=== PATIENT | female | born 1950 | race Caucasian/White ===

== ENCOUNTER 2020-09-03 09:54 | Outpatient (CLI) | payer MEDICARE, SELFPAY ==
--- NOTE | 2020-09-03 10:06 | CT_ITS ---
WS: [id number] LDCT LUNG CANCER SCREENING TECHNIQUE: Noncontrast CT of the chest with coronal and sagittal reformatted images. CLINICAL INFORMATION: NICOTINE DEPENDENCE, CIGARETTES COMPARISON: None. DLP: 56.56 mGy.cm DIvol: 1.[address] scans at [facility] use at least one of these dose optimization techniques: automat ed exposure control; mA and/or kV adjustment per patient size (includes targeted exams where dose is matched to clinical indication); or iterative reconstruction. FINDINGS: No suspicious pulmonary parenchymal normalities. Lungs are well aerated. Subsegmental atelectasis in the right middle lobe and both lower lobes. No me diastinal or hilar lymphadenopathy. Vascular calcification including coronary. Ectatic tortuous desce nding thoracic aorta measuring approximately 3.6 x 4.8 cm AP by transverse. THIS CAN BE FURTHER EVALU ATED WITH CTA. Prior vertebroplasty changes at L1. CT/CT lung screening [id number] IMPRESSION: LUNG-RADS: 2-Benign Appearance or Behavior FOLLOW UP: 12 Month: Continue annual screening with LDCT
== END 2020-09-03 09:55 | disposition home or self-care (01) ==
PROVIDERS: PCP Family Medicine; Visit Provider Family Medicine
DX: Z12.2 Encounter for screening for malignant neoplasm of respiratory organs (principal); F17.210 Nicotine dependence, cigarettes, uncomplicated; J98.11 Atelectasis
CPT/HCPCS: G0297

== ENCOUNTER 2020-10-04 13:39 | Outpatient (CLI) | payer MEDICARE, SELFPAY ==
--- NOTE | 2020-10-04 13:46 | MM_ITS ---
WS: [id number] Exam: [id number] Date/Time of Exam: 10/04/2020 1:51 PM Reason For Exam: SCREENING VIEWS: MLO and CC views both breasts. Comparison made with prior exam of 09/29/2016. Findings: There was no sign of mass, architectural distortion or suspicious calcification in either breast. Sc attered fibroglandular densities MM/[id number] Impression: BI-RADS: 2-Benign FOLLOW-UP: 1 Year Follow-up This mammogram was also analyzed by the Computer Aided Detection System R2 Imag e Mop Worker.
== END 2020-10-04 13:40 | disposition home or self-care (01) ==
LOC: RADSHAW 13:43
PROVIDERS: PCP Family Medicine; Visit Provider Family Medicine
DX: Z12.31 Encounter for screening mammogram for malignant neoplasm of breast (principal)
CPT/HCPCS: 77067

== ENCOUNTER 2021-01-03 10:32 | Inpatient (IN) | payer MEDICARE, SELFPAY ==
[2021-01-03] VITALS (11 sets, daily range): BP systolic 98–129; BP diastolic 63–86; PULSE 80–109; RESP 16–18; TEMP 36.6–36.7; O2SAT 93–100; BMI 25.1
--- NOTE | 2021-01-03 11:23 | XR_ITS ---
WS: [id number] Exam: XR chest 1V portable [id number] Date/Time of Exam: 01/03/2021 11:30 AM Reason For Exam: wheezing Comparison 09/04/2016. The lungs are hyperinflated and clear. Heart size is normal. The mediastinum and osseous thorax are i ntact. XR/XR chest 1V portable [id number] IMPRESSION: 1. No acute cardiopulmonary process noted.
--- NOTE | 2021-01-03 11:28 | ECG_ITS ---
[facility] Test Date: 2021-01-03 Pat Name: Eli Kimball Department: Room: Gender: Female Rn Observation: : 1950 Requested By: Ozzy Varela Order Number: [id number] Copeland MD: Theresa Dexter M.D. Measurements Intervals [place] Rate: 80 P: 74 MD: 176 QRS: 52 QRSD: 89 T: 69 QT: 362 QTc: 418 Interpretive Statements SINUS RHYTHM LOW QRS VOLTAGE IN EXTREMITY LEADS [QRS DEFLECTION < 0.5 mV IN LIMB LEADS] ST ELEVATION, CONSIDER INFERIOR INJURY Compared to ECG 04/01/2015 08:11:09 ST (T wave) deviation now present Myocardial infarct finding now present Sinus tachycardia no longer present Electronically Signed On 01-04-2021 7:21:46 CDT by Theresa Dexter M.D. [id number]
--- NOTE | 2021-01-03 11:33 | W.ED.GENADLT ---
HPI - General Adult General: Chief complaint: General Medical Stated complaint: DEHYDRATION Time Seen by Provider: 01/03/21 11:18 History of Present Illness: HPI narrative: The patient is a 70-year-old female who comes to the ER complaining of dehydration. She says she has been vomiting and having diarrhea for the past 4 days. She says it is liquidy. She says she went to her primary care doctor's office yesterday and had labs drawn which showed that she was dehydrated and they told her to come to the ER today. She is also requesting her urine be tested as her primary wanted it tested. She has chronic COPD and chronic kidney disease which she suffers from and says her shortness of breath is at her baseline normal. Onset (ago): day(s) (4) Associated symptoms: Reports nausea and vomiting; Deny chest pain, confusion, dyspnea, headache(s), rash or palpitations Review of Systems General: Reports: 10 or more systems reviewed and unremarkable except in HPI and below Const: Denies: fatigue Eyes: Denies: change in vision, blurry vision or eye redness ENMT: Denies: throat pain, swelling of lips/tongue, ear or mastoid pain or nasal congestion Card: Denies: chest pain, palpitations, irregular heart rhythm, edema, dyspnea on exertion or orthopnea Resp: Denies: dyspnea, productive cough or non-productive cough GI: Reports: nausea, vomiting and diarrhea; Denies: abdominal pain or GI cramping : Denies: flank pain, difficulty voiding, urinary frequency or urinary urgency Musc: Denies: neck pain, back pain, extremity pain, joint pain, joint redness, limited range of motion or muscle weakness Skin/Breast: Denies: rash, pruritus, erythema, skin pain or skin tenderness Neuro: Denies: headache(s), numbness in extremities, weakness in extremities, sensory changes, difficulty walking, dizziness, confusion or Slurred speech present Psych: Denies: anxiety or depression Endo: Denies: polyuria All/Imm: Denies: urticaria, throat swelling or tongue swelling Physical Exam Const: COMMON NORMALS: no acute distress, average body habitus, patient oriented x3, no limitations, healthy appearing, alert and well nourished GENERAL APPEARANCE: cooperative, comfortable, well kempt and well developed ORIENTATION/CONSCIOUSNESS: Yes awake, Yes oriented to person, Yes oriented to place and Yes oriented to time HENMT: COMMON NORMALS: normocephalic, external ears normal and Normal external nose present HEAD & SCALP: normal to inspection and normocephalic NOSE: Normal external nose present EXTERNAL EAR: Yes external ears normal MOUTH: Normal oral and palatal mucosa present THROAT: posterior oropharynx normal Eye: COMMON NORMALS: Equal, round and reactive pupils present and EOMs intact bilaterally GENERAL EYE: appearance normal, both eyes and all related structures PUPIL: Yes Equal, round and reactive pupils present Neck/C-Spine: COMMON NORMALS: full ROM, no lymphadenopathy, no meningeal signs and no JVD GENERAL: Yes normal visual inspection Lymph: LYMPHATIC: no lymphadenopathy noted Chest: COMMONS NORMALS: normal inspection of the chest and normal palpation of entire chest wall Resp: COMMON NORMALS: normal respiratory effort, No retractions, No use of accessory muscles, clear to auscultation bilaterally and percussion normal EFFORT & INSPECTION: Yes able to speak in complete sentences AUSCULTATION: clear to auscultation bilaterally PERCUSSION: percussion normal Cardio: COMMON NORMALS: no JVD, regular rhythm, S1 normal heart sound present, S2 normal heart sound present and Peripheral pulses 2+ throughout RATE: tachycardic RHYTHM: regular rhythm HEART SOUNDS: S1 normal heart sound present and S2 normal heart sound present PERIPHERAL PULSES: Peripheral pulses 2+ throughout GI: COMMON NORMALS: Normal to inspection, nondistended, normoactive bowel sounds present, Soft to palpation, non-tender and no masses INSPECTION: Yes normal to inspection PALPATION: Yes Soft to palpation : COMMON NORMALS: Yes no CVA tenderness BLADDER/KIDNEY EXAM: Yes no CVA tenderness Back/Pelvis: COMMON NORMALS: no CVA tenderness, thoracic and lumbar spine normal to inspection, no thoracic nor lumbar tenderness and thoraco-lumbar ROM normal Extremity: COMMON NORMALS: normal to inspection, full ROM, capillary refill normal, no joint enlargement and no pedal edema GENERAL: Yes normal exam except as noted Neuro: COMMON NORMALS: patient oriented x3, CN's II-XII intact bilaterally, moves all extremities, no focal motor deficits, no sensory deficits noted and gait normal SENSORIUM/ORIENTATION: Yes alert, Yes oriented to person, Yes oriented to place and Yes oriented to time MENINGEAL SIGNS: Yes no meningeal signs Psych: COMMON NORMALS: mental status grossly normal, Normal thought process present, cooperative, normal affect and speech normal APPEARANCE: Yes well kempt ATTITUDE: Yes calm SPEECH: Yes normal speech THOUGHT PROCESS: Normal thought process present Skin: COMMON NORMALS: no rashes or lesions noted GENERAL SKIN EXAM: no rashes or lesions noted Course Vital Signs: Vital signs: Vital Signs Temperature 98.0 F 01/03/21 20:00 Pulse Rate 94 01/03/21 20:00 Respiratory Rate 18 01/03/21 20:00 Blood Pressure 98/63 01/03/21 20:00 Pulse Oximetry 96 01/03/21 20:00 MDM - General Adult MDM Narrative: Medical decision making narrative: Patient came to the ER generally dehydrated from vomiting and diarrhea for 5 days. She was given IV fluids and noted to have hyperkalemia as well. She had some improvement but does have an acute kidney injury. Her most recent creatinine was over a year ago and was elevated but at a lower level. She likely has chronic kidney disease at baseline and has an acute kidney injury on top of it. She was given Kayexalate for her elevated potassium. Also noted to have a UTI and she was given ceftriaxone. Discussed with Dr. Zambrano who accepts for admission Lab Data: Labs: Lab Results 01/03/21 01/03/21 01/03/21 Range/Units 11:49 11:49 11:49 WBC 6.3 (4.0-10.0) 10^3/ uL RBC 3.56 L (4.1-5.3) 10^6/u L Hgb 8.3 L (11.5-15.3) g/dL Hct 28.4 L (37.0-47.0) % MCV 79.8 L (81-99) fL MCH 23.3 L (28.0-34.0) pg MCHC 29.2 L (30.0-36.0) g/dL RDW 21.0 H (12.1-15.1) % Plt Count 148 (130-400) 10^3/c mm MPV Not Reportable Neut % (Auto) 74.7 % Lymph % (Auto) 15.8 % [place] % (Auto) 5.3 % Eos % (Auto) 2.7 % Baso % (Auto) 1.3 % Neut # (Auto) 4.67 (1.8-7.7) 10^3/u L Lymph # (Auto) 1.0 (0.8-4.8) 10^3/u L [place] # (Auto) 0.3 (0.2-0.9) 10^3/u L Eos # (Auto) 0.2 (0.0-0.8) 10^3/u L Baso # (Auto) 0.1 (0.0-0.1) 10^3/u L Nucleated RBC % (a uto) 0 % Nucleated RBCs # 0.0 /100WBC Sodium 133 L (136-145) mmol/L Potassium 5.5 H (3.5-5.1) mmol/L Chloride 101 (98-107) mmol/L Carbon Dioxide 19 L (22-29) mmol/L Anion Gap 18.5 (5-19) BUN 74 H (8-23) mg/dL Creatinine 3.9 H (0.5-0.9) mg/dL GFR Calculation 11.4 L (90-130) mL/min Glucose 120 H (65-115) mg/dL Calculated Osmolal ity 299 H (285-295) mOsm/k g Lactate 1.3 (0.5-2.2) mmol/L Calcium 9.1 (8.5-10.5) mg/dL Total Bilirubin 0.2 (0.15-1.2) mg/dL AST 8 (0-32) U/L ALT < 5 (0-33) U/L Alkaline Phosphata se 104 (35-105) IU/L Troponin T Baselin e (0-10) ng/L Troponin T 120 Min [place] (0-10) ng/L Delta Troponin T (0-10) ABS# NT-Pro-B Natriuret Pep 241 H (0-125) pg/mL Total Protein 7.0 (6.6-8.7) g/dL Albumin 4.2 (3.5-5.2) g/dL Globulin 2.8 (1.3-4.6) g/dL Lipase 31 (13-60) U/L Urine Color (Yellow) Urine Appearance (CLEAR) Urine pH (5-7) Ur Specific Gravit y (1.005-1.030) Urine Protein (Negative) Urine Glucose (UA) (Normal) Urine Ketones (Negative) Urine Blood (Negative) Urine Nitrate (Negative) Urine Bilirubin (Negative) Urine Urobilinogen (Negative) mg/dL Ur Leukocyte Vania ase (Negative) Urine RBC (0-2) /hpf Urine WBC (0-5) /hpf Ur Squamous Epith Cells (0-5) /hpf Amorphous Sediment Urine Bacteria (NONE) /hpf 01/03/21 01/03/21 01/03/21 Range/Units 11:50 13:21 14:05 WBC (4.0-10.0) 10^3/ uL RBC (4.1-5.3) 10^6/u L Hgb (11.5-15.3) g/dL Hct (37.0-47.0) % MCV (81-99) fL MCH (28.0-34.0) pg MCHC (30.0-36.0) g/dL RDW (12.1-15.1) % Plt Count (130-400) 10^3/c mm MPV Neut % (Auto) % Lymph % (Auto) % [place] % (Auto) % Eos % (Auto) % Baso % (Auto) % Neut # (Auto) (1.8-7.7) 10^3/u L Lymph # (Auto) (0.8-4.8) 10^3/u L [place] # (Auto) (0.2-0.9) 10^3/u L Eos # (Auto) (0.0-0.8) 10^3/u L Baso # (Auto) (0.0-0.1) 10^3/u L Nucleated RBC % (a uto) % Nucleated RBCs # /100WBC Sodium (136-145) mmol/L Potassium (3.5-5.1) mmol/L Chloride (98-107) mmol/L Carbon Dioxide (22-29) mmol/L Anion Gap (5-19) BUN (8-23) mg/dL Creatinine (0.5-0.9) mg/dL GFR Calculation (90-130) mL/min Glucose (65-115) mg/dL Calculated Osmolal ity (285-295) mOsm/k g Lactate (0.5-2.2) mmol/L Calcium (8.5-10.5) mg/dL Total Bilirubin (0.15-1.2) mg/dL AST (0-32) U/L ALT (0-33) U/L Alkaline Phosphata se (35-105) IU/L Troponin T Baselin e 24 H (0-10) ng/L Troponin T 120 Min [place] 20.24 H (0-10) ng/L Delta Troponin T -3.76 L (0-10) ABS# NT-Pro-B Natriuret Pep (0-125) pg/mL Total Protein (6.6-8.7) g/dL Albumin (3.5-5.2) g/dL Globulin (1.3-4.6) g/dL Lipase (13-60) U/L Urine Color Yellow (Yellow) Urine Appearance Cloudy (CLEAR) Urine pH 5 (5-7) Ur Specific Gravit y 1.015 (1.005-1.030) Urine Protein Neg (Negative) Urine Glucose (UA) Norm (Normal) Urine Ketones Negative (Negative) Urine Blood 2+ H (Negative) Urine Nitrate Negative (Negative) Urine Bilirubin Neg (Negative) Urine Urobilinogen Norm (Negative) mg/dL Ur Leukocyte Vania ase Trace H (Negative) Urine RBC 5-10 H (0-2) /hpf Urine WBC 25-40 H (0-5) /hpf Ur Squamous Epith Cells 0-4 H (0-5) /hpf Amorphous Sediment Not Reportable Urine Bacteria 2+ H (NONE) /hpf Discharge Plan Discharge Patient Disposition: Admitted As Inpatient Admit Provider: Oscar Zambrano Clinical Impression: Acute gastroenteritis, Severe dehydration, Acute kidney injury superimposed on chronic kidney disease, Hyperkalemia, UTI (urinary tract infection) Condition: Stable Coding Level of Care Code 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
[2021-01-03 11:59] LABS: Basophils # 0.1 10^3/uL (0.0-0.1); Basophils % 1.3 %; Eosinophils # 0.2 10^3/uL (0.0-0.8); Eosinophils % 2.7 %; Hematocrit 28.4 % (37.0-47.0); Hemoglobin 8.3 g/dL (11.5-15.3); Lymphocytes % 15.8 %; Mean Corpuscular HGB Conc 29.2 g/dL (30.0-36.0); Mean Corpuscular Hemoglobin 23.3 pg (28.0-34.0); Mean Corpuscular Volume 79.8 fL (81-99); Monocytes # 0.3 10^3/uL (0.2-0.9); Monocytes % 5.3 %; Neutrophils # 4.67 10^3/uL (1.8-7.7); Neutrophils % 74.7 %; Nucleated Red Blood Cells % 0 %; Platelet Count 148 10^3/cmm (130-400); Red Blood Count 3.56 10^6/uL (4.1-5.3); White Blood Count 6.3 10^3/uL (4.0-10.0)
[2021-01-03] MEDS: sodium chloride 0.9% 1,000 ML 999 ML IV (12:10)
[2021-01-03] MEDS: ondansetron 2 mg/ML SDV 2 mL 4 MG IVP (12:11)
[2021-01-03 12:16] LABS: Lactate (Lactic Acid level) 1.3 mmol/L (0.5-2.2)
[2021-01-03 12:23] LABS: Alanine Aminotransferase < 5 U/L (0-33); Albumin Level 4.2 g/dL (3.5-5.2); Alkaline Phosphatase 104 IU/L (35-105); Anion Gap 18.5 (5-19); Aspartate Amino Transferase 8 U/L (0-32); Blood Urea Nitrogen 74 mg/dL (8-23); Calcium 9.1 mg/dL (8.5-10.5); Carbon Dioxide 19 mmol/L (22-29); Chloride 101 mmol/L (98-107); Globulin 2.8 g/dL (1.3-4.6); Glomerular Filtration Rate 11.4 mL/min (90-130); Glucose 120 mg/dL (65-115); Lipase 31 U/L (13-60); NT Pro B Type Natriuretic Pept 241 pg/mL (0-125); Osmolality Calculated 299 mOsm/kg (285-295); Potassium 5.5 mmol/L (3.5-5.1); Sodium 133 mmol/L (136-145); Total Bilirubin 0.2 mg/dL (0.15-1.2)
[2021-01-03 13:08] LABS: Slide Review Slide Review Perform
--- NOTE | 2021-01-03 13:35 | PC.NURSE ---
pt suffers from chronic back pain and did not request any interventions other than position changes to relieve pain
--- NOTE | 2021-01-03 13:36 | ECG_ITS ---
[facility] Test Date: 2021-01-03 Pat Name: Eli Kimball Department: Room: Gender: Female Communications Technologist: : 1950 Requested By: Ozzy Varela Order Number: [id number] Copeland MD: Theresa Dexter M.D. Measurements Intervals [place] Rate: 89 P: 64 CA: 196 QRS: 51 QRSD: 79 T: 66 QT: 340 QTc: 415 Interpretive Statements SINUS RHYTHM LOW QRS VOLTAGE [QRS DEFLECTION < 0.5/1.0 mV IN LIMB/CHEST LEADS] MARKED ST ELEVATION, CONSIDER INFERIOR INJURY Compared to ECG 01/03/2021 12:15:13 No significant changes Electronically Signed On 01-04-2021 7:19:03 CDT by Theresa Dexter M.D. [id number]
[2021-01-03 13:56] LABS: Troponin(5th) Baseline 24 ng/L (0-10)
[2021-01-03 13:57] LABS: Add Urine Microscopic? YES; Bilirubin Urine Neg (Negative); Blood Urine 2+ (Negative); Glucose Urine UA Norm (Normal); Ketones Urine Negative (Negative); Leukocyte Esterase Urine Trace (Negative); Nitrate Urine Negative (Negative); Protein Urine Neg (Negative); Specific Gravity, Urine 1.015 (1.005-1.030); Urine Appearance Cloudy (CLEAR); Urine Color Yellow (Yellow); Urobilinogen Urine Norm (Negative); pH Urine 5 (5-7)
[2021-01-03 14:10] LABS: Add Urine Culture? Yes; Bacteria Urine 2+ /hpf; Squamous Epithelial Cell Urine 0-4 /hpf (0-5); WBC Urine 25-40 /hpf (0-5)
[2021-01-03 14:28] LABS: Troponin 5 2HR 20.24 ng/L (0-10)
[2021-01-03 14:29] LABS: Troponin 5 2HR Delta -3.76 ABS# (0-10)
[2021-01-03] MEDS: cefTRIAXone 1,000 MG in sodium chloride 0.9% (plus) 50 ML 100 MG IV (14:59)
[2021-01-03] MEDS: sodium polystyrene sulfonate 15 gm/60 mL Btl PO (15:00)
--- NOTE | 2021-01-03 15:36 | ECG_ITS ---
[facility] ED Test Date: 2021-01-03 Pat Name: Eli Kimball Department: Room: 253 Gender: Female Chemical Supervisor: : 1950 Requested By: Ozzy Varela Order Number: [id number] Dinorah MD: Theresa Dexter M.D. Measurements Intervals [place] Rate: 84 P: 71 UT: 199 QRS: 53 QRSD: 78 T: 68 QT: 350 QTc: 414 Interpretive Statements SINUS RHYTHM LOW QRS VOLTAGE [QRS DEFLECTION < 0.5/1.0 mV IN LIMB/CHEST LEADS] MARKED ST ELEVATION, CONSIDER INFERIOR INJURY [MARKED ST ELEVATION W/O NORMALLY INFLECTED T WAVE IN II/aVF] Compared to ECG 01/03/2021 14:13:34 No significant changes Electronically Signed On 01-04-2021 7:41:36 CDT by Theresa Dexter M.D. [id number]
--- NOTE | 2021-01-03 16:19 | P.HP_ITS ---
Providers/Chief Complaint Admitting Physician: Oscar Zambrano MD Primary Care Provider: Bhupinder Logan MD Chief Complaint: DEHYDRATION History of Present Illness Eli Kimball is a 70 year old female with past medical history of hypertension, CKD, COPD, chronic smoker, not on home oxygen, GERD , came in with chief complaint of nausea vomiting and diarrhea started about 5 to 6 days back, she is complaining of watery stool, has not noticed any blood, denies any sick contact, recent antibiotic use, any abnormal food, deny fever, cough, chest pain shortness of breath, urinary complaint. Upon arrival in the ER she was worked up for above-mentioned, complaint. CBC : WBC : 3.3, h/h : 8.3, 28.4 , BMP: Serum sodium: 133, serum potassium: 5.5 , BUN : 74, SCR : 3.9 , troponin: Unremarkable, proBNP: 241, Urinalysis: Trace leukocyte Esterase, urine WBC: 25-40 , Imaging study: X-ray chest: No acute cardiopulmonary process noted. EKG: SINUS RHYTHM, LOW QRS VOLTAGE. ECA Medications : Ceftriaxone 1 g IV one-time dose, Kayexalate: 15 gm po once, she was started on IV hydration. Review of Systems Const: Denies: fever(s), chills, body aches or diaphoresis Card: Reports: swelling of feet/ankles and dyspnea on exertion; Denies: palpitations, edema, orthopnea or leg pain with exertion Resp: Denies: dyspnea, productive cough, wheezing or pain on inspiration Musc: Denies: back pain, extremity pain or extremity swelling Neuro: Denies: headache(s), difficulty walking or confusion Medications/Allergies Home Medications Medication Instructions Recorded Confirmed Last Taken Type albuterol sulfate [Ventolin HFA] 1 - 2 inh INHALATION Q4H PRN 01/03/21 01/03/21 Unknown History clopidogrel 75 mg PO DAILY@1800 01/03/21 01/03/21 01/02/21 History desvenlafaxine succinate 50 mg PO DAILY@1800 01/03/21 01/03/21 01/02/21 History gabapentin 600 mg PO TID 01/03/21 01/03/21 01/03/21 History hydrochlorothiazide 25 mg PO DAILY@1800 01/03/21 01/03/21 01/02/21 History irbesartan 300 mg PO DAILY@1800 01/03/21 01/03/21 01/02/21 History omeprazole 20 mg PO DAILY@1800 01/03/21 01/03/21 01/02/21 History ondansetron 4 mg PO TID PRN 01/03/21 01/03/21 Unknown History potassium chloride 20 meq PO DAILY@1800 01/03/21 01/03/21 01/02/21 History prazosin 1 mg PO BEDTIME@1800 01/03/21 01/03/21 01/02/21 History rosuvastatin 20 mg PO DAILY@1800 01/03/21 01/03/21 01/02/21 History suvorexant [Belsomra] 10 mg PO DAILY@1800 01/03/21 01/03/21 01/02/21 History Allergies Allergy/AdvReac Type Severity Reaction Status Date / Time No Known Allergies Allergy Verified 01/03/21 10:50 Vitals/I&O/Wt Last Vital Signs Temp 98.1 F 01/03/21 10:51 Pulse 93 01/03/21 15:44 Resp 18 01/03/21 15:44 BP 117/82 01/03/21 15:44 Pulse Ox 100 01/03/21 15:44 01/03/21 01/03/21 01/03/21 06:59 14:59 22:59 Intake Total 1050 / 1050 Balance 1050 / 1050 Weight last 48 hrs Weight 68.492 kg Physical Exam Const: COMMON NORMALS: patient oriented x3 HENMT: COMMON NORMALS: normocephalic and atraumatic HEAD & SCALP: normocephalic and atraumatic Chest: CHEST: Yes Symmetrical chest wall rise Resp: COMMON NORMALS: clear to auscultation bilaterally EFFORT & INSPECTION: Yes symmetric chest movement AUSCULTATION: clear to auscultation bilaterally Cardio: COMMON NORMALS: regular rate, regular rhythm, S1 normal heart sound present, S2 normal heart sound present, No gallops present (Cardio), No murmurs present (Cardio), No rub (Cardio) and Peripheral pulses 2+ throughout RATE: regular rate RHYTHM: regular rhythm HEART SOUNDS: S1 normal heart sound present and S2 normal heart sound present PERIPHERAL PULSES: Peripheral pulses 2+ throughout GI: COMMON NORMALS: Normal to inspection, nondistended, normoactive bowel sounds present RECTAL EXAM: deferred OTHER: Mild epigastric tenderness present, no guarding no rigidity no rebound tenderness Extremity: COMMON NORMALS: no clubbing, cyanosis or edema and no pedal edema Neuro: COMMON NORMALS: patient oriented x3 Data : 01/04/21 04:55 01/04/21 04:55 A&P Assessment and plan (1) Acute gastroenteritis: Continue IV hydration,Zofran, encourage p.o. intake. Status: Acute (2) Severe dehydration: Plan is 1 Status: Acute (3) Acute kidney injury superimposed on chronic kidney disease: ALIYAH on worsening CKD stage III likely prerenal secondary to severe dehydration Random urine sodium Random urine creatinine Random urine protein Renal ultrasound IV hydration with normal saline at 75 cc an hour. Monitor BMP Avoid nephrotoxic's Renal consult Status: Acute (4) Hyperkalemia: Admission serum potassium is 5.5. No marked EKG Changes Has received Kayexalate in the ER. Monitor BMP Status: Acute (5) Microcytic anemia: Anemia panel. Monitor CBC Status: Acute (6) UTI (urinary tract infection): Ceftriaxone 1 gm every 24 hours daily. Status: Acute Attestations Medical Necessity Statement*: Patient needs to be in hospital for management of acute gastroenteritis, UTI , severe dehydration. Anticipated length of stay greater than 2 midnights. Coding Level of Care Code Acute Director Of Student Services for [facility] Fwd Exam Detailed Diagnoses Acute gastroenteritis K52.9 Severe dehydration E86.0 Acute kidney injury superimposed on chronic kidney disease N17.9; N18.9 Hyperkalemia E87.5 Microcytic anemia D50.9 UTI (urinary tract infection) N39.0
[2021-01-03] MEDS: famotidine 20 mg/2 mL INJ IVP (17:52)
[2021-01-03] MEDS: clopidogrel 75 mg Tablet PO (17:52)
[2021-01-03] MEDS: sodium chloride 0.9% 1,000 ML 75 ML IV (17:52)
[2021-01-03] MEDS: atorvastatin 40 mg Tablet 80 MG PO (17:53)
[2021-01-03] MEDS: desvenlafaxine 50 mg Tablet PO (17:54)
[2021-01-03 18:47] LABS: Troponin 5 6HR 19.05 ng/L (0-10)
[2021-01-03 18:50] LABS: Troponin 5 6HR Delta -4.95 ng/L (0-12)
--- NOTE | 2021-01-03 19:36 | ECG_ITS ---
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 Measurements Intervals [place] Rate: 89 P: 69 ND: 184 QRS: 7 QRSD: 93 T: 54 QT: 363 QTc: 443 Interpretive Statements SINUS RHYTHM LOW QRS VOLTAGE IN EXTREMITY LEADS [QRS DEFLECTION < 0.5 mV IN LIMB LEADS] Compared to ECG 01/03/2021 16:04:36 ST (T wave) deviation no longer present Myocardial infarct finding no longer present Electronically Signed On 01-13-2021 12:30:10 CDT by Theresa Dexter M.D. [id number]
[2021-01-03] MEDS: acetaminophen 325 mg Tablet 650 MG PO (20:11)
[2021-01-03] MEDS: gabapentin 300 mg Capsule 600 MG PO (20:11)
[2021-01-03] MEDS: zolpidem 5 mg Tablet PO (21:12)
[2021-01-04] VITALS (19 sets, daily range): BP systolic 97–144; BP diastolic 62–85; PULSE 57–91; RESP 16–20; TEMP 36.3–37.1; O2SAT 92–97
[2021-01-04 00:03] LABS: Urine Creatinine 53 mg/dL (28-217); Urine Protein Random 21 mg/dL; Urine Random Sodium 90 mmol/L
[2021-01-04 05:18] LABS: Basophils # 0.1 10^3/uL (0.0-0.1); Eosinophils # 0.2 10^3/uL (0.0-0.8); Eosinophils % 4.5 %; Hematocrit 23.6 % (37.0-47.0); Lymphocytes # 1.5 10^3/uL (0.8-4.8); Lymphocytes % 28.7 %; Mean Corpuscular HGB Conc 29.7 g/dL (30.0-36.0); Mean Corpuscular Hemoglobin 23.4 pg (28.0-34.0); Mean Corpuscular Volume 78.9 fL (81-99); Mean Platelet Volume 12.3 fL (7.4-10.4); Monocytes # 0.4 10^3/uL (0.2-0.9); Monocytes % 7.2 %; Neutrophils # 3.01 10^3/uL (1.8-7.7); Neutrophils % 58.4 %; Nucleated Red Blood Cells % 0 %; Platelet Count 138 10^3/cmm (130-400); Red Blood Count 2.99 10^6/uL (4.1-5.3); Red Cell Distribution Width 20.9 % (12.1-15.1); White Blood Count 5.2 10^3/uL (4.0-10.0)
[2021-01-04] MEDS: heparin 5,000 unit/mL INJ 1 mL 5000 UNIT SUBCUT (05:37)
[2021-01-04 05:43] LABS: Ferritin 19 ng/mL (15-150); Iron 22 ug/dL (37-145); Percent Saturation 8.5 % (20-50); Total Iron Binding Capacity 258 mcg/dl; Transferrin 235 mg/dL (200-360); Unsaturated Iron Binding 236 ug/dL (112-347)
[2021-01-04 05:45] LABS: Anion Gap 15.4 (5-19); Blood Urea Nitrogen 65 mg/dL (8-23); Calcium 8.4 mg/dL (8.5-10.5); Carbon Dioxide 20 mmol/L (22-29); Chloride 106 mmol/L (98-107); Glucose 88 mg/dL (65-115); Osmolality Calculated 302 mOsm/kg (285-295); Potassium 4.4 mmol/L (3.5-5.1); Sodium 137 mmol/L (136-145)
[2021-01-04] MEDS: sodium chloride 0.9% 1,000 ML 75 ML IV (05:45)
[2021-01-04 05:55] LABS: Vitamin B12 661 pg/mL (232-1245)
[2021-01-04 05:58] LABS: Folate Level 6.1 ng/mL (4.8-37.3)
[2021-01-04] MEDS: pantoprazole DR 40 mg Tablet PO (08:56)
[2021-01-04] MEDS: gabapentin 300 mg Capsule 600 MG PO ×3 (08:56→20:48)
[2021-01-04] MEDS: oxyCODONE-APAP 5-325 mg Tablet PO ×2 (09:20→14:51)
[2021-01-04] MEDS: iron sucrose 200 MG in sodium chloride 0.9% (100 ml) 100 ML 220 MG IV (09:20)
[2021-01-04] MEDS: ondansetron 2 mg/ML SDV 2 mL 4 MG IVP (13:34)
[2021-01-04 14:20] LABS: Basophils % 0.8 %; Eosinophils # 0.2 10^3/uL (0.0-0.8); Eosinophils % 3.7 %; Hematocrit 22.8 % (37.0-47.0); Hemoglobin 6.8 g/dL (11.5-15.3); Lymphocytes % 19.5 %; Mean Corpuscular HGB Conc 29.8 g/dL (30.0-36.0); Mean Corpuscular Hemoglobin 23.7 pg (28.0-34.0); Mean Corpuscular Volume 79.4 fL (81-99); Mean Platelet Volume 11.5 fL (7.4-10.4); Monocytes # 0.3 10^3/uL (0.2-0.9); Monocytes % 5.5 %; Neutrophils # 3.61 10^3/uL (1.8-7.7); Neutrophils % 70.3 %; Nucleated Red Blood Cells % 0 %; Platelet Count 131 10^3/cmm (130-400); Red Blood Count 2.87 10^6/uL (4.1-5.3); Red Cell Distribution Width 20.8 % (12.1-15.1); White Blood Count 5.1 10^3/uL (4.0-10.0)
[2021-01-04 14:38] LABS: Anion Gap 13.5 (5-19); Blood Urea Nitrogen 52 mg/dL (8-23); Carbon Dioxide 20 mmol/L (22-29); Chloride 106 mmol/L (98-107); Glucose 113 mg/dL (65-115); Osmolality Calculated 295 mOsm/kg (285-295); Potassium 4.5 mmol/L (3.5-5.1); Sodium 135 mmol/L (136-145)
[2021-01-04 15:03] LABS: Slide Review Slide Review Perform
--- NOTE | 2021-01-04 15:14 | PM.PN ---
Subjective Subjective: Interval history: Patient had one episode of vomiting this morning.Serum creatinine and BUN is improving. Hemoglobin has dropped today, repeat CBC done in the afternoon, has shown hemoglobin of 6.8, patient currently denies any dark stool, bright red blood per rectum, current plan is to transfuse 1 unit. Vitals/I&O/Wt Last Vital Signs Temp 97.6 F 01/04/21 11:51 Pulse 57 L 01/04/21 11:51 Resp 16 01/04/21 14:51 BP 110/63 01/04/21 11:51 Pulse Ox 97 01/04/21 11:51 01/04/21 01/04/21 01/04/21 06:59 14:59 22:59 Intake Total 1240 / 2690 1070 / 1070 Output Total 400 / 400 300 / 300 Balance 840 / 2290 770 / 770 Weight last 48 hrs Weight 68.492 kg Physical Exam Const: COMMON NORMALS: patient oriented x3 HENMT: COMMON NORMALS: normocephalic and atraumatic HEAD & SCALP: normocephalic and atraumatic Chest: CHEST: Yes Symmetrical chest wall rise Resp: COMMON NORMALS: clear to auscultation bilaterally EFFORT & INSPECTION: Yes symmetric chest movement AUSCULTATION: clear to auscultation bilaterally Cardio: COMMON NORMALS: regular rate, regular rhythm, S1 normal heart sound present, S2 normal heart sound present, No gallops present (Cardio), No murmurs present (Cardio), No rub (Cardio) and Peripheral pulses 2+ throughout RATE: regular rate RHYTHM: regular rhythm HEART SOUNDS: S1 normal heart sound present and S2 normal heart sound present PERIPHERAL PULSES: Peripheral pulses 2+ throughout GI: COMMON NORMALS: Normal to inspection, nondistended, normoactive bowel sounds present and Soft to palpation PALPATION: Yes Soft to palpation RECTAL EXAM: deferred Extremity: COMMON NORMALS: no clubbing, cyanosis or edema and no pedal edema Neuro: COMMON NORMALS: patient oriented x3 Data : 01/04/21 14:10 01/04/21 14:10 Micro: Microbiology 01/03/21 13:21 Urine Culture - Preliminary Urine,Clean Catch Gram Negative Rods A&P Assessment and plan (1) Acute gastroenteritis: Continue IV hydration,Zofran, encourage p.o. intake. Status: Acute (2) Severe dehydration: Plan is 1 Status: Acute (3) Acute kidney injury superimposed on chronic kidney disease: ALIYAH on worsening CKD stage III likely prerenal secondary to severe dehydration Random urine sodium Random urine creatinine Random urine protein Renal ultrasound IV hydration with normal saline at 75 cc an hour. Monitor BMP Avoid nephrotoxic's Renal consult Status: Acute (4) Hyperkalemia: Admission serum potassium is 5.5. No marked EKG Changes Has received Kayexalate in the ER. Monitor BMP Status: Acute (5) Microcytic anemia: Anemia panel. Is consistent with iron deficiency anemia. Started on IV Venofer Hemoglobin has dropped today, repeat CBC done in the afternoon, has shown hemoglobin of 6.8, patient currently denies any dark stool, bright red blood per rectum, hematuria, current plan is to transfuse 1 unit. FOBT Possible EGD Monitor CBC Status: Acute (6) Anginal equivalent: Patient is complaining of chest tightness, as well as worsening shortness of breath with exertion, going on for some time. Troponin: On admission has been without any significant delta. EKG: Initial EKG on admission was suggestive ST (T wave) deviation. Most recent EKG has shown resolution of ST-T wave deviation. We will start patient on IMDUR 30 MG PO Daily 2 D echo: Possible stress test Status: Acute (7) UTI (urinary tract infection): Ceftriaxone 1 gm every 24 hours daily. Status: Acute Attestations Medical Necessity Statement*: Patient needs to be in hospital for management of above defined problemS Coding Level of Care Code Acute [place] [facility] for [facility] Fwd Diagnoses Acute gastroenteritis K52.9 Severe dehydration E86.0 Acute kidney injury superimposed on chronic kidney disease N17.9; N18.9 Hyperkalemia E87.5 Microcytic anemia D50.9 Anginal equivalent I20.8 UTI (urinary tract infection) N39.0
[2021-01-04] MEDS: cefTRIAXone 1,000 MG in sodium chloride 0.9% (plus) 50 ML 100 MG IV (15:16)
[2021-01-04] MEDS: acetylcysteine 200 mg/mL SDV 4 mL 100 MG INHALATION (15:40)
[2021-01-04] MEDS: ipratropium-albuterol 3 mL Neb INHALATION (15:40)
--- NOTE | 2021-01-04 16:18 | US_ITS ---
WS: [id number] RENAL ULTRASOUND HISTORY: ALIYAH ON CKD COMPARISON: None available. TECHNIQUE: 2-D and color Doppler imaging of the kidney submitted. Right kidney: 9.0 cm x 3.9 cm x 5.6 cm. Marked increased echogenicity and poor cortical medullary differentiation. There are small cortical c ysts scattered throughout the kidney. Largest cysts measure approximately 1.7 cm. No hydronephrosis o r solid mass. Left kidney: 9.9 cm x 4.0 cm x 4.0 cm. Mild atrophy with increased echogenicity. No significant cortical thinning. Acquired cortical cyst in the inferior pole measures 1.3 cm at its maximum. Aorta: Mild atherosclerosis. Urinary Bladder: Normal distention. US/US renal BI* [id number] IMPRESSION: 1. Bilateral renal atrophy with moderate to severe chronic medical renal disea se, greatest on the RIGHT. 2. Bilateral acquired small renal cyst.
--- NOTE | 2021-01-04 18:07 | USCV_ITS ---
Eli Kimball Age: 70 Gender: F : 1950 Exam Date: 01/04/2021 06:14 Ordering Phys: Oscar Zambrano MD Technologist: Prema Sanchez Exam Location: [facility] [place] [facility] [place] Indication: SOB, CP BP: 106 / 75 HR: 78 Rhythm: Sinus Technical Quality: Adequate MEASUREMENTS (Male / Female) Normal Values 2D ECHO LV Diastolic Diameter PLAX 3.6 cm 4.2 - 5.9 / 3.9 - 5.3 cm LV Systolic Diameter PLAX 2.7 cm IVS Diastolic Thickness 1.1 cm 0.6 - 1.0 / 0.6 - 0.9 cm IVS Systolic Thickness 1.8 cm LVPW Diastolic Thickness 1.3 cm 0.6 - 1.0 / 0.6 - 0.9 cm LVPW Systolic Thickness 1.4 cm LVOT Diameter 2.0 cm LV Ejection Fraction 2D Teich 49.5 % LV Ejection Fraction MOD 2C 65.2 % LV Ejection Fraction 2C AL 63.6 % LA Diameter 2.6 cm LA Width 3.4 cm LA Height 3.8 cm RA Width 3.0 cm RA Height 3.9 cm Aorta at Sinotubular Diameter 2.6 cm M-MODE LV Diastolic Diameter MM 4.6 cm 4.2 - 5.9 / 3.9 - 5.3 cm LV Systolic Diameter MM 3.2 cm LV Ejection Fraction MM Teich 59.0 % IVS Diastolic Thickness MM 1.4 cm 0.6 - 1.0 / 0.6 - 0.9 cm IVS Systolic Thickness MM 1.7 cm LVPW Diastolic Thickness MM 1.2 cm 0.6 - 1.0 / 0.6 - 0.9 cm LVPW Systolic Thickness MM 1.9 cm Aortic Annulus Diameter 2.8 cm LA Ao Ratio MM 0.8 MV E Point Septal Separation 0.5 cm DOPPLER AV Peak Velocity 142.0 cm/s LVOT Peak Velocity 117.0 cm/s AV Area Cont Eq vti 2.7 cm squared AV Area Cont Eq pk 2.7 cm squared MV Area PHT 3.7 cm squared Mitral E to A Ratio 0.8 MV E' Velocity 44.0 cm/s Mitral E to MV E' Ratio 6.3 Mitral E to LV E' Lateral Ratio 5.6 Mitral E to LV E' Septal Ratio 7.2 TR Peak Velocity 464.3 cm/s TR Peak Gradient 86.2 mmHg TV Peak E Velocity 63.0 cm/s Right Atrial Pressure 3.0 mmHg Pulmonary Artery Systolic Pressu 89.2 mmHg PV Peak Velocity 95.0 cm/s RV Acceleration Time 0.1 s RV Ejection Time 0.3 s RV AcT/ET 0.3 FINDINGS Left Ventricle Normal left ventricular cavity size. Normal left ventricular systolic function. Left ventricular ejection fraction is estimated at 60 %. Grade I/IV diastolic dysfunction (abnormal relaxation filling pattern), normal to mildly elevated filling pressures. Right Ventricle The right ventricle is normal in size and function. RVSP could not be calculated due to incomplete tricuspid regurgitation velocity profile. Right Atrium The right atrium is normal in size. Left Atrium The left atrium is normal in size. Mitral Valve Severely thickened mitral valve. Moderate mitral annular calcification. No mitral valve stenosis. No mitral valve regurgitation. Aortic Valve Moderate aortic valve calcification. No aortic valve stenosis. No aortic valve regurgitation. Tricuspid Valve Structurally normal tricuspid valve without significant stenosis or regurgitation. Pulmonary artery systolic pressure is normal. Pulmonic Valve Structurally normal pulmonic valve without significant stenosis. There is no pulmonic regurgitation. Pericardium Normal pericardium without effusion. Aorta Normal ascending aorta dimension. CONCLUSIONS 1-Normal left ventricular cavity size. Normal left ventricular systolic function. Left ventricular ejection fraction is estimated at 60 %. Grade I/IV diastolic dysfunction (abnormal relaxation filling pattern), normal to mildly elevated filling pressures. 2-Severely thickened mitral valve. Moderate mitral annular calcification. No mitral valve stenosis. No mitral valve regurgitation. 3-Moderate aortic valve calcification. No aortic valve stenosis. No aortic valve regurgitation. 4-There is no pericardial effusion. 5-The right ventricle is normal in size and function. RVSP could not be calculated due to incomplete tricuspid regurgitation velocity profile. 6-Right atrial pressure is around 5 mm of mercury. 7-No significant change since the prior echocardiogram study of 12/21/2014. Jaclyn Capellan MD (Electronically Signed) Final Date: 05 Jan 2021 23:06 S
[2021-01-04] MEDS: guaiFENesin 600 mg Tablet 1200 MG PO (18:15)
[2021-01-04] MEDS: atorvastatin 40 mg Tablet 80 MG PO (18:16)
[2021-01-04] MEDS: desvenlafaxine 50 mg Tablet PO (18:16)
[2021-01-04] MEDS: sodium chloride 0.9% 1,000 ML 50 ML IV (18:37)
[2021-01-04] MEDS: zolpidem 5 mg Tablet PO (20:53)
[2021-01-05] VITALS (17 sets, daily range): BP systolic 115–137; BP diastolic 70–90; PULSE 78–101; RESP 16–18; TEMP 36.4–37; O2SAT 92–95
[2021-01-05] MEDS: ondansetron 2 mg/ML SDV 2 mL 4 MG IVP ×2 (00:30→15:59)
[2021-01-05] MEDS: sodium chloride 0.9% (100 ml) 100 ML (01:24)
[2021-01-05] MEDS: oxyCODONE-APAP 5-325 mg Tablet PO ×2 (03:30→14:11)
[2021-01-05 06:24] LABS: Basophils # 0.1 10^3/uL (0.0-0.1); Basophils % 0.9 %; Eosinophils # 0.2 10^3/uL (0.0-0.8); Eosinophils % 3.6 %; Hemoglobin 8.3 g/dL (11.5-15.3); Lymphocytes # 1.2 10^3/uL (0.8-4.8); Lymphocytes % 21.5 %; Mean Corpuscular HGB Conc 29.6 g/dL (30.0-36.0); Mean Corpuscular Hemoglobin 24.4 pg (28.0-34.0); Mean Corpuscular Volume 82.4 fL (81-99); Mean Platelet Volume 12.5 fL (7.4-10.4); Monocytes # 0.4 10^3/uL (0.2-0.9); Monocytes % 6.4 %; Neutrophils # 3.79 10^3/uL (1.8-7.7); Neutrophils % 67.2 %; Nucleated Red Blood Cells % 0 %; Platelet Count 126 10^3/cmm (130-400); White Blood Count 5.6 10^3/uL (4.0-10.0)
[2021-01-05 07:12] LABS: Anion Gap 13.6 (5-19); Blood Urea Nitrogen 48 mg/dL (8-23); Calcium 8.2 mg/dL (8.5-10.5); Carbon Dioxide 23 mmol/L (22-29); Chloride 107 mmol/L (98-107); Glucose 102 mg/dL (65-115); Osmolality Calculated 301 mOsm/kg (285-295); Potassium 4.6 mmol/L (3.5-5.1); Sodium 139 mmol/L (136-145)
[2021-01-05] MEDS: gabapentin 300 mg Capsule 600 MG PO ×3 (08:34→20:02)
[2021-01-05] MEDS: guaiFENesin 600 mg Tablet 1200 MG PO ×2 (08:34→17:31)
[2021-01-05] MEDS: pantoprazole DR 40 mg Tablet PO (08:34)
[2021-01-05] MEDS: ipratropium-albuterol 3 mL Neb INHALATION ×3 (09:17→21:00)
[2021-01-05] MEDS: iron sucrose 200 MG in sodium chloride 0.9% (100 ml) 100 ML 220 MG IV (10:17)
--- NOTE | 2021-01-05 12:45 | PM.PN ---
Subjective Subjective: Interval history: Patient was seen and examined this morning, she was complaining of lower back pain. Her other vitals and labs have been reviewed. Vitals/I&O/Wt Last Vital Signs Temp 97.9 F 01/05/21 08:00 Pulse 82 01/05/21 09:23 Resp 18 01/05/21 09:15 BP 122/74 01/05/21 08:00 Pulse Ox 93 01/05/21 09:15 01/04/21 01/05/21 01/05/21 22:59 06:59 14:59 Intake Total 1405 / 2475 450 / 2925 230 / 230 Output Total 0 / 300 0 / 300 250 / 250 Balance 1405 / 2175 450 / 2625 -20 / -20 Physical Exam Const: COMMON NORMALS: patient oriented x3 HENMT: COMMON NORMALS: normocephalic and atraumatic HEAD & SCALP: normocephalic and atraumatic Chest: CHEST: Yes Symmetrical chest wall rise Resp: COMMON NORMALS: clear to auscultation bilaterally EFFORT & INSPECTION: Yes symmetric chest movement AUSCULTATION: clear to auscultation bilaterally Cardio: COMMON NORMALS: regular rate, regular rhythm, S1 normal heart sound present, S2 normal heart sound present, No gallops present (Cardio), No murmurs present (Cardio), No rub (Cardio) and Peripheral pulses 2+ throughout RATE: regular rate RHYTHM: regular rhythm HEART SOUNDS: S1 normal heart sound present and S2 normal heart sound present PERIPHERAL PULSES: Peripheral pulses 2+ throughout GI: COMMON NORMALS: Normal to inspection, nondistended, normoactive bowel sounds present and Soft to palpation PALPATION: Yes Soft to palpation RECTAL EXAM: deferred OTHER: Mild epigastric tenderness present, no guarding no rigidity no rebound tenderness Extremity: COMMON NORMALS: no clubbing, cyanosis or edema and no pedal edema Neuro: COMMON NORMALS: patient oriented x3 Data : 01/05/21 05:57 01/05/21 05:57 Micro: Microbiology 01/03/21 13:21 Urine Culture - Final Urine,Clean Catch Escherichia coli A&P Assessment and plan (1) Acute gastroenteritis: Continue IV hydration,Zofran, encourage p.o. intake. Status: Acute (2) Severe dehydration: Plan is 1 Status: Acute (3) Acute kidney injury superimposed on chronic kidney disease: ALIYAH on worsening CKD stage III likely prerenal secondary to severe dehydration Random urine sodium Random urine creatinine Random urine protein Renal ultrasound IV hydration with normal saline at 75 cc an hour. Monitor BMP Avoid nephrotoxic's Renal consult Status: Acute (4) Hyperkalemia: Admission serum potassium is 5.5. No marked EKG Changes Has received Kayexalate in the ER. Monitor BMP Status: Acute (5) Microcytic anemia: Anemia panel. Is consistent with iron deficiency anemia. Started on IV Venofer Hemoglobin has dropped today, repeat CBC done in the afternoon, has shown hemoglobin of 6.8, patient currently denies any dark stool, bright red blood per rectum, hematuria, current plan is to transfuse 1 unit. FOBT Possible EGD Monitor CBC Status: Acute (6) Anginal equivalent: Patient is complaining of chest tightness, as well as worsening shortness of breath with exertion, going on for some time. Troponin: On admission has been without any significant delta. EKG: Initial EKG on admission was suggestive ST (T wave) deviation. Most recent EKG has shown resolution of ST-T wave deviation. IMDUR 30 MG PO Daily 2 D echo: Possible stress test Status: Acute (7) UTI (urinary tract infection): Ceftriaxone 1 gm every 24 hours daily. Status: Acute (8) COPD exacerbation: Patient is complaining of wheezing and shortness of breath, along with worsening coughing. Duo nebs Azithromycin 500 IV daily We will avoid steroids for now, as the wheezing is minimal. Status: Acute Attestations Medical Necessity Statement*: Patient needs to be in hospital for management of above defined problems. 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
[2021-01-05] MEDS: azithromycin 500 MG in sodium chloride 0.9% 250 ML 250 MG IV (14:06)
[2021-01-05] MEDS: sodium chloride 0.9% 1,000 ML 75 ML IV (14:08)
--- NOTE | 2021-01-05 14:09 | XRR_ITS ---
PROCEDURE INFORMATION: Exam: XR Spine; Lumbar Exam date and time: 01/05/2021 2:11 PM Age: 70 years old Clinical indication: Pain; Patient status: Conscious; Pain: Constant; Prior surgery; Surgery date: 6+ months; Surgery type: Fusion, khyoplasty per PT last surgery in 2006; Additional info: Lower back pain TECHNIQUE: Imaging protocol: XR of the spine. Exam focused on the lumbar spine. Views: 1 view. 1 view. Total images: 1 COMPARISON: MRI Lumbar Spine w/o [id number] 10/29/2018 3:07 PM FINDINGS: Bones/joints: Previous kyphoplasty L1. Interpedicle screw and sidebar fixation L4 and L5. No radiographically visible acute osseous abnormality. Vasculature: Arteriosclerosis. Soft tissues: Unremarkable for age. XR/XR lumbar spine 1V port [id number] IMPRESSION: Nonacute.
[2021-01-05] MEDS: docusate sodium 100 mg Capsule PO ×2 (15:53→17:31)
[2021-01-05] MEDS: cefTRIAXone 1,000 MG in sodium chloride 0.9% (plus) 50 ML 100 MG IV (15:53)
[2021-01-05] MEDS: desvenlafaxine 50 mg Tablet PO (17:31)
[2021-01-05] MEDS: atorvastatin 40 mg Tablet 80 MG PO (17:31)
[2021-01-05] MEDS: LORazepam 2 mg/mL INJ 1 mL 0.5 MG IVP (19:52)
[2021-01-05] MEDS: polyethylene glycol 3350 Pkt 17 gm PO (19:54)
[2021-01-05] MEDS: zolpidem 5 mg Tablet PO (20:03)
[2021-01-05] MEDS: isosorbide mononitrate ER 30 mg Tablet PO (23:19)
[2021-01-06] VITALS (16 sets, daily range): BP systolic 95–119; BP diastolic 62–77; PULSE 75–88; RESP 16–18; TEMP 36.5–37.3; O2SAT 91–94
--- NOTE | 2021-01-06 02:53 | PC.NURSE ---
Patient is c/o pain that starts in her mid back and comes around to her diaphragm. She rated it a 10/10. She said it woke her out of her sleep. She said it doesn't feel like it's my heart. Vitals are stable. This nurse told Dr. Garcia and he ordered Dilaudid.
[2021-01-06] MEDS: HYDROmorphone 1 mg/mL INJ 1 mL 0.5 MG IVP (02:54)
[2021-01-06] MEDS: oxyCODONE-APAP 5-325 mg Tablet PO (05:56)
[2021-01-06 06:50] LABS: Basophils # 0.1 10^3/uL (0.0-0.1); Basophils % 0.6 %; Eosinophils # 0.2 10^3/uL (0.0-0.8); Eosinophils % 2.6 %; Hemoglobin 8.1 g/dL (11.5-15.3); Lymphocytes # 1.2 10^3/uL (0.8-4.8); Lymphocytes % 14.9 %; Mean Corpuscular HGB Conc 28.9 g/dL (30.0-36.0); Mean Corpuscular Hemoglobin 24.6 pg (28.0-34.0); Mean Corpuscular Volume 85.1 fL (81-99); Mean Platelet Volume 12.7 fL (7.4-10.4); Monocytes # 0.5 10^3/uL (0.2-0.9); Monocytes % 5.7 %; Neutrophils # 6.08 10^3/uL (1.8-7.7); Nucleated Red Blood Cells % 0 %; Platelet Count 137 10^3/cmm (130-400); Red Blood Count 3.29 10^6/uL (4.1-5.3); Red Cell Distribution Width 20.5 % (12.1-15.1)
[2021-01-06 07:20] LABS: Anion Gap 12.7 (5-19); Blood Urea Nitrogen 32 mg/dL (8-23); Calcium 8.3 mg/dL (8.5-10.5); Carbon Dioxide 24 mmol/L (22-29); Chloride 109 mmol/L (98-107); Glomerular Filtration Rate 27.8 mL/min (90-130); Glucose 88 mg/dL (65-115); Osmolality Calculated 298 mOsm/kg (285-295); Potassium 4.7 mmol/L (3.5-5.1); Sodium 141 mmol/L (136-145)
[2021-01-06] MEDS: pantoprazole DR 40 mg Tablet PO (08:38)
[2021-01-06] MEDS: sodium chloride 0.9% 1,000 ML 75 ML IV (08:38)
[2021-01-06] MEDS: isosorbide mononitrate ER 30 mg Tablet PO (08:38)
[2021-01-06] MEDS: docusate sodium 100 mg Capsule PO ×2 (08:38→18:07)
[2021-01-06] MEDS: guaiFENesin 600 mg Tablet 1200 MG PO ×2 (08:38→18:09)
[2021-01-06] MEDS: gabapentin 300 mg Capsule 600 MG PO ×3 (08:39→20:11)
[2021-01-06] MEDS: polyethylene glycol 3350 Pkt 17 gm PO (08:40)
[2021-01-06] MEDS: ipratropium-albuterol 3 mL Neb INHALATION ×3 (09:03→20:17)
[2021-01-06] MEDS: iron sucrose 200 MG in sodium chloride 0.9% (100 ml) 100 ML 220 MG IV (10:36)
--- NOTE | 2021-01-06 11:06 | PC.SOCIAL ---
*IMM UPDATE* Gave patient IMM update, provided copy of pg 2 of IMM. Verbalized understanding. 01/06/21 @ 0939 Initialed, dated, timed and placed in chart.
[2021-01-06] MEDS: azithromycin 500 MG in sodium chloride 0.9% 250 ML 250 MG IV (12:32)
--- NOTE | 2021-01-06 12:45 | P.PN_ITS ---
Subjective Subjective: Interval history: Patient was seen and examined this morning.She was complaining of chest discomfort last night, which awaken her from the sleep. Patient denies any nausea, vomiting, she is tolerating p.o. intake well. BUN/creatinine has continued to improve, hemoglobin has remained stable. Vitals/I&O/Wt Last Vital Signs Temp 98.4 F 01/06/21 11:37 Pulse 76 01/06/21 11:37 Resp 16 01/06/21 11:37 BP 95/65 01/06/21 11:37 Pulse Ox 92 01/06/21 11:37 01/05/21 01/06/21 01/06/21 22:59 06:59 14:59 Intake Total 540 / 1985 500 / 2485 902.5 / 902.5 Output Total 600 / 850 0 / 850 200 / 200 Balance -60 / 1135 500 / 1635 702.5 / 702.5 Physical Exam Const: COMMON NORMALS: patient oriented x3 HENMT: COMMON NORMALS: normocephalic and atraumatic HEAD & SCALP: normocephalic and atraumatic Chest: CHEST: Yes Symmetrical chest wall rise Resp: COMMON NORMALS: clear to auscultation bilaterally EFFORT & IN SPECTION: Yes symmetric chest movement AUSCULTATION: clear to auscultation bilaterally Cardio: COMMON NORMALS: regular rate, regular rhythm, S1 normal heart sound present, S2 normal heart sound present, No gallops present (Cardio), No murmurs present (Cardio), No rub (Cardio) and Peripheral pulses 2+ throughout RATE: regular rate RHYTHM: regular rhythm HEART SOUNDS: S1 normal heart sound present and S2 normal heart sound present PERIPHERAL PULSES: Peripheral pulses 2+ throughout GI: COMMON NORMALS: Normal to inspection, nondistended, normoactive bowel sounds present and Soft to palpation PALPATION: Yes Soft to palpation RECTAL EXAM: deferred Extremity: COMMON NORMALS: no clubbing, cyanosis or edema and no pedal edema Neuro: COMMON NORMALS: patient oriented x3 Data : 01/06/21 05:49 01/06/21 05:49 Micro: Microbiology 01/03/21 13:21 Urine Culture - Final Urine,Clean Catch Escherichia coli A&P Assessment and plan (1) Acute kidney injury superimposed on chronic kidney disease: ALIYAH on worsening CKD stage III likely prerenal secondary to severe dehydration. BUN and serum creatinine has continued to improve Random urine sodium: Random urine creatinine Random urine protein Renal ultrasound: Bilateral renal atrophy with moderate to severe chronic medical renal disease, greatest on the RIGHT. Initially on IV hydration with normal saline at 75 cc an hour. Has been discontinued. Patient is being encouraged to have good p.o. intake. Monitor BMP Avoid nephrotoxic's Status: Acute (2) Anginal equivalent: Patient is complaining of chest tightness, as well as worsening shortness of breath with exertion, going on for some time.She is also complaining of ongoing chest pain. Troponin: On admission has been without any significant delta. EKG: Initial EKG on admission was suggestive ST (T wave) deviation. Most recent EKG has shown resolution of ST-T wave deviation. IMDUR 30 MG PO Daily 2 D echo: Normal LV cavity size, LVEF 60%, grade 1/IV diastolic dysfunction. No gross valvular abnormality. Pulmonary artery systolic pressure is normal. NPO stress test in am Status: Acute (3) Microcytic anemia: Anemia panel. Is consistent with iron deficiency anemia.She received 3 doses of IV Venofer. We will switch her to oral ferrous sulfate 325 mg daily. Initially during the hospital stay hemoglobin has dropped to 6.8, patient has prior history of peptic ulcer disease, currently she has denied any black tarry stool,bright red blood per rectum, hematuria.Denies any NSAID use. S/p 1 unit PRBC.H&H has remained stable Protonix 40 mg p.o. daily. Continue to hold, Plavix, prophylactic heparin. FOBT pending Possible EGD/or continued monitoring as an outpatient. Continue to monitor CBC Status: Acute (4) UTI (urinary tract infection): Urine culture E. coli: sensitive to ceftriaxone. Ceftriaxone 1 gm every 24 hours daily. Status: Acute (5) COPD exacerbation: Patient is complaining of wheezing and shortness of breath, along with worsening coughing. Duo nebs Ceftriaxone 1 gm every 24 hours daily. Azithromycin 500 mg IV daily We will avoid steroids for now, as the wheezing is minimal. Status: Acute (6) Acute gastroenteritis: Continue IV hydration,Zofran, encourage p.o. intake. Status: Acute (7) Severe dehydration: Plan as above Status: Acute (8) Hyperkalemia: Admission serum potassium is 5.5. No marked EKG Changes Has received Kayexalate in the ER. Monitor BMP Status: Acute Attestations Medical Necessity Statement*: Patient needs to be in hospital for management of chest pain, ALIYAH. Coding Level of Care Code Acute Director Of Health Care Marketing for [facility] Fwd Diagnoses Acute kidney injury superimposed on chronic kidney disease N17.9; N18.9 Anginal equivalent I20.8 Microcytic anemia D50.9 UTI (urinary tract infection) N39.0 COPD exacerbation J44.1 Acute gastroenteritis K52.9 Severe dehydration E86.0 Hyperkalemia E87.5
--- NOTE | 2021-01-06 12:46 | ECG_ITS ---
[facility] Test Date: 2021-01-07 Pat Name: Eli Kimball Department: Room: 254 Gender: Female [place]: : 1950 Requested By: Oscar Zambrano Order Number: [id number] Dinorah MD: REGINALDO PAL Interpretive Statements NAME OF STUDY: LEXISCAN SESTAMIBI STRESS TEST NOTE: Please note that this is the electrocardiogram portion of the Lexiscan/Sestamibi stress test. The perfusion scan will be documented separately. DATA: Baseline heart rate was 80 beats per minute. Baseline blood pressure was 121/90 millimeters of mercury. Target heart rate was 150. Maximum heart rate achieved was 137. which was 91 % of the predicted target heart rate. Maximum blood pressure was 184/123 millimeters of mercury. The reason for ending the test was completion of the protocol. The patient did not experience any symptoms. ELECTROCARDIOGRAM: BASELINE: Sinus rhythm. Normal axis. Interventricular conduction delay, otherwise, no ST-T changes suggestive of ischemia noted. No arrhythmia noted. EXERCISE: After Lexiscan injection, no ST-T changes suggestive of ischemic noted. No arrhythmia noted. CONCLUSION: Please note due to baseline abnormality of the EKG specificity and sensitivity of the EKG portion of LexiScan MIBI stress test will be low 1. EKG not suggestive of ischemia 2. Lexiscan injection unremarkable. 3. Perfusion scan will be documented separately. Electronically Signed On 01-07-2021 15:09:15 CDT by REGINALDO PAL [email or web address]
--- NOTE | 2021-01-06 12:47 | PC.CHAP ---
Pastoral Care Encounter/Spiritual Assessment Type of Contact [] Declined publication manager visit [] Patient/Family/Request visit [] Outpatient visit [] Follow-up visit [] Physician referral [] Code/Alert [XX] Routine visit [] Staff referral [] Actively dying [] Patient sleeping [] Family support [] [] Out of room [] Palliative care [] [XX] Receiving care in room [] Pre-surgical visit [] Trauma [] Long length of stay [] ICU visit [] Other: Relational/Emotional Strength [] Patient feels connected with others/family/visitors/staff [] Distress [] Loneliness/isolation [] Abandonment Spirituality of Patient [] Person of Shandra [] Attends Sabianist of their Shandra [] Believes in Prayer [] Reads Bible or Rastafarian materials [] There are Spiritual issues to be addressed Recreational Specialist Interventions [] Prayer [] Active listening [] Non-anxious presence [] Spiritual/emotional support [] Crisis/trauma care [] Spiritual counseling [] Bereavement support [] Provided bereavement packet [] Provided Bible/devotional materials [] Provided toy/stuffed animal, coloring book to patient or family member [] Provided Communion [] Anointing/[place] [] Salvation [] Completed spiritual assessment [] Other: Impact on Illness or Injury [] Angry [] Fearful [] Anxious [] Often cries [] Exhaustion [] Unable to work [] Unable to attend nondenominational [] Unable to walk/stand [] Unable to read [] Unable to drive [] Unable to eat/drink [] Unable to sleep [] Unable to be with family [] Patient intubated [] Other: Summary Time spent with patient
[2021-01-06] MEDS: lactulose oral liq 20 gm/30 mL UDC 30 GM PO ×2 (14:18→20:12)
[2021-01-06] MEDS: cefTRIAXone 1,000 MG in sodium chloride 0.9% (plus) 50 ML 100 MG IV (14:19)
[2021-01-06] MEDS: desvenlafaxine 50 mg Tablet PO (18:09)
[2021-01-06] MEDS: atorvastatin 40 mg Tablet 80 MG PO (18:09)
[2021-01-06] MEDS: ondansetron 2 mg/ML SDV 2 mL 4 MG IVP (20:55)
[2021-01-07] VITALS (9 sets, daily range): BP systolic 124–154; BP diastolic 74–92; PULSE 81–110; RESP 16–20; TEMP 36.4–37.1; O2SAT 90–98
[2021-01-07 05:03] LABS: Basophils % 0.6 %; Eosinophils # 0.2 10^3/uL (0.0-0.8); Eosinophils % 3.1 %; Hematocrit 26.8 % (37.0-47.0); Hemoglobin 7.8 g/dL (11.5-15.3); Lymphocytes # 1.3 10^3/uL (0.8-4.8); Lymphocytes % 18.7 %; Mean Corpuscular HGB Conc 29.1 g/dL (30.0-36.0); Mean Corpuscular Hemoglobin 24.6 pg (28.0-34.0); Mean Corpuscular Volume 84.5 fL (81-99); Monocytes # 0.3 10^3/uL (0.2-0.9); Neutrophils # 4.89 10^3/uL (1.8-7.7); Neutrophils % 72.5 %; Nucleated Red Blood Cells % 0 %; Platelet Count 125 10^3/cmm (130-400); Red Blood Count 3.17 10^6/uL (4.1-5.3); Red Cell Distribution Width 20.6 % (12.1-15.1); White Blood Count 6.8 10^3/uL (4.0-10.0)
[2021-01-07 05:18] LABS: Anion Gap 13.3 (5-19); Blood Urea Nitrogen 28 mg/dL (8-23); Calcium 8.3 mg/dL (8.5-10.5); Carbon Dioxide 21 mmol/L (22-29); Chloride 109 mmol/L (98-107); Glomerular Filtration Rate 37.2 mL/min (90-130); Glucose 101 mg/dL (65-115); Osmolality Calculated 294 mOsm/kg (285-295); Potassium 4.3 mmol/L (3.5-5.1); Sodium 139 mmol/L (136-145)
[2021-01-07] MEDS: regadenoson 0.4 Mg/5 ml Syringe IVP (08:08)
[2021-01-07] MEDS: ondansetron 2 mg/ML SDV 2 mL 4 MG IVP (08:09)
--- NOTE | 2021-01-07 10:53 | PC.NURSE ---
Nursing shift assessment edited d/t documenting on wrong patient.
[2021-01-07] MEDS: guaiFENesin 600 mg Tablet 1200 MG PO (11:08)
[2021-01-07] MEDS: isosorbide mononitrate ER 30 mg Tablet PO (11:09)
[2021-01-07] MEDS: pantoprazole DR 40 mg Tablet PO (11:09)
[2021-01-07] MEDS: gabapentin 300 mg Capsule 600 MG PO ×2 (11:09→15:03)
[2021-01-07] MEDS: oxyCODONE-APAP 5-325 mg Tablet PO (11:10)
--- NOTE | 2021-01-07 12:46 | NMCV_ITS ---
NM dimple perf SPECT r/s* [id number] Eli Kimball Age: 70 Gender: F : 1950 Exam Date: 01/07/2021 07:03 Ordering Phys: Oscar Zambrano MD Technologist: JOSE LUIS Austin Exam Location: [facility] Indications: DEHYDRATION STRESS TEST Please [facility] for [facility] findings IMAGE PROTOCOL Rest/Stress 1 Lexiscan Day Radiopharmaceutical Dose (mCi) Administration Site Administered by Rest: Tc-99m 10.9 IV JOSE LUIS [place] Sestamibi Stress:Tc-99m 32.6 IV JOSE LUIS [place] Sestamibi Rest: 07-Jan-2021 60 Discovery 630 Stress: 07-Jan-2021 30 Discovery 630 0.4mg Lexiscan. Images obtained in supine and prone position. SPECT RESULTS Technical Quality: Excellent Raw Data Analysis: Normal Image Corrections: No attenuation or motion correction applied Summed Stress Score: 0 Summed Rest Score: 0 Summed Difference Score: 0 PERFUSION FINDINGS SPECT images demonstrate homogeneous tracer distribution throughout the myocardium. FUNCTIONAL RESULTS (calculated via Gated SPECT) Stress Image LV EF (%): 86 Stress EDV (mL):59 TID: 0.87 Stress ESV (mL):8 Rest Image LV EF (%): 86 FUNCTIONAL FINDINGS: There is normal left ventricular systolic function. IMPRESSIONS Myocardial perfusion imaging is normal and low probability for obstructive coronary artery disease. EKG segment will be documented separately Jaclyn Capellan MD (Electronically Signed) Final Date: 07 Jan 2021 14:44 S
[2021-01-07] MEDS: azithromycin 500 MG in sodium chloride 0.9% 250 ML 250 MG IV (15:02)
[2021-01-07] MEDS: cefTRIAXone 1,000 MG in sodium chloride 0.9% (plus) 50 ML 100 MG IV (15:09)
--- NOTE | 2021-01-07 15:35 | P.DS_ITS ---
Discharge Providers Date of Admission: 01/03/21 14:06 Date of Discharge: January 07, 2021 Attending Provider at Admission: Oscar Zambrano MD Attending Provider at Discharge: Amol Lynne MD Primary Care Provider: Bhupinder Logan MD Diagnoses at Discharge Discharge Diagnosis (1) Acute kidney injury superimposed on chronic kidney disease: Status: Acute (2) Anginal equivalent: Status: Acute (3) Microcytic anemia: Status: Acute (4) UTI (urinary tract infection): Status: Acute (5) COPD exacerbation: Status: Acute (6) Acute gastroenteritis: Status: Acute (7) Severe dehydration: Status: Acute (8) Hyperkalemia: Status: Acute Reason for Visit Reason for Visit: DEHYDRATION Hospital Course Hospital Course This is a 70-year-old female with a past medical history of hypertension, CKD, COPD, chronic smoker, GERD, who presented [facility] for nausea, vomiting, chest pain Patient was admitted to [facility] for nausea, vomiting secondary to acute gastroenteritis, received IV fluids, patient clinically improved, discharged home on instructions during plenty of electrolyte balance fluids Patient had ALIYAH on CKD on admission, secondary dehydration, received IV hydration therapy, creatinine on discharge was 1.4 Patient had UTI during hospitalization, finished her Rocephin course as inpatient Patient had anemia during her hospitalization, hemoglobin is low 6.8, status post 1 unit PRBC, with iron deficiency, received Venofer as inpatient. Hemoglobin discharge 7.8, no bloody or black stools, hemodynamically stable. On discharge Plavix has been held, patient tells me she takes it secondary to TIAs. She was discharged on Protonix 40 twice daily. Follow-up with primary care provider in a few days for recheck CBC. If she were to have bloody or black stools go to the emergency room. Follow-up with general surgery in 1 week for EGD and colonoscopy. Patient had chest pain during her hospitalization, EKG did show ST deviations, which resolved, echocardiogram showed an EF of 60%, grade 1 out of 4 diastolic dysfunction, stress test sh as patient could owed low probability CAD, patient will be discharged on aspirin, statin, nitro for chest pain, cardiology was consulted as patient did have atypical chest pain symptoms, cardiology recommended conservative management, with a follow-up with cardiology as outpatient. Certainly it is under consideration that patient's anterior chest discomfort is related to her anemia, possible peptic ulcer disease, again she will have above work-up hopefully soon. Physical Exam Const: COMMON NORMALS: no acute distress and patient oriented x3 HENMT: COMMON NORMALS: normocephalic HEAD & SCALP: normocephalic Neck/C-Spine: COMMON NORMALS: no JVD Resp: COMMON NORMALS: normal respiratory effort, No retractions, No use of accessory muscles and clear to auscultation bilaterally AUSCULTATION: clear to auscultation bilaterally Cardio: COMMON NORMALS: no JVD, regular rate, regular rhythm, S1 normal heart sound present and S2 normal heart sound present RATE: regular rate RHYTHM: regular rhythm HEART SOUNDS: S1 normal heart sound present and S2 normal heart sound present GI: COMMON NORMALS: Normal to inspection, nondistended, normoactive bowel sounds present, Soft to palpation, non-tender, No hepatosplenomegaly present, no masses and no bruits PALPATION: Yes Soft to palpation and Yes No hepatosplenomegaly present Extremity: COMMON NORMALS: capillary refill normal, no clubbing, cyanosis or edema, no calf tenderness and no pedal edema Neuro: COMMON NORMALS: patient oriented x3 Psych: COMMON NORMALS: mental status grossly normal Discharge Data Data Completed and Pending: Completed Studies During Hospitalization Category Date Time Status Sestamibi Stress Test Request Routi ne Exams 01/06/21 12:46 Completed XR chest 1V belkis ble [id number] Urgent Exams 01/03/21 11:23 Completed XR lumbar spine 1 V port [id number] Routi ne Exams 01/05/21 14:09 Completed NM dimple perf SPECT r/s* [id number] Routin e Nuc Med 01/07/21 12:46 Completed CV echo complete* [id number] Routine Ultrasound 01/04/21 18:07 Completed US renal BI* [id number] Routine Ultrasound 01/04/21 16:18 Completed Pending at discharge Category Date Time Status Basic Metabolic P rachael AM LABS Lab 01/08/21 04:00 Ordered Basic Metabolic P rachael AM LABS Lab 01/09/21 04:00 Ordered Miscellaneous Cheryl t Routine Lab 01/07/21 05:15 Received Labs from last 24 hours 01/07/21 01/07/21 01/07/21 05:15 04:19 04:19 WBC 6.8 RBC 3.17 L Hgb 7.8 L Hct 26.8 L MCV 84.5 MCH 24.6 L MCHC 29.1 L RDW 20.6 H Plt Count 125 L MPV 12.0 H Neut % (Auto) 72.5 Lymph % (Auto) 18.7 Ray % (Auto) 5.0 Eos % (Auto) 3.1 Baso % (Auto) 0.6 Neut # (Auto) 4.89 Lymph # (Auto) 1.3 Ray # (Auto) 0.3 Eos # (Auto) 0.2 Baso # (Auto) 0.0 Nucleated RBC % (a uto) 0 Nucleated RBCs # 0.0 Sodium 139 Potassium 4.3 Chloride 109 H Carbon Dioxide 21 L Anion Gap 13.3 BUN 28 H Creatinine 1.4 H GFR Calculation 37.2 L Glucose 101 Calculated Osmolal ity 294 Calcium 8.3 L Misc Test Referenc e Pending Vitals: Last Vital Signs Temp 97.5 F L 01/07/21 15:27 Pulse 81 01/07/21 15:27 Resp 16 01/07/21 15:27 BP 127/77 01/07/21 15:27 Pulse Ox 98 01/07/21 15:27 Discharge Plan Discharge Patient Disposition: Home Condition: Stable Prescriptions: New Protonix 40 mg tablet,delayed release (DR/EC) 40 mg PO Q12H 30 Days Qty: 60 RF: 0 ferrous sulfate 325 mg (65 mg iron) tablet 325 mg PO DAILY 30 Days Qty: 30 RF: 0 Continued gabapentin 600 mg tablet 600 mg PO TID RF: 0 prazosin 1 mg capsule 1 mg PO BEDTIME@1800 RF: 0 potassium chloride 20 mEq tablet,ER particles/crystals 20 meq PO DAILY@1800 RF: 0 hydrochlorothiazide 25 mg tablet 25 mg PO DAILY@1800 RF: 0 Ventolin HFA 90 mcg/actuation HFA aerosol inhaler 1 - 2 inh INHALATION Q4H PRN (Reason: Shortness Of Breath) RF: 0 ondansetron 4 mg tablet,disintegrating 4 mg PO TID PRN (Reason: Nausea) RF: 0 irbesartan 300 mg tablet 300 mg PO DAILY@1800 RF: 0 rosuvastatin 20 mg tablet 20 mg PO DAILY@1800 RF: 0 desvenlafaxine succinate 50 mg tablet extended release 24 hr 50 mg PO DAILY@1800 RF: 0 Belsomra 10 mg tablet 10 mg PO DAILY@1800 RF: 0 Discontinued clopidogrel 75 mg tablet 75 mg PO DAILY@1800 RF: 0 omeprazole 20 mg capsule,delayed release(DR/EC) 20 mg PO DAILY@1800 RF: 0 Discharge Orders: Discharge Order (Routine); Ordered 01/07/21 Ordered By: Amol Lynne Referrals: Thomas Duffy MD [Physician] - 01/18/21 9:00 am (egd for anemia) Discharge Diet: Cardiac Discharge Activity: Resume usual activity Patient Instructions: Iron Supplements (By mouth), Pantoprazole (By mouth), Dehydration (DC), Urinary Tract Infection in Women (DC), Chronic Obstructive Pulmonary Disease (DC), COPD Stoplight, Opioid Safety Activity Restrictions/Additional Instructions: -Please follow-up with your primary care provider in a few days to recheck CBC -Follow-up with general surgery in 1 week for consideration of EGD for anemia and microcytic anemia -Plavix has been stopped for now, discussed with primary care provider as outpatient when to resume based upon above work-up Discharge Attestations Time Spent in Discharge Care*: greater than 30 min Quality Metrics Clinical Quality Measures During this hospital stay, did patient experience: None Coding Level of Care Code Acute Chg FW DC note Exam Comprehensive Diagnoses Acute kidney injury superimposed on chronic kidney disease N17.9; N18.9 Anginal equivalent I20.8 Microcytic anemia D50.9 UTI (urinary tract infection) N39.0 COPD exacerbation J44.1 Acute gastroenteritis K52.9 Severe dehydration E86.0 Hyperkalemia E87.5
--- NOTE | 2021-01-07 17:05 | P.CONIM_ITS ---
Providers/Reason For Consult Consulting Physican/Specialty*: Jamshid Alfaro MD/ Cardiology Reason for Consult*: Chest pain Requesting Physcian: Dr Amol Lynne MD Attending Physician: Amol Lynne MD Primary Care Provider: Bhupinder Logan MD History of Present Illness History of Present Illness Eli Kimball is a 70 year old female with a past medical history of hypertension, CKD, COPD, chronic smoker, GERD, who presented to hospital with nausea, vomiting and atypical chest pain. Patient's nausea and vomiting was secondary to acute gastroenteritis for which he received IV fluids and improved clinically. She also had ALIYAH on CKD. She was treated for UTI with Rocephin. Patient had a significant anemia with hemoglobin of 6.8 and received blood transfusion. During hospitalization patient complained of chest pain. A ccording to patient pain is substernal with occasional radiation to the right arm. Each episode has lasted for 1 to 2 minutes. Has an exertional component to it. Her EKG showed nonspecific ST changes. Echocardiogram revealed an EF of 60%. Nuclear stress test was performed that did not show significant ischemia. Cardiology was consulted to assess her chest pain. Review of Systems Narrative: CONSTITUTIONAL: No fever chills weight loss or gain or night sweats. [] HEENT: Normocephalic, atraumatic.[] RESPIRATORY: No cough, sputum, hemoptysis or wheezing.[] CARDIOVASCULAR: No shortness of breath, chest pain, PND, orthopnea, lower extremity edema, presyncope or syncope. [] GI: no nausea vomiting diarrhea. [] EDUCATION MANAGER: No numbness, tingling, weakness or loss of function in any part of the body. [] MUSCULOSKELETAL: No knee or joint pain or rashes. [] Meds/Allergies Home Medications and Allergies Home Medications Medication Instructions Recorded Confirmed Last Taken Type Belsomra 10 mg PO DAILY@1800 01/03/21 01/03/21 01/02/21 History Ventolin HFA 1 - 2 inh INHALATION Q4H PRN 01/03/21 01/03/21 Unknown History desvenlafaxine succinate 50 mg PO DAILY@1800 01/03/21 01/03/21 01/02/21 History gabapentin 600 mg PO TID 01/03/21 01/03/21 01/03/21 History hydrochlorothiazide 25 mg PO DAILY@1800 01/03/21 01/03/21 01/02/21 History irbesartan 300 mg PO DAILY@1800 01/03/21 01/03/21 01/02/21 History ondansetron 4 mg PO TID PRN 01/03/21 01/03/21 Unknown History potassium chloride 20 meq PO DAILY@1800 01/03/21 01/03/21 01/02/21 History prazosin 1 mg PO BEDTIME@1800 01/03/21 01/03/21 01/02/21 History rosuvastatin 20 mg PO DAILY@1800 01/03/21 01/03/21 01/02/21 History aspirin 81 mg PO DAILY 30 Days #30 tab 01/07/21 Unknown Rx ferrous sulfate 325 mg PO DAILY 30 Days #30 tab 01/07/21 Unknown Rx pantoprazole [Protonix] 40 mg PO Q12H 30 Days #60 tab 01/07/21 Unknown Rx Allergies Allergy/AdvReac Type Severity Reaction Status Date / Time No Known Allergies Allergy Verified 01/03/21 10:50 Current Medications Current Medications Generic Name Dose Route Start Last Admin Trade Name Freq PRN Reason Stop Dose Admin Acetaminophen 650 mg 01/03/21 16:10 01/03/21 20:11 Acetaminophen 325 Mg Tablet PO 650 mg Q6H PRN Administration Mild/Mod Pain Or Temp >/= 101 Acetylcysteine 100 mg 01/04/21 16:00 01/07/21 14:11 Acetylcysteine 200 Mg/Ml Sdv 4 Ml INHALATION Not Given Q4H.RESPIRATORY ZULEMA Albuterol/Ipratropium 3 ml 01/04/21 15:00 01/07/21 14:49 Ipratropium-Albuterol 3 Ml Neb INHALATION Not Given Q6H.RESPIRATORY ZULEMA Atorvastatin Calcium 80 mg 01/03/21 18:00 01/06/21 18:09 Atorvastatin 40 Mg Tablet PO 80 mg DAILY@1800 ZULEMA Administration Clopidogrel Bisulfate 75 mg 01/03/21 18:00 01/03/21 17:52 Clopidogrel 75 Mg Tablet PO 75 mg DAILY@1800 ZULEMA Administration Desvenlafaxine 50 mg 01/03/21 18:00 01/06/21 18:09 Desvenlafaxine 50 Mg Tablet PO 50 mg DAILY@1800 ZULEMA Administration Docusate Sodium 100 mg 01/05/21 14:15 01/07/21 11:10 Docusate Sodium 100 Mg Capsule PO Not Given BID ZULEMA Gabapentin 600 mg 01/03/21 21:00 01/07/21 15:03 Gabapentin 300 Mg Capsule PO 600 mg TID ZULEMA Administration Guaifenesin 1,200 mg 01/04/21 18:00 01/07/21 11:08 Guaifenesin 600 Mg Tablet PO 1,200 mg BID ZULEMA Administration Heparin Sodium (Beef Lung) 5,000 unit 01/03/21 18:00 01/04/21 05:37 Heparin 5,000 Unit/Ml Inj 1 Ml SUBCUT 5,000 unit Q12H ZULEMA Administration Ceftriaxone Sodium 1,000 mg/ 50 mls @ 100 mls/hr 01/04/21 15:00 01/07/21 15:09 Sodium Chloride IV 100 mls/hr Q24H ZULEMA Administration Protocol Azithromycin 500 mg/ Sodium 250 mls @ 250 mls/hr 01/05/21 13:00 01/07/21 15:02 Chloride IV 250 mls/hr Q24H ZULEMA Administration Protocol Isosorbide Mononitrate 30 mg 01/05/21 21:10 01/07/21 11:09 Isosorbide Mononitrate Er 30 Mg Tablet PO 30 mg DAILY [facility] Administration Lactulose 30 gm 01/06/21 15:00 01/06/21 20:12 Lactulose Oral Liq 20 Gm/30 Ml Udc PO 30 gm TID [facility] Administration Non-Formulary Medication 10 mg 01/03/21 18:00 01/03/21 17:55 Suvorexant [Belsomra] PO Not Given DAILY@1800 [facility] Ondansetron HCl 4 mg 01/03/21 16:10 01/06/21 20:55 Ondansetron 2 Mg/Ml Sdv 2 Ml IVP 4 mg Q8H PRN Administration vomiting, or N/V if npo Ondansetron HCl 4 mg 01/07/21 07:37 01/07/21 08:09 Ondansetron 2 Mg/Ml Sdv 2 Ml IVP 4 mg Q2M PRN Administration NAUSEA Oxycodone/Acetaminophen 1 - 2 tab 01/04/21 09:03 01/07/21 11:10 Oxycodone-Apap 5-325 Mg Tablet PO 2 tab Q4H PRN Administration MODERATE TO SEVERE PAIN Pantoprazole Sodium 40 mg 01/04/21 09:00 01/07/21 11:[address] 40 Mg Tablet PO 40 mg DAILY ZULEMA Administration Polyethylene Glycol 17 gm 01/05/21 19:39 01/07/21 11:09 Polyethylene Glycol 3350 Pkt 17 Gm PO Not Given DAILY ZULEMA Zolpidem Tartrate 5 mg 01/04/21 09:05 01/05/21 20:03 Zolpidem 5 Mg Tablet PO 5 mg BEDTIME PRN Administration INSOMNIA PFSH Acute PFSH: Medical History Acute kidney injury superimposed on chronic kidney disease COPD (chronic obstructive pulmonary disease) Hypertension Microcytic anemia Family History Other Hypertension Vitals/I&O/Wt Last Vital Signs Temp 97.5 F L 01/07/21 15:27 Pulse 81 01/07/21 15:27 Resp 16 01/07/21 15:27 BP 127/77 01/07/21 15:27 Pulse Ox 98 01/07/21 15:27 01/07/21 01/07/21 01/07/21 06:59 14:59 22:59 Output Total 800 / 1200 Balance -800 / 242.5 Physical Exam Narrative: EXAM NARRATIVE: GENERAL: Patient is alert, awake and oriented x3. [] NECK: No jugular vein distension. [] HEENT: No cyanosis. No icterus. No pallor. [] HEART: Regular S1 and S2. No murmur, rub or gallop. [] LUNGS: Clear to auscultate bilaterally. [] ABDOMEN: Soft, nontender and nondistended. Positive bowel sounds. No guarding, rebound or tenderness. [] CENTRAL NERVOUS SYSTEM: Grossly nonfocal. [] EXTREMITIES: Lower extremities with no edema bilaterally. Pulses palpable in the lower extremities, both dorsalis pedis and posterior tibial. [] A&P Assessment and plan (1) Chest pain: Status: Acute (2) Hypertension: Status: Acute (3) Acute kidney injury superimposed on chronic kidney disease: Status: Acute (4) Microcytic anemia: Status: Acute Patient's chest pain has both typical and atypical features. Given her LV systolic function is normal, EKG does not have acute ischemic changes and stress test does not show significant area of ischemia, we will recommend medical management at this time. Patient also had significant anemia requiring blood transfusion. We can see patient in the office to follow-up on chest pain and risk factor modification. Thank you for involving us with care of this patient. Patient is okay to be discharged from cardiology standpoint. Please call with questions. Coding Level of Care Code Acute [employer] T[employer] for [employer]ian Castanedad Diagnoses Chest pain R07.9 Hypertension I10 Acute kidney injury superimposed on chronic kidney disease N17.9; N18.9 Microcytic anemia D50.9
--- NOTE | 2021-01-07 18:09 | PC.RESP ---
Pulmonary Rehab information to patient.
== END 2021-01-07 17:48 | disposition home or self-care (01) | DRG 392 ==
LOC: ER 11:18 → MEDSURG 15:02
PROVIDERS: Admitting Provider Internal Medicine; Emergency Provider Family Medicine; PCP Family Medicine; Visit Provider Family Medicine
DX: K52.9 Noninfective gastroenteritis and colitis, unspecified (principal); N17.9 Acute kidney failure, unspecified; J44.1 Chronic obstructive pulmonary disease with (acute) exacerbation; N39.0 Urinary tract infection, site not specified; B96.20 Unspecified Escherichia coli [E. coli] as the cause of diseases classified elsewhere; E86.0 Dehydration; E87.5 Hyperkalemia; I12.9 Hypertensive chronic kidney disease with stage 1 through stage 4 chronic kidney disease, or unspecified chronic kidney disease; N18.30 Chronic kidney disease, stage 3 unspecified; I20.8 Other forms of angina pectoris; D50.9 Iron deficiency anemia, unspecified; M54.5 Low back pain; F17.200 Nicotine dependence, unspecified, uncomplicated; K21.9 Gastro-esophageal reflux disease without esophagitis; Z87.11 Personal history of peptic ulcer disease; Z79.02 Long term (current) use of antithrombotics/antiplatelets
CPT/HCPCS: 36415; 36430; 71045; 72020; 76770; 78452; 80048; 80053; 81001; 82570; 82607; 82728; 82746; 83540; 83550; 83605; 83690; 83880; 84156; 84300; 84311; 84466; 84484; 85025; 86850; 86900; 86920; 87077; 87086; 87186; 93005; 93017; 93306; 94640; 96365; 96372; 96375; 99285; A9500; J0456; J0696; J1170; J1644; J1756; J2060; J2405; J2785; J3490; J7030; J7050; J7608; P9016

== ENCOUNTER → 2021-02-14 10:26 | Outpatient (BNVA) | payer MEDICARE, SELFPAY | PROVIDERS: PCP Family Medicine; Visit Provider Surgery | DX: D50.9 Iron deficiency anemia, unspecified (principal); Z20.822 Contact with and (suspected) exposure to COVID-19 | CPT/HCPCS: 87635 ==

== ENCOUNTER 2021-02-19 08:36 | Day surgery (SDC) | payer MEDICARE, SELFPAY ==
[2021-02-18 08:45] VITALS: BMI 28.3
--- NOTE | 2021-02-19 09:03 | ANES.PREANE2 ---
Pre-Anesthetic Assessment Pre-Anesthetic Assessment: Height/Weight: Height 1.65 m Weight 77.111 kg Preop Diagnosis: panendoscopy Proposed Procedure: Operation Date: 02/19/21 10:30 Proposed Procedures p EGD 58141 32326 D50.9(Not Applicable) - Thomas Duffy MD s Colonoscopy 95472 71894 D50.9(Not Applicable) - Thomas Duffy MD Was Beta Kristel taken within 24 hours: N/A Was Clonidine taken within 24 hours: N/A Social: Social History: Tobacco and No alcohol Exam: Pre-Anes Outpt Exam: alert, oriented x 3 and regular rate & rhythm Airway: Submandibular: WNL Cervical ROM: WNL MP: 2 Dentition: False CV/HEM: CV/HEM: Anemia and HTN : : Chronic renal Insufficiency Anesthetic Plan: ASA status: 3 Anesthesia: MAC Risk of > 500 ml blood loss (7ml/kg in children): No PFSH Anesthesia PFSH: Medical History Acute kidney injury superimposed on chronic kidney disease COPD (chronic obstructive pulmonary disease) Hypertension Microcytic anemia Surgical History History of back surgery x3 History of breast surgery inverted nipple (x3) History of dental surgery History of hysterectomy 1993 History of laparoscopic cholecystectomy 1993 Family History Other Hypertension Social History Smoking and tobacco status: current every day smoker cigarettes Alcohol intake: never Lives independently: Yes Data Anesthesia Cardiac Studies: No Data to Display
[2021-02-19 09:10] VITALS: BP 99/80; PULSE 96; RESP 18; TEMP 36.2; O2SAT 96
[2021-02-19] MEDS: sodium chloride 0.9% 1,000 ML 30 ML IV (09:37)
--- NOTE | 2021-02-19 10:04 | W.PM.OPSUD ---
Surgery/Procedure H&P Update DATE OF PROCEDURE: February 19, 2021 DATE H&P PERFORMED: 02/08/21 H&P UPDATE INFORMATION: I have reviewed H&P completed within last 30 days, I have examined patient prior to procedure and No changes to prior documentation PREOP DIAGNOSIS: panendoscopy PLANNED PROCEDURE: Operation Date: 02/19/21 10:30 Proposed Procedures p EGD 18157 30452 D50.9(Not Applicable) - Thomas Duffy MD s Colonoscopy 32028 16745 D50.9(Not Applicable) - Thomas Duffy MD
[2021-02-19 12:13] VITALS: BP 100/70; PULSE 88; RESP 18; TEMP 36.7; O2SAT 94
[2021-02-19 12:31] VITALS: BP 112/83; PULSE 86; RESP 18; TEMP 36.7; O2SAT 96
--- NOTE | 2021-02-19 12:49 | ANE.PACU2 ---
Documented by User: Armando Iverson Jr, CRNA 02/19/21 12:49 Inpatient post-anesthesia follow up: Airway intact: Yes Vital signs: Temperature 98.1 F Pulse Rate 86 Respiratory Rate 18 Blood Pressure 112/83 Pulse Oximetry 96 Oxygen Delivery Me thod Room Air Oxygen Flow Rate Fraction of Inspir ed Oxygen Hydration adequate: Yes Nausea and vomiting: No Pain level: 1 Mental status: Baseline
== END 2021-02-19 12:38 | disposition home or self-care (01) ==
PROVIDERS: PCP Family Medicine; Visit Provider Surgery
PROC: 0DJ08ZZ Inspection of Upper Intestinal Tract, Via Natural or Artificial Opening Endoscopic (ICD-10-PCS; CPT 43235; principal; 2021-02-19 10:30)
PROC: 0DJD8ZZ Inspection of Lower Intestinal Tract, Via Natural or Artificial Opening Endoscopic (ICD-10-PCS; CPT 45378; 2021-02-19 10:30)
DX: D50.9 Iron deficiency anemia, unspecified (principal); K57.30 Diverticulosis of large intestine without perforation or abscess without bleeding; K64.8 Other hemorrhoids; J44.9 Chronic obstructive pulmonary disease, unspecified; I10 Essential (primary) hypertension; F17.210 Nicotine dependence, cigarettes, uncomplicated; Q27.33 Arteriovenous malformation of digestive system vessel
CPT/HCPCS: 43250; 45378; 96360; 96361; J2704; J7030

== ENCOUNTER 2021-09-24 10:06 | Outpatient (CLI) | payer MEDICARE, SELFPAY ==
--- NOTE | 2021-09-24 10:11 | FL_ITS ---
WS: [id number] Exam: FL barium swallow modifd [id number] Date/Time of Exam: 09/24/2021 10:11 AM Reason For Exam: Other dysphagia Fluoroscopy time: 2.2 minutes Modified barium swallow was performed in conjunction with the speech therapy service. Swallowing function at the level of oropharynx was normal. The patient tolerated thin liquid, nectar consistency liquid, pudding consistency barium foodstuffs without aspiration or penetration. The william ent tolerated solid barium mixture foodstuffs and ingested a barium pill without complication. FL/FL barium swallow modifd [id number] IMPRESSION: 1. The patient tolerated all consistencies of barium mixture foodstuffs without aspiration or penetration. A separate report of recommendations and findings will follow from the speech t herapy service.
== END 2021-09-24 10:07 | disposition home or self-care (01) ==
LOC: RAD 10:08
PROVIDERS: PCP Family Medicine; Visit Provider Family Medicine
DX: T17.928A Food in respiratory tract, part unspecified causing other injury, initial encounter (principal); R13.10 Dysphagia, unspecified; X58.XXXA Exposure to other specified factors, initial encounter
CPT/HCPCS: 74230; 92611

== ENCOUNTER 2021-12-10 17:57 | Observation (INO) | payer MEDICARE, SELFPAY ==
[2021-12-10 18:07] VITALS: BP 143/89; PULSE 110; RESP 20; TEMP 36.3; O2SAT 95; BMI 23.8
[2021-12-10 18:20] VITALS: BP 117/65; PULSE 110; O2SAT 96
--- NOTE | 2021-12-10 18:30 | ECG_ITS ---
[facility] Test Date: 2021-12-10 Pat Name: Eli Kimball Department: Room: Gender: Female Pin Attacher: : 1950 Requested By: Randi Medley Order Number: [id number] Dinorah MD: Arianna Patterson M.D. Measurements Intervals [place] Rate: 101 P: 50 MA: 175 QRS: 3 QRSD: 70 T: 50 QT: 335 QTc: 436 Interpretive Statements SINUS TACHYCARDIA LOW QRS VOLTAGE IN EXTREMITY LEADS [QRS DEFLECTION < 0.5 mV IN LIMB LEADS] PATTERN CONSISTENT WITH PULMONARY DISEASE MINIMAL ST DEPRESSION [0.025+ mV ST DEPRESSION] Compared to ECG 01/03/2021 22:27:07 ST (T wave) deviation now present Sinus rhythm no longer present Electronically Signed On 12-10-2021 22:57:10 CDT by Arianna Patterson M.D. [id number]
--- NOTE | 2021-12-10 18:30 | CTR_ITS ---
PROCEDURE INFORMATION: Exam: CT Head Without Contrast Exam date and time: 12/10/2021 7:49 PM Age: 71 years old Clinical indication: Altered mental status/memory loss; Additional info: Weakness TECHNIQUE: Imaging protocol: Computed tomography of the head without contrast. Radiation optimization: All CT scans at this facility use at least one of these dose optimization techniques: automated exposure control; mA and/or kV adjustment per patient size (includes targeted exams where dose is matched to clinical indication); or iterative reconstruction. COMPARISON: CTA Head [id number] 02/19/2018 11:48 AM RADIATION DOSE METRICS: Total DLP (mGy-cm): 788.67 FINDINGS: Brain: There is diffuse cerebral atrophy and chronic microvascular white matter disease. There is no acute intracranial hemorrhage. Cerebral ventricles: There is mild ex vacuo dilation of the lateral ventricles. The basal cisterns are unremarkable. Paranasal sinuses: The paranasal sinuses are clear. Mastoid air cells: Trace bilateral mastoid effusion. Bones/joints: The calvarium is intact. Soft tissues: The visible extracranial soft tissues are unremarkable. CT/CT head wo con* [id number] IMPRESSION: No acute intracranial abnormality.
--- NOTE | 2021-12-10 18:30 | XRR_ITS ---
PROCEDURE INFORMATION: Exam: XR Chest Exam date and time: 12/10/2021 6:58 PM Age: 71 years old Clinical indication: Other: Weakness TECHNIQUE: Imaging protocol: XR of the chest. Views: 1 view. COMPARISON: CR XR chest 1V portable [id number] 01/03/2021 11:37 AM FINDINGS: Lungs: There is no consolidation. Pleural spaces: There is no pleural effusion or pneumothorax. Heart/Mediastinum: There is moderate enlargement of the cardiac silhouette. Vasculature: The thoracic aorta is tortuous and ectatic. Bones/joints: There is a healed fracture of the proximal right humerus. XR/XR chest 1V portable [id number] IMPRESSION: No acute findings.
--- NOTE | 2021-12-10 18:32 | ED_ITS ---
HPI - Overdose General: Chief Complaint: Overdose Stated Complaint: sent by doctor for possible overdose Time Seen by Provider: 12/10/21 18:08 Source: patient and family Mode of arrival: ambulatory Limitations: no limitations History of Present Illness: 71-year-old female who states that she had been of f her meds for quite some time due to insurance issues. States that she had restarted all of her meds yesterday and took them last night and then took a bath. She states that she had passed out in the bathtub and when she woke up she had some confusion. Daughter states that since then she has been confused some slight aphasia also having double vision since last night and very ataxic gait. Concerned of a possible overdose she does have no history of stroke no focal one-sided deficits but she does have blurry vision and is having a very difficult time walking. Daughter states she is also been a lot more confused than normal. Review of Systems Const: Denies: fever(s), chills, body aches or change in appetite Eyes: Denies: blurry vision or eye discomfort ENMT: Denies: throat pain or dental pain Card: Reports: syncope Resp: Denies: dyspnea GI: Denies: abdominal pain, nausea, vomiting or diarrhea : Denies: dysuria Musc: Denies: neck pain or back pain Skin/Breast: Denies: rash Neuro: Reports: weakness in extremities Psych: Denies: depression [place]/Lymph: Denies: easy bruising All/Imm: Denies: urticaria PFSH ED PFSH: Medical History Acute kidney injury superimposed on chronic kidney disease COPD (chronic obstructive pulmonary disease) Hypertension Microcytic anemia Surgical History H/O esophagogastroduodenoscopy AVM body of stomach History of back surgery x3 History of breast surgery inverted nipple (x3) History of dental surgery History of hysterectomy 1993 History of laparoscopic cholecystectomy 1993 Status post colonoscopy (02/19/21) Diverticulosis, internal hemorrhoids Family History Other Hypertension Social History Smoking and tobacco status: current every day smoker cigarettes Packs smoked per day: 0.75 Years cigarettes smoked: 52 Alcohol intake: never Lives independently: Yes Physical Exam Const: COMMON NORMALS: patient oriented x3 GENERAL APPEARANCE: frail appearing HENMT: COMMON NORMALS: normocephalic and atraumatic HEAD & SCALP: normocephalic and atraumatic Eye: COMMON NORMALS: Equal, round and reactive pupils present and EOMs intact bilaterally PUPIL: Yes Equal, round and reactive pupils present Neck/C-Spine: COMMON NORMALS: full ROM and supple Chest: COMMONS NORMALS: normal inspection of the chest and normal palpation of entire chest wall Resp: COMMON NORMALS: normal respiratory effort, No retractions, No use of accessory muscles and clear to auscultation bilaterally AUSCULTATION: clear to auscultation bilaterally Cardio: COMMON NORMALS: regular rate, regular rhythm and No murmurs present (Cardio) RATE: regular rate RHYTHM: regular rhythm GI: COMMON NORMALS: Normal to inspection, nondistended, normoactive bowel sounds present, Soft to palpation, non-tender and no masses PALPATION: Yes Soft to palpation Extremity: COMMON NORMALS: normal to inspection and full ROM Neuro: COMMON NORMALS: patient oriented x3 and moves all extremities GAIT: Yes Ataxic gait present Psych: COMMON NORMALS: mental status grossly normal, Normal thought process present and cooperative THOUGHT PROCESS: Normal thought process present Skin: COMMON NORMALS: no rashes or lesions noted and no wounds GENERAL SKIN EXAM: no rashes or lesions noted Course Vital Signs: Vital signs: Vital Signs Temperature 97.3 F L 12/10/21 18:07 Pulse Rate 90 12/10/21 20:13 Respiratory Rate 20 H 12/10/21 20:13 Blood Pressure 148/97 12/10/21 20:13 Pulse Oximetry 99 12/10/21 20:13 MDM - Overdose Medical Decision Making Patient presents here with some ataxia blurred vision since last night she had recently restarted her meds but she also has a acute cystitis could be causing the symptoms as well patient given IV antibiotics in the ER spoke to hospitalist and will admit for observation. Lab Data : 12/10/21 18:58 12/10/21 18:58 Radiology Impressions Chest X-Ray 12/10/21 18:30 IMPRESSION: No acute findings. Head CT 12/10/21 18:30 IMPRESSION: No acute intracranial abnormality. Laboratory Results WBC 6.7 10^3/uL (4.0-10.0) 12/10/21 18:58 RBC 3.95 10^6/uL (4.1-5.3) L 12/10/21 18:58 Hgb 10.4 g/dL (11.5-15.3) L 12/10/21 18:58 Hct 34.7 % (37.0-47.0) L 12/10/21 18:58 MCV 87.8 fl (81-99) 12/10/21 18:58 MCH 26.3 pg (28.0-34.0) L 12/10/21 18:58 MCHC 30.0 g/dL (30.0-36.0) 12/10/21 18:58 RDW 15.9 % (12.1-15.1) H 12/10/21 18:58 Plt Count 186 10^3/cmm (130-400) 12/10/21 18:58 MPV 12.3 fL (7.4-10.4) H 12/10/21 18:58 Neut % (Auto) 66.8 % 12/10/21 18:58 Lymph % (Auto) 24.6 % 12/10/21 18:58 [place] % (Auto) 4.9 % 12/10/21 18:58 Eos % (Auto) 2.2 % 12/10/21 18:58 Baso % (Auto) 1.2 % 12/10/21 18:58 Neut # (Auto) 4.49 10^3/uL (1.8-7.7) 12/10/21 18:58 Lymph # (Auto) 1.7 10^3/uL (0.8-4.8) 12/10/21 18:58 [place] # (Auto) 0.3 10^3/uL (0.2-0.9) 12/10/21 18:58 Eos # (Auto) 0.2 10^3/uL (0.0-0.8) 12/10/21 18:58 Baso # (Auto) 0.1 10^3/uL (0.0-0.1) 12/10/21 18:58 Nucleated RBC % (auto) 0 % 12/10/21 18:58 Nucleated RBCs # 0.0 /100WBC 12/10/21 18:58 Sodium 136 mmol/L (136-145) 12/10/21 18:58 Potassium 4.4 mmol/L (3.5-5.1) 12/10/21 18:58 Chloride 105 mmol/L (98-107) 12/10/21 18:58 Carbon Dioxide 20 mmol/L (22-29) L 12/10/21 18:58 Anion Gap 15.4 (5-19) 12/10/21 18:58 BUN 27 mg/dL (8-23) H 12/10/21 18:58 Creatinine 1.4 mg/dL (0.5-0.9) H 12/10/21 18:58 GFR Calculation Not Reportable 12/10/21 18:58 Glucose 119 mg/dL (65-115) H 12/10/21 18:58 Calculated Osmolality 288 mOsm/kg (285-295) 12/10/21 18:58 Calcium 9.7 mg/dL (8.5-10.5) 12/10/21 18:58 Total Bilirubin 0.2 mg/dL (0.15-1.2) 12/10/21 18:58 AST 17 U/L (0-32) 12/10/21 18:58 ALT 7 U/L (0-33) 12/10/21 18:58 Alkaline Phosphatase 77 IU/L (35-105) 12/10/21 18:58 Troponin T Baseline 11 ng/L (0-10) H 12/10/21 18:58 Total Protein 7.3 g/dL (6.6-8.7) 12/10/21 18:58 Albumin 4.1 g/dL (3.5-5.2) 12/10/21 18:58 Globulin 3.2 g/dL (1.3-4.6) 12/10/21 18:58 TSH 0.77 uIU/mL (0.27-4.20) 12/10/21 18:58 Urine Color Yellow (Yellow) 12/10/21 19:30 Urine Appearance Hazy (CLEAR) A 12/10/21 19:30 Urine pH 5 (5-7) 12/10/21 19:30 Ur Specific [place] 1.025 (1.005-1.030) 12/10/21 19:30 Urine Protein 1+ (Negative) H 12/10/21 19:30 Urine Glucose (UA) Norm (Normal) 12/10/21 19:30 Urine Ketones Negative (Negative) 12/10/21 19:30 Urine Blood 2+ (Negative) H 12/10/21 19:30 Urine Nitrate Positive (Negative) H 12/10/21 19:30 Urine Bilirubin Neg (Negative) 12/10/21 19:30 Urine Urobilinogen Neg mg/dL (Negative) 12/10/21 19:30 Ur Leukocyte Esterase 2+ (Negative) H 12/10/21 19:30 Urine RBC 5-10 /hpf (0-2) H 12/10/21 19:30 Urine WBC 25-40 /hpf (0-5) H 12/10/21 19:30 Ur Squamous Epith Cells 25-40 /hpf (0-5) H 12/10/21 19:30 Amorphous Sediment Not Reportable 12/10/21 19:30 Urine Bacteria 3+ /hpf (NONE) H 12/10/21 19:30 Urine Mucus 2+ /hpf 12/10/21 19:30 Salicylates < 0.3 mg/dL (3-10) L 12/10/21 18:58 Urine Opiates Screen Negative ng/mL (Negative) 12/10/21 19:30 Acetaminophen < 5.0 ug/mL (10-30) L 12/10/21 18:58 Ur Barbiturates Screen Negative ng/mL (Negative) 12/10/21 19:30 Ur Phencyclidine Scrn Negative ng/mL (Negative) 12/10/21 19:30 Ur Amphetamines Screen Negative ng/mL (Negative) 12/10/21 19:30 U Benzodiazepines Scrn Negative ng/mL (Negative) 12/10/21 19:30 Urine Cocaine Screen Negative ng/mL (Negative) 12/10/21 19:30 U Marijuana (THC) Screen Negative ng/mL (Negative) 12/10/21 19:30 Ethyl Alcohol < 10 mg/dL (0-10) 12/10/21 18:58 EKG Data EKG 1: I personally reviewed and interpreted this EKG as follows: EKG interpretation date: 12/10/21 EKG interpretation time: 18:42 Interpretation: sinus tach hr [address] or t wave abnormalities qrs 70 qtc 393 Discharge Plan Discharge Patient Disposition: Placed in Observation Clinical Impression: Acute cystitis, Weakness Condition: Stable Prescriptions: No Action gabapentin 600 mg tablet 600 mg PO TID 0RF potassium chloride 20 mEq tablet,ER particles/crystals 20 meq PO DAILY@1800 0RF albuterol sulfate [Ventolin HFA] 90 mcg/actuation HFA aerosol inhaler 1 - 2 inh INHALATION Q4H PRN (Reason: Shortness Of Breath) 0RF irbesartan 300 mg tablet 300 mg PO DAILY@1800 0RF rosuvastatin 20 mg tablet 20 mg PO DAILY@1800 0RF Belsomra 10 mg tablet 10 mg PO DAILY@1800 0RF prazosin 2 mg Capsule 2 mg PO QPM 0RF Stiolto Respimat 2.5-2.5 mcg/actuation Mist 2 puff INHALATION DAILY 0RF mirtazapine 15 mg tablet 15 mg PO BEDTIME 0RF Referrals: Bhupinder Logan MD [Primary Care Provider] - Coding Level of Care Code ED Child Psychologist for Chg Fwd Exam Comprehensive
[2021-12-10] MEDS: sodium chloride 0.9% 1,000 ML 999 ML IV (18:52)
[2021-12-10 19:10] LABS: Basophils # 0.1 10^3/uL (0.0-0.1); Basophils % 1.2 %; Eosinophils # 0.2 10^3/uL (0.0-0.8); Eosinophils % 2.2 %; Hematocrit 34.7 % (37.0-47.0); Hemoglobin 10.4 g/dL (11.5-15.3); Lymphocytes # 1.7 10^3/uL (0.8-4.8); Lymphocytes % 24.6 %; Mean Corpuscular Hemoglobin 26.3 pg (28.0-34.0); Mean Corpuscular Volume 87.8 fl (81-99); Mean Platelet Volume 12.3 fL (7.4-10.4); Monocytes # 0.3 10^3/uL (0.2-0.9); Monocytes % 4.9 %; Neutrophils # 4.49 10^3/uL (1.8-7.7); Neutrophils % 66.8 %; Nucleated Red Blood Cells % 0 %; Platelet Count 186 10^3/cmm (130-400); Red Blood Count 3.95 10^6/uL (4.1-5.3); Red Cell Distribution Width 15.9 % (12.1-15.1); White Blood Count 6.7 10^3/uL (4.0-10.0)
[2021-12-10 19:30] LABS: Troponin(5th) Baseline 11 ng/L (0-10)
[2021-12-10 19:37] LABS: Alanine Aminotransferase 7 U/L (0-33); Albumin Level 4.1 g/dL (3.5-5.2); Alkaline Phosphatase 77 IU/L (35-105); Anion Gap 15.4 (5-19); Aspartate Amino Transferase 17 U/L (0-32); Blood Urea Nitrogen 27 mg/dL (8-23); Calcium 9.7 mg/dL (8.5-10.5); Carbon Dioxide 20 mmol/L (22-29); Chloride 105 mmol/L (98-107); Globulin 3.2 g/dL (1.3-4.6); Glucose 119 mg/dL (65-115); Osmolality Calculated 288 mOsm/kg (285-295); Potassium 4.4 mmol/L (3.5-5.1); Sodium 136 mmol/L (136-145); Thyroid Stimulating Hormone 0.77 uIU/mL (0.27-4.20); Total Bilirubin 0.2 mg/dL (0.15-1.2); Total Protein 7.3 g/dL (6.6-8.7)
[2021-12-10 19:39] LABS: Acetaminophen < 5.0 ug/mL (10-30); Alcohol Level < 10 mg/dL (0-10); Salicylate < 0.3 mg/dL (3-10)
[2021-12-10 19:49] LABS: Add Urine Microscopic? YES; Bilirubin Urine Neg (Negative); Blood Urine 2+ (Negative); Glucose Urine UA Norm (Normal); Ketones Urine Negative (Negative); Leukocyte Esterase Urine 2+ (Negative); Nitrate Urine Positive (Negative); Protein Urine 1+ (Negative); Specific Gravity, Urine 1.025 (1.005-1.030); Urine Appearance Hazy (CLEAR); Urine Color Yellow (Yellow); Urobilinogen Urine Neg (Negative); pH Urine 5 (5-7)
[2021-12-10 19:50] LABS: Bacteria Urine 3+ /hpf; Mucus Urine 2+ /hpf; Squamous Epithelial Cell Urine 25-40 /hpf (0-5); WBC Urine 25-40 /hpf (0-5)
[2021-12-10 19:51] LABS: Add Urine Culture? No; Amphetamines Screen Urine Negative (Negative); Barbiturates Screen Urine Negative (Negative); Benzodiazepines Screen Urine Negative (Negative); Cocaine Screen Urine Negative (Negative); Opiate Screen Urine Negative (Negative); PCP Screen Urine Negative (Negative); THC Screen Urine Negative (Negative)
[2021-12-10 20:05] VITALS: PULSE 91; RESP 20; O2SAT 100
[2021-12-10] MEDS: ipratropium-albuterol 3 mL Neb INHALATION (20:05)
[2021-12-10] MEDS: cefTRIAXone 1,000 MG in sodium chloride 0.9% (plus) 50 ML 100 MG IV (20:08)
[2021-12-10 20:13] VITALS: BP 148/97; PULSE 90; RESP 20; O2SAT 99
--- NOTE | 2021-12-10 20:36 | ECG_ITS ---
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 Measurements Intervals [place] Rate: 99 P: 49 LA: 169 QRS: -19 QRSD: 80 T: 51 QT: 349 QTc: 449 Interpretive Statements SINUS RHYTHM LOW QRS VOLTAGE IN EXTREMITY LEADS [QRS DEFLECTION < 0.5 mV IN LIMB LEADS] PATTERN CONSISTENT WITH PULMONARY DISEASE INFERIOR MYOCARDIAL INFARCTION , OF INDETERMINATE AGE [40+ ms Q WAVE AND/OR ST/T ABNORMALITY IN II/aVF] Compared to ECG 12/10/2021 18:42:45 Myocardial infarct finding now present Sinus tachycardia no longer present ST (T wave) deviation no longer present Electronically Signed On 12-10-2021 23:31:54 CDT by Arianna Patterson M.D. [id number]
--- NOTE | 2021-12-10 20:50 | P.HP_ITS ---
Providers/Chief Complaint Primary Care Provider: Bhupinder Logan MD Chief Complaint: sent by doctor for possible overdose History of Present Illness Patient is a 71 year old female who presents with chief complaint of diplopia. Apparently the patient stopping all of her medications within the last month, I believe, due to financial issues and saw her primary care physician on December 09, 2021. Apparently she had all of her medications refilled and resumed all of them on that day. The patient took a bath last night and apparently passed out in the bathtub. She denies suicidal ideation or suicide attempt. Upon review of systems, the patient is to cough and wheeze which appear to be chronic given her history of COPD. She admits to diplopia. She denies fever, rigors, nausea, vomiting, abdominal pain, diarrhea, myalgia, chest pain, dyspnea, lightheaded, dizziness, diaphoresis, palpitations, sense of rapid heartbeat, sensation of irregular heartbeat, blurry vision, dysphasia, dysphagia, anesthesia/myasthenia of any part of her body. She has right lower serum paresthesia however upon further questioning she states this is chronic and she attributes it to sciatica. She presents for further evaluation Review of Systems General: Reports: 10 or more systems reviewed and unremarkable except in HPI and below Medications/Allergies Home Medications Medication Instructions Recorded Confirmed Last Taken Type albuterol sulfate 90 mcg/actuation 1 - 2 inh INHALATION Q4H PRN 01/03/21 12/10/21 12/09/21 History aerosol inhaler (Ventolin HFA) gabapentin 600 mg tablet 600 mg PO TID 01/03/21 12/10/21 12/09/21 History irbesartan 300 mg tablet 300 mg PO DAILY@179901/03/21 12/10/21 12/09/21 History potassium chloride 20 mEq 20 meq PO DAILY@179901/03/21 12/10/21 12/09/21 History tablet,extended release(part/cryst) rosuvastatin 20 mg tablet 20 mg PO DAILY@179901/03/21 12/10/21 12/09/21 History suvorexant 10 mg tablet (Belsomra) 10 mg PO DAILY@179901/03/21 12/10/21 02/18/21 History mirtazapine 15 mg tablet 15 mg PO BEDTIME 12/10/21 12/10/21 12/09/21 History prazosin 2 mg capsule 2 mg PO QPM 12/10/21 12/10/21 12/09/21 History tiotropium 2.5 mcg-olodaterol 2.5 2 puff INHALATION DAILY 12/10/21 12/10/21 12/09/21 History mcg/actuation mist for inhalation (Stiolto Respimat) Allergies Allergy/AdvReac Type Severity Reaction Status Date / Time No Known Allergies Allergy Verified 12/10/21 18:57 PFSH Acute PFSH: Medical History Acute kidney injury superimposed on chronic kidney disease COPD (chronic obstructive pulmonary disease) Hypertension Microcytic anemia Surgical History H/O esophagogastroduodenoscopy AVM body of stomach History of back surgery x3 History of breast surgery inverted nipple (x3) History of dental surgery History of hysterectomy 1993 History of laparoscopic cholecystectomy 1993 Status post colonoscopy (02/19/21) Diverticulosis, internal hemorrhoids Family History Other Hypertension Social History Smoking and tobacco status: current every day smoker cigarettes Packs smoked per day: 0.75 Years cigarettes smoked: 52 Alcohol intake: never Lives independently: Yes Vitals/I&O/Wt Last Vital Signs Temp 97.3 F L 12/10/21 18:07 Pulse 90 12/10/21 20:13 Resp 20 H 12/10/21 20:13 BP 148/97 12/10/21 20:13 Pulse Ox 99 12/10/21 20:13 Weight last 48 hrs Weight 64.864 kg Physical Exam Narrative: General: -Alert -No acute distress -No dyspnea -No tachypnea Head: -Atraumatic -Normocephalic Eyes: -Pupils equally round and reactive to light and accommodation -Extraocular muscles intact Neurological: -Cranial nerves II-XII intact Neck: -No jugular venous distention -No thyromegaly -No cervical lymphadenopathy Heart: -Regular rate -Regular rhythm -No murmurs -No gallops -No rubs Lungs: -No wheeze -No rhonchi -No rales ? Abdomen: -Normal bowel sounds in all four quadrants -No rebound -No guarding -No tenderness Extremities: -2/4 pulse in all four extremities -No clubbing -No cyanosis -No edema -No calf tenderness present bilaterally -Negative Romana?s sign bilaterally Musculoskeletal: -5/5 bilateral upper extremity strength -5/5 bilateral lower extremity strength -Sensorium of bilateral upper extremities are equal and intact -Sensorium of bilateral lower extremities are equal and intact ? Additional Details / Additional Findings / Exceptions / Miscellaneous: Data : 12/10/21 18:58 12/10/21 18:58 A&P Assessment and plan (1) Weakness: Status: Acute Plan Neurological deficit/diplopia. This may be secondary to TIA versus sudden written resumption of all of her home medications And/or urinary tract infection. As a precaution, will monitor patient on telemetry and checks her cardiac enzymes. Check TSH, free T4, B12, folate, magnesium level. In the morning we will recheck EKG and check fasting lipid panel. Neuro checks every 4 hours. Physical therapy consult pending. Urinalysis positive for which the patient will be start Rocephin 1 g IV daily. Bilateral carotid Doppler pending. Echocardiogram pending. MRI of the brain without contrast pending. Aspirin 81 Mill grams by mouth daily plus Lipitor 40 Mill grams by mouth daily at bedtime plus IV normal saline at 75 ML's per hour Diverticulosis Chronic kidney disease with highly variable creatinine. Patient appears to be at her baseline creatinine of approximately 1.5. Will monitor creatinine intermittently. IV normal saline at 75 ML's per hour Urinary tract infection. Urine culture pending. Rocephin 1 g IV daily Neuropathy Insomnia Anemia, chronic, history of iron deficiency. Will monitor her hemoglobin inter mittently. Check serum ferritin, iron panel, fecal occult blood COPD, O2 dependent Grade 1 diastolic dysfunction. Echocardiogram pending GERD Hyperlipidemia. Fasting lipid panel pending. Lipitor 40 Mill grams by mouth daily at bedtime Hypertension Smoker. The patient will need to be counseled regarding smoking cessation DVT Proflex is. Bilateral SCD Attestations Medical Necessity Statement*: The patient's hospitalization is medically necessary as witnessed by performance of this H&P Coding Level of Care Code Acute Senior Market Research Analyst for Chg Fwd Diagnoses Weakness R53.1
[2021-12-10 21:56] LABS: Troponin 5 2HR 11.22 ng/L (0-10); Troponin 5 2HR Delta 0.22 ABS# (0-10)
[2021-12-10 22:02] LABS: Calcium 9.1 mg/dL (8.5-10.5)
[2021-12-10 22:08] VITALS: BP 138/111; PULSE 98; RESP 16; O2SAT 96
[2021-12-10 22:09] LABS: Parathyroid Hormone 72.9 pg/mL (15-65)
[2021-12-10 22:14] LABS: Ferritin 18 ng/mL (15-150); Iron 31 ug/dL (37-145); Magnesium 1.8 mg/dL (1.7-2.3); Percent Saturation 11.7 % (20-50); Phosphorus 2.2 mg/dL (2.5-4.5); Thyroid Stimulating Hormone 0.81 uIU/mL (0.27-4.20); Total Iron Binding Capacity 263 mcg/dl; Unsaturated Iron Binding 232 ug/dL (112-347); Vitamin B12 326 pg/mL (232-1245)
[2021-12-10 22:18] LABS: Folate Level 5.6 ng/mL (4.8-37.3)
--- NOTE | 2021-12-10 22:40 | USR_ITS ---
PROCEDURE INFORMATION: Exam: US Duplex Bilateral Extracranial Arteries, Carotid Arteries Exam date and time: 12/10/2021 11:09 PM Age: 71 years old Clinical indication: Alteration of consciousness; Transient alteration of awareness; Additional info: TIA TECHNIQUE: Imaging protocol: Real-time Duplex ultrasound scan of the bilateral carotid and vertebral arteries combining ken scale, color Doppler and spectral waveform analysis. Bilateral exam. Exam focused on the carotid arteries. COMPARISON: CTA Head/Neck [id number] 01/12/2015 9:33 AM FINDINGS: Right common carotid artery: Peak velocity 64/18 cm/s. Normal waveform. Right internal carotid artery: Peak velocity 72/16 cm/s. Normal waveform. Right ICA/CCA ratio: 1.1 (normal) Right external carotid artery: No stenosis in the origin. Right vertebral artery: Unremarkable. Antegrade flow. Left common carotid artery: Peak velocity 75/27 cm/s. Normal waveform. Left internal carotid artery: Peak velocity 88/18 cm/s Left ICA/CCA ratio: 1.2 (normal) Left external carotid artery: No stenosis in the origin. Left vertebral artery: Unremarkable. Antegrade flow. US/CV carotid duplex BI* [id number] IMPRESSION: No hemodynamically significant carotid stenosis. REFERENCES: SRU CRITERIA. The degree of internal carotid artery stenosis is based on criteria defined by the Society of Radiologists in Ultrasound (SRU). Normal is no stenosis. Mild is less than 50% stenosis. Moderate is 50-69% stenosis. Severe is greater than 69% stenosis to near occlusion. Near occlusion is a markedly narrowed lumen. Total occlusion is no detectable patent lumen.
[2021-12-10 22:41] VITALS: BMI 25.6
[2021-12-10 22:55] LABS: Free T4 Free Thyroxine 1.04 ng/dL (0.82-1.77)
[2021-12-10] MEDS: atorvastatin 40 mg Tablet PO (23:54)
[2021-12-10] MEDS: sodium chloride 0.9% 1,000 ML 75 ML IV (23:54)
[2021-12-10 23:57] VITALS: BP 122/83; PULSE 100; RESP 20; TEMP 36.7; O2SAT 97
[2021-12-11] VITALS (9 sets, daily range): BP systolic 99–180; BP diastolic 63–120; PULSE 83–113; RESP 16–20; TEMP 36.6–36.8; O2SAT 92–96
--- NOTE | 2021-12-11 | MR_ITS ---
WS: [id number] MRI BRAIN WITHOUT CONTRAST HISTORY: tia COMPARISON: CT head 12/10/2021 TECHNIQUE: Diffusion imaging, multiplanar T1, T2 and FLAIR imaging obtained. No evidence for acute infarct or hemorrhage. Hyde-white matter differentiation is normal. Mild bilateral cerebral atrophy. There are numerous small T2 and FLAIR signal hyperintensities from c hronic white matter disease and vessel ischemic disease. No prior infarct. No hemorrhage. Ventricles and extra-axial spaces are normal. No inferior displacement of cerebellar tonsils. The sella turcica and pituitary gland are unremarkabl e. Dural venous sinuses and [place] of [place] demonstrate no abnormality on this unenhanced studies. Paranasal sinuses: Clear. Mastoid air cells: Fluid in the mastoid air cells bilaterally. Calvarium and scalp: Intact. MR/MR head wo con* [id number] IMPRESSION: 1. No acute infarct or hemorrhage. 2. Mild symmetric atrophy and chronic small vessel ischemic disease.
--- NOTE | 2021-12-11 00:05 | USCV_ITS ---
Jigar Eli Age: 71 Gender: F : 1950 Exam Date: 12/11/2021 00:10 Ordering Phys: Humera Hall DO Technologist: Amol Mock Exam Location: [facility] [place] Indication: TIA BP: / HR: 97 Rhythm: Sinus Technical Quality: Technically difficult study MEASUREMENTS (Male / Female) Normal Values 2D ECHO LV Diastolic Diameter PLAX 3.4 cm 4.2 - 5.9 / 3.9 - 5.3 cm LV Systolic Diameter PLAX 2.1 cm IVS Diastolic Thickness 1.3 cm 0.6 - 1.0 / 0.6 - 0.9 cm IVS Systolic Thickness 2.6 cm LVPW Diastolic Thickness 1.8 cm 0.6 - 1.0 / 0.6 - 0.9 cm LVPW Systolic Thickness 2.1 cm LVOT Diameter 2.6 cm LV Ejection Fraction 2D Teich 70.9 % LV Ejection Fraction MOD 2C 67.6 % LV Ejection Fraction 2C AL 67.4 % LA Diameter 3.0 cm LA Width 3.0 cm LA Height 4.6 cm RA Width 2.6 cm RA Height 4.9 cm Aorta at Sinotubular Diameter 2.5 cm M-MODE Aortic Annulus Diameter 3.1 cm LA Ao Ratio MM 1.1 MV E Point Septal Separation 1.7 cm DOPPLER AV Peak Velocity 174.5 cm/s LVOT Peak Velocity 165.0 cm/s AV Area Cont Eq vti 5.3 cm squared AV Area Cont Eq pk 5.0 cm squared MV Peak Velocity 131.0 cm/s MV Area PHT 5.0 cm squared Mitral E to A Ratio 0.5 MV E' Velocity 38.5 cm/s Mitral E to MV E' Ratio 8.7 Mitral E to LV E' Lateral Ratio 8.2 Mitral E to LV E' Septal Ratio 9.4 TR Peak Velocity 133.7 cm/s TR Peak Gradient 7.2 mmHg TR Mean Velocity 84.6 cm/s TR Mean Gradient 3.3 mmHg TR Velocity Time Integral 25.7 cm Right Atrial Pressure 15.0 mmHg Pulmonary Artery Systolic Pressu 22.2 mmHg PV Peak Velocity 71.0 cm/s RV Acceleration Time 0.1 s RV Ejection Time 0.3 s RV AcT/ET 0.4 FINDINGS Left Ventricle Normal left ventricular size, systolic function and mildly increased wall thickness, with no diagnostic regional wall motion abnormalities. Left ventricular ejection fraction is estimated at 65-70%. Grade I diastolic dysfunction (abnormal relaxation filling pattern), normal to mildly elevated filling pressures. Right Ventricle Normal right ventricular size and systolic function. Normal right ventricle systolic pressure. Right Atrium Right atrium not well visualized. Probably normal right atrial size. Left Atrium Normal left atrial size. Mitral Valve Mild mitral annular calcification. Structurally normal mitral valve. No mitral valve stenosis. No mitral valve regurgitation. Aortic Valve Aortic valve not well visualized. No aortic valve stenosis. No aortic valve regurgitation. Tricuspid Valve Tricuspid valve not well visualized. Pulmonic Valve Pulmonic valve not well visualized. Pericardium No pericardial effusion. Aorta Normal-sized aortic root. Normal-sized inferior vena cava with less than 50% respiratory variation. CONCLUSIONS 1. This is a technically difficult study. 2. Normal left ventricular size, systolic function and mildly increased wall thickness, with no diagnostic regional wall motion abnormalities. Left ventricular ejection fraction is estimated at 65-70%. Grade I diastolic dysfunction (abnormal relaxation filling pattern), normal to mildly elevated filling pressures. 3. No evidence of cardioembolic source of stroke based on the study. 4. MAGNO may be considered for complete assessment of left atrial/left atrial appendage, if clinically indicated. 5. When compared to previous echocardiogram dated 01/04/2021, there may not have been any significant change. Theresa Dexter MD (Electronically Signed) Final Date: 11 December 2021 14:15 S
--- NOTE | 2021-12-11 00:36 | ECG_ITS ---
[facility] Test Date: 2021-12-11 Pat Name: Eli Kimball Department: Room: 278 Gender: Female Urgent Care Technician: : 1950 Requested By: Randi Medley Order Number: [id number] Dinorah MD: Theresa Dexter M.D. Measurements Intervals [place] Rate: 100 P: 51 NM: 172 QRS: -59 QRSD: 88 T: 61 QT: 358 QTc: 462 Interpretive Statements SINUS TACHYCARDIA LOW QRS VOLTAGE IN EXTREMITY LEADS [QRS DEFLECTION < 0.5 mV IN LIMB LEADS] LEFT ANTERIOR FASCICULAR BLOCK [QRS AXIS <= -45, QR IN I, RS IN II] INFERIOR MYOCARDIAL INFARCTION , OF INDETERMINATE AGE Compared to ECG 12/10/2021 21:10:58 Left anterior fascicular block now present Sinus rhythm no longer present Myocardial infarct finding still present Electronically Signed On 12-11-2021 18:31:48 CDT by Theresa Dexter M.D. [id number]
[2021-12-11 01:27] LABS: Troponin 5 6HR 11.55 ng/L (0-10)
[2021-12-11 01:31] LABS: Troponin 5 6HR Delta 0.55 ng/L (0-12)
[2021-12-11 05:50] LABS: Basophils # 0.1 10^3/uL (0.0-0.1); Basophils % 1.1 %; Eosinophils # 0.1 10^3/uL (0.0-0.8); Eosinophils % 2.3 %; Hematocrit 30.5 % (37.0-47.0); Hemoglobin 9.2 g/dL (11.5-15.3); Lymphocytes # 1.5 10^3/uL (0.8-4.8); Lymphocytes % 29.3 %; Mean Corpuscular HGB Conc 30.2 g/dL (30.0-36.0); Mean Corpuscular Hemoglobin 26.5 pg (28.0-34.0); Mean Corpuscular Volume 87.9 fl (81-99); Mean Platelet Volume 11.2 fL (7.4-10.4); Monocytes # 0.3 10^3/uL (0.2-0.9); Monocytes % 5.2 %; Neutrophils # 3.24 10^3/uL (1.8-7.7); Neutrophils % 61.9 %; Nucleated Red Blood Cells % 0 %; Platelet Count 173 10^3/cmm (130-400); Red Blood Count 3.47 10^6/uL (4.1-5.3); Red Cell Distribution Width 16.1 % (12.1-15.1); White Blood Count 5.2 10^3/uL (4.0-10.0)
--- NOTE | 2021-12-11 06:00 | ECG_ITS ---
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 Measurements Intervals [place] Rate: 94 P: 59 DC: 168 QRS: -13 QRSD: 90 T: 60 QT: 357 QTc: 448 Interpretive Statements SINUS RHYTHM LOW QRS VOLTAGE IN EXTREMITY LEADS [QRS DEFLECTION < 0.5 mV IN LIMB LEADS] Compared to ECG 12/11/2021 01:40:51 Sinus tachycardia no longer present Left anterior fascicular block no longer present Myocardial infarct finding no longer present Electronically Signed On 12-11-2021 18:31:26 CDT by Theresa Dexter M.D. [id number]
[2021-12-11 06:13] LABS: Blood Urea Nitrogen 27 mg/dL (8-23); Calcium 9.3 mg/dL (8.5-10.5); Carbon Dioxide 23 mmol/L (22-29); Chol HDL Ratio 6.41 mg/dL (0.0-4.40); Cholesterol 186 mg/dL (0-200); Glucose 99 mg/dL (65-115); HDL Cholesterol 29 mg/dL (60-100); LDL Cholesterol Calculated 125 mg/dL (50-129); LDL HDL Ratio 4.31 RATIO (0.00-3.22); Triglycerides 162 mg/dL (0-150)
[2021-12-11 06:27] LABS: Chloride 112 mmol/L (98-107); Osmolality Calculated 299 mOsm/kg (285-295)
[2021-12-11 06:34] LABS: Anion Gap 11.6 (5-19); Potassium 4.6 mmol/L (3.5-5.1); Sodium 142 mmol/L (136-145)
[2021-12-11] MEDS: aspirin 81 mg EC Tablet PO (08:34)
--- NOTE | 2021-12-11 09:21 | PM.PN ---
Subjective Subjective: No acute ischemic changes on head MRI Creatinine at baseline Patient stating that she is back to her baseline Essential tremors, Very pleasant cooperative Complaining of headache Vitals/I&O/Wt Last Vital Signs Temp 97.8 F 12/11/21 04:00 Pulse 83 12/11/21 05:20 Resp 20 H 12/11/21 04:00 BP 99/63 12/11/21 04:00 Pulse Ox 92 12/11/21 04:00 12/10/21 12/11/21 12/11/21 22:59 06:59 14:59 Intake Total 1050 / 1050 Balance 1050 / 1050 Weight last 48 hrs Weight 67.755 kg Weight 64.864 kg Physical Exam Narrative: Patient was laying comfortably in her bed Family essential tremors No signs of stroke NIH 0 Pleasant cooperative Complaining of headache S1, S2 Saturating well on room air Abdomen soft No active focal deficits Pleasant and cooperative Data : 12/11/21 05:41 12/11/21 05:41 A&P Assessment and plan (1) Acute cystitis: Status: Acute (2) Weakness: Status: Acute (3) Acute kidney injury superimposed on chronic kidney disease: Status: Acute (4) Microcytic anemia: Status: Acute Plan I do believe her syncopal event is related to initiation of medications and taking hot bath right afterwards No signs of stroke Head MRI negative Hemoglobin 9.2 She is hemodynamic stable She has familial essential tremors Complaining of headache, migraine, will give her tramadol and sumatriptan Acute on chronic kidney disease creatinine slightly worsened from baseline, will continue IV fluids, plan to discharge her tomorrow High PTH however calcium is normal Will need PTH evaluation outpatient Dyslipidemia B12 is normal UTI: Continue ceftriaxone Plan to discharge her tomorrow PT evaluation and echo requested Attestations Medical Necessity Statement*: Discharge tomorrow Time Spent in Patient Care: 20mins Coding Level of Care Code Acute Production Staff Worker for Lian Fwloretta Diagnoses Acute cystitis N30.00 Weakness R53.1 Acute kidney injury superimposed on chronic kidney disease N17.9; N18.9 Microcytic anemia D50.9
--- NOTE | 2021-12-11 10:09 | PC.CHAP ---
Pastoral Care Encounter/Spiritual Assessment Type of Contact [] Declined office secretary visit [] Patient/Family/Request visit [] Outpatient visit [] Follow-up visit [] Physician referral [] Code/Alert [x] Routine visit [] Staff referral [] Actively dying [x] Patient sleeping [] Family support [] [] Out of room [] Palliative care [] [] Receiving care in room [] Pre-surgical visit [] Trauma [] Long length of stay [] ICU visit [] Other: Relational/Emotional Strength [] Patient feels connected with others/family/visitors/staff [] Distress [] Loneliness/isolation [] Abandonment Spirituality of Patient [] Person of Shandra [] Attends [facility] of their Shandra [] Believes in Prayer [] Reads Bible or Advent materials [] There are Spiritual issues to be addressed [employer] Interventions [] Prayer [] Active listening [] Non-anxious presence [] Spiritual/emotional support [] Crisis/trauma care [] Spiritual counseling [] Bereavement support [] Provided bereavement packet [] Provided Bible/devotional materials [] Provided toy/stuffed animal, coloring book to patient or family member [] Provided Communion [] Anointing/[place] [] Salvation [] Completed spiritual assessment [] Other: Impact on Illness or Injury [] Angry [] Fearful [] Anxious [] Often cries [] Exhaustion [] Unable to work [] Unable to attend baptist [] Unable to walk/stand [] Unable to read [] Unable to drive [] Unable to eat/drink [] Unable to sleep [] Unable to be with family [] Patient intubated [] Other: Summary Time spent with patient
[2021-12-11] MEDS: TRAMadol 50 mg Tablet PO (10:27)
[2021-12-11] MEDS: SUMAtriptan 25 mg Tablet 50 MG PO (10:27)
[2021-12-11] MEDS: acetaminophen 325 mg Tablet 650 MG PO (12:31)
[2021-12-11] MEDS: amlodipine 10 mg Tablet PO (12:32)
[2021-12-11] MEDS: labetalol 5 mg/mL SDV 20mL 10 MG IVP (14:50)
[2021-12-11] MEDS: nicotine 21 mg Patch 1 PATCH TRANSDERMA (15:09)
--- NOTE | 2021-12-11 18:12 | P.DS_ITS ---
Discharge Providers Date of Admission: 12/10/21 20:12 Date of Discharge: December 11, 2021 Attending Provider at Admission: Humera Hall DO Attending Provider at Discharge: Humera Hall DO Primary Care Provider: Bhupinder Logan MD Diagnoses at Discharge Discharge Diagnosis (1) Acute cystitis: Status: Acute (2) Weakness: Status: Acute (3) Acute kidney injury superimposed on chronic kidney disease: Status: Acute (4) Microcytic anemia: Status: Acute Reason for Visit Reason for Visit: sent by doctor for possible overdose Hospital Course Hospital Course 71-year-old female who was admitted for management and evaluation of syncopal event. MRI head negative for acute CVA. Patient remained hypertensive in the morning, I restarted her home medications and gave her 10 mg of IV labetalol IV push as well. That improved her blood pressure however patient was complaining of headache for which I gave her sumatriptan and added 21 mg nicotine patch. After nicotine patch her headache improved. Patient was very agitated, she wanted to go out and smoke, she kept saying that at any cost she is not staying tonight, she was evaluated multiple times on 12/11 in the presence of her nurse Anali. Patient was told about the risk of stroke related to hypertensive urgency, she is able to make decisions for herself, she made her mind to leave AGAINST MEDICAL ADVICE. For benefit of the patient I have prescribed her hydralazine 25 mg twice daily which she will take along her irbesartan and prazosin. Prazosin is not an ideal medication considering recent syncopal event. Patient has left before completing evaluation on 12/11. Physical Exam Narrative: Patient was laying comfortably in her bed Family essential tremors No signs of stroke NIH 0 Pleasant cooperative Complaining of headache S1, S2 Saturating well on room air Abdomen soft No active focal deficits Pleasant and cooperative Discharge Data Studies Completed and Pending Completed Studies During Hospitalization Category Date Time Status CT head wo con* [id number] Urgent Cat Scan 12/10/21 18:30 Completed XR chest 1V portable [id number] Urgent Exams 12/10/21 18:30 Completed MR head wo con* [id number] Urgent MRI 12/11/21 Completed CV. echo complete* [id number] Routine Ultrasound 12/11/21 00:05 Completed US carotid duplex bilateral [CV carotid duplex BI* Ultrasound 12/10/21 22:40 Completed [id number]] Urgent Pending at discharge Category Date Time Status Basic Metabolic Panel AM LABS Lab 12/12/21 04:00 Ordered Complete Blood Count w/Auto AM LABS Lab 12/12/21 04:00 Ordered Occult Blood Stool [Immunochemical Fecal OCB] Routine Lab 12/10/21 22:40 Uncollected Radiology Impressions Chest X-Ray 12/10/21 18:30 IMPRESSION: No acute findings. Head CT 12/10/21 18:30 IMPRESSION: No acute intracranial abnormality. Carotid Doppler Study 12/10/21 22:40 IMPRESSION: No hemodynamically significant carotid stenosis. REFERENCES: SRU CRITERIA. The degree of internal carotid artery stenosis is based on criteria defined by the Society of Radiologists in Ultrasound (SRU). Normal is no stenosis. Mild is less than 50% stenosis. Moderate is 50-69% stenosis. Severe is greater than 69% stenosis to near occlusion. Near occlusion is a markedly narrowed lumen. Total occlusion is no detectable patent lumen. Head MRI 12/11/21 00:00 IMPRESSION: 1. No acute infarct or hemorrhage. 2. Mild symmetric atrophy and chronic small vessel ischemic disease. Laboratory Results WBC 5.2 10^3/uL (4.0-10.0) 12/11/21 05:41 RBC 3.47 10^6/uL (4.1-5.3) L 12/11/21 05:41 Hgb 9.2 g/dL (11.5-15.3) L 12/11/21 05:41 Hct 30.5 % (37.0-47.0) L 12/11/21 05:41 MCV 87.9 fl (81-99) 12/11/21 05:41 MCH 26.5 pg (28.0-34.0) L 12/11/21 05:41 MCHC 30.2 g/dL (30.0-36.0) 12/11/21 05:41 RDW 16.1 % (12.1-15.1) H 12/11/21 05:41 Plt Count 173 10^3/cmm (130-400) 12/11/21 05:41 MPV 11.2 fL (7.4-10.4) H 12/11/21 05:41 Neut % (Auto) 61.9 % 12/11/21 05:41 Lymph % (Auto) 29.3 % 12/11/21 05:41 [place] % (Auto) 5.2 % 12/11/21 05:41 Eos % (Auto) 2.3 % 12/11/21 05:41 Baso % (Auto) 1.1 % 12/11/21 05:41 Neut # (Auto) 3.24 10^3/uL (1.8-7.7) 12/11/21 05:41 Lymph # (Auto) 1.5 10^3/uL (0.8-4.8) 12/11/21 05:41 [place] # (Auto) 0.3 10^3/uL (0.2-0.9) 12/11/21 05:41 Eos # (Auto) 0.1 10^3/uL (0.0-0.8) 12/11/21 05:41 Baso # (Auto) 0.1 10^3/uL (0.0-0.1) 12/11/21 05:41 Nucleated RBC % (auto) 0 % 12/11/21 05:41 Nucleated RBCs # 0.0 /100WBC 12/11/21 05:41 Sodium 142 mmol/L (136-145) 12/11/21 05:41 Potassium 4.6 mmol/L (3.5-5.1) 12/11/21 05:41 Chloride 112 mmol/L (98-107) H 12/11/21 05:41 Carbon Dioxide 23 mmol/L (22-29) 12/11/21 05:41 Anion Gap 11.6 (5-19) 12/11/21 05:41 BUN 27 mg/dL (8-23) H 12/11/21 05:41 Creatinine 1.6 mg/dL (0.5-0.9) H 12/11/21 05:41 GFR Calculation Not Reportable 12/11/21 05:41 Glucose 99 mg/dL (65-115) 12/11/21 05:41 Calculated Osmolality 299 mOsm/kg (285-295) H 12/11/21 05:41 Calcium 9.3 mg/dL (8.5-10.5) 12/11/21 05:41 Phosphorus 2.2 mg/dL (2.5-4.5) L 12/10/21 21:18 Magnesium 1.8 mg/dL (1.7-2.3) 12/10/21 21:18 Iron 31 ug/dL (37-145) L 12/10/21 21:18 TIBC 263 mcg/dl 12/10/21 21:18 % Saturation 11.7 % (20-50) L 12/10/21 21:18 Unsat Iron Binding 232 ug/dL (112-347) 12/10/21 21:18 Ferritin 18 ng/mL (15-150) 12/10/21 21:18 Total Bilirubin 0.2 mg/dL (0.15-1.2) 12/10/21 18:58 AST 17 U/L (0-32) 12/10/21 18:58 ALT 7 U/L (0-33) 12/10/21 18:58 Alkaline Phosphatase 77 IU/L (35-105) 12/10/21 18:58 Troponin T Baseline 11 ng/L (0-10) H 12/10/21 18:58 Troponin T 120 Minute 11.22 ng/L (0-10) H 12/10/21 21:18 Delta Troponin T 0.22 ABS# (0-10) 12/10/21 21:18 Troponin T Hi Sens 6Hr 11.55 ng/L (0-10) H 12/11/21 01:03 Troponin T Hi Sens 6Hr Delta 0.55 ng/L (0-12) 12/11/21 01:03 Total Protein 7.3 g/dL (6.6-8.7) 12/10/21 18:58 Albumin 4.1 g/dL (3.5-5.2) 12/10/21 18:58 Globulin 3.2 g/dL (1.3-4.6) 12/10/21 18:58 Triglycerides 162 mg/dL (0-150) H 12/11/21 05:41 Cholesterol 186 mg/dL (0-200) 12/11/21 05:41 LDL Cholesterol, Calc 125 mg/dL (50-129) 12/11/21 05:41 HDL Cholesterol 29 mg/dL (60-100) L 12/11/21 05:41 LDL/HDL Ratio 4.31 RATIO (0.00-3.22) H 12/11/21 05:41 Cholesterol/HDL Ratio 6.41 mg/dL (0.0-4.40) H 12/11/21 05:41 Vitamin B12 326 pg/mL (232-1245) 12/10/21 21:18 Folate 5.6 ng/mL (4.8-37.3) 12/10/21 21:18 TSH 0.81 uIU/mL (0.27-4.20) 12/10/21 21:18 Free T4 1.04 ng/dL (0.82-1.77) 12/10/21 21:18 PTH Intact 72.9 pg/mL (15-65) H 12/10/21 21:18 Calcium (PTH Intact) 9.1 mg/dL (8.5-10.5) 12/10/21 21:18 Urine Color Yellow (Yellow) 12/10/21 19:30 Urine Appearance Hazy (CLEAR) A 12/10/21 19:30 Urine pH 5 (5-7) 12/10/21 19:30 Ur Specific [place] 1.025 (1.005-1.030) 12/10/21 19:30 Urine Protein 1+ (Negative) H 12/10/21 19:30 Urine Glucose (UA) Norm (Normal) 12/10/21 19:30 Urine Ketones Negative (Negative) 12/10/21 19:30 Urine Blood 2+ (Negative) H 12/10/21 19:30 Urine Nitrate Positive (Negative) H 12/10/21 19: Urine Bilirubin Neg (Negative) 12/10/21 19:30 Urine Urobilinogen Neg mg/dL (Negative) 12/10/21 19:30 Ur Leukocyte Esterase 2+ (Negative) H 12/10/21 19:30 Urine RBC 5-10 /hpf (0-2) H 12/10/21 19:30 Urine WBC 25-40 /hpf (0-5) H 12/10/21 19:30 Ur Squamous Epith Cells 25-40 /hpf (0-5) H 12/10/21 19:30 Amorphous Sediment Not Reportable 12/10/21 19:30 Urine Bacteria 3+ /hpf (NONE) H 12/10/21 19:30 Urine Mucus 2+ /hpf 12/10/21 19:30 Salicylates < 0.3 mg/dL (3-10) L 12/10/21 18:58 Urine Opiates Screen Negative ng/mL (Negative) 12/10/21 19:30 Acetaminophen < 5.0 ug/mL (10-30) L 12/10/21 18:58 Ur Barbiturates Screen Negative ng/mL (Negative) 12/10/21 19:30 Ur Phencyclidine Scrn Negative ng/mL (Negative) 12/10/21 19:30 Ur Amphetamines Screen Negative ng/mL (Negative) 12/10/21 19:30 U Benzodiazepines Scrn Negative ng/mL (Negative) 12/10/21 19:30 Urine Cocaine Screen Negative ng/mL (Negative) 12/10/21 19:30 U Marijuana (THC) Screen Negative ng/mL (Negative) 12/10/21 19:30 Ethyl Alcohol < 10 mg/dL (0-10) 12/10/21 18:58 Vitals Last Vital Signs Temp 98.3 F 12/11/21 15:42 Pulse 87 12/11/21 15:42 Resp 17 12/11/21 15:42 BP 151/90 12/11/21 15:42 Pulse Ox 96 12/11/21 15:42 Discharge Plan Discharge Patient Disposition: Home Condition: Stable Prescriptions: New hydralazine 25 mg tablet 25 mg PO BID Qty: 60 1RF Continued gabapentin 600 mg tablet 600 mg PO TID 0RF potassium chloride 20 mEq tablet,ER particles/crystals 20 meq PO DAILY@1800 0RF albuterol sulfate [Ventolin HFA] 90 mcg/actuation HFA aerosol inhaler 1 - 2 inh INHALATION Q4H PRN (Reason: Shortness Of Breath) 0RF irbesartan 300 mg tablet 300 mg PO DAILY@1800 0RF rosuvastatin 20 mg tablet 20 mg PO DAILY@1800 0RF Belsomra 10 mg tablet 10 mg PO DAILY@1800 0RF prazosin 2 mg Capsule 2 mg PO QPM 0RF Stiolto Respimat 2.5-2.5 mcg/actuation Mist 2 puff INHALATION DAILY 0RF mirtazapine 15 mg tablet 15 mg PO BEDTIME 0RF Referrals: Bhupinder Logan MD [Primary Care Provider] - 12/18/21 9:00 am Patient Instructions: Opioid Safety Discharge Attestations Time Spent in Discharge Care*: less than 30 min Quality Metrics Clinical Quality Measures [ No reported AMI, CVA or VTE this stay] Coding Level of Care Code Acute Chg FW DC note Diagnoses Acute cystitis N30.00 Weakness R53.1 Acute kidney injury superimposed on chronic kidney disease N17.9; N18.9 Microcytic anemia D50.9
--- NOTE | 2021-12-11 18:49 | PC.NURSE ---
Addendum entered by Krupa Virk RN 12/11/21 19:02: patient returned her home medications Original Note: Notified Dr. Garcia that patient was wanting to leave. Dr. Garcia came and talked to patient at bedside, and explained why she needed to stay one more night. patient verbalized understanding, however eventually decided that she wanted to leave. I reiterated to the patient the need for staying, the risks for leaving against medical advice, and the importance of monitoring her blood pressure at home and smoking cessation tips. dr garcia notified that patient left.
== END 2021-12-11 17:30 | disposition left against medical advice (07) ==
LOC: ER 20:43 → MEDSURG 21:34
PROVIDERS: Admitting Provider Internal Medicine; Emergency Provider Emergency Medicine; PCP Family Medicine; Visit Provider Internal Medicine
DX: N30.00 Acute cystitis without hematuria (principal); R53.1 Weakness; N17.9 Acute kidney failure, unspecified; N18.9 Chronic kidney disease, unspecified; D50.9 Iron deficiency anemia, unspecified; Z53.29 Procedure and treatment not carried out because of patient's decision for other reasons; E78.5 Hyperlipidemia, unspecified; I65.23 Occlusion and stenosis of bilateral carotid arteries; J44.9 Chronic obstructive pulmonary disease, unspecified; I10 Essential (primary) hypertension; F17.210 Nicotine dependence, cigarettes, uncomplicated; K57.30 Diverticulosis of large intestine without perforation or abscess without bleeding; D64.9 Anemia, unspecified; Z99.81 Dependence on supplemental oxygen; Z91.19 Patient's noncompliance with other medical treatment and regimen; H53.2 Diplopia
CPT/HCPCS: 36415; 70450; 70551; 71045; 80048; 80053; 80061; 80306; 80307; 81001; 82310; 82607; 82728; 82746; 83540; 83550; 83735; 83970; 84100; 84439; 84443; 84484; 85025; 93005; 93306; 93880; 94640; 96365; 97161; 97530; 99285; G0378; J0696; J3490; J7030

== ENCOUNTER 2021-12-11 20:53 | Observation (INO) | payer MEDICARE, SELFPAY ==
[2021-12-11 21:26] VITALS: BP 82/56; PULSE 88; RESP 16; TEMP 36.6; O2SAT 94; BMI 24.2
[2021-12-11 23:38] VITALS: BP 118/71; PULSE 84; RESP 17; O2SAT 98
--- NOTE | 2021-12-11 23:39 | ECG_ITS ---
[facility] Test Date: 2021-12-11 Pat Name: Eli Kimball Department: Room: Gender: Female Director Of Speech Pathology: : 1950 Requested By: Randi Medley Order Number: [id number] Dinorah MD: Anthony Benton M.D. Measurements Intervals [place] Rate: 82 P: -5 RI: 179 QRS: 28 QRSD: 76 T: -3 QT: 383 QTc: 448 Interpretive Statements SINUS RHYTHM LOW QRS VOLTAGE IN EXTREMITY LEADS [QRS DEFLECTION < 0.5 mV IN LIMB LEADS] Compared to ECG 12/11/2021 05:20:32 No significant changes Electronically Signed On 12-12-2021 16:10:12 CDT by Anthony Benton M.D. [id number]
--- NOTE | 2021-12-11 23:41 | W.ED.GENADLT ---
HPI - General Adult General: Chief complaint: General Medical Stated complaint: HIGH BLOOD PRESSURE/HEADACHE Time Seen by Provider: 12/11/21 23:31 Source: patient and EMS Limitations: no limitations History of Present Illness: 71-year-old female who was seen and admitted last night for acute cystitis some confusion along with blurry vision and hypertension. She states that she is angry today and signed out from the hospital AGAINST MEDICAL ADVICE at noon. States being home her blood pressures have been fluctuating high and low states that she is felt weak and is still had severe blurry vision. States she became very anxious and nervous and called EMS and wants to be readmitted and changed her mind and admit she may mistake leaving. She denies any vomiting she does have some pain down her left arm. Associated symptoms: Deny chest pain, dyspnea, nausea, rash or vomiting Review of Systems Const: Denies: fever(s), chills, body aches or change in appetite Eyes: Reports: blurry vision ENMT: Denies: throat pain or dental pain Card: Denies: chest pain Resp: Denies: dyspnea GI: Denies: abdominal pain, nausea, vomiting or diarrhea : Denies: dysuria Musc: Denies: neck pain or back pain Skin/Breast: Denies: rash Neuro: Reports: weakness in extremities Psych: Denies: depression [place]/Lymph: Denies: easy bruising All/Imm: Denies: urticaria PFSH ED PFSH: Medical History Acute kidney injury superimposed on chronic kidney disease COPD (chronic obstructive pulmonary disease) Hypertension Microcytic anemia Surgical History H/O esophagogastroduodenoscopy AVM body of stomach History of back surgery x3 History of breast surgery inverted nipple (x3) History of dental surgery History of hysterectomy 1993 History of laparoscopic cholecystectomy 1993 Status post colonoscopy (02/19/21) Diverticulosis, internal hemorrhoids Family History Other Hypertension Social History Smoking and tobacco status: current every day smoker cigarettes Packs smoked per day: 0.75 Years cigarettes smoked: 52 Alcohol intake: never Lives independently: Yes Physical Exam Const: COMMON NORMALS: patient oriented x3 and healthy appearing GENERAL APPEARANCE: in distress and anxious HENMT: COMMON NORMALS: normocephalic and atraumatic HEAD & SCALP: normocephalic and atraumatic Eye: COMMON NORMALS: Equal, round and reactive pupils present and EOMs intact bilaterally PUPIL: Yes Equal, round and reactive pupils present Neck/C-Spine: COMMON NORMALS: full ROM and supple Chest: COMMONS NORMALS: normal inspection of the chest and normal palpation of entire chest wall Resp: COMMON NORMALS: normal respiratory effort, No retractions, No use of accessory muscles and clear to auscultation bilaterally AUSCULTATION: clear to auscultation bilaterally Cardio: COMMON NORMALS: regular rate, regular rhythm and No murmurs present (Cardio) RATE: regular rate RHYTHM: regular rhythm GI: COMMON NORMALS: Normal to inspection, nondistended, normoactive bowel sounds present, Soft to palpation, non-tender and no masses PALPATION: Yes Soft to palpation Extremity: COMMON NORMALS: normal to inspection and full ROM Neuro: COMMON NORMALS: patient oriented x3, moves all extremities and no focal motor deficits Psych: COMMON NORMALS: mental status grossly normal, Normal thought process present and cooperative THOUGHT PROCESS: Normal thought process present Skin: COMMON NORMALS: no rashes or lesions noted and no wounds GENERAL SKIN EXAM: no rashes or lesions noted Course Vital Signs: Vital signs: Vital Signs Temperature 97.8 F 12/11/21 21:26 Pulse Rate 84 12/11/21 23:38 Respiratory Rate 17 12/11/21 23:38 Blood Pressure 118/71 12/11/21 23:38 Pulse Oximetry 98 12/11/21 23:38 [facility] - General Adult Medical Decision Making Patient presents with continued blood pressure issues along with acute cystitis and continued blurred vision patient had signed out AGAINST MEDICAL ADVICE and now does want to be readmitted she is quite anxious I spoke to the hospitalist and will readmit at this time. Lab Data : 12/11/21 23:51 12/11/21 23:51 Laboratory Results WBC 7.5 10^3/uL (4.0-10.0) 12/11/21 23:51 RBC 3.30 10^6/uL (4.1-5.3) L 12/11/21 23:51 Hgb 9.0 g/dL (11.5-15.3) L 12/11/21 23:51 Hct 29.2 % (37.0-47.0) L 12/11/21 23:51 MCV 88.5 fl (81-99) 12/11/21 23:51 MCH 27.3 pg (28.0-34.0) L 12/11/21 23:51 MCHC 30.8 g/dL (30.0-36.0) 12/11/21 23:51 RDW 15.9 % (12.1-15.1) H 12/11/21 23:51 Plt Count 161 10^3/cmm (130-400) 12/11/21 23:51 MPV 12.1 fL (7.4-10.4) H 12/11/21 23:51 Neut % (Auto) 75.8 % 12/11/21 23:51 Lymph % (Auto) 15.7 % 12/11/21 23:51 [place] % (Auto) 5.5 % 12/11/21 23:51 Eos % (Auto) 1.6 % 12/11/21 23:51 Baso % (Auto) 0.9 % 12/11/21 23:51 Neut # (Auto) 5.68 10^3/uL (1.8-7.7) 12/11/21 23:51 Lymph # (Auto) 1.2 10^3/uL (0.8-4.8) 12/11/21 23:51 [place] # (Auto) 0.4 10^3/uL (0.2-0.9) 12/11/21 23:51 Eos # (Auto) 0.1 10^3/uL (0.0-0.8) 12/11/21 23:51 Baso # (Auto) 0.1 10^3/uL (0.0-0.1) 12/11/21 23:51 Nucleated RBC % (auto) 0 % 12/11/21 23:51 Nucleated RBCs # 0.0 /100WBC 12/11/21 23:51 Sodium 136 mmol/L (136-145) 12/11/21 23:51 Potassium 4.3 mmol/L (3.5-5.1) 12/11/21 23:51 Chloride 104 mmol/L (98-107) 12/11/21 23:51 Carbon Dioxide 21 mmol/L (22-29) L 12/11/21 23:51 Anion Gap 15.3 (5-19) 12/11/21 23:51 BUN 26 mg/dL (8-23) H 12/11/21 23:51 Creatinine 1.7 mg/dL (0.5-0.9) H 12/11/21 23:51 GFR Calculation Not Reportable 12/11/21 23:51 Glucose 114 mg/dL (65-115) 12/11/21 23:51 Calculated Osmolality 288 mOsm/kg (285-295) 12/11/21 23:51 Calcium 9.1 mg/dL (8.5-10.5) 12/11/21 23:51 Total Bilirubin 0.2 mg/dL (0.15-1.2) 12/11/21 23:51 AST 15 U/L (0-32) 12/11/21 23:51 ALT 7 U/L (0-33) 12/11/21 23:51 Alkaline Phosphatase 74 IU/L (35-105) 12/11/21 23:51 Troponin T Baseline 11 ng/L (0-10) H 12/11/21 23:51 Total Protein 6.1 g/dL (6.6-8.7) L 12/11/21 23:51 Albumin 3.9 g/dL (3.5-5.2) 12/11/21 23:51 Globulin 2.2 g/dL (1.3-4.6) 12/11/21 23:51 Discharge Plan Discharge Patient Disposition: Admitted As Inpatient Clinical Impression: Acute cystitis, Blurred vision Condition: Stable Coding Level of Care Code ED Addiction Medicine Physician for Chg Fwd Exam Comprehensive
[2021-12-12 00:14] LABS: Alanine Aminotransferase 7 U/L (0-33); Albumin Level 3.9 g/dL (3.5-5.2); Alkaline Phosphatase 74 IU/L (35-105); Anion Gap 15.3 (5-19); Aspartate Amino Transferase 15 U/L (0-32); Blood Urea Nitrogen 26 mg/dL (8-23); Calcium 9.1 mg/dL (8.5-10.5); Carbon Dioxide 21 mmol/L (22-29); Chloride 104 mmol/L (98-107); Globulin 2.2 g/dL (1.3-4.6); Glucose 114 mg/dL (65-115); Osmolality Calculated 288 mOsm/kg (285-295); Potassium 4.3 mmol/L (3.5-5.1); Sodium 136 mmol/L (136-145); Total Bilirubin 0.2 mg/dL (0.15-1.2); Total Protein 6.1 g/dL (6.6-8.7); Troponin(5th) Baseline 11 ng/L (0-10)
[2021-12-12] MEDS: sodium chloride 0.9% 500 ML 999 ML IV (00:15)
[2021-12-12] MEDS: cefTRIAXone 1,000 MG in sodium chloride 0.9% (plus) 50 ML 100 MG IV (00:15)
[2021-12-12 00:18] LABS: Basophils # 0.1 10^3/uL (0.0-0.1); Basophils % 0.9 %; Eosinophils # 0.1 10^3/uL (0.0-0.8); Eosinophils % 1.6 %; Hematocrit 29.2 % (37.0-47.0); Lymphocytes # 1.2 10^3/uL (0.8-4.8); Lymphocytes % 15.7 %; Mean Corpuscular HGB Conc 30.8 g/dL (30.0-36.0); Mean Corpuscular Hemoglobin 27.3 pg (28.0-34.0); Mean Corpuscular Volume 88.5 fl (81-99); Mean Platelet Volume 12.1 fL (7.4-10.4); Monocytes # 0.4 10^3/uL (0.2-0.9); Monocytes % 5.5 %; Neutrophils # 5.68 10^3/uL (1.8-7.7); Neutrophils % 75.8 %; Nucleated Red Blood Cells % 0 %; Platelet Count 161 10^3/cmm (130-400); Red Cell Distribution Width 15.9 % (12.1-15.1); White Blood Count 7.5 10^3/uL (4.0-10.0)
--- NOTE | 2021-12-12 00:51 | XRR_ITS ---
PROCEDURE INFORMATION: Exam: XR Chest Exam date and time: 12/12/2021 12:59 AM Age: 71 years old Clinical indication: Pain; Chest pressure; Patient HX: C/O chest discomfort with hypertension. ; Additional info: Cp TECHNIQUE: Imaging protocol: XR of the chest. Views: 1 view. COMPARISON: CR (CHEST, ) 12/10/2021 6:58 PM FINDINGS: Lungs: Unremarkable. No consolidation. Pleural spaces: Unremarkable. No pleural effusion. No pneumothorax. Heart/Mediastinum: Unremarkable. No cardiomegaly. Bones/joints: Unremarkable. XR/XR chest 1V portable [id number] IMPRESSION: No acute findings.
[2021-12-12] MEDS: acetaminophen 500 mg Tablet 1000 MG PO (00:53)
--- NOTE | 2021-12-12 01:27 | PM.HP ---
Providers/Chief Complaint Primary Care Provider: Bhupinder Logan MD Chief Complaint: HIGH BLOOD PRESSURE/HEADACHE History of Present Illness The patient is a 71-year-old noncompliant female who left AGAINST MEDICAL ADVICE on December 12, 2021 after being admitted for strokelike symptoms as well as hypertensive urgency/emergency. During my encounter with the patient she is quite argumentative regarding her smoking status. Evidence of the patient's medical noncompliance and argumentative nature can be found on the discharge summary that was recently documented. From what I was able to ascertain the patient had a fluctuating blood pressure at home and this made her become scared. She states that she has had diplopia however upon further questioning this appears to have been present for a few years and she states that it has been many years since she last saw an groundwater monitoring technician. She admits to onset of nausea, dizziness, palpitations, sense of rapid heartbeat. She denies fever, rigors, vomiting, cough, wheeze, abdominal pain, diarrhea, myalgia, dysuria, chest pain, dyspnea, lightheadedness, diaphoresis, sensation of irregular heartbeat. She denies paresthesia/anesthesia/myasthenia of any part part of her body. During patient's recent hospitalization for which he left AGAINST MEDICAL ADVICE she had an extensive workup for her strokelike symptoms in all studies were unremarkable. She presents for further evaluation Review of Systems General: Reports: 10 or more systems reviewed and unremarkable except in HPI and below Medications/Allergies Home Medications Medication Instructions Recorded Confirmed Last Taken Type albuterol sulfate 90 mcg/actuation 1 - 2 inh INHALATION Q4H PRN 01/03/21 12/10/21 12/09/21 History aerosol inhaler (Ventolin HFA) gabapentin 600 mg tablet 600 mg PO TID 01/03/21 12/10/21 12/09/21 History irbesartan 300 mg tablet 300 mg PO DAILY@179901/03/21 12/10/21 12/09/21 History potassium chloride 20 mEq 20 meq PO DAILY@179901/03/21 12/10/21 12/09/21 History tablet,extended release(part/cryst) rosuvastatin 20 mg tablet 20 mg PO DAILY@179901/03/21 12/10/21 12/09/21 History suvorexant 10 mg tablet (Belsomra) 10 mg PO DAILY@1800 01/03/21 12/10/21 02/18/21 History mirtazapine 15 mg tablet 15 mg PO BEDTIME 12/10/21 12/10/21 12/09/21 History prazosin 2 mg capsule 2 mg PO QPM 12/10/21 12/10/21 12/09/21 History tiotropium 2.5 mcg-olodaterol 2.5 2 puff INHALATION DAILY 12/10/21 12/10/21 12/09/21 History mcg/actuation mist for inhalation (Stiolto Respimat) Allergies Allergy/AdvReac Type Severity Reaction Status Date / Time No Known Allergies Allergy Verified 12/10/21 18:57 PFSH Acute PFSH: Medical History Acute cystitis Acute kidney injury superimposed on chronic kidney disease COPD (chronic obstructive pulmonary disease) Hypertension Microcytic anemia Weakness Surgical History H/O esophagogastroduodenoscopy AVM body of stomach History of back surgery x3 History of breast surgery inverted nipple (x3) History of dental surgery History of hysterectomy 1993 History of laparoscopic cholecystectomy 1993 Status post colonoscopy (02/19/21) Diverticulosis, internal hemorrhoids Family History Other Hypertension Social History Smoking and tobacco status: current every day smoker cigarettes Packs smoked per day: 0.75 Years cigarettes smoked: 52 Alcohol intake: never Lives independently: Yes Vitals/I&O/Wt Last Vital Signs Temp 97.8 F 12/11/21 21:26 Pulse 84 12/11/21 23:38 Resp 17 12/11/21 23:38 BP 118/71 12/11/21 23:38 Pulse Ox 98 12/11/21 23:38 12/11/21 12/11/21 12/12/21 14:59 22:59 06:59 Intake Total 550 / 550 Balance 550 / 550 Weight last 48 hrs Weight 63.957 kg Physical Exam Narrative: General: -Alert -No acute distress -No dyspnea -No tachypnea Head: -Atraumatic -Normocephalic Eyes: -Pupils equally round and reactive to light and accommodation -Extraocular muscles intact Neurological: -Cranial nerves II-XII intact Neck: -No jugular venous distention -No thyromegaly -No cervical lymphadenopathy Heart: -Regular rate -Regular rhythm -No murmurs -No gallops -No rubs Lungs: -No wheeze -No rhonchi -No rales ? Abdomen: -Normal bowel sounds in all four quadrants -No rebound -No guarding -No tenderness Extremities: -2/4 pulse in all four extremities -No clubbing -No cyanosis -No edema -No calf tenderness present bilaterally -Negative Romana?s sign bilaterally Musculoskeletal: -5/5 bilateral upper extremity strength -5/5 bilateral lower extremity strength -Sensorium of bilateral upper extremities are equal and intact -Sensorium of bilateral lower extremities are equal and intact ? Additional Details / Additional Findings / Exceptions / Miscellaneous: Data : 12/11/21 23:51 12/11/21 23:51 A&P Assessment and plan (1) Acute cystitis: Status: Acute Plan Hypertension. The patient's blood pressure varies seemingly according to her medical compliance. Will monitor her blood pressure closely and initiate agents accordingly Diplopia. Patient recently had extensive workup which was unremarkable. Neuro checks every 4 hours. Telemetry monitoring. Aspirin 81 Mill grams by mouth daily plus Lipitor 40 Mill grams by mouth daily at bedtime Hyperparathyroidism Diverticulosis Chronic kidney disease with variable baseline creatinine. Will monitor creatinine intermittently. IV normal saline at 75 ML's per hour Urinary tract infection. Culture positive for E. coli. Rocephin 1 g IV daily Neuropathy Insomnia Iron deficiency anemia, chronic. Will monitor hemoglobin level intermittently. Upon discharge, the patient should be start ferrous sulfate 325 Mill grams by mouth twice a day plus vitamin C 500 Mill grams by mouth daily COPD Grade 1 diastolic dysfunction GERD Hyperlipidemia Smoker. The patient becomes regarding smoking cessation however she is quite argumentative regarding her smoking status. In fact when I last admitted the patient, she indicated that she had no intention of smoking cessation despite being explained that smoking is 1 of the bleeding risk factors for CVA/TIA History of leaving AGAINST MEDICAL ADVICE Medical noncompliance as witnessed by patient leaving AGAINST MEDICAL ADVICE. I have attempted to securities counselor the patient regarding medical compliance however she is quite argumentative DVT Proflex is. Bilateral SCD Attestations Medical Necessity Statement*: Patient's hospitalization is anticipated to last less than 2 midnights for urinary tract infection Coding Level of Care Code Acute Hot Dog Vendor for Chg Fwd Diagnoses Acute cystitis N30.00
--- NOTE | 2021-12-12 01:39 | ECG_ITS ---
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 Measurements Intervals [place] Rate: 78 P: 58 [place]: 177 QRS: 4 QRSD: 85 T: 56 QT: 401 QTc: 458 Interpretive Statements SINUS RHYTHM LOW QRS VOLTAGE IN EXTREMITY LEADS [QRS DEFLECTION < 0.5 mV IN LIMB LEADS] Compared to ECG 12/11/2021 23:55:04 No significant changes Electronically Signed On 12-12-2021 16:15:05 CDT by Anthony Benton M.D. [id number]
[2021-12-12 02:38] VITALS: BP 120/82; PULSE 83; RESP 20; O2SAT 96
[2021-12-12 02:59] LABS: Troponin 5 2HR 9.97 ng/L (0-10)
[2021-12-12 03:07] LABS: Troponin 5 2HR Delta -1.03 ABS# (0-10)
[2021-12-12 03:46] VITALS: BMI 26.9
[2021-12-12 04:00] VITALS: BP 142/82; PULSE 98; RESP 20; TEMP 36.5; O2SAT 96
[2021-12-12] MEDS: sodium chloride 0.9% 1,000 ML 75 ML IV (04:16)
--- NOTE | 2021-12-12 05:39 | ECG_ITS ---
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 Measurements Intervals [place] Rate: 91 P: 60 W[place]: 173 QRS: -18 QRSD: 86 T: 57 QT: 375 QTc: 463 Interpretive Statements SINUS RHYTHM LOW QRS VOLTAGE IN EXTREMITY LEADS [QRS DEFLECTION < 0.5 mV IN LIMB LEADS] Possible SEPTAL MYOCARDIAL INFARCTION , OF INDETERMINATE AGE [35 ms Q WAVE IN V1/V2] Compared to ECG 12/12/2021 03:10:58 Myocardial infarct finding now present Electronically Signed On 12-12-2021 16:15:27 CDT by Anthony Benton M.D. [id number]
[2021-12-12 05:47] VITALS: PULSE 85
[2021-12-12 05:52] LABS: Hemoglobin 8.7 g/dL (11.5-15.3)
[2021-12-12 06:15] LABS: Troponin 5 6HR 9.57 ng/L (0-10)
[2021-12-12 06:18] LABS: Anion Gap 14.5 (5-19); Blood Urea Nitrogen 26 mg/dL (8-23); Carbon Dioxide 19 mmol/L (22-29); Chloride 107 mmol/L (98-107); Glucose 130 mg/dL (65-115); Osmolality Calculated 289 mOsm/kg (285-295); Potassium 4.5 mmol/L (3.5-5.1); Sodium 136 mmol/L (136-145)
[2021-12-12 06:23] LABS: Troponin 5 6HR Delta -1.43 ng/L (0-12)
--- NOTE | 2021-12-12 07:22 | PC.NURSE ---
Unable to get patient to the chair this am due to pain from pelvic fracture, PT has not seen her yet so will wait for PT to see her this AM.
[2021-12-12 08:00] VITALS: BP 147/101; PULSE 96; RESP 18; TEMP 36.6; O2SAT 97
[2021-12-12] MEDS: aspirin 81 mg EC Tablet PO (08:47)
--- NOTE | 2021-12-12 10:50 | PC.CHAP ---
Pastoral Care Encounter/Spiritual Assessment Type of Contact [] Declined accounts receivable representative visit [] Patient/Family/Request visit [] Outpatient visit [] Follow-up visit [] Physician referral [] Code/Alert [] Routine visit [] Staff referral [] Actively dying [] Patient sleeping [] Family support [] [] Out of room [] Palliative care [] [] Receiving care in room [] Pre-surgical visit [] Trauma [] Long length of stay [] ICU visit [x] Other: Isolation Relational/Emotional Strength [] Patient feels connected with others/family/visitors/staff [] Distress [] Loneliness/isolation [] Abandonment Spirituality of Patient [] Person of Shandra [] Attends Islam of their Shandra [] Believes in Prayer [] Reads Bible or Anabaptist materials [] There are Spiritual issues to be addressed Chief Pilot Interventions [] Prayer [] Active listening [] Non-anxious presence [] Spiritual/emotional support [] Crisis/trauma care [] Spiritual counseling [] Bereavement support [] Provided bereavement packet [] Provided Bible/devotional materials [] Provided toy/stuffed animal, coloring book to patient or family member [] Provided Communion [] Anointing/[place] [] Salvation [] Completed spiritual assessment [] Other: Impact on Illness or Injury [] Angry [] Fearful [] Anxious [] Often cries [] Exhaustion [] Unable to work [] Unable to attend yarsani [] Unable to walk/stand [] Unable to read [] Unable to drive [] Unable to eat/drink [] Unable to sleep [] Unable to be with family [] Patient intubated [] Other: Summary Isolation Time spent with patient 5 mins
--- NOTE | 2021-12-12 12:08 | P.DS_ITS ---
Discharge Providers Date of Admission: 12/12/21 01:24 Date of Discharge: December 12, 2021 Attending Provider at Admission: Humera Hall DO Attending Provider at Discharge: Oscar Zambrano MD Primary Care Provider: Bhupinder Logan MD Diagnoses at Discharge Discharge Diagnosis (1) Acute cystitis: Reason for Visit Reason for Visit: HIGH BLOOD PRESSURE/HEADACHE Hospital Course Hospital Course HPI: The patient is a 71-year-old noncompliant female who left AGAINST MEDICAL ADVICE on December 12, 2021 after being admitted for strokelike symptoms as well as hypertensive urgency/emergency.? During my encounter with the patient she is quite argumentative regarding her smoking status.? Evidence of the patient's medical noncompliance and argumentative nature can be found on the discharge summary that was recently documented.? From what I was able to ascertain the patient had a fluctuating blood pressure at home and this made her become scared.? She states that she has had diplopia however upon further questioning this appears to have been present for a few years and she states that it has been many years since she last saw an pattern and chain maker.? She admits to onset of nausea, dizziness, palpitations, sense of rapid heartbeat.? She denies fever, rigors, vomiting, cough, wheeze, abdominal pain, diarrhea, myalgia, dysuria, chest pain, dyspnea, lightheadedness, diaphoresis, sensation of irregular heartbeat.? She denies paresthesia/anesthesia/myasthenia of any part part of her body.? During patient's recent hospitalization for which he left AGAINST MEDICAL ADVICE she had an extensive workup for her strokelike symptoms in all studies were unremarkable.? She presents for further evaluation Hospital Course: She was admitted for the management of for monitoring of B/P, as she was scared yesterday at home due to elevated b/p.Her blood pressure was well controlled during hospital stay she was continued on her home medications.She was discharged in the morning to follow up with her PCP. Physical Exam Const: COMMON NORMALS: patient oriented x3 HENMT: COMMON NORMALS: normocephalic, atraumatic, hearing grossly normal bilaterally and external ears normal HEAD & SCALP: normocephalic and atraumatic EXTERNAL EAR: Yes external ears normal Eye: COMMON NORMALS: no scleral icterus GENERAL EYE: appearance normal, both eyes and all related structures Chest: COMMONS NORMALS: normal inspection of the chest and normal palpation of entire chest wall CHEST: Yes Symmetrical chest wall rise Resp: COMMON NORMALS: normal respiratory effort, No retractions, No use of accessory muscles and clear to auscultation bilaterally EFFORT & INSPECTION: Yes symmetric chest movement AUSCULTATION: clear to auscultation bilaterally Cardio: COMMON NORMALS: regular rate, regular rhythm, S1 normal heart sound present, S2 normal heart sound present, No gallops present (Cardio), No murmurs present (Cardio), No rub (Cardio) and Peripheral pulses 2+ throughout RATE: regular rate RHYTHM: regular rhythm HEART SOUNDS: S1 normal heart sound present and S2 normal heart sound present PERIPHERAL PULSES: Peripheral pulses 2+ throughout GI: COMMON NORMALS: Normal to inspection, nondistended, normoactive bowel sounds present, Soft to palpation, non-tender, No hepatosplenomegaly present and no masses AUSCULTATION: Yes normoactive bowel sounds PALPATION: Yes Soft to palpation and Yes No hepatosplenomegaly present RECTAL EXAM: deferred Extremity: COMMON NORMALS: no clubbing, cyanosis or edema and no pedal edema Neuro: COMMON NORMALS: patient oriented x3 Discharge Data Studies Completed and Pending Completed Studies During Hospitalization Category Date Time Status CXRP [XR chest 1V portable [id number]] Stat Exams 12/12/21 00:51 Completed Radiology Impressions Chest X-Ray 12/12/21 00:51 IMPRESSION: No acute findings. Laboratory Results WBC 7.5 10^3/uL (4.0-10.0) 12/11/21 23:51 RBC 3.30 10^6/uL (4.1-5.3) L 12/11/21 23:51 Hgb 8.7 g/dL (11.5-15.3) L 12/12/21 05:41 Hct 29.2 % (37.0-47.0) L 12/11/21 23:51 MCV 88.5 fl (81-99) 12/11/21 23:51 MCH 27.3 pg (28.0-34.0) L 12/11/21 23:51 MCHC 30.8 g/dL (30.0-36.0) 12/11/21 23:51 RDW 15.9 % (12.1-15.1) H 12/11/21 23:51 Plt Count 161 10^3/cmm (130-400) 12/11/21 23:51 MPV 12.1 fL (7.4-10.4) H 12/11/21 23:51 Neut % (Auto) 75.8 % 12/11/21 23:51 Lymph % (Auto) 15.7 % 12/11/21 23:51 [place] % (Auto) 5.5 % 12/11/21 23:51 Eos % (Auto) 1.6 % 12/11/21 23:51 Baso % (Auto) 0.9 % 12/11/21 23:51 Neut # (Auto) 5.68 10^3/uL (1.8-7.7) 12/11/21 23:51 Lymph # (Auto) 1.2 10^3/uL (0.8-4.8) 12/11/21 23:51 [place] # (Auto) 0.4 10^3/uL (0.2-0.9) 12/11/21 23:51 Eos # (Auto) 0.1 10^3/uL (0.0-0.8) 12/11/21 23:51 Baso # (Auto) 0.1 10^3/uL (0.0-0.1) 12/11/21 23:51 Nucleated RBC % (auto) 0 % 12/11/21 23:51 Nucleated RBCs # 0.0 /100WBC 12/11/21 23:51 Sodium 136 mmol/L (136-145) 12/12/21 05:41 Potassium 4.5 mmol/L (3.5-5.1) 12/12/21 05:41 Chloride 107 mmol/L (98-107) 12/12/21 05:41 Carbon Dioxide 19 mmol/L (22-29) L 12/12/21 05:41 Anion Gap 14.5 (5-19) 12/12/21 05:41 BUN 26 mg/dL (8-23) H 12/12/21 05:41 Creatinine 1.4 mg/dL (0.5-0.9) H 12/12/21 05:41 GFR Calculation Not Reportable 12/12/21 05:41 Glucose 130 mg/dL (65-115) H 12/12/21 05:41 Calculated Osmolality 289 mOsm/kg (285-295) 12/12/21 05:41 Calcium 9.0 mg/dL (8.5-10.5) 12/12/21 05:41 Total Bilirubin 0.2 mg/dL (0.15-1.2) 12/11/21 23:51 AST 15 U/L (0-32) 12/11/21 23:51 ALT 7 U/L (0-33) 12/11/21 23:51 Alkaline Phosphatase 74 IU/L (35-105) 12/11/21 23:51 Troponin T Baseline 11 ng/L (0-10) H 12/11/21 23:51 Troponin T 120 Minute 9.97 ng/L (0-10) 12/12/21 02:32 Delta Troponin T -1.03 ABS# (0-10) L 12/12/21 02:32 Troponin T Hi Sens 6Hr 9.57 ng/L (0-10) 12/12/21 05:41 Troponin T Hi Sens 6Hr Delta -1.43 ng/L (0-12) L 12/12/21 05:41 Total Protein 6.1 g/dL (6.6-8.7) L 12/11/21 23:51 Albumin 3.9 g/dL (3.5-5.2) 12/11/21 23:51 Globulin 2.2 g/dL (1.3-4.6) 12/11/21 23:51 Vitals Last Vital Signs Temp 97.9 F 12/12/21 08:00 Pulse 96 12/12/21 08:00 Resp 18 12/12/21 08:00 BP 147/101 12/12/21 08:00 Pulse Ox 97 12/12/21 08:00 Discharge Plan Discharge Patient Disposition: Home Condition: Stable Prescriptions: Continued gabapentin 600 mg tablet 600 mg PO TID 0RF potassium chloride 20 mEq tablet,ER particles/crystals 20 meq PO DAILY@1800 0RF albuterol sulfate [Ventolin HFA] 90 mcg/actuation HFA aerosol inhaler 1 - 2 inh INHALATION Q4H PRN (Reason: Shortness Of Breath) 0RF irbesartan 300 mg tablet 300 mg PO DAILY@1800 0RF rosuvastatin 20 mg tablet 20 mg PO DAILY@1800 0RF prazosin 2 mg Capsule 2 mg PO QPM 0RF Stiolto Respimat 2.5-2.5 mcg/actuation Mist 2 puff INHALATION DAILY 0RF mirtazapine 15 mg tablet 15 mg PO BEDTIME 0RF Discharge Orders: Discharge Order (Routine); Ordered 12/12/21 Ordered By: Oscar Zambrano Referrals: Bhupinder Logan MD [Primary Care Provider] - 01/10/22 8:15 am Discharge Diet: Low Salt Discharge Activity: Resume usual activity Patient Instructions: Hypertension, Urinary Tract Infection in Women (DC), Opioid Safety Discharge Attestations Time Spent in Discharge Care*: less than 30 min Quality Metrics Clinical Quality Measures [ No reported AMI, CVA or VTE this stay] Coding Level of Care Code Acute Chg FW DC note Exam Comprehensive Diagnoses Acute cystitis N30.00
--- NOTE | 2021-12-12 12:19 | PC.NURSE ---
Dr. Zambrano notified of blood pressure 147/101 with no home meds ordered. No additional orders received at this time.
== END 2021-12-12 13:00 | disposition home or self-care (01) ==
LOC: ER 12-12 01:02 → MEDSURG 12-12 02:07
PROVIDERS: Admitting Provider Internal Medicine; Emergency Provider Emergency Medicine; PCP Family Medicine; Visit Provider Internal Medicine
DX: N30.00 Acute cystitis without hematuria (principal); Z91.19 Patient's noncompliance with other medical treatment and regimen; J44.9 Chronic obstructive pulmonary disease, unspecified; I10 Essential (primary) hypertension; F17.210 Nicotine dependence, cigarettes, uncomplicated; H53.2 Diplopia; D50.9 Iron deficiency anemia, unspecified; E78.5 Hyperlipidemia, unspecified
CPT/HCPCS: 36415; 71045; 80048; 80053; 84484; 85018; 85025; 93005; 96365; 96367; 99285; G0378; J0696; J7030; J7040

== ENCOUNTER 2022-02-10 13:18 | Outpatient (CLI) | payer MEDICARE, SELFPAY ==
--- NOTE | 2022-02-10 13:32 | MR_ITS ---
WS: [id number] MRI LUMBAR SPINE NONCONTRAST HISTORY: DDD LUMBOSACRAL, chronic back pain. COMPARISON: 10/29/2018 TECHNIQUE: Sagittal and axial multisequence imaging is submitted. Prior vertebroplasty at L1. Posterior lumbar fusion at L4-5. Small Schmorl's nodes defects at T11 and T12 with mild anterior wedging of L1 which is stable and no progression. Very mild straightening of the normal lumbar lordosis. Moderate disc space narrowing at L4-5. Mild di sc desiccation throughout the lumbar spine. Conus terminates normally at L1. L1-L2: Mild ligamentum flavum hypertrophy. No stenosis. L2-L3: Very slight annular disc bulging is asymmetric to the RIGHT. Small RIGHT foraminal disc protru brock with annular fissure contacts the RIGHT L2 nerve root. Moderate facet joint arthritis on the RIG HT. There is very mild encroachment narrowing of the subarticular recess on the RIGHT. L3-L4: Mild annular disc bulging. Moderate bilateral facet joint arthritis and ligamentum flavum hype rtrophy. There is mild narrowing of the subarticular recesses. Focal LEFT subarticular disc protrusio n with fissure. Mild contact on the L3 nerve roots bilaterally with only mild foraminal stenosis. The re is mild central stenosis due to combination of ligamentum flavum disease, facet and disc disease. L4-L5: Diffuse osteophytic ridging. Patulous thecal sac due to a large posterior laminectomy defect. Mild clumping of the nerve roots in the central thecal sac. No stenosis is identified. L5-S1: Bilateral ligamentum flavum disease and facet arthritis. No stenosis. Bilateral renal cysts. Dilated aorta to 3.8 cm with atherosclerotic plaque. MR/MR lumbar spine wo con* [id number] IMPRESSION: 1. Status post posterior lumbar fusion at L4-5 with a large laminectomy defect . No residual stenosis. 2. Mild anterior compression with kyphoplasty at L1. 3. Small RIGHT foraminal disc protrusion with fissure contacting the RIGHT L2 nerve root at L2-3. There is also mild RIGHT subarticular recess stenosis. 4. Focal LEFT subarticular disc protrusion at L3-4. 5. Mild central and foraminal stenosis at L3-4 due to combination of disc and osteophyte and facet disease. 6. Mild abdominal aortic aneurysm 3.8 cm.
== END 2022-02-10 13:19 | disposition home or self-care (01) ==
LOC: RAD 13:22
PROVIDERS: PCP Family Medicine; Visit Provider Family Medicine
DX: M51.37 Other intervertebral disc degeneration, lumbosacral region (principal); Z98.890 Other specified postprocedural states; M51.26 Other intervertebral disc displacement, lumbar region
CPT/HCPCS: 72148

== ENCOUNTER 2022-04-10 17:19 | Emergency (ER) | payer MEDICARE, SELFPAY ==
[2022-04-10 17:52] VITALS: PULSE 125; RESP 16; TEMP 36.3; O2SAT 94
[2022-04-10 18:41] VITALS: BP 79/67; PULSE 106; O2SAT 95
[2022-04-10] MEDS: sodium chloride 0.9% 500 ML 999 ML IV (18:41)
[2022-04-10 18:42] LABS: Basophils % 0.2 %; Eosinophils # 0.1 10^3/uL (0.0-0.8); Eosinophils % 0.4 %; Hematocrit 35.3 % (37.0-47.0); Hemoglobin 10.7 g/dL (11.5-15.3); Lymphocytes # 1.7 10^3/uL (0.8-4.8); Mean Corpuscular HGB Conc 30.3 g/dL (30.0-36.0); Mean Corpuscular Hemoglobin 26.8 pg (28.0-34.0); Mean Corpuscular Volume 88.3 fl (81-99); Mean Platelet Volume 11.7 fL (7.4-10.4); Monocytes # 1.2 10^3/uL (0.2-0.9); Monocytes % 5.7 %; Neutrophils # 17.85 10^3/uL (1.8-7.7); Nucleated Red Blood Cells % 0 %; Platelet Count 198 10^3/cmm (130-400); Red Cell Distribution Width 18.9 % (12.1-15.1)
--- NOTE | 2022-04-10 18:46 | ED_ITS ---
HPI - Abdominal Pain General: Chief Complaint: Abdominal Pain Stated Complaint: Dr rider sent Possable blockage in liver? Time Seen by Provider: 04/10/22 18:02 History of Present Illness: 72-year-old female presenting today with transient right upper quadrant pain. Patient notes she is postoperative from a spinal revision. Yesterday was having nausea and vomiting. She notes the symptoms are now resolved. Yesterday she was having right upper quadrant pain. Notes the symptoms have resolved. She was a history of cholecystectomy. She had routine labs ran at her primary care doctor's today. Was noted to have an increased white blood cell count as well as an increased alk phos and was recommended to come to the ED. She notes that her symptoms are mostly resolved. And she feels fine today. She denies dysuria or polyuria. She denies continued abdominal pain. She notes that she has acute on chronic back pain. This has been present since a spinal fusion. She notes that this is her baseline. Does not appear to be worse than normal. She denies chest pain or shortness of breath. She denies fevers or chills. She denies any other questions complaints or concerns Review of Systems General: Reports: 10 or more systems reviewed and unremarkable except in HPI and below PFSH ED PFSH: Medical History Acute cystitis Acute kidney injury superimposed on chronic kidney disease COPD (chronic obstructive pulmonary disease) Hypertension Microcytic anemia Weakness Surgical History H/O esophagogastroduodenoscopy AVM body of stomach History of back surgery x3 History of breast surgery inverted nipple (x3) History of dental surgery History of hysterectomy 1993 History of laparoscopic cholecystectomy 1993 Status post colonoscopy (02/19/21) Diverticulosis, internal hemorrhoids Family History Other Hypertension Social History Smoking and tobacco status: current every day smoker cigarettes Packs smoked per day: 0.75 Years cigarettes smoked: 52 Alcohol intake: never Lives independently: Yes Physical Exam Const: COMMON NORMALS: no acute distress, average body habitus and patient oriented x3 HENMT: COMMON NORMALS: normocephalic and atraumatic HEAD & SCALP: normocephalic and atraumatic Eye: COMMON NORMALS: Equal, round and reactive pupils present, EOMs intact bilaterally and conjunctivae normal CONJUNCTIVA: Yes conjunctivae normal PUPIL: Yes Equal, round and reactive pupils present Neck/C-Spine: COMMON NORMALS: full ROM, no lymphadenopathy and no JVD Lymph: LYMPHATIC: no lymphadenopathy noted Chest: COMMONS NORMALS: normal inspection of the chest Resp: COMMON NORMALS: normal respiratory effort and No retractions Cardio: COMMON NORMALS: no JVD, regular rate and regular rhythm RATE: regular rate RHYTHM: regular rhythm GI: COMMON NORMALS: Normal to inspection, nondistended, normoactive bowel sounds present and Soft to palpation PALPATION: Yes Soft to palpation : COMMON NORMALS: Yes no CVA tenderness BLADDER/KIDNEY EXAM: Yes no CVA tenderness Back/Pelvis: COMMON NORMALS: no CVA tenderness Extremity: COMMON NORMALS: normal to inspection and full ROM Neuro: COMMON NORMALS: patient oriented x3, CN's II-XII intact bilaterally, moves all extremities and no focal motor deficits Psych: COMMON NORMALS: mental status grossly normal, Normal thought process present, cooperative and normal affect THOUGHT PROCESS: Normal thought process present Skin: COMMON NORMALS: no rashes or lesions noted and no wounds GENERAL SKIN EXAM: no rashes or lesions noted Course Vital Signs: Vital signs: Vital Signs Temperature 97.4 F L 04/10/22 17:52 Pulse Rate 84 04/11/22 00:08 Respiratory Rate 13 04/11/22 00:08 Blood Pressure 116/84 04/11/22 00:08 Pulse Oximetry 94 04/11/22 00:08 Oxygen Delivery Me thod 04/11/22 00:08 MDM - Abdominal Pain Medical Decision Making 72-year-old female presenting for lab abnormalities. Review of labs demonstrating a leukocytosis. This may be postoperative in the setting of no other focal symptoms or findings. Patient with alk phos elevation also consistent with postoperative bone manipulation. AST and ALT are only minorly elevated. Bilirubin is within normal range. Low suspicion for acute obstructive liver pathology. Patient with greater than 800 cc of urine in her bladder. Significant bump in creatinine likely secondary to obstructive uropathy. Urinary catheter was placed. CT abdomen pelvis ordered for other evaluation. CT demonstrating a possible aortic flap. Recommended CT chest abdomen pelvis with contrast. Despite patient's renal insufficiency this was an emergent CT. CT demonstrating a type B aortic dissection. With increasing size of the or aorta by 2 cm from last. Vascular surgery was consulted at [facility]. Dr Moran Vascular surgery noting that this may be acute or chronic. H owever due to renal insufficiency recommended admission to medicine as primary. He would not be taken to the operating room tonight. Spoke to hospitalist medicine at [facility] Dr. Chavarria who accepted admission. Lab Data : 04/10/22 18:31 04/10/22 18:31 Labs/Radiology: Radiology Impressions Abdomen/Pelvis CT 04/10/22 19:30 IMPRESSION: 1. Negative for acute inflammatory process in the abdomen pelvis. 2. Emphysematous changes. 3. Left lower lobe atelectasis. 4. Upper abdominal aorta 4.7 cm aneurysm without rupture. Possible dissection flap is seen in the uppermost portion of the abdominal aorta. A CT chest and abdomen with contrast could further evaluate this. 5. Cholecystectomy. 6. Constipation. 7. Lumbar spine surgical hardware and vertebroplasty changes. 8. Diverticulosis without diverticulitis. 9. Benign splenic cyst. ADDENDUM: 04/10/22 2236 Please ignore under findings where it states the vasculature is unremarkable and no abdominal aortic aneurysm is seen. Chest/Abdomen/Pelvis CTA 04/10/22 22:42 IMPRESSION: 1. Thoracic aortic dissection flap seen originating distal to left subclavian artery extending to the upper abdominal aorta with associated aneurysmal dilation of the thoracic aorta to 5.1 cm, negative findings of rupture, findings are consistent with a type B aortic dissection. Findings may potentially be chronic given some calcification seen of the dissection flap, please correlate with clinical history. 2. Coronary artery atherosclerotic calcifications. 3. Splenic cyst. 4. Diverticulosis without diverticulitis. 5. Cholecystectomy. 6. Lumbar spine surgical hardware. 7. Felix catheter in the urinary bladder with air presumed iatrogenic. 8. Emphysematous changes. 9. Left lower lobe atelectasis. Laboratory Results WBC 21.0 10^3/uL (4.0-10.0) H 04/10/22 18:31 RBC 4.00 10^6/uL (4.1-5.3) L 04/10/22 18:31 Hgb 10.7 g/dL (11.5-15.3) L 04/10/22 18:31 Hct 35.3 % (37.0-47.0) L 04/10/22 18: MCV 88.3 fl (81-99) 04/10/22 18: MCH 26.8 pg (28.0-34.0) L 04/10/22 18: MCHC 30.3 g/dL (30.0-36.0) 04/10/22 18: RDW 18.9 % (12.1-15.1) H 04/10/22 18: Plt Count 198 10^3/cmm (130-400) 04/10/22 18: MPV 11.7 fL (7.4-10.4) H 04/10/22 18: Neut % (Auto) 85.0 % 04/10/22 18: Lymph % (Auto) 8.0 % 04/10/22 18: [place] % (Auto) 5.7 % 04/10/22: Eos % (Auto) 0.4 % 04/10/22 18: Baso % (Auto) 0.2 % 04/10/22 18: Neut # (Auto) 17.85 10^3/uL (1.8-7.7) H 04/10/22 18: Lymph # (Auto) 1.7 10^3/uL (0.8-4.8) 04/10/22 18: [place] # (Auto) 1.2 10^3/uL (0.2-0.9) H 04/10/22 18: Eos # (Auto) 0.1 10^3/uL (0.0-0.8) 04/10/22 18: Baso # (Auto) 0.0 10^3/uL (0.0-0.1) 04/10/22 18: Nucleated RBC % (auto) 0 % 04/10/22: Nucleated RBCs # 0.0 /100WBC 04/10/22 18: Sodium 135 mmol/L (136-145) L 04/10/22 18: Potassium 5.0 mmol/L (3.5-5.1) 04/10/22 18: Chloride 97 mmol/L (98-107) L 04/10/22 18:31 Carbon Dioxide 23 mmol/L (22-29) 04/10/22 18:31 Anion Gap 20.0 (5-19) H 04/10/22 18:31 BUN 92 mg/dL (8-23) H* D 04/10/22 18:31 Creatinine 3.9 mg/dL (0.5-0.9) H 04/10/22 18:31 GFR Calculation Not Reportable 04/10/22 18:31 Glucose 109 mg/dL (65-115) 04/10/22 18:31 Calculated Osmolality 309 mOsm/kg (285-295) H 04/10/22 18:31 Lactic Acid 1.2 mmol/L (0.5-2.2) 04/10/22 18:31 Calcium 9.3 mg/dL (8.5-10.5) 04/10/22 18:31 Total Bilirubin 0.3 mg/dL (0.15-1.2) 04/10/22 18:31 AST 29 U/L (0-32) 04/10/22 18:31 ALT 43 U/L (0-33) H 04/10/22 18:31 Alkaline Phosphatase 319 IU/L (35-105) H 04/10/22 18:31 Total Protein 6.9 g/dL (6.6-8.7) 04/10/22 18:31 Albumin 3.7 g/dL (3.5-5.2) 04/10/22 18:31 Globulin 3.2 g/dL (1.3-4.6) 04/10/22 18:31 Lipase 21 U/L (13-60) 04/10/22 18:31 Urine Color Yellow (Yellow) 04/10/22 23:12 Urine Appearance Clear (CLEAR) 04/10/22 23:12 Urine pH 5 (5-7) 04/10/22 23:12 Ur Specific [place] 1.020 (1.005-1.030) 04/10/22 23:12 Urine Protein Neg (Negative) 04/10/22 23:12 Urine Glucose (UA) Norm (Normal) 04/10/22 23:12 Urine Ketones Negative (Negative) 04/10/22 23:12 Urine Blood Trace (Negative) H 04/10/22 23:12 Urine Nitrate Negative (Negative) 04/10/22 23:12 Urine Bilirubin Neg (Negative) 04/10/22 23:12 Urine Urobilinogen Norm mg/dL (Negative) 04/10/22 23:12 Ur Leukocyte Esterase Negative (Negative) 04/10/22 23:12 Urine RBC 0-4 /hpf (0-2) H 04/10/22 23:12 Urine WBC 0-4 /hpf (0-5) H 04/10/22 23:12 Ur Squamous Epith Cells 0-4 /hpf (0-5) H 04/10/22 23:12 Amorphous Sediment 1+ /hpf 04/10/22 23:12 Urine Bacteria Trace /hpf (NONE) 04/10/22 23:12 Hyaline Casts 0-4 /lpf H 04/10/22 23:12 Discharge Plan Discharge Patient Disposition: Xfer Short-Term Hosp Clinical Impression: Acute kidney failure, Aortic aneurysm and dissection Condition: Stable Referrals: Bhupinder Rider MD [Primary Care Provider] - Coding Level of Care Code ED Art Librarian for Chg Fwd Exam Comprehensive
[2022-04-10 18:56] VITALS: BP 129/67; PULSE 108
[2022-04-10 19:00] LABS: Lactic Sepsis W/Reflex 1.2 mmol/L (0.5-2.2)
[2022-04-10 19:07] LABS: Alanine Aminotransferase 43 U/L (0-33); Albumin Level 3.7 g/dL (3.5-5.2); Alkaline Phosphatase 319 IU/L (35-105); Aspartate Amino Transferase 29 U/L (0-32); Calcium 9.3 mg/dL (8.5-10.5); Carbon Dioxide 23 mmol/L (22-29); Chloride 97 mmol/L (98-107); Globulin 3.2 g/dL (1.3-4.6); Glucose 109 mg/dL (65-115); Lipase 21 U/L (13-60); Osmolality Calculated 309 mOsm/kg (285-295); Sodium 135 mmol/L (136-145); Total Bilirubin 0.3 mg/dL (0.15-1.2); Total Protein 6.9 g/dL (6.6-8.7)
[2022-04-10 19:21] LABS: Blood Urea Nitrogen 92 mg/dL (8-23)
--- NOTE | 2022-04-10 19:30 | CTR_ITS ---
PROCEDURE INFORMATION: Exam: CT Abdomen And Pelvis Without Contrast Exam date and time: 04/10/2022 9:37 PM Age: 72 years old Clinical indication: Abdominal pain; Other: Bilat flank pain; Prior surgery; Surgery type: Gb. Hysto. Lumbar fusion. Patient HX: C/O flank pain with bun of 92 and creat of 3.9. Wbc of 21k. ; Additional info: Abdominal/flank pain acute kidney injury TECHNIQUE: Imaging protocol: Computed tomography of the abdomen and pelvis without contrast. Radiation optimization: All CT scans at this facility use at least one of these dose optimization techniques: automated exposure control; mA and/or kV adjustment per patient size (includes targeted exams where dose is matched to clinical indication); or iterative reconstruction. COMPARISON: CR Abdomen Series Acute [id number] 08/03/2015 1:37 PM RADIATION DOSE METRICS: Total DLP (mGy-cm): 441.43 FINDINGS: Lungs: Emphysematous changes. Left lower lobe atelectasis. Liver: Normal. No mass. Gallbladder and bile ducts: Cholecystectomy. Pancreas: Normal. No ductal dilation. Spleen: Benign splenic cyst. Adrenal glands: Normal. No mass. Kidneys and ureters: Normal. No hydronephrosis. Stomach and bowel: Constipation. Diverticulosis without diverticulitis. Appendix: No evidence of appendicitis. Intraperitoneal space: Upper abdominal aorta 4.7 cm aneurysm without rupture. Possible dissection flap is seen in the uppermost portion of the abdominal aorta. A CT chest and abdomen with contrast could further evaluate this. Vasculature: Unremarkable. No abdominal aortic aneurysm. Lymph nodes: Unremarkable. No enlarged lymph nodes. Urinary bladder: Unremarkable as visualized. Reproductive: Unremarkable as visualized. Bones/joints: Lumbar spine surgical hardware and vertebroplasty changes. Soft tissues: Unremarkable. CT/CT abdomen pelvis wo con [id number] IMPRESSION: 1. Negative for acute inflammatory process in the abdomen pelvis. 2. Emphysematous changes. 3. Left lower lobe atelectasis. 4. Upper abdominal aorta 4.7 cm aneurysm without rupture. Possible dissection flap is seen in the uppermost portion of the abdominal aorta. A CT chest and abdomen with contrast could further evaluate this. 5. Cholecystectomy. 6. Constipation. 7. Lumbar spine surgical hardware and vertebroplasty changes. 8. Diverticulosis without diverticulitis. 9. Benign splenic cyst.
[2022-04-10] MEDS: sodium chloride 0.9% 1,000 ML 999 ML IV (20:09)
--- NOTE | 2022-04-10 20:10 | PC.NURSE ---
Pt. asked for water. I asked the physician and he said not at this time ,because he ordered a CT scan. I have informed the patient and family and they said that they were aware. I stated that the CT staff should be here soon to get her to take her to CT. She said they said that an hour ago!
[2022-04-10 22:41] VITALS: BP 148/98; PULSE 91; RESP 22; O2SAT 97
--- NOTE | 2022-04-10 22:42 | CTR_ITS ---
PROCEDURE INFORMATION: Exam: CTA Chest With Contrast CTA Abdomen and Pelvis With Contrast Exam date and time: 04/10/2022 11:35 PM Age: 72 years old Clinical indication: Prior surgery; Surgery type: Gb. Hysterectomy. Lumbar fusion. Patient HX: Possible dissection seen on non con CT. Patient states known history of aneurysm. ; Additional info: Possible dissection flap noted on CT non-con TECHNIQUE: Imaging protocol: Computed tomographic angiography of the chest with contrast. Computed tomographic angiography of the abdomen and pelvis with contrast. 3D rendering (Not supervised by radiologist): MIP and/or 3D reconstructed images were created by the technologist. Radiation optimization: All CT scans at this facility use at least one of these dose optimization techniques: automated exposure control; mA and/or kV adjustment per patient size (includes targeted exams where dose is matched to clinical indication); or iterative reconstruction. Contrast material: OMNI 350; Contrast volume: 95 ml; Contrast route: INTRAVENOUS (IV); COMPARISON: CT abdomen pelvis wo con [id number] 04/10/2022 9:37 PM RADIATION DOSE METRICS: Total DLP (mGy-cm): 1444.73 FINDINGS: VASCULATURE: Pulmonary arteries: Normal. No pulmonary emboli. Aorta: Thoracic aortic dissection flap seen originating distal to left subclavian artery extending to the upper abdominal aorta with associated aneurysmal dilation of the thoracic aorta to 5.1 cm, negative findings of rupture, findings are consistent with a type B aortic dissection. Celiac trunk and mesenteric arteries: No occlusion or significant stenosis. Renal arteries: No occlusion or significant stenosis. Right iliac arteries: No occlusion or significant stenosis. Left iliac arteries: No occlusion or significant stenosis. CHEST: Lungs: Emphysematous changes. Left lower lobe atelectasis. Pleural spaces: Unremarkable. No pneumothorax. No pleural effusion. Heart: Coronary artery atherosclerotic calcifications. ABDOMEN AND PELVIS: Liver: No mass. Gallbladder and bile ducts: Cholecystectomy. Pancreas: Unremarkable. No mass. No ductal dilation. Spleen: Splenic cyst. Adrenal glands: Unremarkable. No mass. Kidneys and ureters: Unremarkable. No solid mass. No hydronephrosis. Stomach and bowel: Diverticulosis without diverticulitis. Appendix: No evidence of appendicitis. Intraperitoneal space: Unremarkable. No free air. No significant fluid collection. Urinary bladder: Felix catheter in the urinary bladder with air presumed iatrogenic. Reproductive: Unremarkable as visualized. Lymph nodes: Unremarkable. No enlarged lymph nodes. Bones/joints: Lumbar spine surgical hardware. Soft tissues: Unremarkable. CT/CT angio chest abdomen pelvis IMPRESSION: 1. Thoracic aortic dissection flap seen originating distal to left subclavian artery extending to the upper abdominal aorta with associated aneurysmal dilation of the thoracic aorta to 5.1 cm, negative findings of rupture, findings are consistent with a type B aortic dissection. Findings may potentially be chronic given some calcification seen of the dissection flap, please correlate with clinical history. 2. Coronary artery atherosclerotic calcifications. 3. Splenic cyst. 4. Diverticulosis without diverticulitis. 5. Cholecystectomy. 6. Lumbar spine surgical hardware. 7. Felix catheter in the urinary bladder with air presumed iatrogenic. 8. Emphysematous changes. 9. Left lower lobe atelectasis.
[2022-04-10 23:14] VITALS: BP 139/92; PULSE 84; RESP 12; O2SAT 96
[2022-04-10 23:26] LABS: Add Urine Microscopic? YES; Bilirubin Urine Neg (Negative); Blood Urine Trace (Negative); Glucose Urine UA Norm (Normal); Ketones Urine Negative (Negative); Leukocyte Esterase Urine Negative (Negative); Nitrate Urine Negative (Negative); Protein Urine Neg (Negative); RBC Urine 0-4 /hpf (0-2); Urine Appearance Clear (CLEAR); Urine Color Yellow (Yellow); Urobilinogen Urine Norm (Negative); WBC Urine 0-4 /hpf (0-5); pH Urine 5 (5-7)
[2022-04-10 23:27] LABS: Add Urine Culture? No; Amorphous Sediment Urine 1+ /hpf; Bacteria Urine TRACE /hpf; Hyaline Casts Urine 0-4 /lpf; Squamous Epithelial Cell Urine 0-4 /hpf (0-5)
[2022-04-10] MEDS: iohexol 350 mg/mL 100 mL Btl IV (23:55)
[2022-04-11] VITALS (11 sets, daily range): BP systolic 97–154; BP diastolic 39–96; PULSE 84–105; RESP 12–24; O2SAT 93–97
[2022-04-11] MEDS: HYDROmorphone 1 mg/mL INJ 1 mL 0.5 MG IVP (01:48)
[2022-04-11] MEDS: HYDROmorphone 1 mg/mL INJ 1 mL IVP ×2 (03:10→05:14)
--- NOTE | 2022-04-11 05:04 | PC.NURSE ---
When [facility] called for transfer to [facility] , they said they could not transfer until after 0700. Spoke with [address] Alatorre and he is okay with transfer at this time because pt. does not meet life threat protocol.
--- NOTE | 2022-04-11 05:14 | PC.NURSE ---
Notified family that the patient would not be transferred until 0700 or after . The daughter of the patient is very upset and does not understand why they have to wait until seven to get her transferred. Family states that they should just take her themselves, I have stated to them that this would not be a safe transfer in the patients condition , nor would it be very comfortable for the patient
--- NOTE | 2022-04-11 06:21 | PC.NURSE ---
[facility] called and said they were going to send a unit to come pick pulling machine tender the patient. They said that they were sending the critical care crew to come and this would be more suitable if the patient had any complications.
--- NOTE | 2022-04-11 07:17 | PC.NURSE ---
accepted Report from LAURA Nicholson
[2022-04-11] MEDS: morphine 4 mg/mL SDV 1 mL 2 MG IVP (07:47)
== END 2022-04-11 09:35 | disposition short-term general hospital (02) ==
PROVIDERS: Emergency Medicine; Emergency Provider Family Medicine; PCP Family Medicine
DX: I71.00 Dissection of unspecified site of aorta (principal); N17.9 Acute kidney failure, unspecified; J44.9 Chronic obstructive pulmonary disease, unspecified; I10 Essential (primary) hypertension; F17.210 Nicotine dependence, cigarettes, uncomplicated
CPT/HCPCS: 71275; 74174; 74176; 80053; 81001; 83605; 83690; 85025; 87040; 96361; 96374; 96375; 96376; 99285; J1170; J2270; J7030; J7040; Q9967

== ENCOUNTER → 2022-06-06 11:35 | Outpatient (BNVA) | payer MEDICARE, SELFPAY | PROVIDERS: PCP Family Medicine; Visit Provider Nurse Practitioner Family | DX: J44.9 Chronic obstructive pulmonary disease, unspecified (principal); R04.0 Epistaxis; N17.9 Acute kidney failure, unspecified; N18.9 Chronic kidney disease, unspecified; D64.9 Anemia, unspecified | CPT/HCPCS: 80053; 82607; 82728; 82746; 83550 ==

== ENCOUNTER 2022-09-11 15:30 | Outpatient (CLI) | payer MEDICARE, SELFPAY ==
--- NOTE | 2022-09-11 | CT_ITS ---
WS: [id number] CTA CHEST ABDOMEN AND PELVIS TECHNIQUE: Noncontrast plus contrast enhanced CTA of the chest, abdomen, and pelvis with coronal and sagittal reformatted images and additional MIP Images. CLINICAL INFORMATION: CHRONIC THORACIC AORTIC DISSECTION COMPARISON: April 10, 2022 DLP: All CT scans at [facility] use at least one of these dose optimization techniques: automated e xposure control; mA and/or kV adjustment per patient size (includes targeted exams where dose is matc hed to clinical indication); or iterative reconstruction. FINDINGS: Again seen is the type B thoracic aortic dissection originating distal to the LEFT subclavian artery origin. This extends into the upper abdominal aorta. Associated aneurysmal dilatation of the thoracic aorta significantly progressed today measuring 7.7 x 9.7 cm AP by transverse. This extends over appr oximately 10.5 cm. Significant progression compared to the prior examination with significant enlarge ment of the opacified false lumen with marked increased surrounding hematoma. Increased attenuation i n the surrounding mural thrombus suspicious for intramural hematoma and impending rupture. There is marked mass effect on the heart with near complete effacement of the LEFT atrium. Splaying o f the proximal main pulmonary arteries. Volume loss RIGHT lower lobe with partial collapse the RIGHT lower lobe is new from previous due to obstruction of the RIGHT lower lobe bronchus. Contrast reflux into the hepatic veins suggestive of RIGHT heart dysfunction. Small pericardial effusion. Normal caliber ascending thoracic aorta. Aortic calcification. Moderate atheromatous disease. Tiny RI GHT pleural effusion. Common origin of the celiac and SMA are patent. Moderate stenosis of the renal artery ostia bilaterally. Moderate atheromatous disease infrarenal abdominal aorta. Abdominal aorta i s unchanged compared to previous with surrounding mural thrombus. Moderate emphysematous changes. Reflux into the hepatic veins. Adrenal glands are normal. Splenic cys t is unchanged. Fatty atrophy of the pancreas. No hydronephrosis in either kidney. Bilateral renal cy sts. Sigmoid diverticulosis. No free fluid in the pelvis. Prior postoperative changes lumbar spine with ve rtebroplasty changes. Chronic anterior wedging L1. CT[facility] [id number] IMPRESSION: 1. Marked progression of the type B aortic dissection with marked enlargement of the false lumen with surrounding thrombus suspicious for intramural hematoma and impending rupture. This measures 7.8 x 9.8 x 10.5 cm markedly progressed c ompared to previous where it measured approximately 5.0 x 5.2 CM. 2. Marked mass effect on the LEFT atrium with complete effacement. Splaying of the pulmonary arteries and shakira with mass effect on the main stem bronchi. T his results in collapse of the RIGHT lower lobe. Trace pleural fluid RIGHT lowe r lobe. 3. Small pericardial effusion 4. Ascending thoracic aorta is normal and unchanged. 5. Common origin of the celiac and SMA appear patent. 6. Renal arteries are patent with moderate ostial stenosis bilaterally. 7. Abdominal aorta is unchanged compared to previous. No significant infrarena l abdominal aortic aneurysm. Notified on-call physician Dr. Ponce GREEN at 09/11/2022 4:[address] Logan not c urrently available. Patient was transferred to the ER for further evaluation. Discussed with Dr. Peters in the ER 09/11/2022 4:51 PM
[2022-09-11] MEDS: iohexol 350 mg/mL 500 mL Btl (per mL) IV (15:52)
[2022-09-11 16:56] LABS: Blood Urea Nitrogen 41 mg/dL (8-23)
== END 2022-09-11 15:31 | disposition home or self-care (01) ==
PROVIDERS: PCP Family Medicine; Visit Provider Family Medicine
DX: I71.019 Dissection of thoracic aorta, unspecified (principal); I31.39 Other pericardial effusion (noninflammatory)
CPT/HCPCS: 71275; 74174; 82565; 84520; Q9967

== ENCOUNTER 2022-09-11 16:40 | Emergency (ER) | payer MEDICARE, SELFPAY ==
[2022-09-11] VITALS (17 sets, daily range): BP systolic 94–177; BP diastolic 73–127; PULSE 85–192; RESP 15–25; TEMP 36.6; O2SAT 83–97
--- NOTE | 2022-09-11 17:04 | ECG_ITS ---
[facility] Test Date: 2022-09-11 Pat Name: Eli Kimball Department: Room: Gender: Female Contemporary Or Modern Dancer: : 1950 Requested By: Bennett Pozo Order Number: [id number] Dinorah MD: Jamshid Alfaro M.D. Measurements Intervals [place] Rate: 92 P: 67 ID: [id number] QRS: 24 QRSD: 89 T: 55 QT: 365 QTc: 452 Interpretive Statements SINUS RHYTHM POSSIBLE LEFT ATRIAL ENLARGEMENT [-0.1mV P-WAVE IN V1/V2] LOW QRS VOLTAGE IN EXTREMITY LEADS [QRS DEFLECTION < 0.5 mV IN LIMB LEADS] PATTERN CONSISTENT WITH PULMONARY DISEASE Compared to ECG 12/12/2021 05:05:25 Myocardial infarct finding no longer present Electronically Signed On 09-11-2022 19:00:31 WORKFORCE MANAGEMENT ANALYST by Jamshid Alfaro M.D. [id number]
--- NOTE | 2022-09-11 17:06 | ED_ITS ---
HPI - Abdominal Pain General: Chief Complaint: Abdominal Pain Stated Complaint: Abnormal labs Time Seen by Provider: 09/11/22 17:00 Source: patient Mode of arrival: ambulatory History of Present Illness: 72-year-old female presents emergency room from the radiology department. She was having a CT scan to re-evaluate thoracic ane urysm. She had increasing chest and back discomfort as well as shortness of breath recently Dr. 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 She is having pain and is hypertensive on arrival here according to Dr. Carrillo I talked to before she arrived here the left atrium and the left lower mainstem bronchi are compromised by expansion of the aneurysm. MD elicited complaint: other (Chest and back pain) Pertinent past history: other (Thoracic aneurysm) Onset (ago): day(s) Pain Consistency: constant Location: Chest, Epigastric and Other (Back) Severity: severe Quality: sharp Radiation: back Migration to: epigastric Exacerbating factors: movement Relieving factors: medication and rest Associated Symptoms: Reports bloating, dyspepsia, nausea, poor appetite and syn cope; Denies anorexia, belching, change in bowel habits, change in stool character, chills, coffee ground emesis, constipation, GI cramping, diarrhea, dysuria, excessive flatus, fever(s), heartburn, hematochezia, hematuria, hematemesis, fecal incontinence, loose stools, melena and vomiting Review of Systems Const: Reports: fatigue; Denies: fever(s), chills or malaise ENMT: Denies: throat pain, ear or mastoid pain, nasal discharge or nasal congestion Card: Reports: chest pain and syncope; Denies: palpitations, irregular heart rhythm or edema Resp: Reports: dyspnea; Denies: productive cough or non-productive cough GI: Reports: abdominal pain, nausea and bloating; Denies: vomiting, hematemesis, coffee ground emesis, heartburn, diarrhea, constipation, GI cramping, belching, excessive flatus, fecal incontinence, change in bowel habits, change in stool character, hematochezia or melena : Denies: dysuria, urinary frequency, urinary urgency or hematuria Musc: Reports: back pain Skin/Breast: Denies: rash or pruritus PFS ED PFSH: Medical History Acute cystitis Acute cystitis Acute kidney injury superimposed on chronic kidney disease Blurred vision COPD (chronic obstructive pulmonary disease) Hypertension Microcytic anemia Weakness Surgical History H/O esophagogastroduodenoscopy AVM body of stomach History of back surgery x3 History of breast surgery inverted nipple (x3) History of dental surgery History of hysterectomy 1993 History of laparoscopic cholecystectomy 1993 Status post colonoscopy (02/19/21) Diverticulosis, internal hemorrhoids Family History Other Hypertension Social History Smoking and tobacco status: never smoked Alcohol intake: never Lives independently: Yes Physical Exam Const: COMMON NORMALS: no acute distress GENERAL APPEARANCE: cooperative and comfortable ORIENTATION/CONSCIOUSNESS: Yes awake, Yes oriented to person, Yes oriented to place and Yes oriented to time HENMT: COMMON NORMALS: normocephalic, atraumatic and hearing grossly normal bilaterally HEAD & SCALP: normocephalic and atraumatic Eye: COMMON NORMALS: Equal, round and reactive pupils present, EOMs intact bilaterally, conjunctivae normal and no scleral icterus CONJUNCTIVA: Yes conjunctivae normal PUPIL: Yes Equal, round and reactive pupils present Neck/C-Spine: COMMON NORMALS: full ROM, no lymphadenopathy and supple Resp: COMMON NORMALS: normal respiratory effort, No retractions and No use of accessory muscles AUSCULTATION: diminished lung sounds on the right in the lower lung pate Cardio: COMMON NORMALS: regular rate, regular rhythm and No murmurs present (Cardio) RATE: regular rate RHYTHM: regular rhythm GI: COMMON NORMALS: No hepatosplenomegaly present AUSCULTATION: Yes normoactive bowel sounds PALPATION: Yes Tenderness to palpation present (GI) (Epigastric periumbilical), No Guarding due to palpation present (GI) and Yes No hepatosplenomegaly present Extremity: COMMON NORMALS: normal to inspection, capillary refill normal, no clubbing, cyanosis or edema, no calf tenderness and no pedal edema Neuro: SENSORIUM/ORIENTATION: Yes oriented to person, Yes oriented to place and Yes oriented to time Skin: COMMON NORMALS: no rashes or lesions noted GENERAL SKIN EXAM: no rashes or lesions noted Course Vital Signs: Vital signs: Vital Signs Temperature 97.9 F 09/11/22 16:44 Pulse Rate 96 09/11/22 18:10 Respiratory Rate 16 09/11/22 18:32 Blood Pressure 131/86 09/11/22 18:15 Pulse Oximetry 93 09/11/22 18:32 Oxygen Delivery Me thod 09/11/22 16:44 MDM - Abdominal Pain Medical Decision Making Patient has impending rupture of a type B thoracic aneurysm. CT shows marked increase in size from April 10. Patient was given IV labetalol push started on nicardipine for blood pressure control. We will place a Felix. Give her morphine and antiemetics. Transfer her to [facility] are all full Medical Records I reviewed the patient's medical records. Lab Data I reviewed the patient's lab results. 09/11/22 17:10 09/11/22 17:10 Labs/Radiology: Laboratory Results WBC 8.4 10^3/uL (4.0-10.0) 09/11/22 17:10 RBC 3.87 10^6/uL (4.1-5.3) L 09/11/22 17:10 Hgb 7.9 g/dL (11.5-15.3) L 09/11/22 17:10 Hct 27.8 % (37.0-47.0) L 09/11/22 17:10 MCV 71.8 fl (81-99) L 09/11/22 17:10 MCH 20.4 pg (28.0-34.0) L 09/11/22 17:10 MCHC 28.4 g/dL (30.0-36.0) L 09/11/22 17:10 RDW 19.3 % (12.1-15.1) H 09/11/22 17:10 Plt Count 277 10^3/cmm (130-400) 09/11/22 17:10 MPV 10.5 fL (7.4-10.4) H 09/11/22 17:10 Neut % (Auto) 75.1 % 09/11/22 17:10 Lymph % (Auto) 17.2 % 09/11/22 17:10 [place] % (Auto) 4.8 % 09/11/22 17:10 Eos % (Auto) 1.9 % 09/11/22 17:10 Baso % (Auto) 0.8 % 09/11/22 17:10 Neut # (Auto) 6.32 10^3/uL (1.8-7.7) 09/11/22 17:10 Lymph # (Auto) 1.5 10^3/uL (0.8-4.8) 09/11/22 17:10 [place] # (Auto) 0.4 10^3/uL (0.2-0.9) 09/11/22 17:10 Eos # (Auto) 0.2 10^3/uL (0.0-0.8) 09/11/22 17:10 Baso # (Auto) 0.1 10^3/uL (0.0-0.1) 09/11/22 17:10 Nucleated RBC % (auto) 0 % 09/11/22 17:10 Nucleated RBCs # 0.0 /100WBC 09/11/22 17:10 Sodium 136 mmol/L (136-145) 09/11/22 17:10 Potassium 4.7 mmol/L (3.5-5.1) 09/11/22 17:10 Chloride 101 mmol/L (98-107) 09/11/22 17:10 Carbon Dioxide 24 mmol/L (22-29) 09/11/22 17:10 Anion Gap 15.7 (5-19) 09/11/22 17:10 BUN 23 mg/dL (8-23) 09/11/22 17:10 Creatinine 1.3 mg/dL (0.5-0.9) H 09/11/22 17:10 GFR Calculation Not Reportable 09/11/22 17:10 Glucose 81 mg/dL (65-115) 09/11/22 17:10 Calculated Osmolality 285 mOsm/kg (285-295) 09/11/22 17:10 Calcium 9.6 mg/dL (8.5-10.5) 09/11/22 17:10 Total Bilirubin 0.3 mg/dL (0.15-1.2) 09/11/22 17:10 AST 9 U/L (0-32) 09/11/22 17:10 ALT 6 U/L (0-33) 09/11/22 17:10 Alkaline Phosphatase 101 U/L (35-105) 09/11/22 17:10 Total Protein 8.0 g/dL (6.6-8.7) 09/11/22 17:10 Albumin 3.8 g/dL (3.5-5.2) 09/11/22 17:10 Globulin 4.2 g/dL (1.3-4.6) 09/11/22 17:10 Urine Color Yellow (Yellow) 09/11/22 17:43 Urine Appearance Clear (CLEAR) 09/11/22 17:43 Urine pH 6.5 (5-7) 09/11/22 17:43 Ur Specific [place] 1.010 (1.005-1.030) 09/11/22 17:43 Urine Protein Neg (Negative) 09/11/22 17:43 Urine Glucose (UA) Norm (Normal) 09/11/22 17:43 Urine Ketones Negative (Negative) 09/11/22 17:43 Urine Blood Neg (Negative) 09/11/22 17:43 Urine Nitrate Negative (Negative) 09/11/22 17:43 Urine Bilirubin Neg (Negative) 09/11/22 17:43 Urine Urobilinogen Norm mg/dL (Negative) 09/11/22 17:43 Ur Leukocyte Esterase Negative (Negative) 09/11/22 17:43 Blood Type A Positive 09/11/22 18:03 Rho(D) Type Positive 09/11/22 18:03 Antibody Screen Negative 09/11/22 18:03 Crossmatch See Detail 09/11/22 18:03 Discharge Plan Discharge Patient Disposition: Home Clinical Impression: Dissecting aneurysm of thoracic aorta Condition: Stable Prescriptions: No Action ipratropium-albuterol 0.5 mg-3 mg(2.5 mg base)/3 mL solution for nebulization 3 ml inhalation Q4H PRN (Reason: wheezing) Qty: 180 1RF (DME) nebulizers [facility] [place] See Rx Instructions .Route Qty: 1 0RF Rx Instructions: 1 nebulizer and all required supplies As directed Riya Fletcher 200-62.5-25 mcg blister with device 1 inh inhalation DAILY 30 Days Qty: 60 3RF azithromycin [Zithromax Z-Saulo] 250 mg tablet See Rx Instructions PO .COMPLEX Qty: 6 0RF Rx Instructions: For 250 mg dose pack: take 500 mg today (day 1), then 250 mg for 4 days (days 2-5) PO ferrous sulfate 324 mg (65 mg iron) tablet,delayed release (DR/EC) 324 mg PO DAILY Qty: 90 1RF gabapentin 600 mg tablet 1,800 mg PO BEDTIME potassium chloride 20 mEq tablet,ER particles/crystals 20 meq PO DAILY@1800 albuterol sulfate [Ventolin HFA] 90 mcg/actuation HFA aerosol inhaler 1 - 2 inh INHALATION Q4H PRN (Reason: Shortness Of Breath) irbesartan 300 mg tablet 300 mg PO DAILY@1800 rosuvastatin 20 mg tablet 20 mg PO DAILY@1800 Plavix 75 mg Tablet 75 mg PO DAILY hydrochlorothiazide 25 mg Tablet 25 mg PO DAILY desvenlafaxine succinate 50 mg Tablet Extended Release 24 Hr 50 mg PO BEDTIME Belsomra 20 mg Tablet 20 mg PO BEDTIME Discharge Orders: Discharge ED (Routine); Ordered 09/11/22 Ordered By: Bennett Peters Referrals: Bhupinder Logan MD [Primary Care Provider] - Coding Level of Care Code ED Contract Processor for Lian Nichols
[2022-09-11] MEDS: morphine 4 mg/mL SDV 1 mL IVP (17:13)
[2022-09-11] MEDS: ondansetron 2 mg/ML SDV 2 mL 4 MG IVP (17:14)
[2022-09-11] MEDS: labetalol 5 mg/mL SDV 20mL 10 MG IVP (17:14)
--- NOTE | 2022-09-11 17:26 | PC.NURSE ---
DR. NUNEZ GAVE VERBAL ORDER TO TITRATE NICARDIPINE DRIP FOR SYSTOLIC BLOOD PRESSURE LESS THAN OR EQUAL TO 120
[2022-09-11] MEDS: nicardipine 20 MG/200 ML PREMIX 50 MG IV (17:30)
[2022-09-11 17:35] LABS: Basophils # 0.1 10^3/uL (0.0-0.1); Basophils % 0.8 %; Eosinophils # 0.2 10^3/uL (0.0-0.8); Eosinophils % 1.9 %; Hematocrit 27.8 % (37.0-47.0); Hemoglobin 7.9 g/dL (11.5-15.3); Lymphocytes # 1.5 10^3/uL (0.8-4.8); Lymphocytes % 17.2 %; Mean Corpuscular HGB Conc 28.4 g/dL (30.0-36.0); Mean Corpuscular Hemoglobin 20.4 pg (28.0-34.0); Mean Corpuscular Volume 71.8 fl (81-99); Mean Platelet Volume 10.5 fL (7.4-10.4); Monocytes # 0.4 10^3/uL (0.2-0.9); Monocytes % 4.8 %; Neutrophils # 6.32 10^3/uL (1.8-7.7); Neutrophils % 75.1 %; Nucleated Red Blood Cells % 0 %; Platelet Count 277 10^3/cmm (130-400); Red Blood Count 3.87 10^6/uL (4.1-5.3); Red Cell Distribution Width 19.3 % (12.1-15.1); White Blood Count 8.4 10^3/uL (4.0-10.0)
[2022-09-11 17:57] LABS: Alanine Aminotransferase 6 U/L (0-33); Albumin Level 3.8 g/dL (3.5-5.2); Alkaline Phosphatase 101 U/L (35-105); Blood Urea Nitrogen 23 mg/dL (8-23); Calcium 9.6 mg/dL (8.5-10.5); Carbon Dioxide 24 mmol/L (22-29); Globulin 4.2 g/dL (1.3-4.6); Glucose 81 mg/dL (65-115); Total Bilirubin 0.3 mg/dL (0.15-1.2)
[2022-09-11 17:59] LABS: Add Urine Microscopic? NO; Charge for UA Resulting for Rev
--- NOTE | 2022-09-11 18:18 | PC.NURSE ---
DR. NUNEZ GAVE VERBAL ORDER FOR EMERGENT TRANSFUSION OF O-NEG BLOOD FOR PT. TRANSFUSION STARTED. UNIT NUMBER [id number] VERIFIED WITH Jenny RODRIGUEZ RN REMAINED WITH PT UNTIL UNTIL CARE OF PT TRANSFERRED TO FLIGHT TEAM. PRE TRANSFUSION VITALS RECORDED. DR. NUNEZ GAVE VERBAL ORDER TO DECREASE NICARDIPINE DRIP TO 2.5. PT PLACED ON 5L NC RESULT OF DECREASE IN O2 SATS. DR NUNEZ GAVE VERBAL ORDER FOR 50MCG OF FENTYNAL IVP FOR PAIN
[2022-09-11 18:19] LABS: Anion Gap 15.7 (5-19); Aspartate Amino Transferase 9 U/L (0-32); Potassium 4.7 mmol/L (3.5-5.1)
[2022-09-11 18:22] LABS: Chloride 101 mmol/L (98-107); Osmolality Calculated 285 mOsm/kg (285-295); Sodium 136 mmol/L (136-145)
[2022-09-11 18:23] LABS: Urine Appearance Clear (CLEAR); Urine Color Yellow (Yellow); pH Urine 6.5 (5-7)
[2022-09-11 18:24] LABS: Bilirubin Urine Neg (Negative); Blood Urine Neg (Negative); Glucose Urine UA Norm (Normal); Ketones Urine Negative (Negative); Leukocyte Esterase Urine Negative (Negative); Nitrate Urine Negative (Negative); Protein Urine Neg (Negative); Urobilinogen Urine Norm (Negative)
[2022-09-11] MEDS: fentaNYL 50 mcg/mL INJ 2mL IVP (18:32)
[2022-09-11] MEDS: sodium chloride 0.9% (100 ml) 100 ML 999 ML (18:34)
--- NOTE | 2022-09-11 18:37 | PC.NURSE ---
100ML NS USED TO PRIME AND FLUSH BLOOD TUBING DURING EMERGENT TRANSFUSION
--- NOTE | 2022-09-11 18:40 | PC.NURSE ---
1 UNIT OF O-NEG BLOOD RETURNED TO BLOOD BANK AND ACCEPTED BY LAB PERSONAL
== END 2022-09-11 18:40 | disposition home or self-care (01) ==
PROVIDERS: Emergency Provider Family Medicine; PCP Family Medicine
DX: I71.019 Dissection of thoracic aorta, unspecified (principal); Z79.02 Long term (current) use of antithrombotics/antiplatelets; J44.9 Chronic obstructive pulmonary disease, unspecified; I10 Essential (primary) hypertension; I31.39 Other pericardial effusion (noninflammatory)
CPT/HCPCS: 51702; 71275; 74174; 80053; 81003; 82565; 84520; 85025; 86850; 86900; 86920; 93005; 96374; 96375; 99291; J2270; J2405; J3010; J3490; P9016; Q9967

== ENCOUNTER 2022-10-02 17:05 | Emergency (ER) | payer MEDICARE, SELFPAY ==
[2022-10-02] VITALS (42 sets, daily range): BP systolic 124–199; BP diastolic 81–124; PULSE 90–129; RESP 16–33; TEMP 36.8; O2SAT 88–100; BMI 21.2
--- NOTE | 2022-10-02 17:06 | W.ED.CHESTPA ---
HPI - Chest Pain General: Chief Complaint: Shortness of Breath/Dyspnea Stated Complaint: SOB/ CP Time Seen by Provider: 10/02/22 17:06 Source: patient Mode of arrival: EMS History of Present Illness: 72-year-old female presents emergency room with complaints of shortness of breath x1 week worsening today. Approximately 3 weeks ago patient presented to the emergency room with acute chest pain and had a large dissecting aneurysm large enough was actually causing atelectasis and obstructive effect on the lower right bronchi. She had a PTCA procedure done and it was stented and is been stable. Today she complains of being progressively more short of breath since her procedure. EMS reports on arrival her oxygen sat was in the 80s. With nebulizer and supplemental oxygen she is now satting in the mid 90s but she is very tachycardic and tachypneic she denies any fever sweats or chills. She has stopped smoking. She has mild abdominal pain. MD complaint: chest pain Onset (ago): day(s) Timing of current episode: episodic Prior episodes: Yes Onset: during rest Pain location: substernal Pain radiation: none Quality: sharp Relieving factors: nothing Exacerbating factors: nothing Associated symptoms: Reports dyspnea; Deny abdominal pain, diaphoresis, fever(s), leg edema, nausea, palpitations, sense of impending doom, syncope or vomiting Treatment prior to arrival: none Risk Factors: Coronary artery disease risk factors: smoking history Thoracic aortic dissection risk factors: prior thoracic aortic dissection and history of thoracic aortic aneurysm Review of Systems Const: Reports: fatigue; Denies: fever(s), chills, malaise or diaphoresis ENMT: Denies: throat pain, ear or mastoid pain, nasal discharge or nasal congestion Card: Reports: chest pain; Denies: palpitations, irregular heart rhythm, edema, swelling of feet/ankles or syncope Resp: Reports: dyspnea, non-productive cough and wheezing; Denies: productive cough GI: Denies: abdominal pain, nausea or vomiting : Denies: flank pain, difficulty voiding, dysuria, urinary frequency or urinary urgency Skin/Breast: Denies: rash or pruritus [facility] ED PFSH: Medical History Acute cystitis Acute cystitis Acute kidney injury superimposed on chronic kidney disease Blurred vision COPD (chronic obstructive pulmonary disease) Hypertension Microcytic anemia Weakness Surgical History H/O esophagogastroduodenoscopy AVM body of stomach History of back surgery x3 History of breast surgery inverted nipple (x3) History of dental surgery History of hysterectomy 1993 History of laparoscopic cholecystectomy 1993 Status post colonoscopy (02/19/21) Diverticulosis, internal hemorrhoids Family History Other Hypertension Social History Smoking and tobacco status: never smoked Alcohol intake: never Lives independently: Yes Physical Exam Const: GENERAL APPEARANCE: cooperative ORIENTATION/CONSCIOUSNESS: Yes awake, Yes oriented to person, Yes oriented to place and Yes oriented to time HENMT: COMMON NORMALS: normocephalic, atraumatic, hearing grossly normal bilaterally, external ears normal, EAC's normal, TM's normal bilaterally and Normal nasal mucous membranes and turbinates present HEAD & SCALP: normocephalic and atraumatic NOSE: Normal nasal mucous membranes and turbinates present EXTERNAL EAR: Yes external ears normal EXTERNAL AUDITORY CANAL: EAC's normal TYMPANIC MEMBRANE: TM's normal bilaterally Eye: COMMON NORMALS: Equal, round and reactive pupils present, EOMs intact bilaterally, conjunctivae normal and no scleral icterus CONJUNCTIVA: Yes conjunctivae normal PUPIL: Yes Equal, round and reactive pupils present Neck/C-Spine: COMMON NORMALS: full ROM, no lymphadenopathy and supple Lymph: LYMPHATIC: no lymphadenopathy noted and no lymphedema noted Resp: COMMON NORMALS: normal respiratory effort and No retractions EFFORT & INSPECTION: Yes tachypneic AUSCULTATION: wheezes and diminished lung sounds Cardio: COMMON NORMALS: regular rhythm and No murmurs present (Cardio) RATE: tachycardic RHYTHM: regular rhythm GI: COMMON NORMALS: Soft to palpation and No hepatosplenomegaly present AUSCULTATION: Yes normoactive bowel sounds PALPATION: Yes Soft to palpation, No Tenderness to palpation present (GI), No Guarding due to palpation present (GI) and Yes No hepatosplenomegaly present Extremity: COMMON NORMALS: normal to inspection, capillary refill normal, no clubbing, cyanosis or edema, no calf tenderness and no pedal edema Neuro: SENSORIUM/ORIENTATION: Yes oriented to person, Yes oriented to place and Yes oriented to time Skin: COMMON NORMALS: no rashes or lesions noted GENERAL SKIN EXAM: no rashes or lesions noted Course Vital Signs: Vital signs: Vital Signs Temperature 98.2 F 10/02/22 17:11 Pulse Rate 114 H 10/02/22 17:38 Respiratory Rate 18 10/02/22 17:35 Blood Pressure 182/122 10/02/22 17:11 Pulse Oximetry 98 10/02/22 17:35 Oxygen Delivery Me thod 10/02/22 17:35 Oxygen Flow Rate 2 10/02/22 17:35 MDM - Chest Pain Medical Decision Making Care signed out to Dr. Medley at change of shift. See final notes for diagnosis and disposition. Medical Records I reviewed the patient's medical records. Lab Data I reviewed the patient's lab results. 10/02/22 17:18 10/02/22 17:18 Laboratory Results WBC 11.8 10^3/uL (4.0-10.0) H 10/02/22 17:18 RBC 4.15 10^6/uL (4.1-5.3) 10/02/22 17:18 Hgb 9.9 g/dL (11.5-15.3) L 10/02/22 17:18 Hct 33.3 % (37.0-47.0) L 10/02/22 17:18 MCV 80.2 fl (81-99) L 10/02/22 17:18 MCH 23.9 pg (28.0-34.0) L 10/02/22 17:18 MCHC 29.7 g/dL (30.0-36.0) L 10/02/22 17:18 RDW 25.4 % (12.1-15.1) H 10/02/22 17:18 Plt Count 268 10^3/cmm (130-400) 10/02/22 17:18 MPV 10.5 fL (7.4-10.4) H 10/02/22 17:18 Neut % (Auto) 85.4 % 10/02/22 17:18 Lymph % (Auto) 6.9 % 10/02/22 17:18 [place] % (Auto) 6.1 % 10/02/22 17:18 Eos % (Auto) 0.4 % 10/02/22 17:18 Baso % (Auto) 0.8 % 10/02/22 17:18 Neut # (Auto) 10.03 10^3/uL (1.8-7.7) H 10/02/22 17:18 Lymph # (Auto) 0.8 10^3/uL (0.8-4.8) 10/02/22 17:18 [place] # (Auto) 0.7 10^3/uL (0.2-0.9) 10/02/22 17:18 Eos # (Auto) 0.1 10^3/uL (0.0-0.8) 10/02/22 17:18 Baso # (Auto) 0.1 10^3/uL (0.0-0.1) 10/02/22 17:18 Nucleated RBC % (auto) 0 % 10/02/22 17:18 Nucleated RBCs # 0.0 /100WBC 10/02/22 17:18 Specimen Type Arterial 10/02/22 17:20 Sample Site Radial, right 10/02/22 17:20 ABG pH 7.47 (7.35-7.45) H 10/02/22 17:20 ABG pCO2 31.1 mmHg (35-45) L 10/02/22 17:20 ABG pO2 87.8 mmHg (80.0-100.0) 10/02/22 17:20 ABG HCO3 22.8 mmol/L (22-26) 10/02/22 17:20 ABG O2 Saturation 97.8 10/02/22 17:20 ABG Base Excess -0.3 mmol/L (-2.0-2.0) 10/02/22 17:20 Don Test Pos 10/02/22 17:20 Hematocrit 32.2 % (37-47) L 10/02/22 17:20 Hgb O2 Saturation 95.9 % (95-100) 10/02/22 17:20 Carboxyhemoglobin 1.2 %THgb (0.4-20.1) 10/02/22 17:20 Methemoglobin 0.7 % (0.4-1.5) 10/02/22 17:20 Total Hemoglobin 10.5 g/dL (12-16) L 10/02/22 17:20 Sodium 139.0 mmol/L (131-143) 10/02/22 17:20 Potassium 3.1 mmol/L (3.5-5.0) L 10/02/22 17:20 Glucose 123.0 mg/dL (70-115) H 10/02/22 17:20 Ionized Calcium 1.2 mmol/L (1.1-1.4) 10/02/22 17:20 O2 Delivery Device Nc 10/02/22 17:20 FiO2 2.0 % 10/02/22 17:20 Foxpro Developer ID [place] 10/02/22 17:20 Sodium 137 mmol/L (136-145) 10/02/22 17:18 Potassium 3.1 mmol/L (3.5-5.1) L 10/02/22 17:18 Chloride 100 mmol/L (98-107) 10/02/22 17:18 Carbon Dioxide 24 mmol/L (22-29) 10/02/22 17:18 Anion Gap 16.1 (5-19) 10/02/22 17:18 BUN 25 mg/dL (8-23) H 10/02/22 17:18 Creatinine 1.1 mg/dL (0.5-0.9) H 10/02/22 17:18 GFR Calculation Not Reportable 10/02/22 17:18 Glucose 122 mg/dL (65-115) H 10/02/22 17:18 Calculated Osmolality 290 mOsm/kg (285-295) 10/02/22 17:18 Calcium 9.9 mg/dL (8.5-10.5) 10/02/22 17:18 Total Bilirubin 0.7 mg/dL (0.15-1.2) 10/02/22 17:18 AST 20 U/L (0-32) 10/02/22 17:18 ALT 16 U/L (0-33) 10/02/22 17:18 Alkaline Phosphatase 120 U/L (35-105) H 10/02/22 17:18 Total Protein 7.2 g/dL (6.6-8.7) 10/02/22 17:18 Albumin 3.2 g/dL (3.5-5.2) L 10/02/22 17:18 Globulin 4.0 g/dL (1.3-4.6) 10/02/22 17:18 Discharge Plan Discharge Condition: Stable Prescriptions: No Action ipratropium-albuterol 0.5 mg-3 mg(2.5 mg base)/3 mL solution for nebulization 3 ml inhalation Q4H PRN (Reason: wheezing) Qty: 180 1RF (DME) nebulizers [facility] [place] See Rx Instructions .Route Qty: 1 0RF Rx Instructions: 1 nebulizer and all required supplies As directed Trelegy Ellipta 200-62.5-25 mcg blister with device 1 inh inhalation DAILY 30 Days Qty: 60 3RF azithromycin [Zithromax Z-Saulo] 250 mg tablet See Rx Instructions PO .COMPLEX Qty: 6 0RF Rx Instructions: For 250 mg dose pack: take 500 mg today (day 1), then 250 mg for 4 days (days 2-5) PO ferrous sulfate 324 mg (65 mg iron) tablet,delayed release (DR/EC) 324 mg PO DAILY Qty: 90 1RF gabapentin 600 mg tablet 1,800 mg PO BEDTIME potassium chloride 20 mEq tablet,ER particles/crystals 20 meq PO DAILY@1800 albuterol sulfate [Ventolin HFA] 90 mcg/actuation HFA aerosol inhaler 1 - 2 inh INHALATION Q4H PRN (Reason: Shortness Of Breath) irbesartan 300 mg tablet 300 mg PO DAILY@1800 rosuvastatin 20 mg tablet 20 mg PO DAILY@1800 Plavix 75 mg Tablet 75 mg PO DAILY hydrochlorothiazide 25 mg Tablet 25 mg PO DAILY desvenlafaxine succinate 50 mg Tablet Extended Release 24 Hr 50 mg PO BEDTIME Belsomra 20 mg Tablet 20 mg PO BEDTIME Referrals: Bhupinder Logan MD [Primary Care Provider] - Coding Level of Care Code ED Operating Room Manager for Chg Fwd Exam Comprehensive
--- NOTE | 2022-10-02 17:10 | XRR_ITS ---
PROCEDURE INFORMATION: Exam: XR Chest Exam date and time: 10/02/2022 5:51 PM Age: 72 years old Clinical indication: Dyspnea; Prior surgery; Surgery date: <1 month; Surgery type: Stent sep 12; Additional info: Dyspnea for 2 days with some chest pain TECHNIQUE: Imaging protocol: Radiologic exam of the chest. Views: 1 view. COMPARISON: CR XR chest 2V* [id number] 08/26/2022 10:17 AM FINDINGS: Lungs: Unremarkable. No consolidation. Pleural spaces: Unremarkable. No pleural effusion. No pneumothorax. Heart/Mediastinum: Marked cardiomegaly with enlarging heart size since previous. The aorta is progressively markedly tortuous, now status post stent graft placement. Bones/joints: Unremarkable. XR/XR chest 1V portable [id number] IMPRESSION: 1. No acute pulmonary disease. 2. Marked aortic tortuosity is progressive since previous, now status post stent graft placement. Heart size is also enlarged since prior. Correlate for possible pericardial effusion.
--- NOTE | 2022-10-02 17:20 | CTR_ITS ---
PROCEDURE INFORMATION: Exam: CTA Chest With Contrast CTA Abdomen and Pelvis With Contrast Exam date and time: 10/02/2022 6:57 PM Age: 72 years old Clinical indication: Shortness of breath; Prior surgery; Surgery date: <1 month; Surgery type: Recent taa repair; Additional info: Dyspnea previous thoracic aortic aneurysm dissection TECHNIQUE: Imaging protocol: Computed tomographic angiography of the chest with contrast. Computed tomographic angiography of the abdomen and pelvis with contrast. 3D rendering (Not supervised by radiologist): MIP and/or 3D reconstructed images were created by the technologist. Radiation optimization: All CT scans at this facility use at least one of these dose optimization techniques: automated exposure control; mA and/or kV adjustment per patient size (includes targeted exams where dose is matched to clinical indication); or iterative reconstruction. Contrast material: OMNIPAQUE 350; Contrast volume: 95 ml; Contrast route: INTRAVENOUS (IV); Other protocol: This patient has received 4 known CTs and 0 known cardiac nuclear medicine studies in the 12 months prior to the current study. COMPARISON: CT angio chest abdomen pelvis 04/10/2022 11:35 PM FINDINGS: VASCULATURE: Pulmonary arteries: See Lungs finding. Aorta: Status post stent graft repair of the type B aortic dissection. The stent graft is patent. No residual aortic dissection is present. Aneurysmal dilatation of the thoracic aorta is again present measuring 10.4 x 7.4 cm maximum size further enlarging than previous maximum measurement of 7.7 x 9.7 cm. The surrounding type B aortic intramural hematoma measured 2.3 cm maximum thickness on previous, now measuring up to 4.2 cm enlarging. Marked mass effect on the left atrium is again seen, which is nearly completely effaced. Distally the stent graft extends to the suprarenal abdominal aorta, just above the origin of the SMA. The graft covers the celiac origin. There is no significant enhancement within the hematoma to suggest graft leakage. The hematoma stops in the suprarenal aorta along the distal graft margin. Infrarenal abdominal aortic aneu ectasia measuring 3.1 cm unchanged. Celiac trunk and mesenteric arteries: No occlusion or significant stenosis. Renal arteries: Stable bilateral high-grade renal arterial origin stenosis. Right iliac arteries: No occlusion or significant stenosis. Left iliac arteries: No occlusion or significant stenosis. CHEST: Lungs: Compression of the mainstem bronchi, with splaying of the pulmonary arteries unchanged. Collapse of the right lower lobe is unchanged. Pleural spaces: Unremarkable. No pneumothorax. No pleural effusion. Heart: Trace pericardial fluid measuring 44 Hounsfield units, suspicious for hemopericardium. ABDOMEN AND PELVIS: Liver: No mass. Gallbladder and bile ducts: Cholecystectomy, stable. Pancreas: Unremarkable. No mass. No ductal dilation. Spleen: Unchanged splenic cyst or hemangioma. Adrenal glands: Unremarkable. No mass. Kidneys and ureters: Unchanged right-sided renal cysts. Stomach and bowel: Stool throughout the colon suggests constipation. No bowel obstruction. Appendix: No evidence of appendicitis. Intraperitoneal space: Unremarkable. No free air. No significant fluid collection. Urinary bladder: Mild bladder wall thickening with incomplete distention. Reproductive: Hysterectomy changes. Lymph nodes: Unremarkable. No enlarged lymph nodes. Bones/joints: Lower lumbar spinal surgical changes. L1 fracture status post vertebroplasty unchanged. Soft tissues: Fluid collection in the right inguinal region with adjacent surgical clips measuring 3.3 x 3.0 cm and an average of 18 Hounsfield units is likely a seroma or old hematoma. Small simple fluid collections are seen in the left inguinal region as well measuring 4.1 x 1.8 cm, also likely seromas. CT/CT [facility] [id number] IMPRESSION: 1. Status post type B aortic dissection repair with stent graft placement. The stent graft is patent. No residual dissection is seen. The aneurysmal dilatation of the thoracic aorta is increasing since prior with increasing surrounding type B aortic intramural hematoma extending from the graft origin to the distal end of the graft. Recommend vascular surgery consultation. 2. Mass effect on the left atrium with near-complete effacement is again present. The pulmonary arteries are again splayed. Mass effect on the mainstem bronchi with right lower lobe collapse is unchanged. 3. Trace complex pericardial effusion, suspicious for hemopericardium. 4. Stable infrarenal abdominal aortic ectasia to 3.1 cm. THIS REPORT CONTAINS FINDINGS THAT MAY BE CRITICAL TO PATIENT CARE. The findings were verbally communicated via telephone conference with Dr. Medley at 8:21 PM PHOTOGRAPHY COLORIST on 10/02/2022. The findings were acknowledged and understood.
[2022-10-02 17:26] LABS: Basophils # 0.1 10^3/uL (0.0-0.1); Basophils % 0.8 %; Eosinophils # 0.1 10^3/uL (0.0-0.8); Eosinophils % 0.4 %; Hematocrit 33.3 % (37.0-47.0); Hemoglobin 9.9 g/dL (11.5-15.3); Lymphocytes # 0.8 10^3/uL (0.8-4.8); Lymphocytes % 6.9 %; Mean Corpuscular HGB Conc 29.7 g/dL (30.0-36.0); Mean Corpuscular Hemoglobin 23.9 pg (28.0-34.0); Mean Corpuscular Volume 80.2 fl (81-99); Mean Platelet Volume 10.5 fL (7.4-10.4); Monocytes # 0.7 10^3/uL (0.2-0.9); Monocytes % 6.1 %; Neutrophils # 10.03 10^3/uL (1.8-7.7); Neutrophils % 85.4 %; Nucleated Red Blood Cells % 0 %; Platelet Count 268 10^3/cmm (130-400); Red Blood Count 4.15 10^6/uL (4.1-5.3); Red Cell Distribution Width 25.4 % (12.1-15.1); White Blood Count 11.8 10^3/uL (4.0-10.0)
[2022-10-02 17:31] LABS: ABG PCO2 31.1 mmHg (35-45); ABG PH Result 7.47 (7.35-7.45); Arterial Blood Gas Hematocrit 32.2 % (37-47); Base Excess ABG -0.3 mmol/L (-2.0-2.0); Blood Gas Allen Test Pos; Blood Gas Operator Identificat WALCI; Blood Gas Sample Site Radial, right; Blood Gas Sample Type Arterial; Carboxyhemoglobin 1.2 %THgb (0.4-20.1); HCO3 ABG 22.8 mmol/L (22-26); HGB O2 Sat 95.9 % (95-100); Ionized Calcium Level - ABG 1.2 mmol/L (1.1-1.4); Methemoglobin 0.7 % (0.4-1.5); Oxygen Device NC; Oxygen Saturation ABG 97.8; PO2 ABG 87.8 mmHg (80.0-100.0); Potassium Level - ABG 3.1 mmol/L (3.5-5.0); Total Hemoglobin 10.5 g/dL (12-16)
--- NOTE | 2022-10-02 17:31 | ECG_ITS ---
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 Measurements Intervals [place] Rate: 118 P: 76 ME: 164 QRS: 235 QRSD: 90 T: 62 QT: 341 QTc: 479 Interpretive Statements SINUS TACHYCARDIA LEFT ATRIAL ENLARGEMENT [-0.15mV P-WAVE IN V1/V2] POSSIBLE RIGHT VENTRICULAR HYPERTROPHY INFERIOR MYOCARDIAL INFARCTION , OF INDETERMINATE AGE Compared to ECG 09/11/2022 17:22:37 Myocardial infarct finding now present Sinus rhythm no longer present Electronically Signed On 10-02-2022 23:45:25 BANK CREDIT CARD COLLECTION CLERK by Theresa Dexter M.D. [id number]
[2022-10-02] MEDS: albuterol 2.5 mg/3 mL Neb INHALATION (17:33)
[2022-10-02] MEDS: ipratropium 0.5 mg/2.5 mL Neb INHALATION (17:33)
[2022-10-02 17:42] LABS: Alanine Aminotransferase 16 U/L (0-33); Albumin Level 3.2 g/dL (3.5-5.2); Alkaline Phosphatase 120 U/L (35-105); Anion Gap 16.1 (5-19); Aspartate Amino Transferase 20 U/L (0-32); Blood Urea Nitrogen 25 mg/dL (8-23); Calcium 9.9 mg/dL (8.5-10.5); Carbon Dioxide 24 mmol/L (22-29); Chloride 100 mmol/L (98-107); Glucose 122 mg/dL (65-115); Osmolality Calculated 290 mOsm/kg (285-295); Potassium 3.1 mmol/L (3.5-5.1); Sodium 137 mmol/L (136-145); Total Bilirubin 0.7 mg/dL (0.15-1.2); Total Protein 7.2 g/dL (6.6-8.7)
[2022-10-02] MEDS: hyDRALAzine 20 mg/mL INJ 1 mL IVP (18:10)
[2022-10-02] MEDS: diphenhydrAMINE 50 mg/mL SDV 1mL IVP (18:32)
[2022-10-02] MEDS: labetalol 5 mg/mL SDV 20mL 10 MG IVP ×2 (18:32→19:43)
[2022-10-02] MEDS: iohexol 350 mg/mL 500 mL Btl (per mL) IV (18:49)
--- NOTE | 2022-10-02 19:24 | PC.NURSE ---
THIS NURSE TOOK OVER CARE AT 1900.
--- NOTE | 2022-10-02 19:25 | PC.NURSE ---
PATIENT IS COMPLAINING OF CHEST PAIN EACH TIME SHE IS PLACED ON A BIPAP MACHINE. PROVIDER NOTIFIED.
[2022-10-02 19:28] LABS: NT Pro B Type Natriuretic Pept 30248 pg/mL (0-125)
[2022-10-02] MEDS: FUROsemide 10 mg/mL SDV 4mL 40 MG IVP (19:46)
--- NOTE | 2022-10-02 19:49 | PC.NURSE ---
PATIENT STATES THAT SHE DOES NOT WANT TO WEAR BIPAP MACHINE AND MADE NURSE REMOVE MASK. PROVIDER NOTIFIED. PATIENT PLACED ON O2 NC @ 4 L.
[2022-10-02 19:50] LABS: Troponin(5th) Baseline 85 ng/L (0-10)
--- NOTE | 2022-10-02 19:56 | ECG_ITS ---
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 Measurements Intervals [place] Rate: 96 P: 72 IA: 190 QRS: 255 QRSD: 93 T: 60 QT: 391 QTc: 496 Interpretive Statements SINUS RHYTHM LEFT ATRIAL ENLARGEMENT [-0.15mV P-WAVE IN V1/V2] RIGHT AXIS DEVIATION [QRS AXIS > 100] POSSIBLE ANTERIOR MYOCARDIAL INFARCTION , OF INDETERMINATE AGE [30 ms Q WAVE IN V3/V4, OR R < 0.2 mV IN V4] POSSIBLE INFERIOR MYOCARDIAL INFARCTION , OF INDETERMINATE AGE [30 ms Q WAVE IN II/aVF] Compared to ECG 10/02/2022 17:31:01 Right-axis deviation now present Sinus tachycardia no longer present Myocardial infarct finding still present Electronically Signed On 10-02-2022 23:41:43 FOCUSER by Theresa Dexter M.D. [id number]
[2022-10-02 20:18] LABS: Troponin 5 2HR 89.03 ng/L (0-10)
[2022-10-02 20:20] LABS: Troponin 5 2HR Delta 4.03 ABS# (0-10)
[2022-10-02] MEDS: esmolol drip 2,500 MG/250 ML PREMIX 16.87 MG IV (20:26)
[2022-10-02 21:12] LABS: Add Urine Microscopic? YES; Amorphous Sediment Urine 1+ /hpf; Bacteria Urine TRACE /hpf; Bilirubin Urine Neg (Negative); Blood Urine Neg (Negative); Fine Granular Casts Urine 0-4 /lpf; Glucose Urine UA Norm (Normal); Hyaline Casts Urine 0-4 /lpf; Ketones Urine Negative (Negative); Leukocyte Esterase Urine Negative (Negative); Nitrate Urine Negative (Negative); Protein Urine 3+ (Negative); RBC Urine 0-4 /hpf (0-2); Specific Gravity, Urine 1.015 (1.005-1.030); Urine Appearance Clear (CLEAR); Urine Color Yellow (Yellow); Urobilinogen Urine Norm (Negative); WBC Urine 0-4 /hpf (0-5); pH Urine 6 (5-7)
[2022-10-02 21:13] LABS: Add Urine Culture? No
--- NOTE | 2022-10-02 21:40 | PC.NURSE ---
PATIENT TRANSFERRED TO IN [place]. PATIENT LEFT WITH ESMOLOL DRIP RUNNING AT 50 MCG/KG.
== END 2022-10-02 21:40 | disposition short-term general hospital (02) ==
PROVIDERS: Family Medicine; Emergency Provider Emergency Medicine; PCP Family Medicine
DX: R06.02 Shortness of breath (principal); R07.9 Chest pain, unspecified; I10 Essential (primary) hypertension; Z79.02 Long term (current) use of antithrombotics/antiplatelets; I12.9 Hypertensive chronic kidney disease with stage 1 through stage 4 chronic kidney disease, or unspecified chronic kidney disease; N18.9 Chronic kidney disease, unspecified; J44.9 Chronic obstructive pulmonary disease, unspecified
CPT/HCPCS: 36415; 36600; 71045; 71275; 74174; 80051; 80053; 81001; 82330; 82805; 83880; 84484; 85025; 93005; 94640; 94660; 96365; 96375; 96376; 99291; J0360; J1200; J1940; J2930; J3490; J7613; J7644; Q9967

== ENCOUNTER 2022-11-04 17:22 | Emergency (ER) | payer MEDICARE, SELFPAY ==
[2022-11-04 17:29] VITALS: BP 129/80; PULSE 126; RESP 14; TEMP 37.7; O2SAT 96; BMI 19.6
--- NOTE | 2022-11-04 17:33 | ECG_ITS ---
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 Measurements Intervals [place] Rate: 106 P: 65 NC: 155 QRS: -83 QRSD: 76 T: 50 QT: 322 QTc: 429 Interpretive Statements SINUS TACHYCARDIA LEFT ATRIAL ENLARGEMENT [-0.15mV P-WAVE IN V1/V2] PATTERN CONSISTENT WITH PULMONARY DISEASE LEFT ANTERIOR FASCICULAR BLOCK [QRS AXIS <= -45, QR IN I, RS IN II] INFERIOR MYOCARDIAL INFARCTION , OF INDETERMINATE AGE [40+ ms Q WAVE AND/OR ST/T ABNORMALITY IN II/aVF] Compared to ECG 10/02/2022 19:56:23 Left anterior fascicular block now present Sinus rhythm no longer present Right-axis deviation no longer present Myocardial infarct finding still present Electronically Signed On 11-05-2022 14:18:32 ASSISTANT PASTRY CHEF by Arianna Patterson M.D. [id number]
--- NOTE | 2022-11-04 17:41 | XRR_ITS ---
PROCEDURE INFORMATION: Exam: XR Chest Exam date and time: 11/04/2022 6:30 PM Age: 72 years old Clinical indication: Pain; Fever and shortness of breath; Prior surgery; Surgery date: 6+ months; Surgery type: 5 back surgeries and arterial TECHNIQUE: Imaging protocol: Radiologic exam of the chest. Views: 1 view. COMPARISON: CR (CHEST, ) 10/02/2022 5:51 PM FINDINGS: Lungs: Unremarkable. No consolidation. Pleural spaces: Unremarkable. No pleural effusion. No pneumothorax. Heart/Mediastinum: See Vasculature finding. Vasculature: There is extensive vascular stent throughout the thoracic aorta which is tortuous with the large circumscribed mass adjacent to the right heart border unchanged and presumed secondary to aneurysm of the descending thoracic aorta. Findings limited assessment of the cardiac size. Bones/joints: Unremarkable for age. XR/XR chest 1V portable [id number] IMPRESSION: Stable large right periaortic mass presumed secondary to a large aneurysm of the descending thoracic aorta.
--- NOTE | 2022-11-04 17:41 | CTR_ITS ---
PROCEDURE INFORMATION: Exam: CTA Chest With Contrast CTA Abdomen and Pelvis With Contrast Exam date and time: 11/04/2022 6:40 PM Age: 72 years old Clinical indication: Shortness of breath; Other: N/a; Abdominal pain; Localized; Lower; Prior surgery; Surgery type: Thoracic aortic endograft. Gb. Hysterectomy. Kyphoplasty. Lumbar fusion. Patient HX: C/O SOB with abd and back pain. Recent history of hematoma development of thoracic aortic endograft. ; Additional info: SOB, abd pain, back pain TECHNIQUE: Imaging protocol: Computed tomographic angiography of the chest with contrast. Computed tomographic angiography of the abdomen and pelvis with contrast. 3D rendering (Not supervised by radiologist): MIP and/or 3D reconstructed images were created by the technologist. Radiation optimization: All CT scans at this facility use at least one of these dose optimization techniques: automated exposure control; mA and/or kV adjustment per patient size (includes targeted exams where dose is matched to clinical indication); or iterative reconstruction. Contrast material: OMNI 350; Contrast volume: 100 ml; Contrast route: INTRAVENOUS (IV); REPORTING DATA: Count of CT and Cardiac NM exams in prior 12 months: This patient has received 5 known CTs and 0 known cardiac nuclear medicine studies in the 12 months prior to the current study. COMPARISON: CT ang ches abdpel [id number] 10/02/2022 6:57 PM RADIATION DOSE METRICS: Total DLP (mGy-cm): 628.48 FINDINGS: VASCULATURE: Pulmonary arteries: Normal. No pulmonary emboli. Aorta: Patient has undergone extensive stenting of the thoracoabdominal aorta from prior type-B aortic dissection. There is some marked aneurysmal dilatation of the descending thoracic aorta measuring approximately 10 x 7.5 cm in maximum diameter not appreciably changed in size from previous exam with a large the subacute intramural hematoma measuring up to 4.2 cm in maximum thickness unchanged from recent study. Findings result in marked mass effect of the left atrium, unchanged. Distal portion of the stent extends into the proximal abdominal aorta ending just above the renal artery origin. There is stable dilatation of the proximal abdominal aorta measuring 4.2 cm unchanged. There is a small periaortic hematoma adjacent to the wall of the upper abdominal aorta unchanged. Celiac trunk and mesenteric arteries: Celiac trunk is a narrowed at its origin. SMA and KESHAWN are patent. Renal arteries: No occlusion or significant stenosis. Right iliac arteries: Right common iliac artery is extensively calcified but not narrowed. Right external iliac artery is unremarkable. Left iliac arteries: Left common iliac artery is diffusely calcified but not narrowed. Left external iliac artery is patent. CHEST: Lungs: There is subsegmental atelectasis adjacent to the thoracic aortic aneurysm improved from previous exam. There is patchy bronchiolitis and scattered linear atelectasis right middle lobe that has developed. Minimal bronchiolitis has developed posteriorly at the left lung base. Pleural spaces: Unremarkable. No pneumothorax. No pleural effusion. Heart: See Aorta finding. Mediastinal space: Moderate amount of fluid within the mid esophagus presumed secondary to gastroesophageal reflux and putting this patient at risk for aspiration. There are diffuse atherosclerotic changes with extensive calcification of the mid-distal abdominal aorta, unchanged. ABDOMEN AND PELVIS: Liver: No mass. Gallbladder and bile ducts: Gallbladder has been removed. There is at least mild associated biliary dilatation, stable. Pancreas: Unremarkable. Main pancreatic duct is not significantly dilated. Spleen: Spleen is borderline enlarged with stable circumscribed hypodense splenic lesion. Adrenal glands: Unremarkable. No mass. Kidneys and ureters: Bilateral small renal cortical lesions some of which cannot be resolved as simple cysts on this exam but unchanged. Stomach and bowel: Scattered diverticula large bowel without evidence of diverticulitis. Appendix: No evidence of appendicitis. Intraperitoneal space: Unremarkable. No free air. No significant fluid collection. Urinary bladder: Unremarkable. No mass. Reproductive: Uterus has been removed. Lymph nodes: Unremarkable. No enlarged lymph nodes. Bones/joints: Extensive postoperative changes lower lumbar spine with spinal decompression and posterolateral spinal instrumentation and interbody spacers, stable. Chronic compression fracture L1 treated with vertebroplasty unchanged. Soft tissues: Improving postsurgical changes both groin sites. CT/CT [facility] [id number] IMPRESSION: 1. Prior type B aortic dissection treated with stent graft repair extending from the ascending aorta into the upper abdominal aorta with marked aneurysmal dilatation of the descending thoracic aorta secondary to large subacute intramural hematoma stable in size from previous exam. 2. Stable mild aneurysmal dilatation of the upper abdominal aorta with stable small periaortic hematoma. 3. Improved atelectasis right lower lobe adjacent to the aortic aneurysm. 4. Interval development of patchy bronchiolitis right middle lobe and left lung base that may be infectious in nature secondary to aspiration. 5. Fluid-filled mid esophagus putting this patient risk for aspiration. 6. Additional nonemergent findings as above.
[2022-11-04 17:57] VITALS: RESP 16; O2SAT 96
[2022-11-04] MEDS: acetaminophen 325 mg Tablet 650 MG PO (17:57)
[2022-11-04] MEDS: ondansetron 2 mg/ML SDV 2 mL 4 MG IVP ×2 (17:57→20:25)
[2022-11-04] MEDS: morphine 4 mg/mL SDV 1 mL IVP (17:57)
[2022-11-04] MEDS: sodium chloride 0.9% 500 ML IV (17:58)
[2022-11-04 18:24] LABS: Basophils % 0.6 %; Eosinophils # 0.1 10^3/uL (0.0-0.8); Eosinophils % 1.3 %; Hematocrit 27.6 % (37.0-47.0); Hemoglobin 8.1 g/dL (11.5-15.3); Lymphocytes # 1.1 10^3/uL (0.8-4.8); Lymphocytes % 15.4 %; Mean Corpuscular HGB Conc 29.3 g/dL (30.0-36.0); Mean Corpuscular Hemoglobin 24.8 pg (28.0-34.0); Mean Corpuscular Volume 84.7 fl (81-99); Monocytes # 0.5 10^3/uL (0.2-0.9); Monocytes % 6.8 %; Neutrophils # 5.41 10^3/uL (1.8-7.7); Neutrophils % 75.5 %; Nucleated Red Blood Cells % 0 %; Platelet Count 164 10^3/cmm (130-400); Red Blood Count 3.26 10^6/uL (4.1-5.3); Red Cell Distribution Width 24.1 % (12.1-15.1); White Blood Count 7.2 10^3/uL (4.0-10.0)
[2022-11-04 18:27] LABS: INR 1.05 (0.8-1.2)
[2022-11-04 18:43] LABS: Alanine Aminotransferase 8 U/L (0-33); Albumin Level 3.1 g/dL (3.5-5.2); Alkaline Phosphatase 95 U/L (35-105); Anion Gap 17.5 (5-19); Aspartate Amino Transferase 10 U/L (0-32); Blood Urea Nitrogen 37 mg/dL (8-23); Calcium 9.1 mg/dL (8.5-10.5); Carbon Dioxide 22 mmol/L (22-29); Chloride 99 mmol/L (98-107); Glucose 142 mg/dL (65-115); Lipase 37 U/L (13-60); NT Pro B Type Natriuretic Pept 4000 pg/mL (0-125); Osmolality Calculated 289 mOsm/kg (285-295); Potassium 4.5 mmol/L (3.5-5.1); Sodium 134 mmol/L (136-145); Total Bilirubin 0.3 mg/dL (0.15-1.2); Total Protein 7.1 g/dL (6.6-8.7)
[2022-11-04] MEDS: iohexol 350 mg/mL 500 mL Btl (per mL) IV (18:52)
--- NOTE | 2022-11-04 19:06 | W.ED.ABDPA2 ---
HPI - Abdominal Pain General: Chief Complaint: Abdominal Pain Stated Complaint: SOB, BACK PAIN, SHAKING Time Seen by Provider: 11/04/22 17:35 Source: patient and EMS Mode of arrival: EMS Limitations: no limitations History of Present Illness: 72-year-old female states over the last 2 days she has been having abdominal pain states is in her lower abdomen mainly right lower and left lower quadrant states pain is sharp in nature rates an 8 out of 10 states it is worsened as well she had some mild dyspnea states that it seems to be due to the pain she denies any chest pain denies any cough she denies any vomiting denies any worsening improving factors. Associated Symptoms: Denies chills, dysuria and fever(s) Review of Systems Const: Denies: fever(s), chills, body aches or change in appetite Eyes: Denies: blurry vision or eye discomfort ENMT: Denies: throat pain or dental pain Card: Denies: chest pain Resp: Reports: dyspnea GI: Reports: abdominal pain : Denies: dysuria Musc: Denies: neck pain or back pain Skin/Breast: Denies: rash Neuro: Denies: headache(s) Psych: Denies: depression [place]/Lymph: Denies: easy bruising All/Imm: Denies: urticaria PFSH ED PFSH: Medical History Acute cystitis Acute cystitis Acute kidney injury superimposed on chronic kidney disease Blurred vision COPD (chronic obstructive pulmonary disease) Hypertension Microcytic anemia Weakness Surgical History H/O esophagogastroduodenoscopy AVM body of stomach History of back surgery x3 History of breast surgery inverted nipple (x3) History of dental surgery History of hysterectomy 1993 History of laparoscopic cholecystectomy 1993 Status post colonoscopy (02/19/21) Diverticulosis, internal hemorrhoids Family History Other Hypertension Social History Smoking and tobacco status: never smoked Alcohol intake: never Lives independently: Yes Physical Exam Const: COMMON NORMALS: no acute distress, patient oriented x3 and healthy appearing HENMT: COMMON NORMALS: normocephalic and atraumatic HEAD & SCALP: normocephalic and atraumatic Eye: COMMON NORMALS: Equal, round and reactive pupils present and EOMs intact bilaterally PUPIL: Yes Equal, round and reactive pupils present Neck/C-Spine: COMMON NORMALS: full ROM and supple Chest: COMMONS NORMALS: normal inspection of the chest and normal palpation of entire chest wall Resp: COMMON NORMALS: normal respiratory effort, No retractions, No use of accessory muscles and clear to auscultation bilaterally AUSCULTATION: clear to auscultation bilaterally Cardio: COMMON NORMALS: regular rate, regular rhythm and No murmurs present (Cardio) RATE: regular rate RHYTHM: regular rhythm GI: COMMON NORMALS: Normal to inspection, nondistended, normoactive bowel sounds present, Soft to palpation, non-tender and no masses PALPATION: Yes Soft to palpation Extremity: COMMON NORMALS: normal to inspection and full ROM Neuro: COMMON NORMALS: patient oriented x3, moves all extremities and no focal motor deficits Psych: COMMON NORMALS: mental status grossly normal, Normal thought process present and cooperative THOUGHT PROCESS: Normal thought process present Skin: COMMON NORMALS: no rashes or lesions noted and no wounds GENERAL SKIN EXAM: no rashes or lesions noted Course Vital Signs: Vital signs: Vital Signs Temperature 99.9 F H 11/04/22 17:29 Pulse Rate 98 11/04/22 20:42 Respiratory Rate 15 11/04/22 20:42 Blood Pressure 158/91 11/04/22 20:42 Pulse Oximetry 98 11/04/22 20:42 Oxygen Delivery Me thod 11/04/22 17:29 MDM - Abdominal Pain Medical Decision Making Patient presents here with abdominal pain she does have aneurysm of the aorta but it is unchanged no signs of rupture she feels much improved here she had low-grade fever but denies any shortness of breath she has a possible pneumonia on the x-ray I did offer admission states she feels improved like to go home we will place her on pain meds along with antibiotics she is to follow-up with her PCP and return if worsening. Lab Data 11/04/22 17:59 11/04/22 17:59 Labs/Radiology: Radiology Impressions Chest X-Ray 11/04/22 17:41 IMPRESSION: Stable large right periaortic mass presumed secondary to a large aneurysm of the descending thoracic aorta. Chest/Abdomen/Pelvis CTA 11/04/22 17:41 IMPRESSION: 1. Prior type B aortic dissection treated with stent graft repair extending from the ascending aorta into the upper abdominal aorta with marked aneurysmal dilatation of the descending thoracic aorta secondary to large subacute intramural hematoma stable in size from previous exam. 2. Stable mild aneurysmal dilatation of the upper abdominal aorta with stable small periaortic hematoma. 3. Improved atelectasis right lower lobe adjacent to the aortic aneurysm. 4. Interval development of patchy bronchiolitis right middle lobe and left lung base that may be infectious in nature secondary to aspiration. 5. Fluid-filled mid esophagus putting this patient risk for aspiration. 6. Additional nonemergent findings as above. Laboratory Results WBC 7.2 10^3/uL (4.0-10.0) 11/04/22 17:59 RBC 3.26 10^6/uL (4.1-5.3) L 11/04/22 17:59 Hgb 8.1 g/dL (11.5-15.3) L 11/04/22 17:59 Hct 27.6 % (37.0-47.0) L 11/04/22 17:59 MCV 84.7 fl (81-99) 11/04/22 17:59 MCH 24.8 pg (28.0-34.0) L 11/04/22 17:59 MCHC 29.3 g/dL (30.0-36.0) L 11/04/22 17:59 RDW 24.1 % (12.1-15.1) H 11/04/22 17:59 Plt Count 164 10^3/cmm (130-400) 11/04/22 17:59 MPV 10.0 fL (7.4-10.4) 11/04/22 17:59 Neut % (Auto) 75.5 % 11/04/22 17:59 Lymph % (Auto) 15.4 % 11/04/22 17:59 [place] % (Auto) 6.8 % 11/04/22 17:59 Eos % (Auto) 1.3 % 11/04/22 17:59 Baso % (Auto) 0.6 % 11/04/22 17:59 Neut # (Auto) 5.41 10^3/uL (1.8-7.7) 11/04/22 17:59 Lymph # (Auto) 1.1 10^3/uL (0.8-4.8) 11/04/22 17:59 [place] # (Auto) 0.5 10^3/uL (0.2-0.9) 11/04/22 17:59 Eos # (Auto) 0.1 10^3/uL (0.0-0.8) 11/04/22 17:59 Baso # (Auto) 0.0 10^3/uL (0.0-0.1) 11/04/22 17:59 Nucleated RBC % (auto) 0 % 11/04/22 17:59 Nucleated RBCs # 0.0 /100WBC 11/04/22 17:59 PT 14.00 SECONDS (12.1-14.9) 11/04/22 17:59 INR 1.05 (0.8-1.2) 11/04/22 17:59 Sodium 134 mmol/L (136-145) L 11/04/22 17:59 Potassium 4.5 mmol/L (3.5-5.1) 11/04/22 17:59 Chloride 99 mmol/L (98-107) 11/04/22 17:59 Carbon Dioxide 22 mmol/L (22-29) 11/04/22 17:59 Anion Gap 17.5 (5-19) 11/04/22 17:59 BUN 37 mg/dL (8-23) H 11/04/22 17:59 Creatinine 1.3 mg/dL (0.5-0.9) H 11/04/22 17:59 GFR Calculation Not Reportable 11/04/22 17:59 Glucose 142 mg/dL (65-115) H 11/04/22 17:59 Calculated Osmolality 289 mOsm/kg (285-295) 11/04/22 17:59 Calcium 9.1 mg/dL (8.5-10.5) 11/04/22 17:59 Total Bilirubin 0.3 mg/dL (0.15-1.2) 11/04/22 17:59 AST 10 U/L (0-32) 11/04/22 17:59 ALT 8 U/L (0-33) 11/04/22 17:59 Alkaline Phosphatase 95 U/L (35-105) 11/04/22 17:59 NT-Pro-B Natriuret Pep 4000 pg/mL (0-125) H 11/04/22 17:59 Total Protein 7.1 g/dL (6.6-8.7) 11/04/22 17:59 Albumin 3.1 g/dL (3.5-5.2) L 11/04/22 17:59 Globulin 4.0 g/dL (1.3-4.6) 11/04/22 17:59 Lipase 37 U/L (13-60) 11/04/22 17:59 Discharge Plan Discharge Patient Disposition: Home Clinical Impression: Abdominal pain, Pneumonia Condition: Stable Prescriptions: New hydrocodone-acetaminophen 5-325 mg tablet 1 tab PO Q6H PRN (Reason: pain) Qty: 14 0RF ondansetron 4 mg tablet,disintegrating 4 mg PO Q6H PRN (Reason: nausea and vomiting) Qty: 14 0RF doxycycline hyclate 100 mg tablet 100 mg PO BID 7 Days Qty: 14 0RF No Action ipratropium-albuterol 0.5 mg-3 mg(2.5 mg base)/3 mL solution for nebulization 3 ml inhalation Q4H PRN (Reason: wheezing) Qty: 180 1RF (DME) nebulizers [facility] [place], [place] See Rx Instructions .Route Qty: 1 0RF Rx Instructions: 1 nebulizer and all required supplies As directed Riya Fletcher 200-62.5-25 mcg blister with device 1 inh inhalation DAILY 30 Days Qty: 60 3RF azithromycin [Zithromax Z-Saulo] 250 mg tablet See Rx Instructions PO .COMPLEX Qty: 6 0RF Rx Instructions: For 250 mg dose pack: take 500 mg today (day 1), then 250 mg for 4 days (days 2-5) PO ferrous sulfate 324 mg (65 mg iron) tablet,delayed release (DR/EC) 324 mg PO DAILY Qty: 90 1RF gabapentin 600 mg tablet 1,800 mg PO BEDTIME potassium chloride 20 mEq tablet,ER particles/crystals 20 meq PO DAILY@1800 albuterol sulfate [Ventolin HFA] 90 mcg/actuation HFA aerosol inhaler 1 - 2 inh INHALATION Q4H PRN (Reason: Shortness Of Breath) irbesartan 300 mg tablet 300 mg PO DAILY@1800 rosuvastatin 20 mg tablet 20 mg PO DAILY@1800 Plavix 75 mg Tablet 75 mg PO DAILY hydrochlorothiazide 25 mg Tablet 25 mg PO DAILY desvenlafaxine succinate 50 mg Tablet Extended Release 24 Hr 50 mg PO BEDTIME Belsomra 20 mg Tablet 20 mg PO BEDTIME Discharge Orders: Discharge ED (Routine); Ordered 11/04/22 Ordered By: Randi Medley Referrals: Bhupinder Logan MD [Primary Care Provider] - 1-3 days Discharge Diet: Advance as tolerated Discharge Activity: Resume usual activity Patient Instructions: Abdominal Pain (ED), Opioid Safety, Pain Management Coding Level of Care Code ED Acquisition Marketing Coordinator for Lian Nichols
[2022-11-04 20:26] VITALS: RESP 13; O2SAT 100
[2022-11-04] MEDS: HYDROmorphone 1 mg/mL INJ 1 mL 0.5 MG IVP (20:26)
[2022-11-04] MEDS: doxycycline 100 mg Tablet PO (20:35)
--- NOTE | 2022-11-04 20:40 | PC.NURSE ---
Previous nurse did not chart assessment as reported to this nurse
[2022-11-04 20:42] VITALS: BP 158/91; PULSE 98; RESP 15; O2SAT 98
== END 2022-11-04 20:43 | disposition home or self-care (01) ==
PROVIDERS: Emergency Provider Emergency Medicine; PCP Family Medicine
DX: R10.9 Unspecified abdominal pain (principal); J18.9 Pneumonia, unspecified organism; I10 Essential (primary) hypertension
CPT/HCPCS: 36415; 71045; 71275; 74174; 80053; 83690; 83880; 85025; 85610; 87040; 93005; 96361; 96374; 96375; 96376; 99285; J1170; J2270; J2405; J7040; Q9967

== ENCOUNTER 2022-11-13 09:53 | Emergency (ER) | payer MEDICARE, SELFPAY ==
[2022-11-13 10:04] VITALS: BP 102/71; PULSE 95; RESP 16; TEMP 36.7; O2SAT 96; BMI 19.3
[2022-11-13 12:03] LABS: Basophils # 0.1 10^3/uL (0.0-0.1); Basophils % 0.9 %; Eosinophils # 0.1 10^3/uL (0.0-0.8); Eosinophils % 1.4 %; Hemoglobin 8.4 g/dL (11.5-15.3); Lymphocytes # 1.9 10^3/uL (0.8-4.8); Lymphocytes % 20.8 %; Mean Corpuscular Hemoglobin 24.4 pg (28.0-34.0); Mean Corpuscular Volume 84.3 fl (81-99); Monocytes # 0.5 10^3/uL (0.2-0.9); Monocytes % 5.5 %; Neutrophils # 6.42 10^3/uL (1.8-7.7); Neutrophils % 70.7 %; Nucleated Red Blood Cells % 0 %; Platelet Count 256 10^3/cmm (130-400); Red Blood Count 3.44 10^6/uL (4.1-5.3); Red Cell Distribution Width 22.8 % (12.1-15.1); White Blood Count 9.1 10^3/uL (4.0-10.0)
[2022-11-13 12:28] LABS: Alanine Aminotransferase 6 U/L (0-33); Albumin Level 3.2 g/dL (3.5-5.2); Alkaline Phosphatase 87 U/L (35-105); Aspartate Amino Transferase 9 U/L (0-32); Blood Urea Nitrogen 46 mg/dL (8-23); Calcium 9.2 mg/dL (8.5-10.5); Carbon Dioxide 23 mmol/L (22-29); Chloride 100 mmol/L (98-107); Globulin 4.1 g/dL (1.3-4.6); Glucose 98 mg/dL (65-115); Osmolality Calculated 290 mOsm/kg (285-295); Sodium 134 mmol/L (136-145); Total Bilirubin 0.2 mg/dL (0.15-1.2); Total Protein 7.3 g/dL (6.6-8.7)
[2022-11-13 12:29] LABS: Creatinine Clr Calc Pharmacy 29.5673
--- NOTE | 2022-11-13 12:52 | ED_ITS ---
HPI - General Adult General: Chief complaint: General Medical Stated complaint: unable to obtain a pulse left arm Time Seen by Provider: 11/13/22 12:52 History of Present Illness: Ms. Kimball is a 72-year-old lady with complex past medical history including thoracic aortic aneurysm with history of repair presenting to the emergency department from pulmonology clinic for evaluation of abnormal physical exam finding. She reports feeling at her baseline health. Clinic was concerned because she has diminished pulses and unable to feel blood pressure on the left upper extremity. The patient herself denies numbness, coldness, weakness, pain, or any other symptoms. She does have back pain but reports history of back surgeries. No other specific changes in health, exacerbating, or alleviating factors identified. Onset (ago): unknown Location: left and upper extremity Relieving factors: none Exacerbating factors: none Associated symptoms: Reports no associated symptoms Review of Systems 2 General: Reports: 10 or more systems reviewed and unremarkable except in HPI and below PFSH ED PFSH: Medical History Acute cystitis Acute cystitis Acute kidney injury superimposed on chronic kidney disease Blurred vision COPD (chronic obstructive pulmonary disease) Hypertension Microcytic anemia Weakness Surgical History H/O esophagogastroduodenoscopy AVM body of stomach History of back surgery x3 History of breast surgery inverted nipple (x3) History of dental surgery History of hysterectomy 1993 History of laparoscopic cholecystectomy 1993 Status post colonoscopy (02/19/21) Diverticulosis, internal hemorrhoids Family History Other Hypertension Social History Smoking and tobacco status: current every day smoker cigarettes Years cigarettes smoked: 64 [ Other cigarette details: started age 13; 1 pack /3 days currently ] Alcohol intake: never Lives independently: Yes Physical Exam Const: COMMON NORMALS: alert GENERAL APPEARANCE: cooperative and well developed HENMT: COMMON NORMALS: normocephalic and atraumatic HEAD & SCALP: normocephalic and atraumatic Eye: COMMON NORMALS: conjunctivae normal CONJUNCTIVA: Yes conjunctivae normal SCLERA: sclerae normal Neck/C-Spine: COMMON NORMALS: supple GENERAL: Yes trachea midline Resp: COMMON NORMALS: clear to auscultation bilaterally EFFORT & INSPECTION: Yes able to speak in complete sentences AUSCULTATION: clear to auscultation bilaterally Cardio: COMMON NORMALS: regular rate and regular rhythm RATE: regular rate RHYTHM: regular rhythm OTHER: Decreased pulse strength compared to contralateral side on the left radial, unable to palpate left ulnar. Normal cap refill. Exam otherwise unremarkable. GI: COMMON NORMALS: Soft to palpation PALPATION: Yes Soft to palpation and No Tenderness to palpation present (GI) PERCUSSION: normal to percussion Extremity: GENERAL: Yes normal exam except as noted and No edema Neuro: COMMON NORMALS: moves all extremities, no focal motor deficits and no sensory deficits noted SENSORIUM/ORIENTATION: Yes alert and No Orientation impaired Psych: COMMON NORMALS: mental status grossly normal and Normal thought process present THOUGHT PROCESS: Normal thought process present Course Vital Signs: Vital signs: Vital Signs Temperature 98.0 F 11/13/22 10:04 Pulse Rate 95 11/13/22 10:04 Respiratory Rate 16 11/13/22 10:04 Blood Pressure 102/71 11/13/22 10:04 Pulse Oximetry 96 11/13/22 10:04 Oxygen Delivery Me thod 11/13/22 10:04 [facility] - General Adult Medical Decision Making 72-year-old lady presenting to the emerged department for abnormal physical exam finding. Exam as above with abnormal pulse though no correlating sensory, strength, cap refill identified on exam. Patient does have complex history of aortic aneurysm with graft repair. Labs with no significant hematologic abnormality compared to prior, anemia is stable. Metabolic panel also similar to prior with mild CKD. CTA ordered given history of aneurysm and abnormal physical exam findings. Graft likely occludes left subclavian artery, this was also seen on 11/04/2022. In the absence of symptoms subclavian steal syndrome likely sufficient for perfusion of arm. Patient left prior to CT results. She has capacity to make medical decisions. No emergent need for call back. Medical Records I reviewed the patient's medical records. Lab Data I reviewed the patient's lab results. 11/13/22 11:48 11/13/22 11:48 Radiology Impressions Chest CTA 11/13/22 12:56 IMPRESSION: 1. Proximal main pulmonary arteries are normal. No evidence of pulmonary embolus. 2. Stable extensive stent graft repair of the previously described type B aortic dissection. Stent graft involves the ascending thoracic aorta and entire descending thoracic and upper abdominal aorta. 3. Surrounding mural thrombus is decreased in size compared to prior examinations. No evidence of new or progressive intramural hematoma. 4. No evidence of pulmonary embolus. 5. Thoracic aneurysm compresses and significantly effaces the LEFT atrium unchanged since the prior examinations. 6. LEFT subclavian artery occluded at the origin but is well opacified likely due to subclavian steal. This is unchanged from the most recent examination post stent graft placement. Notified Steffen De Guzman MD at 11/13/2022 1:54 PM. Laboratory Results WBC 9.1 10^3/uL (4.0-10.0) 11/13/22 11:48 RBC 3.44 10^6/uL (4.1-5.3) L 11/13/22 11:48 Hgb 8.4 g/dL (11.5-15.3) L 11/13/22 11:48 Hct 29.0 % (37.0-47.0) L 11/13/22 11:48 MCV 84.3 fl (81-99) 11/13/22 11:48 MCH 24.4 pg (28.0-34.0) L 11/13/22 11:48 MCHC 29.0 g/dL (30.0-36.0) L 11/13/22 11:48 RDW 22.8 % (12.1-15.1) H 11/13/22 11:48 Plt Count 256 10^3/cmm (130-400) 11/13/22 11:48 MPV 10.0 fL (7.4-10.4) 11/13/22 11:48 Neut % (Auto) 70.7 % 11/13/22 11:48 Lymph % (Auto) 20.8 % 11/13/22 11:48 [place] % (Auto) 5.5 % 11/13/22 11:48 Eos % (Auto) 1.4 % 11/13/22 11:48 Baso % (Auto) 0.9 % 11/13/22 11:48 Neut # (Auto) 6.42 10^3/uL (1.8-7.7) 11/13/22 11:48 Lymph # (Auto) 1.9 10^3/uL (0.8-4.8) 11/13/22 11:48 [place] # (Auto) 0.5 10^3/uL (0.2-0.9) 11/13/22 11:48 Eos # (Auto) 0.1 10^3/uL (0.0-0.8) 11/13/22 11:48 Baso # (Auto) 0.1 10^3/uL (0.0-0.1) 11/13/22 11:48 Nucleated RBC % (auto) 0 % 11/13/22 11:48 Nucleated RBCs # 0.0 /100WBC 11/13/22 11:48 Sodium 134 mmol/L (136-145) L 11/13/22 11:48 Potassium 5.0 mmol/L (3.5-5.1) 11/13/22 11:48 Chloride 100 mmol/L (98-107) 11/13/22 11:48 Carbon Dioxide 23 mmol/L (22-29) 11/13/22 11:48 Anion Gap 16.0 (5-19) 11/13/22 11:48 BUN 46 mg/dL (8-23) H 11/13/22 11:48 Creatinine 1.5 mg/dL (0.5-0.9) H 11/13/22 11:48 GFR Calculation Not Reportable 11/13/22 11:48 Glucose 98 mg/dL (65-115) 11/13/22 11:48 Calculated Osmolality 290 mOsm/kg (285-295) 11/13/22 11:48 Calcium 9.2 mg/dL (8.5-10.5) 11/13/22 11:48 Total Bilirubin 0.2 mg/dL (0.15-1.2) 11/13/22 11:48 AST 9 U/L (0-32) 11/13/22 11:48 ALT 6 U/L (0-33) 11/13/22 11:48 Alkaline Phosphatase 87 U/L (35-105) 11/13/22 11:48 Total Protein 7.3 g/dL (6.6-8.7) 11/13/22 11:48 Albumin 3.2 g/dL (3.5-5.2) L 11/13/22 11:48 Globulin 4.1 g/dL (1.3-4.6) 11/13/22 11:48 Discharge Plan Discharge Patient Disposition: Left Against Medical Advice Clinical Impression: Left subclavian artery occlusion, Steal syndrome, subclavian Condition: Stable Prescriptions: No Action (DME) nebulizers Misc See Rx Instructions .Route Qty: 1 0RF Rx Instructions: 1 nebulizer and all required supplies As directed Trelegy Ellipta 200-62.5-25 mcg blister with device 1 inh inhalation DAILY 30 Days Qty: 60 3RF (DME) oxygen-air delivery systems Device See Rx Instructions .ROUTE Rx Instructions: As directed azithromycin [Zithromax Z-Saulo] 250 mg tablet See Rx Instructions PO .COMPLEX Qty: 6 0RF Rx Instructions: For 250 mg dose pack: take 500 mg today (day 1), then 250 mg for 4 days (days 2-5) PO ferrous sulfate 324 mg (65 mg iron) tablet,delayed release (DR/EC) 324 mg PO DAILY Qty: 90 1RF ipratropium-albuterol 0.5 mg-3 mg(2.5 mg base)/3 mL solution for nebulization 3 ml inhalation Q4H PRN (Reason: wheezing) Qty: 90 0RF Rx Instructions: NEEDS APPT FOR FURTHER REFILLS. JOSE gabapentin 600 mg tablet 1,800 mg PO BEDTIME potassium chloride 20 mEq tablet,ER particles/crystals 20 meq PO DAILY@1800 albuterol sulfate [Ventolin HFA] 90 mcg/actuation HFA aerosol inhaler 1 - 2 inh INHALATION Q4H PRN (Reason: Shortness Of Breath) irbesartan 300 mg tablet 300 mg PO DAILY@1800 rosuvastatin 20 mg tablet 20 mg PO DAILY@1800 Plavix 75 mg Tablet 75 mg PO DAILY hydrochlorothiazide 25 mg Tablet 25 mg PO DAILY desvenlafaxine succinate 50 mg Tablet Extended Release 24 Hr 50 mg PO BEDTIME Belsomra 20 mg Tablet 20 mg PO BEDTIME hydrocodone-acetaminophen 5-325 mg tablet 1 tab PO Q6H PRN (Reason: pain) Qty: 14 0RF ondansetron 4 mg tablet,disintegrating 4 mg PO Q6H PRN (Reason: nausea and vomiting) Qty: 14 0RF Referrals: Bhupinder Logan MD [Primary Care Provider] - Coding Level of Care Code ED 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
--- NOTE | 2022-11-13 12:56 | CT_ITS ---
WS: [id number] CTA THORACIC TECHNIQUE: Contrast enhanced CTA of the thoracic aorta with coronal and sagittal reformatted images a nd maximum intensity projection (MIP) images. CLINICAL INFORMATION: hx thoracic aneurysm, deminished pulses LUE, back pain COMPARISON: November 04, 2022 multiple additional recent CTA comparisons dating back to 04/10/22 DLP: 424.[address] scans at [facility] use at least one of these dose optimization techniques: automated e xposure control; mA and/or kV adjustment per patient size (includes targeted exams where dose is matc hed to clinical indication); or iterative reconstruction. FINDINGS: Previously described type B aortic dissection previously treated with stent graft repair involving th e ascending aorta extending to the aortic arch and entire descending thoracic and upper abdominal aor ta. Normal contrast opacification of the visualized aorta. No evidence of new or progressive dissecti on. Severe stenosis at the celiac origin unchanged. SMA is patent. Associated intramural hematoma involving the descending thoracic aorta has decreased in size since [facility] 2022 and also decreased in size since November 04, 2022, today measuring 2.1 cm in maximum transverse dimension compared to 3.5 cm previous. No evidence of new or progressive intramural thromb us. Thoracic aneurysm results in mass effect on the LEFT atrium with significant effacement. This is unch anged since the prior studies. Splaying of the pulmonary arteries unchanged. Lungs are well aerated. No acute pulmonary infiltrates. Bronchiolitis in the RIGHT upper lobe appears improved compared to pr evious. Subsegmental atelectasis RIGHT lower lobe. Adrenal glands are normal. Cholecystectomy clips. Stable cyst or hemangioma in the spleen. Stable bennett al cysts. Fatty atrophy of the pancreas. Normal GE junction. Proximal great vessels appear patent unchanged from previous. Proximal carotid arteries and subclavia n arteries are well opacified. LEFT subclavian arises from the false lumen opacified which may be due to subclavian steal. This is unchanged from the prior studies Chronic compression fracture with kyph oplasty L1 vertebral body. Proximal main pulmonary arteries are normal. Normal visualized segmental and subsegmental pulmonary a rteries. No evidence of pulmonary embolus. CT/CT angio chest [id number] IMPRESSION: 1. Proximal main pulmonary arteries are normal. No evidence of pulmonary embol us. 2. Stable extensive stent graft repair of the previously described type B aort ic dissection. Stent graft involves the ascending thoracic aorta and entire celine cending thoracic and upper abdominal aorta. 3. Surrounding mural thrombus is decreased in size compared to prior examinati ons. No evidence of new or progressive intramural hematoma. 4. No evidence of pulmonary embolus. 5. Thoracic aneurysm compresses and significantly effaces the LEFT atrium unch anged since the prior examinations. 6. LEFT subclavian artery occluded at the origin but is well opacified likely due to subclavian steal. This is unchanged from the most recent examination pos t stent graft placement. Notified Steffen De Guzman MD at 11/13/2022 1:54 PM.
[2022-11-13] MEDS: iohexol 350 mg/mL 500 mL Btl (per mL) IV (13:14)
== END 2022-11-13 13:20 | disposition left against medical advice (07) ==
PROVIDERS: Physician Assistant; Emergency Provider Emergency Medicine; PCP Family Medicine
DX: J44.9 Chronic obstructive pulmonary disease, unspecified (principal); R13.10 Dysphagia, unspecified; Z91.89 Other specified personal risk factors, not elsewhere classified; F17.210 Nicotine dependence, cigarettes, uncomplicated; R07.9 Chest pain, unspecified; Z98.890 Other specified postprocedural states; Z86.79 Personal history of other diseases of the circulatory system
CPT/HCPCS: 36415; 71275; 80053; 85025; 99205; 99285; Q9967

== ENCOUNTER 2022-12-08 08:31 | Outpatient (CLI) | payer MEDICARE, SELFPAY ==
--- NOTE | 2022-12-08 09:00 | FL_ITS ---
WS: [id number] FL barium swallow modifd [id number] REASON FOR EXAM: Difficulty swallowing FLUOROSCOPY TIME: 1min [id number] # OF SPOT FILMS: None FINDINGS: Examination was supervised by the speech therapy department. The swallowing of multiple consistencies of barium in the sitting upright lateral projection or monit ored fluoroscopically and video recorded. Detailed analysis and report of the swallowing will be rendered by the speech therapy department. No aspiration was identified. FL/FL barium swallow modifd 05025 IMPRESSION: Modified barium swallow as above.
== END 2022-12-08 08:32 | disposition home or self-care (01) ==
LOC: RAD 08:34
PROVIDERS: PCP Family Medicine; Visit Provider Internal Medicine Pulmonary Disease
DX: R13.10 Dysphagia, unspecified (principal); Z91.89 Other specified personal risk factors, not elsewhere classified
CPT/HCPCS: 74230; 92611

== ENCOUNTER 2023-01-25 20:47 | Inpatient (IN) | payer MEDICARE, MEDICAID, SELFPAY ==
[2023-01-25] VITALS (13 sets, daily range): BP systolic 121–149; BP diastolic 70–93; PULSE 114–153; RESP 16–26; TEMP 36.6–36.9; O2SAT 92–100; BMI 19.1
--- NOTE | 2023-01-25 20:56 | ECG_ITS ---
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 Measurements Intervals [place] Rate: 139 P: 73 DC: 123 QRS: 75 QRSD: 86 T: 30 QT: 283 QTc: 431 Interpretive Statements SINUS TACHYCARDIA LOW QRS VOLTAGE IN EXTREMITY LEADS [QRS DEFLECTION < 0.5 mV IN LIMB LEADS] ABNORMAL RHYTHM ECG Compared to ECG 11/04/2022 17:52:28 Low QRS voltage now present Atrial abnormality no longer present Left anterior fascicular block no longer present Myocardial infarct finding no longer present Electronically Signed On 01-25-2023 23:06:11 CDT by Jamshid Alfaro M.D. [id number]
--- NOTE | 2023-01-25 21:01 | XRR_ITS ---
PROCEDURE INFORMATION: Exam: XR Chest Exam date and time: 01/25/2023 9:19 PM Age: 72 years old Clinical indication: Shortness of breath; Additional info: SOB TECHNIQUE: Imaging protocol: Radiologic exam of the chest. Views: 1 view. COMPARISON: CR XR chest 1V portable [id number] 11/04/2022 6:30 PM FINDINGS: Lungs: Unremarkable. No consolidation. Pleural spaces: Unremarkable. No pleural effusion. No pneumothorax. Heart/Mediastinum: Cardiomegaly. Vasculature: Thoracic aortic stent again seen with aortic tortuosity. Bones/joints: Unremarkable. XR/XR chest 1V portable [id number] IMPRESSION: 1. Negative for infiltrate. 2. Thoracic aortic stent again seen with aortic tortuosity. 3. Cardiomegaly.
[2023-01-25] MEDS: ondansetron 2 mg/ML SDV 2 mL 4 MG IVP (21:11)
[2023-01-25] MEDS: magnesium sulfate premix 2 GM/50 ML PIGGYBACK IV (21:13)
[2023-01-25 21:15] LABS: ABG PCO2 36.4 mmHg (35-45); ABG PH Result 7.32 (7.35-7.45); Arterial Blood Gas Hematocrit 20.5 % (37-47); Base Excess ABG -6.6 mmol/L (-2.0-2.0); Blood Gas Allen Test Pos; Blood Gas Sample Site Radial, right; Blood Gas Sample Type Arterial; Carboxyhemoglobin 2.9 %THgb (0.4-20.1); HCO3 ABG 18.8 mmol/L (22-26); HGB O2 Sat 96.7 % (95-100); Methemoglobin 1.1 % (0.4-1.5); Oxygen Device NRB; Total Hemoglobin 6.7 g/dL (12-16)
[2023-01-25 21:21] LABS: Basophils # 0.1 10^3/uL (0.0-0.1); Basophils % 0.8 %; Eosinophils # 0.2 10^3/uL (0.0-0.8); Eosinophils % 1.6 %; Hematocrit 23.6 % (37.0-47.0); Hemoglobin 6.8 g/dL (11.5-15.3); Lymphocytes # 1.3 10^3/uL (0.8-4.8); Lymphocytes % 13.4 %; Mean Corpuscular HGB Conc 28.8 g/dL (30.0-36.0); Mean Corpuscular Hemoglobin 24.1 pg (28.0-34.0); Mean Corpuscular Volume 83.7 fl (81-99); Mean Platelet Volume 10.5 fL (7.4-10.4); Monocytes # 0.4 10^3/uL (0.2-0.9); Monocytes % 3.8 %; Neutrophils # 7.94 10^3/uL (1.8-7.7); Neutrophils % 79.8 %; Nucleated Red Blood Cells % 0 %; Platelet Count 180 10^3/cmm (130-400); Red Blood Count 2.82 10^6/uL (4.1-5.3); Red Cell Distribution Width 18.9 % (12.1-15.1)
[2023-01-25] MEDS: albuterol 2.5 mg/3 mL Neb INHALATION (21:25)
--- NOTE | 2023-01-25 21:32 | CTR_ITS ---
PROCEDURE INFORMATION: Exam: CTA Abdomen and Pelvis With Contrast Exam date and time: 01/25/2023 10:06 PM Age: 72 years old Clinical indication: Abdominal pain; Generalized; Prior surgery; Surgery date: 1-6 months; Surgery type: Aortic stent sep 2022; Additional info: Chest pain, HX of thoracic aorta stent TECHNIQUE: Imaging protocol: Computed tomographic angiography of the abdomen and pelvis with contrast. Exam focused on the arteries. 3D rendering (Not supervised by radiologist): MIP and/or 3D reconstructed images were created by the technologist. Radiation optimization: All CT scans at this facility use at least one of these dose optimization techniques: automated exposure control; mA and/or kV adjustment per patient size (includes targeted exams where dose is matched to clinical indication); or iterative reconstruction. Contrast material: OMNI 350; Contrast volume: 55 ml; Contrast route: INTRAVENOUS (IV); REPORTING DATA: Count of CT and Cardiac NM exams in prior 12 months: This patient has received 6 known CTs and 0 known cardiac nuclear medicine studies in the 12 months prior to the current study. COMPARISON: [facility] [id number] 11/04/2022 6:40 PM RADIATION DOSE METRICS: Total DLP (mGy-cm): 703.1 FINDINGS: Lungs: Emphysematous changes. Bibasilar atelectasis . Heart: Pericardial effusion measuring 6.2 mm in thickness. Cardiomegaly. Coronary arteries: Coronary artery atherosclerotic calcifications. Aorta: Thoracic aortic stent extending from the aortic arch to the upper abdominal aorta with an excluded aneurysm sac, negative for contrast extravasation, similar to prior exam. Infrarenal abdominal aortic aneurysm measuring 3.7 cm diameter without rupture. Celiac trunk and mesenteric arteries: No occlusion or significant stenosis. Renal arteries: No occlusion or significant stenosis. Right iliac arteries: No occlusion or significant stenosis. Left iliac arteries: No occlusion or significant stenosis. Liver: No mass. Gallbladder and bile ducts: Cholecystectomy. Pancreas: Unremarkable. No mass. No ductal dilation. Spleen: Splenic cyst. Adrenal glands: Unremarkable. No mass. Kidneys and ureters: Bilateral renal cysts, negative for follow-up advised. Stomach and bowel: Constipation. Diverticulosis without diverticulitis. Appendix: No evidence of appendicitis. Intraperitoneal space: Unremarkable. No free air. No significant fluid collection. Lymph nodes: Unremarkable. No enlarged lymph nodes. Urinary bladder: Unremarkable. No mass. Reproductive: Unremarkable as visualized. Bones/joints: Lumbar spine vertebroplasty changes and surgical hardware seen in place. Soft tissues: Unremarkable. CT/CT [place] [id number] IMPRESSION: 1. Thoracic aortic stent extending from the aortic arch to the upper abdominal aorta with an excluded aneurysm sac, negative for contrast extravasation, similar to prior exam. 2. Pericardial effusion measuring 6.2 mm in thickness. 3. Cardiomegaly. 4. Coronary artery atherosclerotic calcifications. 5. Emphysematous changes. 6. Bibasilar atelectasis . 7. Lumbar spine vertebroplasty changes. 8. Cholecystectomy. 9. Splenic cyst. 10. Bilateral renal cysts, negative for follow-up advised. 11. Constipation. 12. Infrarenal abdominal aortic aneurysm measuring 3.7 cm diameter without rupture. 13. Lumbar spine vertebroplasty changes and surgical hardware seen in place. 14. Diverticulosis without diverticulitis.
[2023-01-25 21:38] LABS: SARS Covid-2 Antigen negative
[2023-01-25 21:45] LABS: Troponin(5th) Baseline 32 ng/L (0-10)
[2023-01-25 21:47] LABS: D Dimer 16.54 ug/mIFEU (0-0.59)
[2023-01-25 21:52] LABS: Alanine Aminotransferase 6 U/L (0-33); Albumin Level 3.5 g/dL (3.5-5.2); Alkaline Phosphatase 88 U/L (35-105); Anion Gap 15.7 (5-19); Aspartate Amino Transferase 10 U/L (0-32); Blood Urea Nitrogen 37 mg/dL (8-23); Calcium 9.4 mg/dL (8.5-10.5); Carbon Dioxide 19 mmol/L (22-29); Chloride 109 mmol/L (98-107); Globulin 3.6 g/dL (1.3-4.6); Glucose 155 mg/dL (65-115); Magnesium 1.9 mg/dL (1.7-2.3); NT Pro B Type Natriuretic Pept 16099 pg/mL (0-125); Osmolality Calculated 300 mOsm/kg (285-295); Potassium 4.7 mmol/L (3.5-5.1); Sodium 139 mmol/L (136-145); Total Bilirubin 0.2 mg/dL (0.15-1.2); Total Protein 7.1 g/dL (6.6-8.7)
[2023-01-25] MEDS: iohexol 350 mg/mL 500 mL Btl (per mL) IV (22:29)
--- NOTE | 2023-01-25 23:01 | ECG_ITS ---
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 Measurements Intervals [place] Rate: 115 P: 72 VT: 173 QRS: -58 QRSD: 94 T: 53 QT: 318 QTc: 441 Interpretive Statements SINUS TACHYCARDIA POSSIBLE LEFT ATRIAL ENLARGEMENT [-0.1mV P-WAVE IN V1/V2] LEFT ANTERIOR FASCICULAR BLOCK [QRS AXIS <= -45, QR IN I, RS IN II] Compared to ECG 01/25/2023 20:56:23 Left anterior fascicular block now present Electronically Signed On 01-26-2023 16:39:28 CDT by Jamshid Alfaro M.D. [id number]
--- NOTE | 2023-01-25 23:06 | ED_ITS ---
HPI - SOB/Dyspnea General: Chief Complaint: Shortness of Breath/Dyspnea Stated Complaint: respiratory distress Time Seen by Provider: 01/25/23 20:51 History of Present Illness: HPI Narrative: 72-year-old female presenting with shortness of breath that started at home. She took a breathing treatment that did not seem to help. 911 was called. They found her saturations to be in the low 80s despite home oxygen at home. She was given a breathing treatment Solu-Medrol in route with some improvement in her breathing she still short of breath. She also complained of chest discomfort, so aspirin and nitroglycerin were given with partial relief. She denies fever. She has been treated recently with Levaquin for pneumonia . She has had sputum with white to brown color. PFSH ED PFSH: Medical History Acute cystitis Acute cystitis Acute kidney injury superimposed on chronic kidney disease Blurred vision COPD (chronic obstructive pulmonary disease) Hypertension Microcytic anemia Weakness Surgical History H/O esophagogastroduodenoscopy AVM body of stomach History of back surgery x3 History of breast surgery inverted nipple (x3) History of dental surgery History of hysterectomy 1994 History of laparoscopic cholecystectomy 1993 Status post colonoscopy (02/19/21) Diverticulosis, internal hemorrhoids Family History Other Hypertension Social History Smoking and tobacco status: current every day smoker cigarettes Years cigarettes smoked: 64 [ Other cigarette details: started age 13; 1 pack /3 days currently ] Alcohol intake: never Substance/Drug Use: never Lives independently: Yes Course Vital Signs: Vital signs: Vital Signs Temperature 98.5 F 01/25/23 23:02 Pulse Rate 116 H 01/25/23 23:02 Respiratory Rate 16 01/25/23 23:02 Blood Pressure 137/88 01/25/23 23:02 Pulse Oximetry 94 01/25/23 23:02 Oxygen Delivery Me thod Nasal Cannula 01/25/23 21:46 Oxygen Flow Rate 3 01/25/23 21:46 MDM - SOB/Dyspnea Medical Decision Making This young lady has an extensive history. She has a thoracic aortic stent, and has a history of mural leak previously requiring transfer. She also had a recent pulmonary stent due to collapse from the aneurysm evidently. She is tachycardic in the 110s. This is improved from 130s. Blood pressure is 149/78 currently. Saturations are 95% on 3 L. She has received another albuterol treatment, and magnesium infusion. She is still wheezing but breathing status is improved she has a hemoglobin of 6.8. White blood cell count of 10. Bicarbonate of 19. Creatinine of 1.8. CTA of the chest abdomen pelvis shows thoracic stent extending from the aortic arch to the upper abdominal aorta negative for contrast extravasation/bleeding. She has calcifications in her coronaries. She has a small pericardial effusion. She has a 3.7 cm infrarenal AAA with no sign of rupture. She has been crossmatched for 2 units for severe anemia. She will come in for continued nebulization treatments, steroids, and transfusion hospitalist is aware, and has seen the patient in the ER. Lab Data 01/25/23 21:07 01/25/23 21:07 Labs/Radiology: Radiology Impressions Chest X-Ray 01/25/23 21:01 IMPRESSION: 1. Negative for infiltrate. 2. Thoracic aortic stent again seen with aortic tortuosity. 3. Cardiomegaly. Chest/Abdomen/Pelvis CTA 01/25/23 21:32 IMPRESSION: 1. Thoracic aortic stent extending from the aortic arch to the upper abdominal aorta with an excluded aneurysm sac, negative for contrast extravasation, similar to prior exam. 2. Pericardial effusion measuring 6.2 mm in thickness. 3. Cardiomegaly. 4. Coronary artery atherosclerotic calcifications. 5. Emphysematous changes. 6. Bibasilar atelectasis . 7. Lumbar spine vertebroplasty changes. 8. Cholecystectomy. 9. Splenic cyst. 10. Bilateral renal cysts, negative for follow-up advised. 11. Constipation. 12. Infrarenal abdominal aortic aneurysm measuring 3.7 cm diameter without rupture. 13. Lumbar spine vertebroplasty changes and surgical hardware seen in place. 14. Diverticulosis without diverticulitis. Laboratory Results WBC 10.0 10^3/uL (4.0-10.0) 01/25/23 21:07 RBC 2.82 10^6/uL (4.1-5.3) L 01/25/23 21:07 Hgb 6.8 g/dL (11.5-15.3) L 01/25/23 21:07 Hct 23.6 % (37.0-47.0) L 01/25/23 21:07 MCV 83.7 fl (81-99) 01/25/23 21:07 MCH 24.1 pg (28.0-34.0) L 01/25/23 21:07 MCHC 28.8 g/dL (30.0-36.0) L 01/25/23 21:07 RDW 18.9 % (12.1-15.1) H 01/25/23 21:07 Plt Count 180 10^3/cmm (130-400) 01/25/23 21:07 MPV 10.5 fL (7.4-10.4) H 01/25/23 21:07 Neut % (Auto) 79.8 % 01/25/23 21:07 Lymph % (Auto) 13.4 % 01/25/23 21:07 [place] % (Auto) 3.8 % 01/25/23 21:07 Eos % (Auto) 1.6 % 01/25/23 21:07 Baso % (Auto) 0.8 % 01/25/23 21:07 Neut # (Auto) 7.94 10^3/uL (1.8-7.7) H 01/25/23 21:07 Lymph # (Auto) 1.3 10^3/uL (0.8-4.8) 01/25/23 21:07 [place] # (Auto) 0.4 10^3/uL (0.2-0.9) 01/25/23 21:07 Eos # (Auto) 0.2 10^3/uL (0.0-0.8) 01/25/23 21:07 Baso # (Auto) 0.1 10^3/uL (0.0-0.1) 01/25/23 21:07 Nucleated RBC % (auto) 0 % 01/25/23 21:07 Nucleated RBCs # 0.0 /100WBC 01/25/23 21:07 D-Dimer 16.54 ug/mIFEU (0-0.59) H 01/25/23 21:07 Specimen Type Arterial 01/25/23 21:06 Sample Site Radial, right 01/25/23 21:06 ABG pH 7.32 (7.35-7.45) L 01/25/23 21:06 ABG pCO2 36.4 mmHg (35-45) 01/25/23 21:06 ABG pO2 223.0 mmHg (80.0-100.0) H 01/25/23 21:06 ABG HCO3 18.8 mmol/L (22-26) L 01/25/23 21:06 ABG Base Excess -6.6 mmol/L (-2.0-2.0) L 01/25/23 21:06 Don Test Pos 01/25/23 21:06 Hematocrit 20.5 % (37-47) L 01/25/23 21:06 Hgb O2 Saturation 96.7 % (95-100) 01/25/23 21:06 Carboxyhemoglobin 2.9 %THgb (0.4-20.1) 01/25/23 21:06 Methemoglobin 1.1 % (0.4-1.5) 01/25/23 21:06 Total Hemoglobin 6.7 g/dL (12-16) L 01/25/23 21:06 O2 Delivery Device Nrb 01/25/23 21:06 O2 Liters/Min 15.0 % 01/25/23 21:06 FiO2 99.0 % 01/25/23 21:06 [employer] ID [email or web address] 01/25/23 21:06 Sodium 139 mmol/L (136-145) 01/25/23 21:07 Potassium 4.7 mmol/L (3.5-5.1) 01/25/23 21:07 Chloride 109 mmol/L (98-107) H 01/25/23 21:07 Carbon Dioxide 19 mmol/L (22-29) L 01/25/23 21:07 Anion Gap 15.7 (5-19) 01/25/23 21:07 BUN 37 mg/dL (8-23) H 01/25/23 21:07 Creatinine 1.8 mg/dL (0.5-0.9) H 01/25/23 21:07 GFR Calculation Not Reportable 01/25/23 21:07 Glucose 155 mg/dL (65-115) H 01/25/23 21:07 Calculated Osmolality 300 mOsm/kg (285-295) H 05/21/23 21:07 Lactic Acid 1.0 mmol/L (0.5-2.2) 01/25/23 21:07 Calcium 9.4 mg/dL (8.5-10.5) 01/25/23 21:07 Magnesium 1.9 mg/dL (1.7-2.3) 01/25/23 21:07 Total Bilirubin 0.2 mg/dL (0.15-1.2) 01/25/23 21:07 AST 10 U/L (0-32) 01/25/23 21:07 ALT 6 U/L (0-33) 01/25/23 21:07 Alkaline Phosphatase 88 U/L (35-105) 01/25/23 21:07 Troponin T Baseline 32 ng/L (0-10) H 01/25/23 21:07 NT-Pro-B Natriuret Pep 25829 pg/mL (0-125) H 01/25/23 21:07 Total Protein 7.1 g/dL (6.6-8.7) 01/25/23 21:07 Albumin 3.5 g/dL (3.5-5.2) 01/25/23 21:07 Globulin 3.6 g/dL (1.3-4.6) 01/25/23 21:07 SARS-CoV-2 Ag (Rapid) negative 01/25/23 21:16 Blood Type A Positive 01/25/23 21:45 Rho(D) Type Positive 01/25/23 21:45 Antibody Screen Negative 01/25/23 21:45 Crossmatch See Detail 01/25/23 21:45 Discharge Plan Discharge Patient Disposition: Admitted As Inpatient Clinical Impression: Respiratory failure with hypoxia, COPD exacerbation, Anemia Condition: Fair Prescriptions: No Action (DME) nebulizers Replaced By [facility] See Rx Instructions .Route Qty: 1 0RF Rx Instructions: 1 nebulizer and all required supplies As directed Riya Fletcher 200-62.5-25 mcg blister with device 1 inh inhalation DAILY 30 Days Qty: 60 3RF (DME) oxygen-air delivery systems Device See Rx Instructions .ROUTE Rx Instructions: As directed azithromycin [Zithromax Z-Saulo] 250 mg tablet See Rx Instructions PO .COMPLEX Qty: 6 0RF Rx Instructions: For 250 mg dose pack: take 500 mg today (day 1), then 250 mg for 4 days (days 2-5) PO ferrous sulfate 324 mg (65 mg iron) tablet,delayed release (DR/EC) 324 mg PO DAILY Qty: 90 1RF ipratropium-albuterol 0.5 mg-3 mg(2.5 mg base)/3 mL solution for nebulization 3 ml inhalation Q4H PRN (Reason: wheezing) Qty: 90 0RF Rx Instructions: NEEDS APPT FOR FURTHER REFILLS. JOSE gabapentin 600 mg tablet 1,800 mg PO BEDTIME potassium chloride 20 mEq tablet,ER particles/crystals 20 meq PO DAILY@1800 albuterol sulfate [Ventolin HFA] 90 mcg/actuation HFA aerosol inhaler 1 - 2 inh INHALATION Q4H PRN (Reason: Shortness Of Breath) irbesartan 300 mg tablet 300 mg PO DAILY@1800 rosuvastatin 20 mg tablet 20 mg PO DAILY@1800 Plavix 75 mg Tablet 75 mg PO DAILY hydrochlorothiazide 25 mg Tablet 25 mg PO DAILY desvenlafaxine succinate 50 mg Tablet Extended Release 24 Hr 50 mg PO BEDTIME Belsomra 20 mg Tablet 20 mg PO BEDTIME hydrocodone-acetaminophen 5-325 mg tablet 1 tab PO Q6H PRN (Reason: pain) Qty: 14 0RF ondansetron 4 mg tablet,disintegrating 4 mg PO Q6H PRN (Reason: nausea and vomiting) Qty: 14 0RF Referrals: Bhupinder Logan MD [Primary Care Provider] - Patient Instructions: Opioid Safety, Pain Management Coding Level of Care Code ED Deputy K 9 for Lian Nichols
[2023-01-25 23:33] LABS: Troponin 5 2HR 40.63 ng/L (0-10)
[2023-01-25 23:39] LABS: Troponin 5 2HR Delta 8.63 ABS# (0-10)
[2023-01-25] MEDS: acetaminophen 325 mg Tablet 650 MG PO (23:40)
[2023-01-25] MEDS: FUROsemide 10 mg/mL SDV 4mL 40 MG IVP (23:40)
[2023-01-25] MEDS: diphenhydrAMINE 50 mg/mL SDV 1mL 25 MG IVP (23:40)
--- NOTE | 2023-01-25 23:41 | P.HP_ITS ---
Providers/Chief Complaint Admitting Physician: Tracy Wilson MD Primary Care Provider: Bhupinder Logan MD Chief Complaint: respiratory distress History of Present Illness Eli Kimball is a 72 year old female with a past medical history significant for descending thoracic aortic aneurysm s/p TEVAR in September 2022 COPD, currently continues to actively heavily smoke., CKD, chronic anemia. She presents to the emergency room today with chief complaints of chest pain. Patient states that her chest pain has been continuing ever since her thoracic aneurysm surgery in September of this year. She is also currently complaining of dyspnea and increased wheezing over the past 2 days. She has only been taking her albuterol inhalers at home currently. Labs are notable for acute on chronic anemia, she has been ordered for 1 unit of packed red blood cell transfusion which is currently ongoing. Review of Systems General: Reports: 10 or more systems reviewed and unremarkable except in HPI and below Const: Denies: fever(s), chills or body aches Eyes: Denies: change in vision, blurry vision or photophobia ENMT: Reports: hoarseness; Denies: throat pain, enlarged tonsils, odynophagia or nasal congestion Card: Denies: chest pain, palpitations, irregular heart rhythm, edema, swe lling of feet/ankles, lightheadedness, pre-syncope, dyspnea on exertion or orthopnea Resp: Denies: dyspnea, productive cough, non-productive cough, wheezing, stridor, pain on inspiration, change in phlegm color, hemoptysis or chest congestion GI: Denies: abdominal pain, nausea, vomiting, hematemesis, coffee ground emesis, dysphagia, heartburn, diarrhea, constipation, GI cramping, change in stool character, hematochezia or melena : Denies: flank pain, difficulty voiding, dysuria, urinary frequency, urina ry urgency, urinary hesitancy or hematuria Musc: Denies: neck pain, back pain, extremity pain, joint swelling, joint warmth or deformity Neuro: Denies: headache(s), numbness in extremities, weakness in extremities, sensory changes, difficulty walking, frequent falls, dizziness, vertigo, behavioral changes, Slurred speech present or seizure-like activity Psych: Denies: anxiety, depression, suicidal ideation or homicidal ideation Endo: Denies: polyuria, polydipsia, tired all the time, cold intolerance or hot flashes Bulmaro/Lymph: Denies: easy bruising or easy bleeding Medications/Allergies Home Medications Medication Instructions Recorded Confirmed Last Taken Type albuterol sulfate 90 mcg/actuation 1 - 2 inh inhalation Q4H PRN 01/03/21 11/13/22 12/09/21 History aerosol inhaler (Ventolin HFA) Shortness Of Breath gabapentin 600 mg tablet 1,800 mg PO BEDTIME 01/03/21 11/13/22 04/09/22 History irbesartan 300 mg tablet 300 mg PO DAILY@1800 01/03/21 11/13/22 04/09/22 History potassium chloride 20 mEq 20 meq PO DAILY@1800 01/03/21 11/13/22 04/09/22 History tablet,extended release(part/cryst) rosuvastatin 20 mg tablet 20 mg PO DAILY@1800 01/03/21 11/13/22 04/09/22 History clopidogrel 75 mg tablet (Plavix) 75 mg PO DAILY 04/10/22 06/06/22 04/09/22 History desvenlafaxine succinate 50 mg 50 mg PO BEDTIME 04/10/22 06/06/22 04/09/22 History tablet,extended release 24 hr hydrochlorothiazide 25 mg tablet 25 mg PO DAILY 04/10/22 06/06/22 04/09/22 History suvorexant 20 mg tablet (Belsomra) 20 mg PO BEDTIME 04/10/22 11/13/22 04/09/22 History azithromycin 250 mg tablet See Rx Instructions PO .COMPLEX #6 06/06/22 11/13/22 Unknown Rx (Zithromax Z-Saulo) tabs fluticasone fur. 200 mcg-umeclid 1 inh inhalation DAILY 30 days #60 06/06/2205/30 Unknown Rx 62.5 mcg-vilant 25 mcg ea inhalat.powder (Trelegy Ellipta) nebulizers #1 ea 06/06/22 11/13/22 Unknown Rx ferrous sulfate 324 mg (65 mg 324 mg PO DAILY #90 tabs 06/09/22 11/13/22 Unknown Rx iron) tablet,delayed release hydrocodone 5 mg-acetaminophen 325 1 tab PO Q6H PRN pain #14 tabs 11/04/22 11/13/22 Unknown Rx mg tablet ondansetron 4 mg disintegrating 4 mg PO Q6H PRN nausea and 11/04/22 Unknown Rx tablet vomiting #14 tabs ipratropium 0.5 mg-albuterol 3 mg 3 ml inhalation Q4H PRN wheezing 11/06/22 11/13/22 Unknown Rx (2.5 mg base)/3 mL nebulization #90 mL soln oxygen-air delivery systems 11/13/22 11/13/22 Unknown History Allergies Allergy/AdvReac Type Severity Reaction Status Date / Time egg Allergy ADR-Vomitin Verified 11/13/22 09:04 g PFSH Acute PFSH: Medical History Acute cystitis Acute cystitis Acute kidney injury superimposed on chronic kidney disease Blurred vision COPD (chronic obstructive pulmonary disease) Hypertension Microcytic anemia Weakness Surgical History H/O esophagogastroduodenoscopy AVM body of stomach History of back surgery x3 History of breast surgery inverted nipple (x3) History of dental surgery History of hysterectomy 1993 History of laparoscopic cholecystectomy 1993 Status post colonoscopy (02/19/21) Diverticulosis, internal hemorrhoids Family History Other Hypertension Social History Smoking and tobacco status: current every day smoker cigarettes Years cigarettes smoked: 64 [ Other cigarette details: started age 13; 1 pack /3 days currently ] Alcohol intake: never Substance/Drug Use: never Lives independently: Yes Vitals/I&O/Wt Last Vital Signs Temp 98.1 F 01/25/23 23:26 Pulse 115 H 01/25/23 23:26 Resp 18 01/25/23 23:26 BP 140/80 01/25/23 23:26 Pulse Ox 98 01/25/23 23:26 O2 Del Method Nasal Cannula 01/25/23 21:46 O2 Flow Rate 3 01/25/23 21:46 01/25/23 01/25/23 01/26/23 14:59 22:59 06:59 Intake Total 0 / 0 Balance 0 / 0 Weight last 48 hrs Weight 52.163 kg Physical Exam Narrative: General: No acute distress, AO x3 HEENT: PERRLA, pupils bilaterally equal and reactive, pallors not present Chest: Wheezing to auscultation bilaterally all areas CVS: S1-S2 regular, no murmurs, no tachycardia, no gallops, no rubs Abdomen: Soft, nontender, no organomegaly, bowel sounds present Neuro: No focal deficits, no facial deformity, AO x3, power 5/5 in all limbs Data 01/26/23 03:43 01/26/23 03:43 Micro: Microbiology 01/25/23 21:46 Blood Culture - Preliminary Blood SPECIMEN COLLECTED 01/25/23 21:07 Blood Culture - Preliminary Blood SPECIMEN COLLECTED Other data: [facility] [address] [place] [id number] Scan Report Signed Patient: Eli Kimball Unit #: [id number] : 1950 Age/Sex: 72 / F ADM Date: 01/25/23 Loc: ER Room/Bed: Attending Dr: Ordering Provider/Ordering MD: Ronn Alvarez DO Date of Service: 01/25/23 Procedure(s): CT cami christine abdpecolin [id number] Accession Number(s): [id number] Report Number: [id number] PROCEDURE INFORMATION: Exam: CTA Abdomen and Pelvis With Contrast Exam date and time: 01/25/2023 10:06 PM Age: 72 years old Clinical indication: Abdominal pain; Generalized; Prior surgery; Surgery date: 1-6 months; Surgery type: Aortic stent sep 2022; Additional info: Chest pain, HX of thoracic aorta stent TECHNIQUE: Imaging protocol: Computed tomographic angiography of the abdomen and pelvis with contrast. Exam focused on the arteries. 3D rendering (Not supervised by radiologist): MIP and/or 3D reconstructed images were created by the technologist. Radiation optimization: All CT scans at this facility use at least one of these dose optimization techniques: automated exposure control; mA and/or kV adjustment per patient size (includes targeted exams where dose is matched to clinical indication); or iterative reconstruction. Contrast material: OMNI 350; Contrast volume: 55 ml; Contrast route: INTRAVENOUS (IV);? REPORTING DATA: Count of CT and Cardiac NM exams in prior 12 months: This patient has received 6 known CTs and 0 known cardiac nuclear medicine studies in the 12 months prior to the current study. COMPARISON: [facility] [id number] 11/04/2022 6:40 PM RADIATION DOSE METRICS: Total DLP (mGy-cm): 703.1 FINDINGS: Lungs: Emphysematous changes. Bibasilar atelectasis . Heart: Pericardial effusion measuring 6.2 mm in thickness. Cardiomegaly. Coronary arteries: Coronary artery atherosclerotic calcifications. Aorta: Thoracic aortic stent extending from the aortic arch to the upper abdominal aorta with an excluded aneurysm sac, negative for contrast extravasation, similar to prior exam.? Infrarenal abdominal aortic aneurysm measuring 3.7 cm diameter without rupture. Celiac trunk and mesenteric arteries: No occlusion or significant stenosis. Renal arteries: No occlusion or significant stenosis. Right iliac arteries: No occlusion or significant stenosis. Left iliac arteries: No occlusion or significant stenosis. Liver: No mass. Gallbladder and bile ducts: Cholecystectomy. Pancreas: Unremarkable. No mass. No ductal dilation. Spleen: Splenic cyst. Adrenal glands: Unremarkable. No mass. Kidneys and ureters: Bilateral renal cysts, negative for follow-up advised. Stomach and bowel: Constipation.? Diverticulosis without diverticulitis.? Appendix: No evidence of appendicitis. Intraperitoneal space: Unremarkable. No free air. No significant fluid collection. Lymph nodes: Unremarkable. No enlarged lymph nodes. Urinary bladder: Unremarkable. No mass. Reproductive: Unremarkable as visualized. Bones/joints: Lumbar spine vertebroplasty changes and surgical hardware seen in place. Soft tissues: Unremarkable. CT/[facility] [id number] IMPRESSION: 1. ? Thoracic aortic stent extending from the aortic arch to the upper abdominal aorta with an excluded aneurysm sac, negative for contrast extravasation, similar to prior exam. 2. ? Pericardial effusion measuring 6.2 mm in thickness. 3. ? Cardiomegaly. 4. ? Coronary artery atherosclerotic calcifications. 5. ? Emphysematous changes. 6. ? Bibasilar atelectasis . 7. ? Lumbar spine vertebroplasty changes. 8. ? Cholecystectomy. 9. ? Splenic cyst. 10. ? Bilateral renal cysts, negative for follow-up advised. 11. ? Constipation. 12.? Infrarenal abdominal aortic aneurysm measuring 3.7 cm diameter without rupture. 13.? Lumbar spine vertebroplasty changes and surgical hardware seen in place. 14.? Diverticulosis without diverticulitis.? A&P Assessment and plan (1) Atypical chest pain: Patient presenting to the hospital with complaints of atypical chest pain which has been ongoing since September of this year. She states that pain has somewhat worsened over the last 24 to 48 hours. Located in the center of her chest, nonradiating EKG does not show any acute ST-T wave changes, shows sinus tachycardia. Troponin baseline at 32, at 2 hours at 40, with a delta of 8, pending 6-hour trend CTA of the chest is negative for PE Lungs are showing emphysematous changes Lower suspicion for ACS at this time. (2) Anemia: Symptomatic anemia Increasing generalized weakness over the past few weeks, tachycardic on exam today Patient has had a history of multiple blood transfusions for chronic anemia It appears no 1 cause has been found to date. She is currently on iron supplementation. Had an EGD colonoscopy more than 2 years ago which did not show any obvious GI issues per her history. Ordered for 2 units of packed red blood cell transfusion, running the first unit at this time Check FOBT. (3) COPD exacerbation: Bilateral wheezing to auscultation on exam DuoNeb every 6 hours standing nebulization, budesonide inhalation every 12 hours Plan Continue home medications including statin, Plavix, iron supplementation, hydrocodone for pain Nicotine patch for chronic nicotine dependence Attestations Medical Necessity Statement*: Greater than 2 midnight admission anticipated for above care Coding Level of Care Code Acute Code for Chg Fwd Diagnoses Atypical chest pain R07.89 Anemia D64.9 COPD exacerbation J44.1
[2023-01-26] VITALS (22 sets, daily range): BP systolic 91–175; BP diastolic 65–92; PULSE 66–112; RESP 17–24; TEMP 36.2–37.2; O2SAT 95–100; BMI 20.9
[2023-01-26] MEDS: enoxaparin 40 mg/0.4 mL Syringe SUBCUT ×2 (01:00→23:57)
[2023-01-26] MEDS: HYDROcodone-acetaminophen 5-325 mg Tablet 1 TAB PO (01:09)
--- NOTE | 2023-01-26 02:09 | PC.NURSE ---
lab unable to give secondary unit of blood due to the way order was printed, also lab asking if it is necessary to run transfused blood for transfusion reaction due to pt had c/o back pain while blood was transfusing. call placed to Dr. Wilson informing of both issues, order to hold off on second unit for now, check H&H at 0400, if Hgb is less than 7, transfuse another unit. also cancel transfusion reaction due to pt chief complaint was back pain and chest pain when admitted to ER and she did not feel that it is blood transfusion related.
--- NOTE | 2023-01-26 03:01 | ECG_ITS ---
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 Measurements Intervals [place] Rate: 114 P: 82 IL: 179 QRS: -72 QRSD: 86 T: 54 QT: 317 QTc: 438 Interpretive Statements SINUS TACHYCARDIA POSSIBLE LEFT ATRIAL ENLARGEMENT [-0.1mV P-WAVE IN V1/V2] LEFT ANTERIOR FASCICULAR BLOCK [QRS AXIS <= -45, QR IN I, RS IN II] Compared to ECG 01/25/2023 23:07:33 No significant changes Electronically Signed On 01-26-2023 16:39:20 CDT by Jamshid Alfaro M.D. [email or web address]
[2023-01-26] MEDS: ipratropium-albuterol 3 mL Neb INHALATION ×4 (03:11→20:15)
[2023-01-26 03:54] LABS: Basophils # 0.1 10^3/uL (0.0-0.1); Eosinophils % 0.6 %; Hematocrit 23.5 % (37.0-47.0); Hemoglobin 6.7 g/dL (11.5-15.3); Lymphocytes # 0.9 10^3/uL (0.8-4.8); Lymphocytes % 13.4 %; Mean Corpuscular HGB Conc 28.5 g/dL (30.0-36.0); Mean Corpuscular Hemoglobin 24.5 pg (28.0-34.0); Mean Corpuscular Volume 85.8 fl (81-99); Mean Platelet Volume 10.6 fL (7.4-10.4); Monocytes # 0.3 10^3/uL (0.2-0.9); Monocytes % 3.8 %; Neutrophils # 5.55 10^3/uL (1.8-7.7); Neutrophils % 80.9 %; Nucleated Red Blood Cells % 0 %; Platelet Count 157 10^3/cmm (130-400); Red Blood Count 2.74 10^6/uL (4.1-5.3); Red Cell Distribution Width 18.5 % (12.1-15.1); White Blood Count 6.9 10^3/uL (4.0-10.0)
[2023-01-26 04:14] LABS: Alanine Aminotransferase < 5 U/L (0-33); Albumin Level 2.9 g/dL (3.5-5.2); Alkaline Phosphatase 80 U/L (35-105); Anion Gap 14.4 (5-19); Aspartate Amino Transferase 7 U/L (0-32); Blood Urea Nitrogen 38 mg/dL (8-23); Calcium 9.2 mg/dL (8.5-10.5); Carbon Dioxide 18 mmol/L (22-29); Chloride 108 mmol/L (98-107); Globulin 3.3 g/dL (1.3-4.6); Glucose 174 mg/dL (65-115); Magnesium 2.3 mg/dL (1.7-2.3); Osmolality Calculated 295 mOsm/kg (285-295); Potassium 4.4 mmol/L (3.5-5.1); Sodium 136 mmol/L (136-145); Total Bilirubin 0.5 mg/dL (0.15-1.2); Total Protein 6.2 g/dL (6.6-8.7); Troponin 5 6HR 41.39 ng/L (0-10)
[2023-01-26 04:19] LABS: Troponin 5 6HR Delta 9.39 ng/L (0-12)
[2023-01-26] MEDS: budesonide 0.5 mg/2 mL Neb INHALATION ×2 (08:50→20:15)
[2023-01-26] MEDS: pantoprazole DR 40 mg Tablet PO (10:08)
[2023-01-26] MEDS: hydroCHLOROthiazide 25 mg Tablet PO (10:08)
[2023-01-26] MEDS: clopidogrel 75 mg Tablet PO (10:08)
[2023-01-26] MEDS: ferrous sulfate EC 325 mg Tablet PO (10:08)
--- NOTE | 2023-01-26 10:31 | ECG_ITS ---
[facility] Test Date: 2023-01-26 Pat Name: Eli Kimball Department: Room: 277 Gender: Female [employer]person [employer]: : 1950 Requested By: Jaclyn Garcia Order Number: [id number] Dinorah MD: Jamshid Alfaro M.D. Measurements Intervals [place] Rate: 100 P: 49 OR: 156 QRS: -41 QRSD: 89 T: 33 QT: 358 QTc: 463 Interpretive Statements SINUS TACHYCARDIA POSSIBLE LEFT ATRIAL ENLARGEMENT [-0.1mV P-WAVE IN V1/V2] LOW QRS VOLTAGE IN EXTREMITY LEADS [QRS DEFLECTION < 0.5 mV IN LIMB LEADS] INFERIOR MYOCARDIAL INFARCTION , OF INDETERMINATE AGE [40+ ms Q WAVE AND/OR ST/T ABNORMALITY IN II/aVF] Compared to ECG 01/25/2023 23:27:32 Low QRS voltage now present Myocardial infarct finding now present Left anterior fascicular block no longer present Electronically Signed On 01-26-2023 16:28:41 CDT by Jamshid Alfaro M.D. [email or web address]
--- NOTE | 2023-01-26 14:35 | PM.PN ---
Subjective Subjective: Complaining of right-sided chest pain which gets worse on deep breathing She it is also reproducible 1 unit PRBCs pending Patient is stating that she is always wheezes like this There is no change in her status Vitals/I&O/Wt Last Vital Signs Temp 98.1 F 01/26/23 14:12 Pulse 109 H 01/26/23 14:12 Resp 18 01/26/23 14:12 BP 138/71 01/26/23 14:12 Pulse Ox 97 01/26/23 14:12 O2 Del Method Nasal Cannula 01/26/23 14:00 O2 Flow Rate 3 01/26/23 14:00 01/25/23 01/26/23 01/26/23 22:59 06:59 14:59 Intake Total 0 / 0 400 / 400 0 / 0 Output Total 400 / 400 Balance 0 / 0 0 / 0 0 / 0 Weight last 48 hrs Weight 57.209 kg Weight 52.163 kg Physical Exam Narrative: Active wheezing Currently on 3 L Awake and alert Reproducible chest pain abdomen soft euvolemic Pleasant and cooperative Appears stated age GCS 15 S1, S2 Data 01/26/23 03:43 01/26/23 03:43 Micro: Microbiology 01/25/23 21:46 Blood Culture - Preliminary Blood SPECIMEN COLLECTED 01/25/23 21:07 Blood Culture - Preliminary Blood SPECIMEN COLLECTED A&P Assessment and plan (1) Atypical chest pain: (2) COPD exacerbation: (3) Anemia: (4) H/O thoracic aortic aneurysm repair: (5) Smoker: (6) Iron deficiency anemia: (7) Epistaxis: Plan Atypical chest pain Reproducible Pleuritic in nature We will do stress test tomorrow morning because of her risk factors CTA chest rule out PE Thoracic aortic aneurysm repair no active signs of dissection COPD exacerbation active smoker, patient is experiencing wheezing, she continue budesonide and DuoNeb Okay with Acapella Iron deficiency anemia Acute on chronic check FOBT We will give her 1 unit PRBC Chronic kidney disease creatinine at baseline Plan to discharge tomorrow if stable DNR/DNI Continue cardiac diet Attestations Medical Necessity Statement*: Discharge tomorrow Diagnoses Atypical chest pain R07.89 COPD exacerbation J44.1 Anemia D64.9 H/O thoracic aortic aneurysm repair Z98.890; Z86.79 Smoker F17.200 Iron deficiency anemia D50.9 Epistaxis R04.0
[2023-01-26] MEDS: atorvastatin 40 mg Tablet 80 MG PO (17:20)
[2023-01-26] MEDS: losartan 50 mg Tablet 100 MG PO (17:20)
[2023-01-26] MEDS: sodium chloride 0.9% 100 mL Bag 50 ML IV (18:25)
[2023-01-26] MEDS: desvenlafaxine 50 mg Tablet PO (21:29)
--- NOTE | 2023-01-26 21:40 | ECG_ITS ---
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 Measurements Intervals [place] Rate: 100 P: 61 FL: 172 QRS: -70 QRSD: 90 T: 60 QT: 345 QTc: 445 Interpretive Statements SINUS TACHYCARDIA POSSIBLE LEFT ATRIAL ENLARGEMENT [-0.1mV P-WAVE IN V1/V2] LEFT AXIS DEVIATION [QRS AXIS < -30] ANTERIOR MYOCARDIAL INFARCTION , PROBABLY RECENT [40+ ms Q WAVE AND/OR ST/T ABNORMALITY IN V3/V4] ACUTE [place] Compared to ECG 01/26/2023 10:31:05 Left-axis deviation now present Myocardial infarct finding still present Electronically Signed On 01-27-2023 6:43:17 CDT by Jamshid Alfaro M.D. [id number]
[2023-01-26] MEDS: metoprolol tartrate 1 mg/1 mL SDV 5 mL 5 MG IVP (21:55)
[2023-01-26] MEDS: gabapentin 300 mg Capsule 600 MG PO (22:03)
[2023-01-26] MEDS: morphine 4 mg/mL SDV 1 mL 1 MG IVP (22:04)
[2023-01-27] VITALS (13 sets, daily range): BP systolic 98–174; BP diastolic 56–97; PULSE 84–112; RESP 17–22; TEMP 36.7–37.1; O2SAT 90–100
--- NOTE | 2023-01-27 | ECG_ITS ---
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 Interpretive Statements NAME OF STUDY: LEXISCAN SESTAMIBI STRESS TEST INDICATION: Chest Pain PROCEDURE: At the baseline, the EKG revealed normal sinus rhythm with a poor R wave progression. Possible old anteroseptal SC.. The baseline heart was 93 bpm with a blood pressue of 213/87 mm of Hg Lexiscan was infused over a period of 20 seconds. A total of 0.4 milligrams of Lexiscan was infused. The stress phase was continued for a total of 5 minutes. Heart rate at the end of the stress phase was 121 bpm with a blood pressure 170/96 mm of Hg. The EKG at the peak infusion revealed no significant changes. Sestamibi was injected 20 seconds after the Lexiscan infusion. Heart rate at the end of the recovery phase was 106 bpm with a blood pressure of 174/97 mm of Hg. CONCLUSION: 1. No significant EKG changes with the LexiScan infusion 2. No LexiScan induced chest pain or cardiac arrhythmia 3. Normal blood pressure and heart rate response 4. Sestamibi/sestamibi perfusion scan pending; see separate report. Electronically Signed On 01-29-2023 7:42:59 CDT by Arianna Patterson M.D. [id number]
[2023-01-27] MEDS: ipratropium-albuterol 3 mL Neb INHALATION ×3 (03:34→21:47)
[2023-01-27 05:55] LABS: Basophils # 0.1 10^3/uL (0.0-0.1); Basophils % 0.8 %; Eosinophils # 0.2 10^3/uL (0.0-0.8); Eosinophils % 2.7 %; Hematocrit 27.5 % (37.0-47.0); Lymphocytes # 1.2 10^3/uL (0.8-4.8); Lymphocytes % 16.5 %; Mean Corpuscular HGB Conc 29.1 g/dL (30.0-36.0); Mean Corpuscular Hemoglobin 25.2 pg (28.0-34.0); Mean Corpuscular Volume 86.5 fl (81-99); Mean Platelet Volume 10.3 fL (7.4-10.4); Monocytes # 0.4 10^3/uL (0.2-0.9); Monocytes % 5.7 %; Neutrophils # 5.46 10^3/uL (1.8-7.7); Neutrophils % 73.9 %; Nucleated Red Blood Cells % 0 %; Platelet Count 160 10^3/cmm (130-400); Red Blood Count 3.18 10^6/uL (4.1-5.3); Red Cell Distribution Width 18.3 % (12.1-15.1); White Blood Count 7.4 10^3/uL (4.0-10.0)
[2023-01-27 06:11] LABS: Anion Gap 15.2 (5-19); Blood Urea Nitrogen 45 mg/dL (8-23); Calcium 8.8 mg/dL (8.5-10.5); Carbon Dioxide 17 mmol/L (22-29); Chloride 104 mmol/L (98-107); Glucose 101 mg/dL (65-115); Osmolality Calculated 284 mOsm/kg (285-295); Potassium 5.2 mmol/L (3.5-5.1); Sodium 131 mmol/L (136-145)
[2023-01-27] MEDS: regadenoson 0.4 Mg/5 ml Syringe IVP (07:26)
[2023-01-27] MEDS: ondansetron 2 mg/ML SDV 2 mL 4 MG IVP (07:26)
[2023-01-27] MEDS: HYDROcodone-acetaminophen 5-325 mg Tablet 1 TAB PO ×3 (08:45→20:32)
[2023-01-27] MEDS: ferrous sulfate EC 325 mg Tablet PO (08:45)
[2023-01-27] MEDS: clopidogrel 75 mg Tablet PO (08:46)
[2023-01-27] MEDS: hydroCHLOROthiazide 25 mg Tablet PO (08:46)
[2023-01-27] MEDS: pantoprazole DR 40 mg Tablet PO (08:46)
[2023-01-27] MEDS: gabapentin 300 mg Capsule 600 MG PO ×3 (08:46→20:27)
--- NOTE | 2023-01-27 10:17 | PC.CHAP ---
Pastoral Care Encounter/Spiritual Assessment Type of Contact [] Declined railway yard assistant visit [] Patient/Family/Request visit [] Outpatient visit [] Follow-up visit [] Physician referral [] Code/Alert [x] Routine visit [] Staff referral [] Actively dying [] Patient sleeping [] Family support [] [] Out of room [] Palliative care [] [] Receiving care in room [] Pre-surgical visit [] Trauma [] Long length of stay [] ICU visit [] Other: Relational/Emotional Strength [] Patient feels connected with others/family/visitors/staff [] Distress [] Loneliness/isolation [] Abandonment Spirituality of Patient [x] Person of Shandra [] Attends Congregational of their Shandra [x] Believes in Prayer [] Reads Bible or Muslim materials [] There are Spiritual issues to be addressed Loader Operator/Ground Leader Interventions [x] Prayer [] Active listening [] Non-anxious presence [x] Spiritual/emotional support [] Crisis/trauma care [] Spiritual counseling [] Bereavement support [] Provided bereavement packet [] Provided Bible/devotional materials [] Provided toy/stuffed animal, coloring book to patient or family member [] Provided Communion [] Anointing/N[place]olls [] Salvation [x] Completed spiritual assessment [] Other: Impact on Illness or Injury [] Angry [] Fearful [] Anxious [] Often cries [] Exhaustion [] Unable to work [] Unable to attend sabianist [] Unable to walk/stand [] Unable to read [] Unable to drive [] Unable to eat/drink [] Unable to sleep [] Unable to be with family [] Patient intubated [] Other: Summary Time spent with patient 5 min
--- NOTE | 2023-01-27 10:20 | PM.PN ---
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 Colonoscopy showed internal hemorrhoids Vitals/I&O/Wt Last Vital Signs Temp 98.6 F 01/27/23 04:00 Pulse 106 H 01/27/23 07:40 Resp 18 01/27/23 04:00 BP 174/97 01/27/23 07:40 Pulse Ox 99 01/27/23 04:00 O2 Del Method Nasal Cannula 01/27/23 02:00 O2 Flow Rate 3 01/27/23 08:00 01/26/23 01/27/23 01/27/23 22:59 06:59 14:59 Intake Total 1070 / 1310 52 / 1362 Balance 1070 / 1310 52 / 1362 Weight last 48 hrs Weight 57.209 kg Weight 52.163 kg Physical Exam Narrative: Awake and alert Wheezing improved to some extent as compared to yesterday Currently on 3 L euvolemic awake and alert S1, S2 Abdomen soft Pleasant cooperative No active chest pain Nonfocal neuro exam Data 01/27/23 05:37 01/27/23 05:37 Micro: Microbiology 01/25/23 21:46 Blood Culture - Preliminary Blood NEGATIVE TO DATE 01/25/23 21:07 Blood Culture - Preliminary Blood NEGATIVE TO DATE 01/26/23 06:07 Gram Stain - Final Sputum - Expectorated Sputum A&P Assessment and plan (1) Unstable angina: (2) Respiratory failure with hypoxia: (3) COPD exacerbation: (4) Anemia: (5) H/O thoracic aortic aneurysm repair: (6) Smoker: (7) Iron deficiency anemia: (8) Acute kidney injury superimposed on chronic kidney disease: (9) Epistaxis: Plan Copd exacerbation Wheezing improved Continue budesonide and DuoNeb Chronic hypoxia currently doing well on 3 L Unstable angina: Positive stress test in LAD and left circumflex territory Cardiology consulted Active chest pain Iron-deficiency anemia Chronic kidney disease related anemia EGD and colonoscopy 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
[2023-01-27] MEDS: sodium polystyrene sulfonate 15 gm/60 mL Btl PO (11:47)
--- NOTE | 2023-01-27 14:43 | NMCV_ITS ---
NM dimple perf SPECT r/s* [id number] Eli Kimball Age: 72 Gender: F : 1950 Exam Date: 01/27/2023 06:33 Ordering Phys: Jaclyn Garcia MD Technologist: JOSE LUIS Austin Exam Location: [facility] Indications: CHEST PAIN STRESS TEST Please see separate stress test report in [facility] for full findings IMAGE PROTOCOL Rest/Stress 1 Lexiscan Day Radiopharmaceutical Dose (mCi) Administration Site Administered by Rest: Tc-99m 10.9 IV JOSE LUIS Beaver Sestamibi Stress:Tc-99m 32.7 IV JOSE LUIS Beaver Sestamibi Rest: 27-Jan-2023 60 Discovery 630 Stress: 27-Jan-2023 30 Discovery 630 0.4mg Lexiscan. Images obtained in supine and prone position. SPECT RESULTS Technical Quality: Excellent Raw Data Analysis: Normal Image Corrections: No attenuation or motion correction applied Summed Stress Score: 6 Summed Rest Score: 1 Summed Difference Score: 5 PERFUSION FINDINGS Moderate area of minimal to moderate decreased tracer uptake in the basal and mid inferior and inferolateral wall segments. Significant reversibility was noted in this region at rest. FUNCTIONAL RESULTS (calculated via Gated SPECT) Stress Image LV EF (%): 62 Stress EDV (mL):101 TID: 0.95 Stress ESV (mL):38 FUNCTIONAL FINDINGS: Segmental wall motion analysis revealing no gross wall motion abnormalities IMPRESSIONS 1. Myocardial perfusion imaging revealing moderate area of minimal to moderately decreased tracer uptake involving the inferior and inferolateral regions with a significant reversibility suggesting ischemia in the distribution of the left circumflex artery/right coronary artery. 2. Normal LV ejection fraction of 62%. 3. LV wall motion analysis revealing no gross wall motion abnormalities. 4. Normal LV volume Compared to the study from 01/07/2021, the development of ischemia in the study appears to be new Dr Arianna Patterson MD [facility] (Electronically Signed) Final Date: 27 Jan 2023 10:04 S
[2023-01-27] MEDS: atorvastatin 40 mg Tablet 80 MG PO (17:31)
[2023-01-27] MEDS: losartan 50 mg Tablet 100 MG PO (17:31)
--- NOTE | 2023-01-27 17:48 | PM.CONSULT ---
Providers/Reason For Consult Consulting Physician/Specialty*: KATHERINE Patterson MD/cardiology Reason for Consult*: Patient with congestive heart failure and abnormal Myocardial perfusion imaging Requesting Physician: Dr. Garcia Attending Physician: Jaclyn Garcia MD Primary Care Provider: Bhupinder Logan MD History of Present Illness History of Present Illness Eli Kimball is a 72 year old female who is admitted to hospital with complaints of progressive shortness of breath. She also was complaining of left-sided chest pain. She was found to be in congestive heart failure. She had a Myocardial perfusion imaging today and was found to be abnormal. Cardiology consult is requested for further cardiac evaluation recommendations. This patient has a history of COPD and essential benign hypertension. She also has history of thoracic aortic aneurysm. In September of this year, she was found to have an acute expansion of the aortic aneurysm which required immediate intervention. She was transferred to the [facility] in [facility]. Patient underwent extensive stenting of the aorta, starting from the ascending aorta to the, arch and then to the descending aorta up to the proximal abdominal aorta. Following the procedure, patient had some bleeding requiring blood transfusion. Also she had a partial collapse of the lung which required bronchial tube stent placement. She had some stroke like symptoms involving the left side of the body. As per the patient, she stayed in the hospital over a week or so. Ever since aortic intervention, she has been feeling weak and tired. No fever or chills. No significant cough. She has a history of COPD. Her shortness of breath has been progressively getting worse. She was placed on oxygen for few weeks ago. Denies any orthopnea PND. Denies any headache or blurring of vision. She has no previous history for coronary disease or myocardial infarction. History of high blood pressure, dyslipidemia and smoking abuse. She was found to have a BNP in the 16,000 range. Her shortness of breath is improving with the diuretics. Her blood urea nitrogen and the creatinine levels are slowly trending up. Review of Systems Narrative: CONSTITUTIONAL: No fever or chills. EYES: No blurring of vision or other visual disturbances lately. ENT: No hoarseness of voice, auditory disturbances or sore throat. CARDIOVASCULAR: As mentioned above. RESPIRATORY: COPD, on home oxygen GASTROINTESTINAL: No hematemesis or melena. GENITOURINARY: No dysuria or hematuria. INTEGUMENTARY: No skin rashes or history of skin cancer. NEURO: History of CVA in September? PSYCHIATRIC: No history of psychosis or major depression. HEMATOLOGIC: No bleeding disorders or significant anemia. ENDOCRINE: No history of polyuria or polydipsia. MUSCULOSKELETAL: No recent joint pain or swelling. ALLERGY/IMMUNOLOGY: As mentioned above. Medications/Allergies Home Medications Medication Instructions Recorded Confirmed Last Taken Type albuterol sulfate 90 mcg/actuation 1 - 2 inh inhalation Q4H PRN 01/03/21 01/26/23 12/09/21 History aerosol inhaler (Ventolin HFA) Shortness Of Breath gabapentin 600 mg tablet 600 mg PO TID 01/03/21 01/26/23 04/09/22 History irbesartan 300 mg tablet 300 mg PO DAILY@1800 01/03/21 01/26/23 04/09/22 History clopidogrel 75 mg tablet (Plavix) 75 mg PO DAILY 04/10/22 01/26/23 04/09/22 History desvenlafaxine succinate 50 mg 50 mg PO BEDTIME 04/10/22 01/26/23 04/09/22 History tablet,extended release 24 hr suvorexant 20 mg tablet (Belsomra) 20 mg PO BEDTIME 04/10/22 01/26/23 04/09/22 History fluticasone fur. 200 mcg-umeclid 1 inh inhalation DAILY 30 days #60 06/06/22 01/26/23 Unknown Rx 62.5 mcg-vilant 25 mcg ea inhalat.powder (Trelegy Ellipta) nebulizers #1 ea 06/06/22 01/26/23 Unknown Rx ondansetron 4 mg disintegrating 4 mg PO Q6H PRN nausea and 11/04/22 01/26/23 Unknown Rx tablet vomiting #14 tabs ipratropium 0.5 mg-albuterol 3 mg 3 ml inhalation Q4H PRN wheezing 11/06/22 01/26/23 Unknown Rx (2.5 mg base)/3 mL nebulization #90 mL soln oxygen-air delivery systems 11/13/22 01/26/23 Unknown History ergocalciferol (vitamin D2) 1,250 1,250 mcg PO Q7D 01/26/23 01/26/23 Unknown History mcg (50,000 unit) capsule ferrous gluconate 324 mg (37.5 mg 324 mg PO DAILY 01/26/23 01/26/23 Unknown History iron) tablet levofloxacin 500 mg tablet 500 mg PO BID 01/26/23 01/26/23 Unknown History prednisolone acetate 1 % eye 1 drp ophthalmic (eye) BID 01/26/23 01/26/23 Unknown History drops,suspension Allergies Allergy/AdvReac Type Severity Reaction Status Date / Time egg Allergy ADR-Vomitin Verified 11/13/22 09:04 g Current Medications Generic Name Dose Route Start Last Admin Trade Name Freq PRN Reason Stop Dose Admin Hydrocodone Bitart/Acetaminophen 1 tab 01/26/23 00:30 01/27/23 14:48 Hydrocodone-Acetaminophen 5-325 Mg Tablet PO 1 tab Q6H PRN Administration pain Albuterol/Ipratropium 3 ml 01/26/23 00:30 01/27/23 14:24 Ipratropium-Albuterol 3 Ml Neb INHALATION 3 ml Q6H.RESP ZULEMA Administration Atorvastatin Calcium 80 mg 01/26/23 18:00 01/27/23 17:31 Atorvastatin 40 Mg Tablet PO 80 mg DAILY@1800 ZULEMA Administration Budesonide 0.5 mg 01/26/23 09:00 01/27/23 08:00 Budesonide 0.5 Mg/2 Ml Neb INHALATION Not Given BID.RESPIRATORY ZULEMA Clopidogrel Bisulfate 75 mg 01/26/23 09:00 01/27/23 08:46 Clopidogrel 75 Mg Tablet PO 75 mg DAILY ZULEMA Administration Desvenlafaxine 50 mg 01/26/23 21:00 01/26/23 21:29 Desvenlafaxine 50 Mg Tablet PO 50 mg BEDTIME ZULEMA Administration Ferrous Sulfate 325 mg 01/26/23 09:00 01/27/23 08:45 Ferrous Sulfate Ec 325 Mg Tablet PO 325 mg DAILY ZULEMA Administration Gabapentin 600 mg 01/27/23 09:00 01/27/23 14:32 Gabapentin 300 Mg Capsule PO 600 mg TID ZULEMA Administration Hydrochlorothiazide 25 mg 01/26/23 09:00 01/27/23 08:46 Hydrochlorothiazide 25 Mg Tablet PO 25 mg DAILY ZULEMA Administration Losartan Potassium 100 mg 01/26/23 18:00 01/27/23 17:31 Losartan 50 Mg Tablet PO 100 mg DAILY@1800 ZULEMA Administration Ondansetron HCl 4 mg 01/27/23 06:23 01/27/23 07:26 Ondansetron 2 Mg/Ml Sdv 2 Ml IVP 4 mg Q2M PRN Administration NAUSEA Pantoprazole Sodium 40 mg 01/26/23 09:00 01/27/23 08:[address] 40 Mg Tablet PO 40 mg DAILY ZULEMA Administration PFSH Acute PFSH: Medical History (Updated 01/28/23 @ 11:26 by Jaclyn Garcia MD) Acute cystitis Acute cystitis Acute kidney injury superimposed on chronic kidney disease Blurred vision Bronchus, stenosis Patient is scheduled for stent removal in February in [place] She had atelectasis that is why she received a pulmonary stent COPD (chronic obstructive pulmonary disease) Hypertension Microcytic anemia Weakness Surgical History H/O esophagogastroduodenoscopy AVM body of stomach History of back surgery x3 History of breast surgery inverted nipple (x3) History of dental surgery History of hysterectomy 1993 History of laparoscopic cholecystectomy 1993 Status post colonoscopy (02/19/21) Diverticulosis, internal hemorrhoids Family History Other Hypertension Social History Smoking and tobacco status: current every day smoker cigarettes Years cigarettes smoked: 64 [ Other cigarette details: started age 13; 1 pack /3 days currently ] Alcohol intake: never Substance/Drug Use: never Lives independently: Yes Vitals/I&O/Wt Last Vital Signs Temp 98.4 F 01/27/23 12:23 Pulse 112 H 01/27/23 14:31 Resp 18 01/27/23 14:31 BP 98/59 01/27/23 12:23 Pulse Ox 97 01/27/23 14:31 O2 Del Method Nasal Cannula 01/27/23 14:31 O2 Flow Rate 3 01/27/23 14:31 01/27/23 01/27/23 01/27/23 06:59 14:59 22:59 Intake Total 52 / 1362 120 / 120 Output Total 800 / 800 Balance 52 / 1362 -680 / -680 Weight last 48 hrs Weight 126 lb 2 oz Weight 115 lb Physical Exam Narrative: GENERAL: The patient is alert and oriented times three. Not in any acute distress. HEENT: Moderate pallor with no icterus or lymphadenopathy.Oral cavity: There are no mucous membrane lesions. NECK: Trachea appears to be central. No masses noted. No JVD or thyromegaly appreciated. RESPIRATORY: Chest is symmetrical. No intercostals muscle retraction or any accessory muscle activation. There is no chest wall tenderness. Breath sounds are heard bilaterally. No rales or rhonchi heard. No evidence of any consolidation. BREASTS: Deferred. HEART: The heart sounds are normal. No S3 or S4. Short systolic murmur in the lower sternal border. No diastolic murmurs no pericardial rub ABDOMEN: No vessel pulsations or distention. No tenderness. No organomegaly appreciated. Bowel sounds are normally heard. : Deferred. RECTAL: Deferred. LYMPHATIC: No lymphadenopathy noted in the neck. EXTREMITIES: No edema or cyanosis. No clubbing. MUSCULOSKELETAL: No acute joint deformities or swelling SKIN: There are no significant rashes or ecchymosis NEUROPSYCHIATRIC: The patient is alert and oriented x3. Appears to be in a good mood. No tremors or rigidity noted. Data 01/28/23 04:17 01/28/23 04:17 Other Labs: Laboratory Last Values WBC 7.4 10^3/uL (4.0-10.0) 01/27/23 05:37 RBC 3.18 10^6/uL (4.1-5.3) L 01/27/23 05:37 Hgb 8.0 g/dL (11.5-15.3) L 01/27/23 05:37 Hct 27.5 % (37.0-47.0) L 01/27/23 05:37 MCV 86.5 fl (81-99) 01/27/23 05:37 MCH 25.2 pg (28.0-34.0) L 01/27/23 05:37 MCHC 29.1 g/dL (30.0-36.0) L 01/27/23 05:37 RDW 18.3 % (12.1-15.1) H 01/27/23 05:37 Plt Count 160 10^3/cmm (130-400) 01/27/23 05:37 MPV 10.3 fL (7.4-10.4) 01/27/23 05:37 Neut % (Auto) 73.9 % 01/27/23 05:37 Lymph % (Auto) 16.5 % 01/27/23 05:37 [place] % (Auto) 5.7 % 01/27/23 05:37 Eos % (Auto) 2.7 % 01/27/23 05:37 Baso % (Auto) 0.8 % 01/27/23 05:37 Neut # (Auto) 5.46 10^3/uL (1.8-7.7) 01/27/23 05:37 Lymph # (Auto) 1.2 10^3/uL (0.8-4.8) 01/27/23 05:37 [place] # (Auto) 0.4 10^3/uL (0.2-0.9) 01/27/23 05:37 Eos # (Auto) 0.2 10^3/uL (0.0-0.8) 01/27/23 05:37 Baso # (Auto) 0.1 10^3/uL (0.0-0.1) 01/27/23 05:37 Nucleated RBC % (auto) 0 % 01/27/23 05:37 Nucleated RBCs # 0.0 /100WBC 01/27/23 05:37 D-Dimer 16.54 ug/mIFEU (0-0.59) H 01/25/23 21:07 Specimen Type Arterial 01/25/23 21:06 Sample Site Radial, right 01/25/23 21:06 ABG pH 7.32 (7.35-7.45) L 01/25/23 21:06 ABG pCO2 36.4 mmHg (35-45) 01/25/23 21:06 ABG pO2 223.0 mmHg (80.0-100.0) H 01/25/23 21:06 ABG HCO3 18.8 mmol/L (22-26) L 01/25/23 21:06 ABG Base Excess -6.6 mmol/L (-2.0-2.0) L 01/25/23 21:06 Don Test Pos 01/25/23 21:06 Hematocrit 20.5 % (37-47) L 01/25/23 21:06 Hgb O2 Saturation 96.7 % (95-100) 01/25/23 21:06 Carboxyhemoglobin 2.9 %THgb (0.4-20.1) 01/25/23 21:06 Methemoglobin 1.1 % (0.4-1.5) 01/25/23 21:06 Total Hemoglobin 6.7 g/dL (12-16) L 01/25/23 21:06 O2 Delivery Device Nrb 01/25/23 21:06 O2 Liters/Min 15.0 % 01/25/23 21:06 FiO2 99.0 % 01/25/23 21:06 Lathe Hand ID [email or web address] 01/25/23 21:06 Sodium 131 mmol/L (136-145) L 01/27/23 05:37 Potassium 5.2 mmol/L (3.5-5.1) H 01/27/23 05:37 Chloride 104 mmol/L (98-107) 01/27/23 05:37 Carbon Dioxide 17 mmol/L (22-29) L 01/27/23 05:37 Anion Gap 15.2 (5-19) 01/27/23 05:37 BUN 45 mg/dL (8-23) H 01/27/23 05:37 Creatinine 1.8 mg/dL (0.5-0.9) H 01/27/23 05:37 GFR Calculation Not Reportable 01/27/23 05:37 Glucose 101 mg/dL (65-115) 01/27/23 05:37 Calculated Osmolality 284 mOsm/kg (285-295) L 01/27/23 05:37 Lactic Acid 1.0 mmol/L (0.5-2.2) 01/25/23 21:07 Calcium 8.8 mg/dL (8.5-10.5) 01/27/23 05:37 Magnesium 2.3 mg/dL (1.7-2.3) 01/26/23 03:43 Total Bilirubin 0.5 mg/dL (0.15-1.2) 01/26/23 03:43 AST 7 U/L (0-32) 01/26/23 03:43 ALT < 5 U/L (0-33) 01/26/23 03:43 Alkaline Phosphatase 80 U/L (35-105) 01/26/23 03:43 Troponin T Baseline 32 ng/L (0-10) H 01/25/23 21:07 Troponin T 120 Minute 40.63 ng/L (0-10) H 01/25/23 23:00 Delta Troponin T 8.63 ABS# (0-10) 01/25/23 23:00 Troponin T Hi Sens 6Hr 41.39 ng/L (0-10) H 01/26/23 03:43 Troponin T Hi Sens 6Hr Delta 9.39 ng/L (0-12) 01/26/23 03:43 NT-Pro-B Natriuret Pep 36997 pg/mL (0-125) H 01/25/23 21:07 Total Protein 6.2 g/dL (6.6-8.7) L 01/26/23 03:43 Albumin 2.9 g/dL (3.5-5.2) L 01/26/23 03:43 Globulin 3.3 g/dL (1.3-4.6) 01/26/23 03:43 SARS-CoV-2 Ag (Rapid) negative 01/25/23 21:16 Blood Type A Positive 01/25/23 21:45 Rho(D) Type Positive 01/25/23 21:45 Antibody Screen Negative 01/25/23 21:45 Crossmatch See Detail 01/25/23 21:45 Micro: Microbiology 01/26/23 06:07 Gram Stain - Final Sputum - Expectorated Sputum Sputum Culture - Preliminary 01/25/23 21:46 Blood Culture - Preliminary Blood NEGATIVE TO DATE 01/25/23 21:07 Blood Culture - Preliminary Blood NEGATIVE TO DATE Myocardial perfusion imaging: My impression: 1.? Myocardial perfusion imaging revealing moderate area of minimal to ?moderately decreased tracer uptake involving the inferior and inferolateral ?regions with a significant reversibility suggesting ischemia in the ?distribution of the left circumflex artery/right coronary artery. ?2.? Normal LV ejection fraction of 62%. ?3.? LV wall motion analysis revealing no gross wall motion abnormalities. ?4.? Normal LV volume ?Compared to the study from 01/07/2021, the development of ischemia in? the study ?appears to be new CTA Chest: Radiologist's impression: 11/13/22 1.? Proximal main pulmonary arteries are normal. No evidence of pulmonary embolus. 2.? Stable extensive stent graft repair of the previously described type B aortic dissection. Stent graft involves the ascending thoracic aorta and entire descending thoracic and upper abdominal aorta. 3.? Surrounding mural thrombus is decreased in size compared to prior examinations. No evidence of new or progressive intramural hematoma. 4.? No evidence of pulmonary embolus. 5.? Thoracic aneurysm compresses and significantly effaces the LEFT atrium unchanged since the prior examinations. 6.? LEFT subclavian artery occluded at the origin but is well opacified likely due to subclavian steal. This is unchanged from the most recent examination post stent graft placement. CTA Chest/abeomen/Pelvis: My impression: 01/25/23 1. ? Thoracic aortic stent extending from the aortic arch to the upper abdominal aorta with an excluded aneurysm sac, negative for contrast extravasation, similar to prior exam. 2. ? Pericardial effusion measuring 6.2 mm in thickness. 3. ? Cardiomegaly. 4. ? Coronary artery atherosclerotic calcifications. 5. ? Emphysematous changes. 6. ? Bibasilar atelectasis . 7. ? Lumbar spine vertebroplasty changes. 8. ? Cholecystectomy. 9. ? Splenic cyst. 10. ? Bilateral renal cysts, negative for follow-up advised. 11. ? Constipation. 12.? Infrarenal abdominal aortic aneurysm measuring 3.7 cm diameter without rupture. 13.? Lumbar spine vertebroplasty changes and surgical hardware seen in place. 14.? Diverticulosis without diverticulitis.? ?09/12/2022 CT of the chest, abdomen and pelvis, prior to the stenting 1.? Marked progression of the type B aortic dissection with marked enlargement of the false lumen with surrounding thrombus suspicious for intramural hematoma and impending rupture. This measures 7.8 x 9.8 x 10.5 cm markedly progressed compared to previous where it measured approximately 5.0 x 5.2 CM. 2.? Marked mass effect on the LEFT atrium with complete effacement. Splaying of the pulmonary arteries and shakira with mass effect on the main stem bronchi. This results in collapse of the RIGHT lower lobe. Trace pleural fluid RIGHT lower lobe. 3.? Small pericardial effusion 4.? Ascending thoracic aorta is normal and unchanged. 5.? Common origin of the celiac and SMA appear patent. 6.? Renal arteries are patent with moderate ostial stenosis bilaterally. 7.? Abdominal aorta is unchanged compared to previous. No significant infrarenal abdominal aortic aneurysm. ? EKG 1: My Interpretation: Normal sinus rhythm with a heart rate of 100 bpm. Poor R wave progression. Possible left atrial enlargement. Minimal left axis deviation. A&P Assessment and plan (1) Abnormal nuclear cardiac imaging test: The abnormal Myocardial perfusion imaging is suggestive of ischemia in the distribution of the right coronary artery and circumflex artery. Patient seems to be fairly stable from a hemodynamic standpoint. I may start her on a beta-amberly namely metoprolol 25 mg p.o. twice daily and isosorbide mononitrate 30 mg p.o. daily. (2) Congestive heart failure: Patient has a markedly elevated BNP. Her anemia could be a major contributing factor for the heart failure. Underlying coronary ischemia also may have a significant contribution. Her troponin T were within normal limits. The current LV function is not known. We will go ahead and do an echocardiogram to evaluate LV function and rule out any other pathology. (3) H/O thoracic aortic aneurysm repair: Patient apparently had extensive repair of the thoracic aneurysm stenting, starting from the ascending aorta to the upper abdominal aorta. The aneurysm sac was measuring up to 10 cm in diameter. She was found to have extensive mural thrombus and intramural hematoma. The current the CT is shows some slow resolution of these. (4) Acute kidney injury superimposed on chronic kidney disease: The BUN/creatinine level seems to be going up. (5) Severe anemia: The hemoglobin was 6.8 the time of admission. She received 1 unit of blood transfusion. Currently the hemoglobin is around 8. I would like to see the hemoglobin between 9 and 10. (6) Abdominal aortic aneurysm: The infrarenal aortic aneurysm was measuring 3.7 cm in diameter. (7) Left subclavian artery occlusion: Patient apparently was found to have occlusion of the subclavian artery? Jailed from the aortic stent graft. 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 She has some weakness of the left upper extremity. No significant change since the hospital discharge from [place]. (8) Left-sided cerebrovascular accident (CVA): Patient continues to have some feeling of weakness on the left side, more so on the left upper extremity. (9) Hypertension: Currently normotensive. May continue on the current medications. (10) COPD exacerbation: Clinically seems to be stable. She is on bronchodilator. Seems to be responding. Consult Attestations Medical Necessity Statement: She requires a cardiac catheterization, to further evaluate her coronary status and decide on further management. However in view of the anemia and the abnormal kidney function, she carries a high risk for any invasive or notable procedures. Interval be appropriate to wait till the kidney function is stabilized. I also would like to see the hemoglobin between 9 and 10. Patient has a high risk of developing contrast-induced nephropathy and other concomitant complications. She needs to be closely monitored on telemetry. Based on the clinical progress and the results of the above further recommendations will be made. Thank you for the opportunity to evaluate this patient make these recommendations Coding Level of Care Code 92227 Diagnoses Abnormal nuclear cardiac imaging test R93.1 Congestive heart failure I50.9 H/O thoracic aortic aneurysm repair Z98.890; Z86.79 Acute kidney injury superimposed on chronic kidney disease N17.9; N18.9 Severe anemia D64.9 Abdominal aortic aneurysm I71.40 Left subclavian artery occlusion I70.8 Left-sided cerebrovascular accident (CVA) I63.9 Hypertension I10 COPD exacerbation J44.1 Time Spent (min) 65
--- NOTE | 2023-01-27 17:49 | USCV_ITS ---
Eli Kimball Age: 72 Gender: F : 1950 Exam Date: 01/27/2023 21:24 Ordering Phys: Arianna Patterson MD ([email or web address]) Technologist: ANAND Exam Location: [facility] [place] Indication: sob , CP. No history of cardiac intervention per patient. BP: 121 / 66 HR: 99 Rhythm: Sinus Technical Quality: Adequate MEASUREMENTS (Male / Female) Normal Values 2D ECHO LV Diastolic Diameter PLAX 4.0 cm 4.2 - 5.9 / 3.9 - 5.3 cm LV Systolic Diameter PLAX 2.7 cm IVS Diastolic Thickness 1.5 cm 0.6 - 1.0 / 0.6 - 0.9 cm IVS Systolic Thickness 2.5 cm LVPW Diastolic Thickness 1.9 cm 0.6 - 1.0 / 0.6 - 0.9 cm LVPW Systolic Thickness 2.0 cm LVOT Diameter 2.0 cm LV Ejection Fraction 2D Teich 61.5 % LV Ejection Fraction MOD 2C 65.3 % LV Ejection Fraction 2C AL 65.3 % LA Diameter 3.1 cm LA Width 3.5 cm LA Height 4.1 cm RA Width 2.8 cm RA Height 4.4 cm Aorta at Sinotubular Diameter 3.2 cm IVC Diameter 2.0 cm M-MODE Aortic Annulus Diameter 2.7 cm LA Ao Ratio MM 1.0 MV E Point Septal Separation 0.2 cm DOPPLER AV Peak Velocity 124.0 cm/s LVOT Peak Velocity 112.0 cm/s AV Area Cont Eq vti 3.0 cm squared AV Area Cont Eq pk 2.9 cm squared MV Peak Velocity 163.0 cm/s MV Area PHT 5.4 cm squared Mitral E to A Ratio 0.6 MV E' Velocity 50.5 cm/s Mitral E to MV E' Ratio 7.5 Mitral E to LV E' Lateral Ratio 5.9 Mitral E to LV E' Septal Ratio 10.4 TR Peak Velocity 248.0 cm/s TR Peak Gradient 24.6 mmHg TV Peak E Velocity 47.0 cm/s Right Atrial Pressure 5.0 mmHg Pulmonary Artery Systolic Pressu 29.6 mmHg PV Peak Velocity 120.0 cm/s RV Acceleration Time 0.1 s RV Ejection Time 0.3 s RV AcT/ET 0.3 FINDINGS Left Ventricle Normal left ventricular size and systolic function, EF 65 %. Moderate left ventricular hypertrophy. No regional wall motion abnormalities. Grade I/IV diastolic dysfunction (abnormal relaxation filling pattern), normal to mildly elevated filling pressures. Right Ventricle The right ventricle is normal in size and function. Right Atrium The right atrium is normal in size. Left Atrium Left atrium appears to have slight extrinsic compression possibly from the descending thoracic aortic aneurysm Mitral Valve Mild mitral annular calcification. Thickened mitral valve. Aortic Valve Thickened aortic valve. Tricuspid Valve No gross abnormalities noted Pulmonic Valve Appears to be minimally thickened Pericardium No pericardial effusion. Aorta Possible descending aortic aneurysm with stent graft causing slight extrinsic compression of the left atrium. The upper abdominal aorta measured 4.86 cm in diameter IVC The inferior vena cava appears normal. CONCLUSIONS Normal left ventricular size and systolic function, EF 65 %. Moderate left ventricular hypertrophy. No regional wall motion abnormalities. Grade I/IV diastolic dysfunction (abnormal relaxation filling pattern), normal to mildly elevated filling pressures. Possible descending aortic aneurysm with stent graft causing slight extrinsic compression of the left atrium. The upper abdominal aorta measured 4.86 cm in diameter. Mild mitral annular calcification. Thickened mitral valve. Thickened aortic valve. Mild mitral annular calcification. Thickened mitral valve. There is no pericardial effusion. Dr Arianna Patterson MD [facility] (Electronically Signed) Final Date: 28 Jan 2023 00:09 S
[2023-01-27] MEDS: desvenlafaxine 50 mg Tablet PO (20:27)
[2023-01-27] MEDS: enoxaparin 30 mg/0.3 mL Syringe SUBCUT (20:31)
[2023-01-27] MEDS: budesonide 0.5 mg/2 mL Neb INHALATION (21:47)
[2023-01-28] VITALS (23 sets, daily range): BP systolic 83–157; BP diastolic 63–88; PULSE 72–102; RESP 14–20; TEMP 36.2–36.9; O2SAT 94–100
[2023-01-28] MEDS: ipratropium-albuterol 3 mL Neb INHALATION ×4 (03:00→19:28)
[2023-01-28 05:03] LABS: Basophils # 0.1 10^3/uL (0.0-0.1); Basophils % 0.9 %; Eosinophils # 0.2 10^3/uL (0.0-0.8); Eosinophils % 3.1 %; Hematocrit 26.5 % (37.0-47.0); Lymphocytes # 1.1 10^3/uL (0.8-4.8); Mean Corpuscular HGB Conc 30.2 g/dL (30.0-36.0); Mean Corpuscular Hemoglobin 25.8 pg (28.0-34.0); Mean Corpuscular Volume 85.5 fl (81-99); Mean Platelet Volume 10.3 fL (7.4-10.4); Monocytes # 0.4 10^3/uL (0.2-0.9); Monocytes % 6.1 %; Neutrophils # 4.73 10^3/uL (1.8-7.7); Neutrophils % 72.4 %; Nucleated Red Blood Cells % 0 %; Platelet Count 153 10^3/cmm (130-400); Red Cell Distribution Width 18.7 % (12.1-15.1); White Blood Count 6.5 10^3/uL (4.0-10.0)
[2023-01-28 05:26] LABS: Anion Gap 12.9 (5-19); Blood Urea Nitrogen 44 mg/dL (8-23); Calcium 8.7 mg/dL (8.5-10.5); Carbon Dioxide 21 mmol/L (22-29); Chloride 104 mmol/L (98-107); Glucose 80 mg/dL (65-115); Osmolality Calculated 286 mOsm/kg (285-295); Potassium 4.9 mmol/L (3.5-5.1); Sodium 133 mmol/L (136-145)
[2023-01-28] MEDS: HYDROcodone-acetaminophen 5-325 mg Tablet 1 TAB PO ×2 (07:51→14:49)
[2023-01-28] MEDS: budesonide 0.5 mg/2 mL Neb INHALATION ×2 (07:57→19:28)
[2023-01-28] MEDS: gabapentin 300 mg Capsule 600 MG PO ×3 (08:05→21:11)
[2023-01-28] MEDS: hyDRALAzine 10 mg Tablet PO ×3 (08:05→21:11)
[2023-01-28] MEDS: ferrous sulfate EC 325 mg Tablet PO (08:06)
[2023-01-28] MEDS: pantoprazole DR 40 mg Tablet PO (08:06)
[2023-01-28] MEDS: FUROsemide 10 mg/mL SDV 4mL 40 MG IVP (08:13)
[2023-01-28] MEDS: ALPRAZolam 0.5 mg Tablet 0.25 MG PO (08:16)
[2023-01-28] MEDS: lactulose oral liq 20 gm/30 mL UDC PO (08:16)
[2023-01-28] MEDS: heparin 5,000 unit/mL INJ 1 mL 5000 UNIT SUBCUT ×2 (08:21→19:14)
[2023-01-28] MEDS: clopidogrel 75 mg Tablet PO (08:21)
--- NOTE | 2023-01-28 11:23 | P.PN_ITS ---
Subjective Subjective: Goal hemoglobin is 9 g Patient is agreeable for angiogram she completely understand that she will be at risk of contrast-induced nephropathy requiring dialysis in the future She does not want to go to [place] at this point Labile blood pressure No bowel movement yet Patient states she goes once a week . Lasix added She is already on Plavix along atorvastatin Discontinued lisinopril and hydrochlorothiazide Creatinine 1.9 Added hydralazine Wheezing significantly better Vitals/I&O/Wt Last Vital Signs Temp 97.6 F 01/28/23 08:00 Pulse 92 01/28/23 08:00 Resp 17 01/28/23 08:00 BP 83/63 01/28/23 08:00 Pulse Ox 100 01/28/23 08:00 O2 Del Method Nasal Cannula 01/28/23 08:00 O2 Flow Rate 3 01/28/23 07:59 01/27/23 01/28/23 01/28/23 22:59 06:59 14:59 Intake Total 120 / 600 Balance 120 / -200 Physical Exam Narrative: Significantly improved Currently on 3 L Awake and alert S1, S2 variable Abdomen soft Clinically does not look fluid overloaded Awake and alert GCS 15 EOMI, PERRLA Pleasant and cooperative Patient has a very good sense of humor Data 01/28/23 04:17 01/28/23 04:17 Micro: Microbiology 01/26/23 06:07 Gram Stain - Final Sputum - Expectorated Sputum Sputum Culture - Final A&P Assessment and plan (1) Left-sided cerebrovascular accident (CVA): (2) Abdominal aortic aneurysm: (3) Severe anemia: (4) Congestive heart failure: (5) Abnormal nuclear cardiac imaging test: (6) Unstable angina: (7) Respiratory failure with hypoxia: (8) COPD exacerbation: (9) Anemia: (10) Iron deficiency anemia: Plan Unstable angina Positive stress test Patient is agreeable for angiogram Dr. Patterson updated Target hemoglobin should be around 9 g Pressures preserved ejection fraction without wall motion abnormality Patient completely understand that she will be at risk of contrast-induced nephropathy that might require temporary versus permanent dialysis Thoracic aortic aneurysm status post repair Previous history of bronchial stent secondary to atelectasis plan for removal at [place] in February on chronic kidney disease 2020 GFR was around 37 Now it is not affordable most likely chronic kidney disease transition from stage III to stage IV Patient's creatinine ranged from 1.5-2.5 Hold hydrochlorothiazide and losartan Patient ejection fraction BNP is high clinically no signs of fluid overload IV Lasix 40 mg for now COPD exacerbation: Improving Responded to mag and budesonide Iron deficiency anemia Anemia of chronic disease Status post 2 unit PRBC Given history of recurrent blood transfusion related to chronic renal disease DNR/DNI Cardiac diet n.p.o. after midnight DVT prophylaxis on board Attestations Medical Necessity Statement*: Continue medical management Diagnoses Left-sided cerebrovascular accident (CVA) I63.9 Abdominal aortic aneurysm I71.40 Severe anemia D64.9 Congestive heart failure I50.9 Abnormal nuclear cardiac imaging test R93.1 Unstable angina I20.0 Respiratory failure with hypoxia J96.91 COPD exacerbation J44.1 Anemia D64.9 Iron deficiency anemia D50.9
[2023-01-28] MEDS: FUROsemide 10 mg/mL SDV 2mL 20 MG IVP (13:38)
[2023-01-28] MEDS: predniSONE 20 mg Tablet 40 MG PO (16:41)
[2023-01-28] MEDS: atorvastatin 40 mg Tablet 80 MG PO (17:21)
[2023-01-28] MEDS: guaiFENesin 600 mg Tablet PO (17:21)
--- NOTE | 2023-01-28 18:02 | PM.PN ---
Subjective Subjective: Patient denies any chest pain. Still has a baseline shortness of breath. Also has a cough with some sputum production. Has difficulty in coughing up Medications: Medication Review Details: Current Medications Acetaminophen (Acetaminophen 325 Mg Tablet) 650 mg PO Q6H PRN PRN Reason: Mild/Mod Pain Or Temp >/= 101 Hydrocodone Bitart/Acetaminophen (Hydrocodone-Acetaminophen 5-325 Mg Tablet) 1 tab PO Q6H PRN PRN Reason: pain Last Admin: 01/28/23 14:49 Dose: 1 tab Acetylcysteine (Acetylcysteine 200 Mg/Ml Sdv 4 Ml) 200 mg INHALATION Q4H.RESPIRATORY ZULEMA Albuterol/Ipratropium (Ipratropium-Albuterol 3 Ml Neb) 3 ml INHALATION Q6H.RESP ZULEMA Last Admin: 01/28/23 13:25 Dose: 3 ml Atorvastatin Calcium (Atorvastatin 40 Mg Tablet) 80 mg PO DAILY@1800 ZULEMA Last Admin: 01/28/23 17:21 Dose: 80 mg Budesonide (Budesonide 0.5 Mg/2 Ml Neb) 0.5 mg INHALATION BID.RESPIRATORY ZULEMA Last Admin: 01/28/23 07:57 Dose: 0.5 mg Clopidogrel Bisulfate (Clopidogrel 75 Mg Tablet) 75 mg PO DAILY ZULEMA Last Admin: 01/28/23 08:21 Dose: 75 mg Desvenlafaxine (Desvenlafaxine 50 Mg Tablet) 50 mg PO BEDTIME ZULEMA Last Admin: 01/27/23 20:27 Dose: 50 mg Ferrous Sulfate (Ferrous Sulfate Ec 325 Mg Tablet) 325 mg PO DAILY ZULEMA Last Admin: 01/28/23 08:06 Dose: 325 mg Furosemide (Furosemide 10 Mg/Ml Sdv 4ml) 40 mg IVP Q24H ZULEMA Last Admin: 01/28/23 08:13 Dose: 40 mg Gabapentin (Gabapentin 300 Mg Capsule) 600 mg PO TID ZULEMA Last Admin: 01/28/23 14:49 Dose: 600 mg Guaifenesin (Guaifenesin 600 Mg Tablet) 600 mg PO BID ZULEMA Last Admin: 01/28/23 17:21 Dose: 600 mg Heparin Sodium (Porcine) (Heparin 5,000 Unit/Ml Inj 1 Ml) 5,000 unit SUBCUT Q12H ZULEMA Last Admin: 01/28/23 08:21 Dose: 5,000 unit Hydralazine HCl (Hydralazine 10 Mg Tablet) 10 mg PO TID [facility] Last Admin: 01/28/23 14:49 Dose: 10 mg Hydrochlorothiazide (Hydrochlorothiazide 25 Mg Tablet) 25 mg PO DAILY [facility] Last Admin: 01/27/23 08:46 Dose: 25 mg Labetalol HCl (Labetalol 5 Mg/Ml Sdv 20ml) 10 mg IVP Q6H PRN PRN Reason: >180/100mmhg Losartan Potassium (Losartan 50 Mg Tablet) 100 mg PO DAILY@1800 [facility] Last Admin: 01/27/23 17:31 Dose: 100 mg Ondansetron HCl (Ondansetron 2 Mg/Ml Sdv 2 Ml) 4 mg IVP Q8H PRN PRN Reason: vomiting, or N/V if npo Ondansetron HCl (Ondansetron 2 Mg/Ml Sdv 2 Ml) 4 mg IVP Q2M PRN PRN Reason: NAUSEA Last Admin: 01/27/23 07:26 Dose: 4 mg Pantoprazole Sodium (Pantoprazole Dr 40 Mg Tablet) 40 mg PO DAILY [facility] Last Admin: 01/28/23 08:06 Dose: 40 mg Prednisone (Prednisone 20 Mg Tablet) 40 mg PO DAILY [facility] Last Admin: 01/28/23 16:41 Dose: 40 mg Sodium Chloride (Sodium Chloride 0.9% 100 Ml Bag) 50 ml IV PRN PRN PRN Reason: Blood transfusion prime and flush Stop: 01/29/23 07:14 Vitals/I&O/Wt Last Vital Signs Temp 97.9 F 01/28/23 16:22 Pulse 89 01/28/23 16:22 Resp 19 H 01/28/23 16:22 BP 149/80 01/28/23 16:22 Pulse Ox 97 01/28/23 16:22 O2 Del Method Room Air 01/28/23 15:44 O2 Flow Rate 3 01/28/23 15:44 01/28/23 01/28/23 01/28/23 06:59 14:59 22:59 Intake Total 720 / 720 52 / 772 Output Total 1400 / 1400 Balance 720 / 720 -1348 / -628 Physical Exam Narrative: GENERAL: The patient is alert and oriented times three. Not in any acute distress. HEENT: Moderate pallor with no icterus or lymphadenopathy.Oral cavity: There are no mucous membrane lesions. NECK: Trachea appears to be central. No masses noted. No JVD or thyromegaly appreciated. RESPIRATORY: Chest is symmetrical. No intercostals muscle retraction or any accessory muscle activation. There is no chest wall tenderness. Breath sounds are heard bilaterally. No rales or rhonchi heard. No evidence of any consolidation. BREASTS: Deferred. HEART: The heart sounds are normal. No S3 or S4. Short systolic murmur in the lower sternal border. No diastolic murmurs no pericardial rub ABDOMEN: No vessel pulsations or distention. No tenderness. No organomegaly appreciated. Bowel sounds are normally heard. : Deferred. RECTAL: Deferred. LYMPHATIC: No lymphadenopathy noted in the neck. EXTREMITIES: No edema or cyanosis. No clubbing. MUSCULOSKELETAL: No acute joint deformities or swelling SKIN: There are no significant rashes. NEUROPSYCHIATRIC: Minimal left-sided weakness Data 01/28/23 04:17 01/28/23 04:17 Other Labs: Laboratory Last Values WBC 6.5 10^3/uL (4.0-10.0) 01/28/23 04:17 RBC 3.10 10^6/uL (4.1-5.3) L 01/28/23 04:17 Hgb 8.0 g/dL (11.5-15.3) L 01/28/23 04:17 Hct 26.5 % (37.0-47.0) L 01/28/23 04:17 MCV 85.5 fl (81-99) 01/28/23 04:17 MCH 25.8 pg (28.0-34.0) L 01/28/23 04:17 MCHC 30.2 g/dL (30.0-36.0) 01/28/23 04:17 RDW 18.7 % (12.1-15.1) H 01/28/23 04:17 Plt Count 153 10^3/cmm (130-400) 01/28/23 04:17 MPV 10.3 fL (7.4-10.4) 01/28/23 04:17 Neut % (Auto) 72.4 % 01/28/23 04:17 Lymph % (Auto) 17.0 % 01/28/23 04:17 [place] % (Auto) 6.1 % 01/28/23 04:17 Eos % (Auto) 3.1 % 01/28/23 04:17 Baso % (Auto) 0.9 % 01/28/23 04:17 Neut # (Auto) 4.73 10^3/uL (1.8-7.7) 01/28/23 04:17 Lymph # (Auto) 1.1 10^3/uL (0.8-4.8) 01/28/23 04:17 [place] # (Auto) 0.4 10^3/uL (0.2-0.9) 01/28/23 04:17 Eos # (Auto) 0.2 10^3/uL (0.0-0.8) 01/28/23 04:17 Baso # (Auto) 0.1 10^3/uL (0.0-0.1) 01/28/23 04:17 Nucleated RBC % (auto) 0 % 01/28/23 04:17 Nucleated RBCs # 0.0 /100WBC 01/28/23 04:17 D-Dimer 16.54 ug/mIFEU (0-0.59) H 01/25/23 21:07 Specimen Type Arterial 01/25/23 21:06 Sample Site Radial, right 01/25/23 21:06 ABG pH 7.32 (7.35-7.45) L 01/25/23 21:06 ABG pCO2 36.4 mmHg (35-45) 01/25/23 21:06 ABG pO2 223.0 mmHg (80.0-100.0) H 01/25/23 21:06 ABG HCO3 18.8 mmol/L (22-26) L 01/25/23 21:06 ABG Base Excess -6.6 mmol/L (-2.0-2.0) L 01/25/23 21:06 Don Test Pos 01/25/23 21:06 Hematocrit 20.5 % (37-47) L 01/25/23 21:06 Hgb O2 Saturation 96.7 % (95-100) 01/25/23 21:06 Carboxyhemoglobin 2.9 %THgb (0.4-20.1) 01/25/23 21:06 Methemoglobin 1.1 % (0.4-1.5) 01/25/23 21:06 Total Hemoglobin 6.7 g/dL (12-16) L 01/25/23 21:06 O2 Delivery Device Nrb 01/25/23 21:06 O2 Liters/Min 15.0 % 01/25/23 21:06 FiO2 99.0 % 01/25/23 21:06 Electrical Installation Supervisor ID [email or web address] 01/25/23 21:06 Sodium 133 mmol/L (136-145) L 01/28/23 04:17 Potassium 4.9 mmol/L (3.5-5.1) 01/28/23 04:17 Chloride 104 mmol/L (98-107) 01/28/23 04:17 Carbon Dioxide 21 mmol/L (22-29) L 01/28/23 04:17 Anion Gap 12.9 (5-19) 01/28/23 04:17 BUN 44 mg/dL (8-23) H 01/28/23 04:17 Creatinine 1.9 mg/dL (0.5-0.9) H 01/28/23 04:17 GFR Calculation Not Reportable 01/28/23 04:17 Glucose 80 mg/dL (65-115) 01/28/23 04:17 Calculated Osmolality 286 mOsm/kg (285-295) 01/28/23 04:17 Lactic Acid 1.0 mmol/L (0.5-2.2) 01/25/23 21:07 Calcium 8.7 mg/dL (8.5-10.5) 01/28/23 04:17 Magnesium 2.3 mg/dL (1.7-2.3) 01/26/23 03:43 Total Bilirubin 0.5 mg/dL (0.15-1.2) 01/26/23 03:43 AST 7 U/L (0-32) 01/26/23 03:43 ALT < 5 U/L (0-33) 01/26/23 03:43 Alkaline Phosphatase 80 U/L (35-105) 01/26/23 03:43 Troponin T Baseline 32 ng/L (0-10) H 01/25/23 21:07 Troponin T 120 Minute 40.63 ng/L (0-10) H 01/25/23 23:00 Delta Troponin T 8.63 ABS# (0-10) 01/25/23 23:00 Troponin T Hi Sens 6Hr 41.39 ng/L (0-10) H 01/26/23 03:43 Troponin T Hi Sens 6Hr Delta 9.39 ng/L (0-12) 01/26/23 03:43 NT-Pro-B Natriuret Pep 45975 pg/mL (0-125) H 01/25/23 21:07 Total Protein 6.2 g/dL (6.6-8.7) L 01/26/23 03:43 Albumin 2.9 g/dL (3.5-5.2) L 01/26/23 03:43 Globulin 3.3 g/dL (1.3-4.6) 01/26/23 03:43 SARS-CoV-2 Ag (Rapid) negative 01/25/23 21:16 Blood Type A Positive 01/25/23 21:45 Rho(D) Type Positive 01/25/23 21:45 Antibody Screen Negative 01/25/23 21:45 Crossmatch See Detail 01/25/23 21:45 Micro: Microbiology 01/26/23 06:07 Gram Stain - Final Sputum - Expectorated Sputum Sputum Culture - Final A&P Assessment and plan (1) Abnormal nuclear cardiac imaging test: The abnormal Myocardial perfusion imaging is suggestive of ischemia in the distribution of the right coronary artery and circumflex artery. Patient seems to be fairly stable from a hemodynamic standpoint. I may start her on a beta-amberly namely metoprolol 25 mg p.o. twice daily and isosorbide mononitrate 30 mg p.o. daily. Seems to be tolerating the medications overall well. May continue the same. (2) Congestive heart failure: Patient has a markedly elevated BNP. Her anemia could be a major contributing factor for the heart failure. Underlying coronary ischemia also may have a significant contribution. Her troponin T were within normal limits. The echocardiogram was reviewed. LV ejection fraction is within normal limits. May continue IV Lasix on a as needed basis. (3) H/O thoracic aortic aneurysm repair: Patient apparently had extensive repair of the thoracic aneurysm stenting, starting from the ascending aorta to the upper abdominal aorta. The aneurysm sac was measuring up to 10 cm in diameter. She was found to have extensive mural thrombus and intramural hematoma. The current the CT is shows some slow resolution of these. (4) Acute kidney injury superimposed on chronic kidney disease: The BUN/creatinine level seems to be still going. (5) Severe anemia: Status post blood transfusion x1. Patient is going to have another unit of blood transfusion today. (6) Abdominal aortic aneurysm: The infrarenal aortic aneurysm was measuring 3.7 cm in diameter. (7) Left subclavian artery occlusion: Patient apparently was found to have occlusion of the subclavian artery? Jailed from the aortic stent graft. 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 She has some weakness of the left upper extremity. No significant change since the hospital discharge from [place]. (8) Left-sided cerebrovascular accident (CVA): Patient continues to have some feeling of weakness on the left side, more so on the left upper extremity. (9) Hypertension: Currently normotensive. May continue on the current medications. (10) COPD exacerbation: Clinically seems to be stable. She is on bronchodilator. Seems to be responding. Plan Discussed with Dr. Garcia. Since the BUN and creatinine levels are trending upward it was thought to be appropriate to hold off on the coronary angiogram for the time being. She is going to get 1 more unit of blood transfusion today. Repeat a BMP and CBC tomorrow. Based on the results, further recommendations will be made. Since I am going to be out of town, Dr. Alfaro will be following up on this patient for further cardiac management. Attestations Medical Necessity Statement*: Patient requires continued hospital stay for close monitoring and further management Coding Level of Care Code 21906 Diagnoses Abnormal nuclear cardiac imaging test R93.1 Congestive heart failure I50.9 H/O thoracic aortic aneurysm repair Z98.890; Z86.79 Acute kidney injury superimposed on chronic kidney disease N17.9; N18.9 Severe anemia D64.9 Abdominal aortic aneurysm I71.40 Left subclavian artery occlusion I70.8 Left-sided cerebrovascular accident (CVA) I63.9 Hypertension I10 COPD exacerbation J44.1
[2023-01-28] MEDS: acetylcysteine 200 mg/mL SDV 4 mL INHALATION (19:29)
[2023-01-28] MEDS: desvenlafaxine 50 mg Tablet PO (21:11)
[2023-01-29] VITALS (14 sets, daily range): BP systolic 106–148; BP diastolic 61–80; PULSE 76–107; RESP 14–18; TEMP 36.6–37; O2SAT 3–99
[2023-01-29] MEDS: HYDROcodone-acetaminophen 5-325 mg Tablet 1 TAB PO ×3 (00:15→19:32)
[2023-01-29] MEDS: ipratropium-albuterol 3 mL Neb INHALATION ×4 (01:54→19:49)
[2023-01-29] MEDS: acetylcysteine 200 mg/mL SDV 4 mL INHALATION ×4 (03:01→19:49)
[2023-01-29 05:06] LABS: Basophils % 0.7 %; Hematocrit 32.6 % (37.0-47.0); Hemoglobin 10.1 g/dL (11.5-15.3); Lymphocytes # 0.4 10^3/uL (0.8-4.8); Lymphocytes % 7.3 %; Mean Corpuscular Hemoglobin 26.1 pg (28.0-34.0); Mean Corpuscular Volume 84.2 fl (81-99); Mean Platelet Volume 10.9 fL (7.4-10.4); Monocytes # 0.1 10^3/uL (0.2-0.9); Monocytes % 1.1 %; Neutrophils # 5.07 10^3/uL (1.8-7.7); Neutrophils % 90.4 %; Nucleated Red Blood Cells % 0 %; Platelet Count 190 10^3/cmm (130-400); Red Blood Count 3.87 10^6/uL (4.1-5.3); Red Cell Distribution Width 18.3 % (12.1-15.1); White Blood Count 5.6 10^3/uL (4.0-10.0)
[2023-01-29 05:29] LABS: Anion Gap 17.1 (5-19); Blood Urea Nitrogen 52 mg/dL (8-23); Calcium 9.1 mg/dL (8.5-10.5); Carbon Dioxide 21 mmol/L (22-29); Chloride 101 mmol/L (98-107); Glucose 170 mg/dL (65-115); Osmolality Calculated 296 mOsm/kg (285-295); Potassium 5.1 mmol/L (3.5-5.1); Sodium 134 mmol/L (136-145)
[2023-01-29 05:53] LABS: ABG PCO2 42.1 mmHg (35-45); ABG PH Result 7.35 (7.35-7.45); Arterial Blood Gas Hematocrit 31.8 % (37-47); Base Excess ABG -2.2 mmol/L (-2.0-2.0); Blood Gas Allen Test Pos; Blood Gas Sample Type Arterial; HCO3 ABG 23.3 mmol/L (22-26); PO2 ABG 88.3 mmHg (80.0-100.0)
[2023-01-29 05:55] LABS: Blood Gas Sample Site Radial, right; Oxygen Device NC
[2023-01-29] MEDS: heparin 5,000 unit/mL INJ 1 mL 5000 UNIT SUBCUT (06:14)
[2023-01-29] MEDS: FUROsemide 10 mg/mL SDV 4mL 40 MG IVP (06:15)
[2023-01-29] MEDS: budesonide 0.5 mg/2 mL Neb INHALATION ×2 (07:30→19:49)
--- NOTE | 2023-01-29 09:16 | PC.SOCIAL ---
Verbal order obtained from Dr. Garcia, patient can have a cardiac diet this morning as they aren't planning for an angiogram today. Order entered and updated patient care nurse Stella.
[2023-01-29] MEDS: predniSONE 20 mg Tablet 40 MG PO (09:42)
[2023-01-29] MEDS: guaiFENesin 600 mg Tablet PO ×2 (09:42→17:24)
[2023-01-29] MEDS: pantoprazole DR 40 mg Tablet PO (09:43)
[2023-01-29] MEDS: gabapentin 300 mg Capsule 600 MG PO ×3 (09:43→20:35)
[2023-01-29] MEDS: clopidogrel 75 mg Tablet PO (09:43)
[2023-01-29] MEDS: ferrous sulfate EC 325 mg Tablet PO (09:43)
[2023-01-29] MEDS: hyDRALAzine 10 mg Tablet PO ×3 (09:43→20:35)
--- NOTE | 2023-01-29 10:43 | PM.PN ---
Subjective Subjective: SPoke with Dr. Alfaro Plan for angiogram tomorrow We will start normal saline 50 mill per hour by dyllan Nurse updated I will let patient eat today Patient has chronic kidney disease She has persistent wheezing however slightly better as compared to yesterday Currently on 3 L Globin 10.1 ABG unremarkable Nose bleed due to dry air, I have asked RT to put humidified oxygen She is not suffering from hemoptysis I do believe she had nasal bleed that she coughed up as blood Vitals/I&O/Wt Last Vital Signs Temp 98.4 F 01/29/23 10:18 Pulse 100 01/29/23 10:18 Resp 17 01/29/23 10:18 BP 148/80 01/29/23 10:18 Pulse Ox 98 01/29/23 10:18 O2 Del Method Room Air 01/29/23 10:18 O2 Flow Rate 3 01/29/23 07:37 01/28/23 01/29/23 01/29/23 22:59 06:59 14:59 Intake Total 52 / 772 Output Total 1800 / 1800 Balance -1748 / -1028 Physical Exam Narrative: Awake and alert Euvolemic GCS 15 Currently on 2 L Wheezing positive Abdomen soft S1, S2 Awake and alert GCS 15 Nonfocal neuro exam Data 01/29/23 04:38 01/29/23 04:38 Micro: Microbiology 01/26/23 06:07 Gram Stain - Final Sputum - Expectorated Sputum Sputum Culture - Final A&P Assessment and plan (1) Abdominal aortic aneurysm: (2) Severe anemia: (3) Congestive heart failure: (4) Abnormal nuclear cardiac imaging test: (5) Unstable angina: (6) Respiratory failure with hypoxia: (7) COPD exacerbation: (8) H/O thoracic aortic aneurysm repair: (9) Epistaxis: (10) Iron deficiency anemia: (11) Anemia of chronic disease: Plan Unstable angina Positive stress test Plan for angiogram 01/30 Start normal saline 50 mill per hour by tonight I will also start bicarb tablets Anemia of chronic disease Status post 2 unit PRBC hemoglobin 10 FOBT pending Patient stating she gets bowel movement once a week No hemodynamically stable I will get hemoglobin above 8 Baseline creatinine ranged between 1.4-2 Current creatinine is around 1.9 Patient completely understand that she will be at risk of contrast-induced nephropathy which can get worse to the point she might need temporary versus permanent dialysis History of thoracic aortic aneurysm repair in [place] History of bronchial stent secondary to atelectasis which has been scheduled to be removed in February and as per the patient COPD acute exacerbation Patient has persistent wheezing With magnesium her wheezing improved I have been giving her prednisone and inhaled budesonide Diastolic CHF exacerbation Continue Lasix DNR/DNI N.p.o. after midnight Attestations Medical Necessity Statement*: Continue medical management Diagnoses Abdominal aortic aneurysm I71.40 Severe anemia D64.9 Congestive heart failure I50.9 Abnormal nuclear cardiac imaging test R93.1 Unstable angina I20.0 Respiratory failure with hypoxia J96.91 COPD exacerbation J44.1 H/O thoracic aortic aneurysm repair Z98.890; Z86.79 Epistaxis R04.0 Iron deficiency anemia D50.9 Anemia of chronic disease D63.8
[2023-01-29 11:20] LABS: Ferritin 126 ng/mL (15-150); Iron 30 ug/dL (37-145)
[2023-01-29] MEDS: sodium bicarbonate 650 mg Tablet PO ×2 (14:28→20:35)
--- NOTE | 2023-01-29 15:24 | PM.PN ---
Subjective Subjective: Patient is doing well. No chest pain. Creatinine is stable. Vitals/I&O/Wt Last Vital Signs Temp 98.6 F 01/29/23 12:33 Pulse 100 01/29/23 14:00 Resp 17 01/29/23 13:23 BP 107/75 01/29/23 12:33 Pulse Ox 98 01/29/23 13:23 O2 Del Method Nasal Cannula 01/29/23 13:23 O2 Flow Rate 3 01/29/23 13:23 01/29/23 01/29/23 01/29/23 06:59 14:59 22:59 Output Total 600 / 600 Balance -600 / -600 Physical Exam Narrative: GENERAL: Patient is alert, awake and oriented x3. [] NECK: No jugular vein distension. [] HEENT: No cyanosis. No icterus. No pallor. [] HEART: Regular S1 and S2. No murmur, rub or gallop. [] LUNGS: Clear to auscultate bilaterally. [] CENTRAL NERVOUS SYSTEM: Grossly nonfocal. [] EXTREMITIES: Lower extremities with no edema bilaterally. Pulses palpable in the lower extremities, both dorsalis pedis and posterior tibial. [] Data 01/30/23 06:26 01/29/23 17:11 Micro: Microbiology 01/26/23 06:07 Gram Stain - Final Sputum - Expectorated Sputum Sputum Culture - Final A&P Assessment and plan (1) Abnormal nuclear cardiac imaging test: Patient had worsening chest pain symptoms is presenting complaint. Stress test was abnormal. Plan for coronary angiogram with possible percutaneous coronary intervention. Creatinine is stable. We will hydrate overnight and plan for the procedure tomorrow. N.p.o. past midnight. (2) Congestive heart failure: We will hold Lasix for tomorrow in anticipation of the coronary angiogram. Can restart as outpatient. (3) H/O thoracic aortic aneurysm repair: Patient had recent thoracic aneurysm stenting. (4) Acute kidney injury superimposed on chronic kidney disease: Creatinine is stable. We will hydrate overnight and plan for coronary angiogram tomorrow. (5) Severe anemia: Status post blood transfusion x1. Patient is going to have another unit of blood transfusion today. (6) Abdominal aortic aneurysm: The infrarenal aortic aneurysm was measuring 3.7 cm in diameter. (7) Left subclavian artery occlusion: Patient apparently was found to have occlusion of the subclavian artery? Jailed from the aortic stent graft. 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 She has some weakness of the left upper extremity. No significant change since the hospital discharge from [place]. (8) Left-sided cerebrovascular accident (CVA): Patient continues to have some feeling of weakness on the left side, more so on the left upper extremity. (9) Hypertension: Currently normotensive. May continue on the current medications. (10) COPD exacerbation: Clinically seems to be stable. She is on bronchodilator. Seems to be responding. Plan Plan for coronary angiogram tomorrow. Attestations Medical Necessity Statement*: Care expected to cross 2 midnights. Coding Level of Care Code Acute Code for [facility] Diagnoses Abnormal nuclear cardiac imaging test R93.1 Congestive heart failure I50.9 H/O thoracic aortic aneurysm repair Z98.890; Z86.79 Acute kidney injury superimposed on chronic kidney disease N17.9; N18.9 Severe anemia D64.9 Abdominal aortic aneurysm I71.40 Left subclavian artery occlusion I70.8 Left-sided cerebrovascular accident (CVA) I63.9 Hypertension I10 COPD exacerbation J44.1
[2023-01-29] MEDS: atorvastatin 40 mg Tablet 80 MG PO (17:24)
[2023-01-29 17:40] LABS: Anion Gap 15.9 (5-19); Blood Urea Nitrogen 56 mg/dL (8-23); Calcium 9.2 mg/dL (8.5-10.5); Carbon Dioxide 23 mmol/L (22-29); Chloride 97 mmol/L (98-107); Glucose 157 mg/dL (65-115); Osmolality Calculated 291 mOsm/kg (285-295); Potassium 4.9 mmol/L (3.5-5.1); Sodium 131 mmol/L (136-145)
[2023-01-29] MEDS: sodium chloride 0.9% 1,000 ML 50 ML IV (19:33)
[2023-01-29] MEDS: zolpidem 5 mg Tablet 2.5 MG PO (20:36)
[2023-01-29] MEDS: desvenlafaxine 50 mg Tablet PO (20:36)
[2023-01-30] VITALS (15 sets, daily range): BP systolic 152–171; BP diastolic 83–110; PULSE 89–105; RESP 15–18; TEMP 36.7–36.8; O2SAT 94–99
[2023-01-30] MEDS: aspirin 325 mg Tablet PO (05:11)
[2023-01-30] MEDS: diphenhydrAMINE 50 mg Capsule PO (05:11)
--- NOTE | 2023-01-30 05:11 | XACV_ITS ---
Exam Room: [facility] Ht: 165 cm Wt: 57 kg BSA: 1.62 m2 Gender: Female : 1950 Any Known Allergies: Eggs Exam Priority: Routine Procedure(s): Procedure Description: Diagnostic procedure Procedure Description: PCI procedure Procedure Description: Drug Eluting Coronary Stent Procedure Description: PTCA Procedure Description: Miscellaneous Procedure Description: ACT Procedure Description: Coronary Angiography Diagnostic Cath Status: Urgent Diagnostic Findings * Left Main has mild 20% distal disease. * Left Anterior Descending has mild luminal irregularities. * Circumflex has no significant disease. * INDICATION: Chest pain/abnormal stress test. * Proximal Right Coronary Artery: severe 90% stenosis, LILA: 3 flow. * Coronary angiography shows right dominance. PCI Status: Elective PCI Indication: Other Interventional Findings * PROCEDURE DETAIL: Procedure Details: We engaged left main artery with a JR4 guide catheter. IV heparin was administered to maintain ACT above 250 S. 0.014 run-through guidewire was used to cross the proximal RCA stenosis and was put on the distal vessel. We predilated the stenosis with 3.0X12 mm semicompliant balloon. This was followed by placement of 3.5 x 15 mm resolute Lando drug-eluting stent. At this time final angiogram was performed that showed excellent stent expansion, LILA-3 flow and no residual stenosis. Guidewire and guide catheter were removed. Patient left the Front Desk Assistant in a stable condition. . * Proximal Right Coronary Artery: 90% stenosis treated with a AB TREK 3.00X12 RX BALLOON, and MDT R ANGELO 3.5X15 MARCO. 0% residual stenosis, LILA: 3 flow. Conclusions 1. Severe proximal RCA stenosis status post successful revascularization with MARCO x1.. 2. Proximal Right Coronary Artery was treated with a Balloon, and Drug Eluting Stent. Recommendations * Dual antiplatelet therapy with aspirin and plavix for at least 1 year. * High intensity statin therapy. * Outpatient cardiology follow up in 2 weeks. Interventional RX Recommendation: PCI w/o planned CABG Diagnostic RX Recommendation: PCI w/o planned CABG Anticoagulation: Heparin Pressures Phase:Rest AO : 168 / 94 ( 118 ) @ 7:23:00 AM 172 / 99 ( 126 ) @ 7:29:00 AM Clinical Evaluation EBL: 5mL-10mL Procedural Details Procedure Consent Obtained. Pre-Procedure Time Out. Identified patient by full name and date of as verbalized by the patient/guarantor. Does the consent match the physician's order: Yes. Accurate & Complete Informed Consent: Yes. Inpatient/Outpatient History & Physical on Chart: Yes. If H&P is completed, is and addenduem needed: No. Visualize and Verify Site with Patient/Guarantor: N/A. Relevant Radiology Images available: Yes. The risks, benefits, and alternatives of sedation and/or procedure were discussed by physician. The patient agrees to continue. Procedure started. [facility] Clinical Fraility Score: 4: Vulnerable. Front Desk Assistant Indications: Other: XIONG/Abnormal stress test. Chest Pain Symptom Assessment: Atypical Angina. Cardiovascular Instability: No. Correct patient, site and procedure confirmed by cath team. PERRLA. Strong, equal hand encyclopedia research worker bilaterally. Lungs clear x 5 lobes. IV Site on Arrival: 18 gauge in the right anticubital. IV Fluids: 0.9% NaCl at KVO. 800 mL infused prior to geotechnical laboratory technician. Oxygen started at 2liters/min via nasal canula. bilateral groins was prepped with chloroprep then draped in the usual sterile fashion. Physician notified. Patient's family unavailable. Equipment: 6F - Femoral. Cardiac Cath Pack. ACIST Manifold Kit Model BT 2000. Heparinized Saline (2 units/mL), 1000 mL bag. Kit, Micropuncture. Physician arrived. Baseline sample Acquired. HR: 92 BPM. Pre Procedural Pulses: bilateral dorsalis pedis was 3+. Pre Procedural Pulses: bilateral posterior tibial was 2+. Hattie Jha RN, BOARDING KENNEL OR CATTERY OPERATOR was relieved by Faustina Sutherland RN as monitoring person. Physician scrubbed in. Immediate Pre-Procedure Time Out. Correct Patient: Yes; Correct Procedure: Yes; Correct Site: Yes; Correct Patient Position: Yes; Correct Supplies: Yes; Dried Flammable Prep: Yes; Blood Products Available: Yes;. Lidocaine 1% infiltrated to the right groin. Arterial access obtained with micropuncture set. A 5 qatari JL4 catheter in over wire. Multiple views taken of left coronary artery. Catheter removed over the exchange wire. Blood drawn from sheath for AM Labs. A 5 qatari JR4 catheter in over wire. Multiple views taken of right coronary artery. Catheter removed over the exchange wire. add inventory: co-mapping pilot, endoflator. 6 qatari JR 4 guide catheter was inserted over the wire. Runthrough guidewire was advanced through the guide catheter to lesion in the prox RCA. Guidewire advanced across lesion. Balloon inserted to lesion in the prox RCA. Inflation number : 1 A AB TREK 3.00X12 RX BALLOON was prepped and advanced across the Prox RCA , then inflated to 12 JACY for 0:07 seconds. Inflation number: 2 The AB TREK 3.00X12 RX BALLOON was reinflated across the Prox RCA, to 8 JACY for 0:09 seconds. Inflation number: 3 The AB TREK 3.00X12 RX BALLOON was reinflated across the Prox RCA, to 12 JACY for 0:21 seconds. Balloon out. Stent inserted to lesion in the prox RCA. Inflation Number : 4 A MDT R ANGELO 3.5X15 MARCO -Lot Number#[id number] was prepped and advanced across the Prox RCA. The stent was deployed at 12 JACY for 0:21 seconds. EXP 01-20-2025. Stent balloon out over wire. Results checked. ACT drawn. Results 243 seconds. Therapeutic limits - pre-heparin administration 90-150 seconds and monitoring heparin during a vascular procedure >250 seconds. Runthrough wire out. Guide catheter out. A Suture was successful obtaining hemostatsis at the Right Femoral artery insertion site. Sheath(s) sutured into position with 2-0 silk and sterile 4x4's and Op-site applied over the site. No oozing or signs and symptoms of hematoma noted. Arterial sheath flushed and connected to tranducer and pressure bag with heparinized saline. Post Procedure: Pulses reassessed and unchanged. PERRLA. Strong, equal hand encyclopedia research worker bilaterally. Post-op diagnosis: Severe RCA stenosis, status post PCI x 1 stent. No VTE prophylaxis required. Complications: None. Estimated blood loss: 5mL-10mL. Responsiveness - Normal response to verbal stimuli; alert and oriented, PERRLA. Airway - Unaffected, no intervention required; spontaneous ventilation. Circulation: W/N/L, pulses unchanged. Nausea/Vomiting: No. Total IV fluids: 50 mL. Medication's Wasted: Other = Fentanyl 25mcg. Medication's Wasted: Heparin = 3000 units. Procedure completed. Patient transferred by bed to 1st floor. Access Site Site: Right Femoral artery Sheath Size: 6 Fr Hemostasis Method: Suture Hemostasis Success: Successful Procedure Medications Start: 6:15 AM Stop: 6:15 AM Medication: Versed Amount: 1 mg Route: I.V. Start: 6:15 AM Stop: 6:15 AM Medication: Fentanyl Amount: 50 mcg Route: I.V. Start: 6:17 AM Stop: 6:17 AM Medication: Versed Amount: 1 mg Route: I.V. Start: 6:20 AM Stop: 6:20 AM Medication: Fentanyl Amount: 25 mcg Route: I.V. Start: 6:30 AM Stop: 6:30 AM Medication: Heparin Amount: 5000 units Route: I.V. Start: 6:43 AM Stop: 6:43 AM Medication: Heparin Amount: 1000 units Route: I.V. Start: 6:43 AM Stop: 6:43 AM Medication: Plavix Amount: 300 mg Route: P.O. I, the attending physician, have reviewed and verified all procedure medications. Yes, all medications given per verbal order History/Risk Factors Hypertension: Yes Dyslipidemia: No Peripheral Arterial Disease (PAD): No Myocardial Infarction (MO): No Obesity: No Renal Disease: No Tobacco Use: Current/Recent(w/in 1 year) Prior Interventions PCI: No CABG: No Valve Surgery: No Report Signatures Finalized by Jamshid Alfaro MD on 01/30/2023 08:46 AM
--- NOTE | 2023-01-30 06:15 | W.PM.OPSUD ---
Surgery/Procedure H&P Update DATE OF PROCEDURE: January 30, 2023 DATE H&P PERFORMED: 01/27/23 H&P UPDATE INFORMATION: I have reviewed H&P completed within last 30 days, I have examined patient prior to procedure and No changes to prior documentation PREOP DIAGNOSIS: Worsening angina PRIMARY INDICATION FOR PROCEDURE: Worsening angina PLANNED PROCEDURE: Left heart cath with possible percutaneous coronary intervention PATIENT REASSESSED PRIOR TO SEDATION, WITH NO CHANGE NOTED: Yes PHYSICAL EXAM: alert, oriented x 3 and regular rate & rhythm OTHER PERTINENT EXAM FINDINGS: Has mild wheezing which in chronic AIRWAY EVAL/ANESTHESIA PLAN: normal airway, ASA IV, Local Anesthesia, Risks, benefits & alternatives of sedation and/or procedure discussed and Patient agrees to continue as planned ADDITIONAL INFORMATION: Moderate sedation
[2023-01-30 06:39] LABS: Basophils # 0.1 10^3/uL (0.0-0.1); Basophils % 0.7 %; Eosinophils # 0.1 10^3/uL (0.0-0.8); Hemoglobin 9.7 g/dL (11.5-15.3); Lymphocytes # 1.1 10^3/uL (0.8-4.8); Lymphocytes % 14.2 %; Mean Corpuscular HGB Conc 31.3 g/dL (30.0-36.0); Mean Corpuscular Hemoglobin 26.3 pg (28.0-34.0); Mean Platelet Volume 10.4 fL (7.4-10.4); Monocytes # 0.3 10^3/uL (0.2-0.9); Monocytes % 4.1 %; Neutrophils # 6.07 10^3/uL (1.8-7.7); Neutrophils % 79.6 %; Nucleated Red Blood Cells % 0 %; Platelet Count 180 10^3/cmm (130-400); Red Blood Count 3.69 10^6/uL (4.1-5.3); Red Cell Distribution Width 18.6 % (12.1-15.1); White Blood Count 7.6 10^3/uL (4.0-10.0)
--- NOTE | 2023-01-30 06:51 | P.PN_ITS ---
Subjective Subjective: Patient is feeling well. No chest pain. Coronary angiogram showed severe 90% proximal RCA stenosis s/p successful revascularization with MARCO x1. Vitals/I&O/Wt Last Vital Signs Temp 98.2 F 01/30/23 03:54 Pulse 91 01/30/23 05:31 Resp 15 01/30/23 03:54 BP 152/83 01/30/23 03:54 Pulse Ox 99 01/30/23 03:54 O2 Del Method Nasal Cannula 01/30/23 03:54 O2 Flow Rate 3 01/30/23 03:54 01/29/23 01/29/23 01/30/23 14:59 22:59 06:59 Intake Total 360 / 360 Output Total 600 / 600 Balance -600 / -600 360 / -240 Physical Exam Narrative: GENERAL: Patient is alert, awake and oriented x3. [] NECK: No jugular vein distension. [] HEENT: No cyanosis. No icterus. No pallor. [] HEART: Regular S1 and S2. No murmur, rub or gallop. [] LUNGS: Clear to auscultate bilaterally. [] CENTRAL NERVOUS SYSTEM: Grossly nonfocal. [] EXTREMITIES: Lower extremities with no edema bilaterally. Pulses palpable in the lower extremities, both dorsalis pedis and posterior tibial. [] Data 01/30/23 06:26 01/30/23 06:26 A&P Assessment and plan (1) Abnormal nuclear cardiac imaging test: Patient underwent successful revascularization of proximal RCA with MARCO x1. We will continue hydration for now. Risk of contrast-induced nephropathy was discussed in detail before. Will need close renal function monitoring. (2) Congestive heart failure: Continue holding Lasix for today. Can restart tomorrow if creatinine is stable. (3) H/O thoracic aortic aneurysm repair: Patient had recent thoracic aneurysm stenting. (4) Acute kidney injury superimposed on chronic kidney disease: Creatinine is stable. (5) Severe anemia: Hemoglobin is stable. (6) Abdominal aortic aneurysm: The infrarenal aortic aneurysm was measuring 3.7 cm in diameter. (7) Left subclavian artery occlusion: Patient apparently was found to have occlusion of the subclavian artery? Jailed from the aortic stent graft. 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 She has some weakness of the left upper extremity. No significant change since the hospital discharge from [place]. (8) Left-sided cerebrovascular accident (CVA): Patient continues to have some feeling of weakness on the left side, more so on the left upper extremity. (9) Hypertension: Currently normotensive. May continue on the current medications. (10) COPD exacerbation: Clinically seems to be stable. She is on bronchodilator. Seems to be responding. Plan Plan for coronary angiogram tomorrow. Attestations Medical Necessity Statement*: Care expected to cross 2 midnights. Coding Level of Care Code Acute Code for [facility] Diagnoses Abnormal nuclear cardiac imaging test R93.1 Congestive heart failure I50.9 H/O thoracic aortic aneurysm repair Z98.890; Z86.79 Acute kidney injury superimposed on chronic kidney disease N17.9; N18.9 Severe anemia D64.9 Abdominal aortic aneurysm I71.40 Left subclavian artery occlusion I70.8 Left-sided cerebrovascular accident (CVA) I63.9 Hypertension I10 COPD exacerbation J44.1
[2023-01-30 06:58] LABS: Anion Gap 13.4 (5-19); Blood Urea Nitrogen 56 mg/dL (8-23); Calcium 8.7 mg/dL (8.5-10.5); Carbon Dioxide 24 mmol/L (22-29); Chloride 98 mmol/L (98-107); Glucose 87 mg/dL (65-115); Osmolality Calculated 287 mOsm/kg (285-295); Potassium 4.4 mmol/L (3.5-5.1); Sodium 131 mmol/L (136-145)
[2023-01-30] MEDS: ipratropium-albuterol 3 mL Neb INHALATION ×3 (08:37→19:35)
[2023-01-30] MEDS: budesonide 0.5 mg/2 mL Neb INHALATION ×2 (08:37→19:35)
[2023-01-30] MEDS: sodium chloride 0.9% 1,000 ML 50 ML IV (08:49)
[2023-01-30] MEDS: ferrous sulfate EC 325 mg Tablet PO (08:49)
[2023-01-30] MEDS: gabapentin 300 mg Capsule 600 MG PO ×3 (08:49→20:41)
[2023-01-30] MEDS: predniSONE 20 mg Tablet 40 MG PO (08:50)
[2023-01-30] MEDS: pantoprazole DR 40 mg Tablet PO (08:50)
[2023-01-30] MEDS: hyDRALAzine 10 mg Tablet PO ×3 (08:50→20:39)
[2023-01-30] MEDS: sodium bicarbonate 650 mg Tablet PO ×3 (08:50→20:41)
[2023-01-30] MEDS: guaiFENesin 600 mg Tablet PO ×2 (08:50→17:11)
[2023-01-30] MEDS: HYDROcodone-acetaminophen 5-325 mg Tablet 1 TAB PO ×2 (08:53→15:41)
--- NOTE | 2023-01-30 09:26 | PC.SOCIAL ---
IMM update IMM updated with patient. Verbalized an understanding. Copy Pg 2 provided. Initialled, dated, timed, and placed in chart.
[2023-01-30 10:28] LABS: Partial Thromboplastin Time 38.1 SECONDS (23.9-36.7)
--- NOTE | 2023-01-30 10:28 | PC.NURSE ---
received from cardiac veterinary laboratory technician at 0700 via bed.report received.pt is alert and awake and oriented x 4.sr on monitor.denies pain at present.right femoral arterial sheath intact to pressurized system.drsg is dry and intact.no hematoma noted.right leg is warm to touch and with brisk capillary refill.palpable right dp pulse noted.pt instructed in activity restrictions ,and instructed to notify staff for any bleeding,pain,numbness,sob or for any concerns.pt verb understanding of instructions
[2023-01-30 14:23] LABS: Anion Gap 15.9 (5-19); Blood Urea Nitrogen 54 mg/dL (8-23); Calcium 8.8 mg/dL (8.5-10.5); Carbon Dioxide 21 mmol/L (22-29); Chloride 100 mmol/L (98-107); Glucose 167 mg/dL (65-115); Osmolality Calculated 293 mOsm/kg (285-295); Potassium 4.9 mmol/L (3.5-5.1); Sodium 132 mmol/L (136-145)
--- NOTE | 2023-01-30 14:46 | PC.NURSE ---
Right femoral arterial catheter is removed at 12:00. Hemostasis is obtained at 12:00. Manual pressure is held x 20 minutes. Pedal and femoral pulses were palpable before removal, during the manual pressure, and after pressure was released. A 2x2 and tegaderm film dressing is applied. Patient tolerated well.
[2023-01-30] MEDS: acetaminophen 325 mg Tablet 650 MG PO (17:11)
[2023-01-30] MEDS: atorvastatin 40 mg Tablet 80 MG PO (17:12)
[2023-01-30] MEDS: desvenlafaxine 50 mg Tablet PO (20:39)
[2023-01-30] MEDS: zolpidem 5 mg Tablet 2.5 MG PO (20:40)
--- NOTE | 2023-01-30 22:35 | PM.PN ---
Subjective Subjective: Patient endorses fatigue. Denies fevers, chills, nausea or chest pain. She underwent cardiac cath this morning and reports she is feeling slightly better. Medications: Reviewed: Yes Vitals/I&O/Wt Last Vital Signs Temp 98.1 F 01/30/23 19:45 Pulse 92 01/30/23 19:45 Resp 17 01/30/23 19:45 BP 153/88 01/30/23 19:45 Pulse Ox 99 01/30/23 19:45 O2 Del Method Nasal Cannula 01/30/23 19:45 O2 Flow Rate 2 01/30/23 19:45 01/30/23 01/30/23 01/30/23 06:59 14:59 22:59 Intake Total 600 / 600 Output Total 900 / 900 Balance 600 / 600 -900 / -300 Physical Exam Narrative: General: Patient is awake. Ill appearing. Head: Normocephalic. Atraumatic. EOM intact. Neck: No JVD. Cardiovascular: RRR. No gallops. No murmurs. No peripheral edema. Lungs: Breath sounds diminished in bilaterl bases, no use of accessory muscles, no crackles or wheezes. Skin: No jaundice. No rashes. Abdomen: Normal bowel sounds, abdomen soft and nontender. Genito Urinary: Genital exam not performed since complaints not related. Rectal: Rectal exam not performed since no symptoms indicated blood loss. Extremities: No cyanosis or clubbing. Musculoskeletal: No swollen or erythematous joints. Neurological: Moves all 4 extremities. No myoclonus. Urinary Catheter Management: Felix: Cath Placed During This Visit: yes Reason for Continuing Indwelling Catheter: Acute Urinary Retention or Obstruction Urinary Catheter Date of Insertion: 01/30/23 Urinary Catheter Time of Insertion: 10:50 Data 01/30/23 06:26 01/30/23 13:51 Micro: Microbiology 01/25/23 21:46 Blood Culture - Final Blood NO GROWTH AFTER 5 DAYS 01/25/23 21:07 Blood Culture - Final Blood NO GROWTH AFTER 5 DAYS A&P Assessment and plan (1) Abdominal aortic aneurysm: (2) Severe anemia: (3) Congestive heart failure: (4) Abnormal nuclear cardiac imaging test: (5) Unstable angina: (6) Respiratory failure with hypoxia: (7) COPD exacerbation: (8) H/O thoracic aortic aneurysm repair: (9) Epistaxis: (10) Iron deficiency anemia: (11) Anemia of chronic disease: Plan Unstable angina -Status post cath this morning, follow up results and reccs -High risk for renal failure -IV fluids -Avoid nephrotoxins -Strict I&Os -Renal function in AM Anemia of chronic disease -Status post 2 unit PRBC -Continue to monitor counts History of thoracic aortic aneurysm repair in [place] History of bronchial stent secondary to atelectasis which has been scheduled to be removed in February and as per the patient COPD acute exacerbation -Continue current treatment Diastolic CHF exacerbation -Continue Lasix DNR/DNI Attestations Medical Necessity Statement*: Patient is status post cardiac cath with stents today she remains very high risk for renal failure including dialysis for which she requires ongoing hospitalization for medical treatment. Coding Level of Care Code Acute Code for [facility] Diagnoses Abdominal aortic aneurysm I71.40 Severe anemia D64.9 Congestive heart failure I50.9 Abnormal nuclear cardiac imaging test R93.1 Unstable angina I20.0 Respiratory failure with hypoxia J96.91 COPD exacerbation J44.1 H/O thoracic aortic aneurysm repair Z98.890; Z86.79 Epistaxis R04.0 Iron deficiency anemia D50.9 Anemia of chronic disease D63.8
[2023-01-31] VITALS (7 sets, daily range): BP systolic 139–194; BP diastolic 82–108; PULSE 78–96; RESP 16–26; TEMP 36.7; O2SAT 92–99
[2023-01-31] MEDS: labetalol 5 mg/mL SDV 20mL 10 MG IVP (03:36)
[2023-01-31] MEDS: HYDROcodone-acetaminophen 5-325 mg Tablet 1 TAB PO (03:41)
[2023-01-31 04:31] LABS: Basophils # 0.1 10^3/uL (0.0-0.1); Basophils % 0.7 %; Eosinophils % 0.5 %; Hematocrit 31.3 % (37.0-47.0); Hemoglobin 9.4 g/dL (11.5-15.3); Lymphocytes # 1.1 10^3/uL (0.8-4.8); Lymphocytes % 12.9 %; Mean Corpuscular Hemoglobin 25.4 pg (28.0-34.0); Mean Corpuscular Volume 84.6 fl (81-99); Mean Platelet Volume 10.9 fL (7.4-10.4); Monocytes # 0.4 10^3/uL (0.2-0.9); Monocytes % 4.2 %; Neutrophils % 81.4 %; Nucleated Red Blood Cells % 0 %; Platelet Count 194 10^3/cmm (130-400); Red Cell Distribution Width 18.6 % (12.1-15.1); White Blood Count 8.7 10^3/uL (4.0-10.0)
[2023-01-31 04:54] LABS: Albumin Level 3.2 g/dL (3.5-5.2); Anion Gap 14.8 (5-19); Blood Urea Nitrogen 51 mg/dL (8-23); Calcium 8.7 mg/dL (8.5-10.5); Carbon Dioxide 23 mmol/L (22-29); Chloride 102 mmol/L (98-107); Glucose 86 mg/dL (65-115); Phosphorus 3.2 mg/dL (2.5-4.5); Potassium 4.8 mmol/L (3.5-5.1); Sodium 135 mmol/L (136-145)
--- NOTE | 2023-01-31 07:03 | P.PN_ITS ---
Subjective Subjective: Patient reports feeling better No cardiac issues reported overnight Tolerating PO diet Slept well On oxygen at home no groin pain reported Vitals/I&O/Wt Last Vital Signs Temp 98.1 F 01/31/23 04:00 Pulse 79 01/31/23 05:39 Resp 26 H 01/31/23 04:00 BP 174/100 01/31/23 04:00 Pulse Ox 99 01/31/23 04:00 O2 Del Method Nasal Cannula 01/31/23 04:00 O2 Flow Rate 2 01/31/23 03:27 01/30/23 01/31/23 01/31/23 22:59 06:59 14:59 Intake Total 240 / 840 1480 / 2320 Output Total 1200 / 1200 600 / 1800 Balance -960 / -360 880 / 520 Physical Exam Const: COMMON NORMALS: no acute distress GENERAL APPEARANCE: cooperative and comfortable HENMT: COMMON NORMALS: normocephalic and atraumatic HEAD & SCALP: normocephalic and atraumatic Chest: COMMONS NORMALS: normal inspection of the chest Resp: COMMON NORMALS: normal respiratory effort, No use of accessory muscles and clear to auscultation bilaterally AUSCULTATION: clear to auscultation bilaterally Cardio: COMMON NORMALS: S1 normal heart sound present, S2 normal heart sound present, No gallops present (Cardio) and No murmurs present (Cardio) JUGULAR VENOUS DISTENTION: no JVD HEART SOUNDS: S1 normal heart sound present and S2 normal heart sound present Urinary Catheter Management: Felix: Cath Placed During This Visit: yes, but has since been removed by the nurse Reason for Continuing Indwelling Catheter: Decision to DC Catheter Urinary Catheter Date of Insertion: 01/30/23 Urinary Catheter Time of Insertion: 10:50 Date Urinary Catheter Removed: 01/31/23 Time Urinary Catheter Discontinued: 03:30 Data 01/31/23 04:02 01/31/23 04:02 Micro: Microbiology 01/25/23 21:46 Blood Culture - Final Blood NO GROWTH AFTER 5 DAYS 01/25/23 21:07 Blood Culture - Final Blood NO GROWTH AFTER 5 DAYS A&P Assessment and plan (1) Unstable angina: (2) Hypertension: Plan Assessment * Unstable angina sp stent MARCO RCA * Congestive heart failure: * Respiratory failure with hypoxia: * Abdominal aortic aneurysm H/O thoracic aortic aneurysm repair: * Anemia of chronic disease: Plan Unstable angina -Status post cath Day1 -High risk for renal failure -Encourage PO fluids -Avoid nephrotoxins -DC HCTZ -Add Toprol XL 25 po qday -If BP not improved , increase hydralazine 25 po tid -As creatinine stable , may be dced to home -Fup with Dr Alfaro in 4-6 weeks Uncontrolled Hypertension - Optimize meds as above Anemia of chronic disease -Stable -Continue to monitor counts -Continue Protonix PO daily COPD - As per hospitalist service History of thoracic aortic aneurysm repair in [place] History of bronchial stent secondary to atelectasis which has been scheduled to be removed in [place] and [place] as per the patient Attestations Medical Necessity Statement*: Eli Kimball's hospital stay will require greater than 2 midnights for Coding Level of Care Code Acute Code for [facility] Diagnoses Unstable angina I20.0 Hypertension I10
[2023-01-31] MEDS: budesonide 0.5 mg/2 mL Neb INHALATION (07:48)
[2023-01-31] MEDS: ipratropium-albuterol 3 mL Neb INHALATION (07:48)
[2023-01-31] MEDS: sodium bicarbonate 650 mg Tablet PO (08:56)
[2023-01-31] MEDS: aspirin 81 mg EC Tablet PO (08:56)
[2023-01-31] MEDS: guaiFENesin 600 mg Tablet PO (08:56)
[2023-01-31] MEDS: predniSONE 20 mg Tablet 40 MG PO (08:57)
[2023-01-31] MEDS: hyDRALAzine 10 mg Tablet PO (08:57)
[2023-01-31] MEDS: ferrous sulfate EC 325 mg Tablet PO (08:57)
[2023-01-31] MEDS: clopidogrel 75 mg Tablet PO (08:57)
[2023-01-31] MEDS: metoprolol succinate ER (24 HR) 25 mg Tablet PO (08:57)
[2023-01-31] MEDS: gabapentin 300 mg Capsule 600 MG PO (08:57)
[2023-01-31] MEDS: pantoprazole DR 40 mg Tablet PO (08:57)
--- NOTE | 2023-01-31 10:33 | PM.DCS ---
Discharge Providers Date of Admission: 01/25/23 23:16 Date of Discharge: January 31, 2023 Attending Provider at Admission: Tracy Wilson MD Attending Provider at Discharge: Josiah Rogers MD Consults: Cardiology Primary Care Provider: Bhupinder Logan MD Diagnoses at Discharge Discharge Diagnosis (1) Unstable angina: Status: Inactive (2) Hypertension: Status: Inactive (3) Congestive heart failure: Status: Inactive (4) Abdominal aortic aneurysm: Status: Inactive (5) Anemia of chronic disease: Status: Acute (6) Respiratory failure with hypoxia: Status: Inactive (7) COPD exacerbation: Status: Inactive (8) Anemia: Status: Acute (9) Smoker: Status: Acute Reason for Visit Reason for Visit: respiratory distress Hospital Course Hospital Course Eli Kimball is a 73-year-old female who presented with chest pain, found to have unstable angina. Patient underwent stress testing which was abnormal. Cardiology consulted and followed. She underwent cardiac cath with PCI with MARCO to RCA. Chest pain resolved. She was also found to have acute COPD exacerbation treated with steroids, breathing treatments and supportive care. Patient was high risk for renal failure which required prolonged monitoring of renal function. Blood pressure was uncontrolled but improved with treatment. Of note, patient stating she will leave AMA if not discharged by this date, however patient improved and stable for routine discharge. She is to follow up with PCP and cardiology for further management. Physical Exam Narrative: General: Patient is awake and alert. Head: Normocephalic. Atraumatic. EOM intact. Neck: No JVD. Cardiovascular: RRR. No gallops. No murmurs. No peripheral edema. Lungs: Clear to auscultation, no use of accessory muscles, no crackles or wheezes. Skin: No jaundice. No rashes. Abdomen: Normal bowel sounds, abdomen soft and nontender. Genito Urinary: Genital exam not performed since complaints not related. Rectal: Rectal exam not performed since no symptoms indicated blood loss. Extremities: No cyanosis or clubbing. Musculoskeletal: 5/5 strength, normal range of motion, no swollen or erythematous joints. Neurological: Moves all 4 extremities. No myoclonus. Urinary Catheter Management: Felix: Cath Placed During This Visit: yes, but has since been removed by the nurse Reason for Continuing Indwelling Catheter: Decision to DC Catheter Urinary Catheter Date of Insertion: 01/30/23 Urinary Catheter Time of Insertion: 10:50 Date Urinary Catheter Removed: 01/31/23 Time Urinary Catheter Discontinued: 03:30 Discharge Data Studies Completed and Pending Completed Studies During Hospitalization Category Date Time Status CTA chest abdomen pelvis [CT ang ches abdpel 22053/ Cat Scan 01/25/23 21:32 Completed [id number]] Stat SOFTWARE ASSET MANAGER request for service Routine Exams 01/30/23 05:11 Completed Sestamibi Stress Test Request Routine Exams 01/27/23 06:21 Completed XR chest 1V portable [id number] Stat Exams 01/25/23 21:01 Completed NM dimple perf SPECT r/s* [id number] Routine Nuc Med 01/27/23 14:43 Completed US echo complete [CV. echo complete* [id number]] Routine Ultrasound 01/27/23 17:49 Completed Pending at discharge Category Date Time Status Sestamibi Stress Test Request Routine Exams 01/26/23 14:43 Stop Req Sestamibi Stress Test Request Routine Exams 01/27/23 06:21 Ordered Fecal Occult Blood [Immunochemical Fecal OCB] Routine Lab 01/26/23 07:44 Uncollected Radiology Impressions Chest X-Ray 01/25/23 21:01 IMPRESSION: 1. Negative for infiltrate. 2. Thoracic aortic stent again seen with aortic tortuosity. 3. Cardiomegaly. Chest/Abdomen/Pelvis CTA 01/25/23 21:32 IMPRESSION: 1. Thoracic aortic stent extending from the aortic arch to the upper abdominal aorta with an excluded aneurysm sac, negative for contrast extravasation, similar to prior exam. 2. Pericardial effusion measuring 6.2 mm in thickness. 3. Cardiomegaly. 4. Coronary artery atherosclerotic calcifications. 5. Emphysematous changes. 6. Bibasilar atelectasis . 7. Lumbar spine vertebroplasty changes. 8. Cholecystectomy. 9. Splenic cyst. 10. Bilateral renal cysts, negative for follow-up advised. 11. Constipation. 12. Infrarenal abdominal aortic aneurysm measuring 3.7 cm diameter without rupture. 13. Lumbar spine vertebroplasty changes and surgical hardware seen in place. 14. Diverticulosis without diverticulitis. Laboratory Results WBC 8.7 10^3/uL (4.0-10.0) 01/31/23 04:02 RBC 3.70 10^6/uL (4.1-5.3) L 01/31/23 04:02 Hgb 9.4 g/dL (11.5-15.3) L 01/31/23 04:02 Hct 31.3 % (37.0-47.0) L 01/31/23 04:02 MCV 84.6 fl (81-99) 01/31/23 04:02 MCH 25.4 pg (28.0-34.0) L 01/31/23 04:02 MCHC 30.0 g/dL (30.0-36.0) 01/31/23 04:02 RDW 18.6 % (12.1-15.1) H 01/31/23 04:02 Plt Count 194 10^3/cmm (130-400) 01/31/23 04:02 MPV 10.9 fL (7.4-10.4) H 01/31/23 04:02 Neut % (Auto) 81.4 % 01/31/23 04:02 Lymph % (Auto) 12.9 % 01/31/23 04:02 [place] % (Auto) 4.2 % 01/31/23 04:02 Eos % (Auto) 0.5 % 01/31/23 04:02 Baso % (Auto) 0.7 % 01/31/23 04:02 Neut # (Auto) 7.10 10^3/uL (1.8-7.7) 01/31/23 04:02 Lymph # (Auto) 1.1 10^3/uL (0.8-4.8) 01/31/23 04:02 [place] # (Auto) 0.4 10^3/uL (0.2-0.9) 01/31/23 04:02 Eos # (Auto) 0.0 10^3/uL (0.0-0.8) 01/31/23 04:02 Baso # (Auto) 0.1 10^3/uL (0.0-0.1) 01/31/23 04:02 Nucleated RBC % (auto) 0 % 01/31/23 04:02 Nucleated RBCs # 0.0 /100WBC 01/31/23 04:02 APTT 38.1 SECONDS (23.9-36.7) H 01/30/23 10:08 D-Dimer 16.54 ug/mIFEU (0-0.59) H 01/25/23 21:07 Specimen Type Arterial 01/29/23 05:42 Sample Site Radial, right 01/29/23 05:42 ABG pH 7.35 (7.35-7.45) 01/29/23 05:42 ABG pCO2 42.1 mmHg (35-45) 01/29/23 05:42 ABG pO2 88.3 mmHg (80.0-100.0) 01/29/23 05:42 ABG HCO3 23.3 mmol/L (22-26) 01/29/23 05:42 ABG Base Excess -2.2 mmol/L (-2.0-2.0) L 01/29/23 05:42 Don Test Pos 01/29/23 05:42 Hematocrit 31.8 % (37-47) L 01/29/23 05:42 Hgb O2 Saturation 96.7 % (95-100) 01/25/23 21:06 Carboxyhemoglobin 2.9 %THgb (0.4-20.1) 01/25/23 21:06 Methemoglobin 1.1 % (0.4-1.5) 01/25/23 21:06 Total Hemoglobin 6.7 g/dL (12-16) L 01/25/23 21:06 O2 Delivery Device Nc 01/29/23 05:42 O2 Liters/Min 3.0 % 01/29/23 05:42 FiO2 99.0 % 01/25/23 21:06 Tennis Ball Coverer Hand ID [email or web address] 01/29/23 05:42 Sodium 135 mmol/L (136-145) L 01/31/23 04:02 Potassium 4.8 mmol/L (3.5-5.1) 01/31/23 04:02 Chloride 102 mmol/L (98-107) 01/31/23 04:02 Carbon Dioxide 23 mmol/L (22-29) 01/31/23 04:02 Anion Gap 14.8 (5-19) 01/31/23 04:02 BUN 51 mg/dL (8-23) H 01/31/23 04:02 Creatinine 1.7 mg/dL (0.5-0.9) H 01/31/23 04:02 GFR Calculation Not Reportable 01/31/23 04:02 Glucose 86 mg/dL (65-115) 01/31/23 04:02 Calculated Osmolality 293 mOsm/kg (285-295) 01/30/23 13:51 Lactic Acid 1.0 mmol/L (0.5-2.2) 01/25/23 21:07 Calcium 8.7 mg/dL (8.5-10.5) 01/31/23 04:02 Phosphorus 3.2 mg/dL (2.5-4.5) 01/31/23 04:02 Magnesium 2.0 mg/dL (1.7-2.3) 01/31/23 04:02 Iron 30 ug/dL (37-145) L 01/29/23 04:38 Ferritin 126 ng/mL (15-150) 01/29/23 04:38 Total Bilirubin 0.5 mg/dL (0.15-1.2) 01/26/23 03:43 AST 7 U/L (0-32) 01/26/23 03:43 ALT < 5 U/L (0-33) 01/26/23 03:43 Alkaline Phosphatase 80 U/L (35-105) 01/26/23 03:43 Troponin T Baseline 32 ng/L (0-10) H 01/25/23 21:07 Troponin T 120 Minute 40.63 ng/L (0-10) H 01/25/23 23:00 Delta Troponin T 8.63 ABS# (0-10) 01/25/23 23:00 Troponin T Hi Sens 6Hr 41.39 ng/L (0-10) H 01/26/23 03:43 Troponin T Hi Sens 6Hr Delta 9.39 ng/L (0-12) 01/26/23 03:43 NT-Pro-B Natriuret Pep 02631 pg/mL (0-125) H 01/25/23 21:07 Total Protein 6.2 g/dL (6.6-8.7) L 01/26/23 03:43 Albumin 3.2 g/dL (3.5-5.2) L 01/31/23 04:02 Globulin 3.3 g/dL (1.3-4.6) 01/26/23 03:43 SARS-CoV-2 Ag (Rapid) negative 01/25/23 21:16 Blood Type A Positive 01/25/23 21:45 Rho(D) Type Positive 01/25/23 21:45 Antibody Screen Negative 01/25/23 21:45 Crossmatch See Detail 01/25/23 21:45 Vitals Last Vital Signs Temp 98.1 F 01/31/23 04:00 Pulse 89 01/31/23 09:57 Resp 16 01/31/23 09:57 BP 139/82 01/31/23 09:57 Pulse Ox 92 01/31/23 09:57 O2 Del Method Nasal Cannula 01/31/23 09:57 O2 Flow Rate 3 01/31/23 09:57 Discharge Plan Discharge Patient Disposition: Home Condition: Stable Prescriptions: New aspirin [Enteric Coated Aspirin] 81 mg tablet,delayed release (DR/EC) 81 mg PO DAILY 90 Days Qty: 90 3RF Continued (DME) nebulizers [facility] See Rx Instructions .Route Qty: 1 0RF Rx Instructions: 1 nebulizer and all required supplies As directed (DME) oxygen-air delivery systems Device See Rx Instructions .ROUTE Rx Instructions: As directed ipratropium-albuterol 0.5 mg-3 mg(2.5 mg base)/3 mL solution for nebulization 3 ml inhalation Q4H PRN (Reason: wheezing) Qty: 90 0RF gabapentin 600 mg tablet 600 mg PO TID albuterol sulfate [Ventolin HFA] 90 mcg/actuation HFA aerosol inhaler 1 - 2 inh INHALATION Q4H PRN (Reason: Shortness Of Breath) desvenlafaxine succinate 50 mg Tablet Extended Release 24 Hr 50 mg PO BEDTIME Belsomra 20 mg Tablet 20 mg PO BEDTIME PRN (Reason: Insomnia) ondansetron 4 mg tablet,disintegrating 4 mg PO Q6H PRN (Reason: nausea and vomiting) Qty: 14 0RF ferrous gluconate 324 mg (37.5 mg iron) Tablet 324 mg PO DAILY prednisolone acetate 1 % drops,suspension 1 drp ophthalmic (eye) BID Rx Instructions: both eyes ergocalciferol (vitamin D2) 1,250 mcg (50,000 unit) Capsule 1,250 mcg PO Q7D Rx Instructions: Discontinued levofloxacin 500 mg tablet 500 mg PO BID No Action Medrol (Saulo) 4 mg tablets,dose pack See Rx Instructions .ROUTE .COMPLEX Qty: 21 0RF Rx Instructions: orally per package directions Cardizem LA 120 mg tablet extended release 24 hr 120 mg PO DAILY Qty: 60 3RF hydralazine 10 mg Tablet 25 mg PO TID 30 Days Qty: 120 3RF Plavix 75 mg Tablet 75 mg PO DAILY Qty: 90 3RF Trelegy Ellipta 200-62.5-25 mcg blister with device 1 inh inhalation DAILY 30 Days Qty: 60 3RF amoxicillin-pot clavulanate 875-125 mg tablet 1 tab PO BID Qty: 10 0RF Discharge Orders: Discharge Order (Routine); Ordered 01/31/23 Ordered By: Josiah Rogers Referrals: Jamshid Alfaro M.D [Physician] - 6 Weeks Cindy Daniel FNP [Nurse Practitioner] - 02/09/23 9:15 am Bhupinder Logan MD [Primary Care Provider] - 4-7 days (02/10/2023 at 9:40) Discharge Diet: Advance as tolerated, Cardiac, Low Salt and Low Cholesterol Discharge Activity: Resume usual activity, Limit activity as instructed, As per cardiac/pulm rehab instructions and Oxygen as instructed Patient Instructions: Heart Catheterization (DC), Opioid Safety, Post Angiogram Home Care Instructions, Pain Management Plan of Treatment: 1. Take medications as prescribed. 2. No strenuous activity for three weeks. 3. Follow up with cardiology. 4. Follow up with PCP. Discharge Attestations Time Spent in Discharge Care*: greater than 30 min Status at Discharge: Overall status at discharge: patient is progressing back to baseline Quality Metrics Clinical Quality Measures [ No reported AMI, CVA or VTE this stay] Coding Level of Care Code Acute Code for [facility] Fwd Diagnoses Unstable angina I20.0 Hypertension I10 Congestive heart failure I50.9 Abdominal aortic aneurysm I71.40 Anemia of chronic disease D63.8 Respiratory failure with hypoxia J96.91 COPD exacerbation J44.1 Anemia D64.9 Smoker F17.200
== END 2023-01-31 12:29 | disposition home or self-care (01) | DRG 246 ==
LOC: ER 23:11 → MEDSURG 23:16 → CSU 01-30 07:06
PROVIDERS: Internal Medicine; Admitting Provider Student in an Organized Health Care Education/Training Program; Emergency Provider Emergency Medicine; PCP Family Medicine; Visit Provider Internal Medicine
PROC: 027034Z Dilation of Coronary Artery, One Artery with Drug-eluting Intraluminal Device, Percutaneous Approach (ICD-10-PCS; principal; 2023-01-30 06:00)
PROC: 027034Z Dilation of Coronary Artery, One Artery with Drug-eluting Intraluminal Device, Percutaneous Approach (ICD-10-PCS; 2023-01-30 06:00)
DX: I25.110 Atherosclerotic heart disease of native coronary artery with unstable angina pectoris (principal); I50.33 Acute on chronic diastolic (congestive) heart failure; J44.1 Chronic obstructive pulmonary disease with (acute) exacerbation; I13.0 Hypertensive heart and chronic kidney disease with heart failure and stage 1 through stage 4 chronic kidney disease, or unspecified chronic kidney disease; N17.9 Acute kidney failure, unspecified; Z99.81 Dependence on supplemental oxygen; Z79.51 Long term (current) use of inhaled steroids; F17.210 Nicotine dependence, cigarettes, uncomplicated; N18.9 Chronic kidney disease, unspecified; D63.1 Anemia in chronic kidney disease; D50.9 Iron deficiency anemia, unspecified; Z66 Do not resuscitate; Z79.891 Long term (current) use of opiate analgesic; Z79.02 Long term (current) use of antithrombotics/antiplatelets; E78.5 Hyperlipidemia, unspecified
CPT/HCPCS: 36415; 36430; 36600; 51702; 71045; 71275; 74174; 78452; 80048; 80051; 80053; 80069; 82330; 82728; 82803; 82805; 83540; 83605; 83735; 83880; 84145; 84484; 85025; 85347; 85378; 85730; 86850; 86900; 86920; 87040; 87070; 87205; 87426; 93005; 93017; 93306; 93454; 94640; 94799; 96365; 96372; 96374; 96375; 96376; 99152; 99153; 99285; 99291; 99292; A9500; C1725; C1769; C1887; C1894; C9600; J1200; J1644; J1650; J1940; J2060; J2250; J2270; J2405; J2785; J2919; J3010; J3475; J3490; J7030; J7512; J7608; J7613; J7626; P9016; Q0163; Q9967

== ENCOUNTER 2023-01-31 18:29 | Inpatient (IN) | payer MEDICARE, SELFPAY ==
[2023-01-31] VITALS (8 sets, daily range): BP systolic 92–256; BP diastolic 65–151; PULSE 96–141; RESP 11–24; TEMP 36.3; O2SAT 81–100; BMI 20.9
--- NOTE | 2023-01-31 18:46 | W.ED.SOB ---
HPI - SOB/Dyspnea General: Chief Complaint: Shortness of Breath/Dyspnea Stated Complaint: RESP DISTRESS Time Seen by Provider: 01/31/23 18:31 Source: family (Daughter) and EMS Mode of arrival: EMS Limitations: other (Patient is intubated) History of Present Illness: HPI Narrative: This 73-year-old female with a history of COPD, coronary artery disease (s/p stent placement yesterday) was brought in by EMS with shortness of breath. Patient was already intubated at the time of ER arrival. Daughter, who was with patient, called EMS because patient was complaining of chest pain and progressively worsening shortness of breath. On EMS arrival, patient was in respiratory distress and per EMS, patient had indicated that she cannot do this anymore with respect to her shortness of breath. EMS gave a DuoNeb, 324 mg of aspirin and 1 nitroglycerin. She was also given 52 mg of ketamine and 52 mg of rocuronium and subsequently intubated. On my initial evaluation, she was actively bleeding from the oral cavity. After suctioning blood, a large clot was evacuated from the posterior pharynx. This revealed an actively bleeding wound in the hard palate. Patient is on aspirin. Oxygen saturation is 100% at this time. Daughter notes that patient was admitted to this facility on Thursday (5 days ago). Review of Systems General: Reports: ROS unobtainable due to endotracheal tube PENDING SALE TO [facility] ED PFSH: Medical History Acute cystitis Acute cystitis Acute kidney injury superimposed on chronic kidney disease Blurred vision Bronchus, stenosis Patient is scheduled for stent removal in February in [place] She had atelectasis that is why she received a pulmonary stent COPD (chronic obstructive pulmonary disease) Hypertension Left-sided cerebrovascular accident (CVA) Microcytic anemia Weakness Surgical History H/O esophagogastroduodenoscopy AVM body of stomach H/O thoracic aortic aneurysm repair History of back surgery x3 History of breast surgery inverted nipple (x3) History of dental surgery History of hysterectomy 1993 History of laparoscopic cholecystectomy 1993 Status post colonoscopy (02/19/21) Diverticulosis, internal hemorrhoids Family History Other Hypertension Social History Smoking and tobacco status: current every day smoker cigarettes Years cigarettes smoked: 64 [ Other cigarette details: started age 13; 1 pack /3 days currently ] Alcohol intake: never Substance/Drug Use: never Lives independently: Yes Physical Exam Const: OTHER: Patient is intubated. HENMT: COMMON NORMALS: normocephalic HEAD & SCALP: normocephalic Chest: COMMONS NORMALS: normal inspection of the chest OTHER: No spontaneous respiratory activity. Intubated with ongoing mechanical ventilation. Bilateral expiratory wheeze. Cardio: COMMON NORMALS: regular rhythm and No murmurs present (Cardio) RATE: tachycardic RHYTHM: regular rhythm GI: COMMON NORMALS: Normal to inspection, nondistended, normoactive bowel sounds present Extremity: GENERAL: Yes normal exam except as noted Neuro: OTHER: Patient is intubated so an appropriate neuro exam could not be performed. Course Reevaluation(s): Reevaluation #1: Had an extensive discussion with the patient's daughter who is currently at her bedside. Daughter notes that patient is DNR and during her admission, she was asked repeatedly about her CODE STATUS and she insisted that she was DNR. Daughter notes that there is documentation to that effect. So daughter was suprised to see that patient was intubated by EMS. Reevaluation #2: I was informed that patient was beginning to move and she continues to bleed from the mouth. On exam, she had active bleeding from the hard palate and the gauzed that were inserted into her mouth were fully soaked with blood. Gauzes were removed and blood suctioned. Blood clot was evacuated from the posterior pharynx. Again, I discussed with daughter who noted that patient is DNR. She had talked to her sister on the phone earlier. At this time, patient was gesticulating that the tube be removed. She appeared to be understanding what was discussed around her. When asked repeatedly, in different ways if she wanted the tube removed, patient nodded yes . Daughter supports the decision to extubate patient. Tube was eventually removed. Shortly afterwards, she started desaturating and so she was placed on a nonrebreather oxygen. Time: 19:49 Consultations: Consultation #1: Case discussed with Dr. Rogers who accepted patient for admission. Vital Signs: Vital signs: Vital Signs Temperature 97.4 F L 01/31/23 18:53 Pulse Rate 96 01/31/23 21:44 Respiratory Rate 11 L 01/31/23 21:44 Blood Pressure 92/65 01/31/23 21:44 Pulse Oximetry 100 01/31/23 21:44 Oxygen Delivery Me thod Non-Rebreather 01/31/23 19:31 Oxygen Flow Rate 15 01/31/23 19:31 Fraction of Inspir ed Oxygen 100 01/31/23 18:54 MDM - SOB/Dyspnea Medical Decision Making Medical decision making: Please refer to hospital course for more information. Lab Data 01/31/23 18:30 01/31/23 18:30 Labs/Radiology: Radiology Impressions Chest X-Ray 01/31/23 18:57 IMPRESSION: There is an ET tube with tip below the clavicular heads and 4.5 cm above the shakira. Laboratory Results WBC 10.1 10^3/uL (4.0-10.0) H 01/31/23 18:30 RBC 4.13 10^6/uL (4.1-5.3) 01/31/23 18:30 Hgb 10.6 g/dL (11.5-15.3) L 01/31/23 18:30 Hct 35.5 % (37.0-47.0) L 01/31/23 18:30 MCV 86.0 fl (81-99) 01/31/23 18:30 MCH 25.7 pg (28.0-34.0) L 01/31/23 18:30 MCHC 29.9 g/dL (30.0-36.0) L 01/31/23 18:30 RDW 18.7 % (12.1-15.1) H 01/31/23 18:30 Plt Count 207 10^3/cmm (130-400) 01/31/23 18:30 MPV 11.2 fL (7.4-10.4) H 01/31/23 18:30 Neut % (Auto) 94.0 % 01/31/23 18:30 Lymph % (Auto) 4.0 % 01/31/23 18:30 [place] % (Auto) 1.2 % 01/31/23 18:30 Eos % (Auto) 0.0 % 01/31/23 18:30 Baso % (Auto) 0.2 % 01/31/23 18:30 Neut # (Auto) 9.51 10^3/uL (1.8-7.7) H 01/31/23 18:30 Lymph # (Auto) 0.4 10^3/uL (0.8-4.8) L 01/31/23 18:30 [place] # (Auto) 0.1 10^3/uL (0.2-0.9) L 01/31/23 18:30 Eos # (Auto) 0.0 10^3/uL (0.0-0.8) 01/31/23 18:30 Baso # (Auto) 0.0 10^3/uL (0.0-0.1) 01/31/23 18:30 Nucleated RBC % (auto) 0 % 01/31/23 18:30 Nucleated RBCs # 0.0 /100WBC 01/31/23 18:30 Specimen Type Arterial 01/31/23 18:48 Sample Site Radial, right 01/31/23 18:48 ABG pH 7.34 (7.35-7.45) L 01/31/23 18:48 ABG pCO2 47.1 mmHg (35-45) H 01/31/23 18:48 ABG pO2 457.0 mmHg (80.0-100.0) H 01/31/23 18:48 ABG HCO3 25.1 mmol/L (22-26) 01/31/23 18:48 ABG O2 Saturation > 100.0 01/31/23 18:48 ABG Base Excess -0.9 mmol/L (-2.0-2.0) 01/31/23 18:48 Don Test Pos 01/31/23 18:48 A-a O2 Gradient 24.7 mmHg (5-10) H 01/31/23 18:48 Hematocrit 32.3 % (37-47) L 01/31/23 18:48 Hgb O2 Saturation 97.5 % (95-100) 01/31/23 18:48 Carboxyhemoglobin 2.4 %THgb (0.4-20.1) 01/31/23 18:48 Methemoglobin 0.9 % (0.4-1.5) 01/31/23 18:48 Total Hemoglobin 10.6 g/dL (12-16) L 01/31/23 18:48 Sodium 139.0 mmol/L (131-143) 01/31/23 18:48 Potassium 4.7 mmol/L (3.5-5.0) 01/31/23 18:48 Glucose 179.0 mg/dL (70-115) H 01/31/23 18:48 Ionized Calcium 1.2 mmol/L (1.1-1.4) 01/31/23 18:48 O2 Delivery Device Vent 01/31/23 18:48 FiO2 100.0 % 01/31/23 18:48 Tidal Volume 0.40 01/31/23 18:48 PEEP 8.0 cmH20 01/31/23 18:48 Wood Ski Maker ID glc 01/31/23 18:48 Sodium 135 mmol/L (136-145) L 01/31/23 18:30 Potassium 5.0 mmol/L (3.5-5.1) 01/31/23 18:30 Chloride 102 mmol/L (98-107) 01/31/23 18:30 Carbon Dioxide 22 mmol/L (22-29) 01/31/23 18:30 Anion Gap 16.0 (5-19) 01/31/23 18:30 BUN 51 mg/dL (8-23) H 01/31/23 18:30 Creatinine 1.5 mg/dL (0.5-0.9) H 01/31/23 18:30 GFR Calculation Not Reportable 01/31/23 18:30 Glucose 161 mg/dL (65-115) H 01/31/23 18:30 Calculated Osmolality 297 mOsm/kg (285-295) H 01/31/23 18:30 Calcium 8.7 mg/dL (8.5-10.5) 01/31/23 18:30 Total Bilirubin 0.2 mg/dL (0.15-1.2) 01/31/23 18:30 AST 13 U/L (0-32) 01/31/23 18:30 ALT 19 U/L (0-33) 01/31/23 18:30 Alkaline Phosphatase 257 U/L (35-105) H 01/31/23 18:30 Troponin T Baseline 39 ng/L (0-10) H 01/31/23 18:30 Total Protein 7.4 g/dL (6.6-8.7) 01/31/23 18:30 Albumin 3.8 g/dL (3.5-5.2) 01/31/23 18:30 Globulin 3.6 g/dL (1.3-4.6) 01/31/23 18:30 EKG Data EKG 1: Interpretation: 1910 hrs.: Sinus tachycardia, rate of 106, normal axis, normal intervals, no STEMI. Critical Care Time Critical Care Time: Critical Care Time: Yes Total Critical Care Time: 46 Attestation: Patient was brought in by EMS already intubated and bagged. She has bleeding from the oral cavity. Discharge Plan Discharge Patient Disposition: Admitted As Inpatient Admit Provider: Maude Reed Clinical Impression: COPD exacerbation, Acute hypoxemic respiratory failure Condition: Stable Coding Level of Care Code ED Tool Turret Lathe Set Up Operator for Lian Nichols
--- NOTE | 2023-01-31 18:46 | PC.NURSE ---
REPORT GIVEN TO LAURA RODRIGUEZ.
[2023-01-31] MEDS: ipratropium-albuterol 3 mL Neb INHALATION (18:53)
--- NOTE | 2023-01-31 18:57 | XRR_ITS ---
PROCEDURE INFORMATION: Exam: XR Chest Exam date and time: 01/31/2023 7:10 PM Age: 73 years old Clinical indication: Shortness of breath; Additional info: SOB, intubated TECHNIQUE: Imaging protocol: Radiologic exam of the chest. Views: 1 view. COMPARISON: CR (CHEST, ) 01/25/2023 9:19 PM FINDINGS: Tubes, catheters and devices: There is an ET tube with tip below the clavicular heads and 4.5 cm above the shakira. Lungs: Pulmonary vascularity is within normal limits. Pleural spaces: Unremarkable. No pleural effusion. No pneumothorax. Heart/Mediastinum: The heart is enlarged. Vasculature: Unchanged thoracic aortic stent graft and ectasias of the thoracic aorta. Bones/joints: No acute abnormality. Gastrointestinal tract: Stomach is distended with air. XR/XR chest 1V portable [id number] IMPRESSION: There is an ET tube with tip below the clavicular heads and 4.5 cm above the shakira.
--- NOTE | 2023-01-31 18:59 | ECG_ITS ---
[facility] Test Date: 2023-01-31 Pat Name: Eli Kimball Department: Room: 106 Gender: Female Supervisory Forester: : 1950 Requested By: Hardik Courtney Order Number: [id number] Dinorah MD: Jamshid Alfaro M.D. Measurements Intervals [place] Rate: 115 P: 70 NC: 148 QRS: 1 QRSD: 99 T: 39 QT: 314 QTc: 435 Interpretive Statements SINUS TACHYCARDIA LEFT ATRIAL ENLARGEMENT [-0.15mV P-WAVE IN V1/V2] INFERIOR MYOCARDIAL INFARCTION , OF INDETERMINATE AGE [40+ ms Q WAVE AND/OR ST/T ABNORMALITY IN II/aVF] Compared to ECG 01/26/2023 21:52:32 Left-axis deviation no longer present Myocardial infarct finding still present Electronically Signed On 02-01-2023 8:02:06 CDT by Jamshid Alfaro M.D. [email or web address] [id number]
[2023-01-31 19:00] LABS: ABG PCO2 47.1 mmHg (35-45); ABG PH Result 7.34 (7.35-7.45); Alveolar-Arterial Oxygen Gradi 24.7 mmHg (5-10); Arterial Blood Gas Hematocrit 32.3 % (37-47); Base Excess ABG -0.9 mmol/L (-2.0-2.0); Blood Gas Allen Test Pos; Blood Gas Operator Identificat glc; Blood Gas Sample Site Radial, right; Blood Gas Sample Type Arterial; Carboxyhemoglobin 2.4 %THgb (0.4-20.1); HCO3 ABG 25.1 mmol/L (22-26); HGB O2 Sat 97.5 % (95-100); Ionized Calcium Level - ABG 1.2 mmol/L (1.1-1.4); Methemoglobin 0.9 % (0.4-1.5); Oxygen Device VENT; Oxygen Saturation ABG > 100.0; Potassium Level - ABG 4.7 mmol/L (3.5-5.0); Total Hemoglobin 10.6 g/dL (12-16)
[2023-01-31 19:06] LABS: Basophils % 0.2 %; Hematocrit 35.5 % (37.0-47.0); Hemoglobin 10.6 g/dL (11.5-15.3); Lymphocytes # 0.4 10^3/uL (0.8-4.8); Mean Corpuscular HGB Conc 29.9 g/dL (30.0-36.0); Mean Corpuscular Hemoglobin 25.7 pg (28.0-34.0); Mean Platelet Volume 11.2 fL (7.4-10.4); Monocytes # 0.1 10^3/uL (0.2-0.9); Monocytes % 1.2 %; Neutrophils # 9.51 10^3/uL (1.8-7.7); Nucleated Red Blood Cells % 0 %; Platelet Count 207 10^3/cmm (130-400); Red Blood Count 4.13 10^6/uL (4.1-5.3); Red Cell Distribution Width 18.7 % (12.1-15.1); White Blood Count 10.1 10^3/uL (4.0-10.0)
--- NOTE | 2023-01-31 19:08 | ECG_ITS ---
[facility] Test Date: 2023-01-31 Pat Name: Eli Kimball Department: Room: Gender: Female Honey Producer: : 1950 Requested By: Hardik Courtney Order Number: [id number] Dinorah MD: Jamshid Alfaro M.D. Measurements Intervals [place] Rate: 106 P: 64 VA: 136 QRS: -17 QRSD: 95 T: 55 QT: 332 QTc: 442 Interpretive Statements SINUS TACHYCARDIA POSSIBLE LEFT ATRIAL ENLARGEMENT [-0.1mV P-WAVE IN V1/V2] LOW QRS VOLTAGE IN EXTREMITY LEADS [QRS DEFLECTION < 0.5 mV IN LIMB LEADS] Compared to ECG 01/26/2023 21:52:32 Low QRS voltage now present Left-axis deviation no longer present Myocardial infarct finding no longer present Electronically Signed On 02-01-2023 8:01:46 CDT by Jamshid Alfaro M.D. [id number]
[2023-01-31 19:18] LABS: Troponin(5th) Baseline 39 ng/L (0-10)
[2023-01-31 19:19] LABS: Alanine Aminotransferase 19 U/L (0-33); Albumin Level 3.8 g/dL (3.5-5.2); Alkaline Phosphatase 257 U/L (35-105); Aspartate Amino Transferase 13 U/L (0-32); Blood Urea Nitrogen 51 mg/dL (8-23); Calcium 8.7 mg/dL (8.5-10.5); Carbon Dioxide 22 mmol/L (22-29); Chloride 102 mmol/L (98-107); Globulin 3.6 g/dL (1.3-4.6); Glucose 161 mg/dL (65-115); Osmolality Calculated 297 mOsm/kg (285-295); Sodium 135 mmol/L (136-145); Total Bilirubin 0.2 mg/dL (0.15-1.2); Total Protein 7.4 g/dL (6.6-8.7)
[2023-01-31] MEDS: LORazepam 2 mg/mL INJ 1 mL IVP (19:36)
--- NOTE | 2023-01-31 19:53 | PC.NURSE ---
Pt was extubated per family and Pt's request at 1940.
[2023-01-31] MEDS: morphine 4 mg/mL SDV 1 mL IVP (20:26)
--- NOTE | 2023-01-31 20:33 | P.HP_ITS ---
Providers/Chief Complaint Primary Care Provider: Bhupinder Logan MD Chief Complaint: RESP DISTRESS History of Present Illness Eli Kimball is a 73 year old female with a past medical history significant for chronic hypoxic respiratory failure on oxygen, descending thoracic aortic aneurysm s/p TEVAR in 09/2022, COPD, tobacco use,?CKD, chronic anemia, and cononary artery disease who underwent PCI with stent placement yesterday with discharge today who presents to the emergency department intubated with subsequent extensive oral bleeding. Daughter is bedside. Reports she was DNI/DNR. Patient was extubated prior to my arrival in ED. She is in severe respiratory distress with copious oral bleeding. Review of Systems Narrative: Attempt to obtain a complete review of systems but unable to due to respiratory distress and inability to provide history. Medications/Allergies Home Medications Medication Instructions Recorded Confirmed Last Taken Type albuterol sulfate 90 mcg/actuation 1 - 2 inh inhalation Q4H PRN 01/03/21 01/26/23 12/09/21 History aerosol inhaler (Ventolin HFA) Shortness Of Breath gabapentin 600 mg tablet 600 mg PO TID 01/03/21 01/26/23 04/09/22 History irbesartan 300 mg tablet 300 mg PO DAILY@1800 01/03/21 01/26/23 04/09/22 History clopidogrel 75 mg tablet (Plavix) 75 mg PO DAILY 04/10/22 01/26/23 04/09/22 History desvenlafaxine succinate 50 mg 50 mg PO BEDTIME 04/10/22 01/26/23 04/09/22 History tablet,extended release 24 hr suvorexant 20 mg tablet (Belsomra) 20 mg PO BEDTIME 04/10/22 01/26/23 04/09/22 History fluticasone fur. 200 mcg-umeclid 1 inh inhalation DAILY 30 days #60 06/06/22 01/26/23 Unknown Rx 62.5 mcg-vilant 25 mcg ea inhalat.powder (Trelegy Ellipta) nebulizers #1 ea 06/06/22 01/26/23 Unknown Rx ondansetron 4 mg disintegrating 4 mg PO Q6H PRN nausea and 11/04/22 01/26/23 Unknown Rx tablet vomiting #14 tabs ipratropium 0.5 mg-albuterol 3 mg 3 ml inhalation Q4H PRN wheezing 11/06/22 01/26/23 Unknown Rx (2.5 mg base)/3 mL nebulization #90 mL soln oxygen-air delivery systems 11/13/22 01/26/23 Unknown History ergocalciferol (vitamin D2) 1,250 1,250 mcg PO Q7D 01/26/23 01/26/23 Unknown History mcg (50,000 unit) capsule ferrous gluconate 324 mg (37.5 mg 324 mg PO DAILY 01/26/23 01/26/23 Unknown History iron) tablet prednisolone acetate 1 % eye 1 drp ophthalmic (eye) BID 01/26/23 01/26/23 Unknown History drops,suspension aspirin 81 mg tablet,delayed 81 mg PO DAILY 3 months #90 tabs 01/31/23 Unknown Rx release (Enteric Coated Aspirin) hydralazine 10 mg tablet 10 mg PO TID 30 days #90 tabs 01/31/23 Unknown Rx metoprolol succinate 25 mg 25 mg PO DAILY 30 days #30 tabs 01/31/23 Unknown Rx tablet,extended release 24 hr prednisone 20 mg tablet 40 mg PO DAILY 5 days #10 tabs 01/31/23 Unknown Rx Allergies Allergy/AdvReac Type Severity Reaction Status Date / Time No Known Drug Allergies Allergy ADR-Irritab Verified 01/31/23 18:36 le PFSH Acute PFSH: Medical History Acute cystitis Acute cystitis Acute kidney injury superimposed on chronic kidney disease Blurred vision Bronchus, stenosis Patient is scheduled for stent removal in February in [place] She had atelectasis that is why she received a pulmonary stent COPD (chronic obstructive pulmonary disease) Hypertension Left-sided cerebrovascular accident (CVA) Microcytic anemia Weakness Surgical History H/O esophagogastroduodenoscopy AVM body of stomach H/O thoracic aortic aneurysm repair History of back surgery x3 History of breast surgery inverted nipple (x3) History of dental surgery History of hysterectomy 1993 History of laparoscopic cholecystectomy 1993 Status post colonoscopy (02/19/21) Diverticulosis, internal hemorrhoids Family History Other Hypertension Social History Smoking and tobacco status: current every day smoker cigarettes Years cigarettes smoked: 64 [ Other cigarette details: started age 13; 1 pack /3 days currently ] Alcohol intake: never Substance/Drug Use: never Lives independently: Yes Vitals/I&O/Wt Last Vital Signs Temp 97.4 F L 01/31/23 18:53 Pulse 117 H 01/31/23 18:53 Resp 16 01/31/23 18:54 BP 207/126 01/31/23 18:53 Pulse Ox 100 01/31/23 18:53 O2 Del Method Mechanical Ventilation 01/31/23 18:53 FiO2 100 01/31/23 18:54 Weight last 48 hrs Weight 57.153 kg Physical Exam Narrative: General: Patient is in severe distress. Head: Temporal wasting. Extensive bleeding from oral cavity. Neck: No JVD. Cardiovascular: Tachycardic. No gallops. No murmurs. Lungs: Diffuse wheezing. Course breath sounds. Severe respiratory distress. Agonal breathing. Skin: No jaundice. No rashes. Abdomen: Normal bowel sounds, abdomen soft and nontender. Extremities: No cyanosis or clubbing. Musculoskeletal: No overt joint deformity. Neurological: Moves all 4 extremities. No myoclonus. Data 01/31/23 18:30 01/31/23 18:30 A&P Assessment and plan (1) Respiratory failure with hypoxia: (2) COPD exacerbation: (3) Abdominal aortic aneurysm: (4) Congestive heart failure: (5) Bleeding: (6) Coagulopathy: (7) Respiratory distress: (8) Hypertension: (9) DNI (do not intubate): (10) DNR (do not resuscitate): Plan -Extubated in ED, patient is DNR/DNI -Continue DAPT given stents placed yesterday -Deep suctioned w/o significant blood suctioned from lungs -Discussed w/ face reconstructive surgery at [facility], could consider suture if applicable, epi injections, afrin pledget packing; d/w ED and nursing -IV steroids -Breathing treatments -Morphine for palliation of respiratory distress, d/w daughter -DNR/DNI Attestations Medical Necessity Statement*: Patient presents with significant oral bleeding following intubation by EMS followed by extubation in ED in severe respiratory distress with significant oral bleeding with expected hospitalization to cross two midnights. Critical Care Time: The high probability of a clinically significant, sudden or life threatening deterioration of the patient's severe respiratory distress system(s) required my full and direct attention, intervention and personal management. The critical care time is as shown. This time is in addition to time spent performing any reported procedures but includes the following: [x] Data and vital sign review and interpretation [x] Patient assessment, examination and intervention [x] Documentation [x] Medication orders and management Critical Care Time (min): 60 Coding Level of Care Code Acute Code for [facility] Fwd Diagnoses Respiratory failure with hypoxia J96.91 COPD exacerbation J44.1 Abdominal aortic aneurysm I71.40 Congestive heart failure I50.9 Bleeding R58 Coagulopathy D68.9 Respiratory distress R06.03 Hypertension I10 DNI (do not intubate) Z78.9 DNR (do not resuscitate) Z66
--- NOTE | 2023-01-31 22:00 | PC.NURSE ---
Patient settled in room 106. Nurses assisted patient in getting cleaned up and changing into hospital gown. The patient was able to sit forward in the bed and was answering questions appropriately. Did not have good recollection of what happened. Nurse spoke with patients daughter outside the room and daughter stated this was a surprise as in the er the patient was not doing well and they were given the impression that she was needing comfort measures.
[2023-01-31] MEDS: water for injection-sterile 10 ML 50 ML (22:28)
--- NOTE | 2023-01-31 23:00 | PC.NURSE ---
Nurse assisted patient with oral care, rinsing mouth gently with water and checking for any signs of bleeding. Roof of mouth has abrasions but does not look to be actively bleeding. Patient was put on 02 at 6L during oral care and is maintaining SATs of 93-94%. Patient will be kept on 02 at 6L via nasal cannula.
[2023-01-31] MEDS: desvenlafaxine 50 mg Tablet PO (23:13)
[2023-02-01] VITALS (120 sets, daily range): BP systolic 118–150; BP diastolic 57–86; PULSE 72–101; RESP 11–28; TEMP 36.8–36.9; O2SAT 61–100
[2023-02-01] MEDS: LORazepam 2 mg/mL INJ 1 mL 1 MG IVP (01:05)
[2023-02-01] MEDS: ipratropium-albuterol 3 mL Neb INHALATION ×6 (01:30→20:49)
[2023-02-01] MEDS: budesonide 0.5 mg/2 mL Neb INHALATION ×2 (08:15→20:49)
[2023-02-01] MEDS: gabapentin 300 mg Capsule 600 MG PO ×3 (08:53→20:22)
[2023-02-01] MEDS: aspirin 81 mg EC Tablet PO (08:53)
[2023-02-01] MEDS: clopidogrel 75 mg Tablet PO (08:53)
[2023-02-01] MEDS: metoprolol succinate ER (24 HR) 25 mg Tablet PO (08:53)
[2023-02-01 09:36] LABS: Basophils % 0.2 %; Hematocrit 31.3 % (37.0-47.0); Hemoglobin 9.1 g/dL (11.5-15.3); Lymphocytes # 0.2 10^3/uL (0.8-4.8); Lymphocytes % 3.7 %; Mean Corpuscular HGB Conc 29.1 g/dL (30.0-36.0); Mean Corpuscular Hemoglobin 25.3 pg (28.0-34.0); Mean Corpuscular Volume 87.2 fl (81-99); Mean Platelet Volume 10.8 fL (7.4-10.4); Monocytes # 0.1 10^3/uL (0.2-0.9); Monocytes % 0.8 %; Neutrophils % 94.7 %; Nucleated Red Blood Cells % 0 %; Platelet Count 181 10^3/cmm (130-400); Red Blood Count 3.59 10^6/uL (4.1-5.3); Red Cell Distribution Width 18.8 % (12.1-15.1); White Blood Count 6.4 10^3/uL (4.0-10.0)
[2023-02-01] MEDS: acetaminophen 500 mg Tablet 1000 MG PO (09:47)
[2023-02-01 10:03] LABS: Albumin Level 3.5 g/dL (3.5-5.2); Anion Gap 16.3 (5-19); Blood Urea Nitrogen 61 mg/dL (8-23); Calcium 8.7 mg/dL (8.5-10.5); Carbon Dioxide 22 mmol/L (22-29); Chloride 102 mmol/L (98-107); Glucose 201 mg/dL (65-115); Phosphorus 3.9 mg/dL (2.5-4.5); Potassium 5.3 mmol/L (3.5-5.1); Sodium 135 mmol/L (136-145)
[2023-02-01] MEDS: morphine 4 mg/mL SDV 1 mL IVP ×2 (13:25→20:26)
[2023-02-01] MEDS: water for injection-sterile 10 ML ×2 (13:37→20:22)
--- NOTE | 2023-02-01 14:09 | PM.PN ---
Subjective Subjective: Patient reports she is feeling better today. Reports breathing has improved but still short of breath. Endorses wheezing. Oral bleeding resolved overnight. She reports she felt like she couldn't breath after getting home yesterday so she used her nebulizer with DuoNeb but it didn't seem to help so she told her daughter to call 911. She states she asked EMS to just intubated because she felt like she couldn't breath. Medications: Reviewed: Yes Vitals/I&O/Wt Last Vital Signs Temp 98.4 F 02/01/23 08:22 Pulse 96 02/01/23 12:00 Resp 17 02/01/23 13:25 BP 118/57 02/01/23 12:00 Pulse Ox 80 L 02/01/23 12:00 O2 Del Method Nasal Cannula 02/01/23 11:49 O2 Flow Rate 2 02/01/23 11:49 FiO2 100 01/31/23 18:54 01/31/23 02/01/23 02/01/23 22:59 06:59 14:59 Intake Total 370 / 370 240 / 240 Output Total 200 / 200 Balance 170 / 170 240 / 240 Weight last 48 hrs Weight 57.47 kg Weight 57.153 kg Physical Exam Narrative: General: Patient is awake. Frail and cachetic appearing. More cooperative than prior exams. Head: Temporal wasting. Laceration on palate. Neck: No JVD. Cardiovascular: No gallops. No murmurs. Lungs: End expiratory wheezing. Course breath sounds. Skin: No jaundice. No rashes. Abdomen: Normal bowel sounds, abdomen soft and nontender. Extremities: No cyanosis or clubbing. Musculoskeletal: No overt joint deformity. Neurological: Moves all 4 extremities. No myoclonus. Data 02/01/23 09:25 02/01/23 09:25 A&P Assessment and plan (1) Respiratory distress: Baseline oxygen requirement is 3 liters Patient intubated in field on 01/31 per her request Intubation was traumatic with diffuse oral bleeding Extubated in ED per daughter/patient request Hemostasis eventually acheived, some aspiration of blood to be expected Treat underlying COPD Supplemental oxygen support Morphine for pallation of air hunger (2) Bleeding: Secondary to traumatic intubation by EMS with copious oral bleeding on DAPT Hypostasis achieved, at risk for rebleed, continue to monitor Telemetry monitoring Trend hemoglobin (3) COPD exacerbation: Continue Solumedrol Continue Pulmicort Continue Duonebs Consider abx (4) Coronary artery disease: Status post stents on 01/30/2023 Continue DAPT to prevent ISR (5) Congestive heart failure: Strict I&Os Daily weights (6) Hypertension: Continue metorpolol (7) Abdominal aortic aneurysm: Monitor blood pressure and heart rate (8) DNI (do not intubate): (9) DNR (do not resuscitate): Plan DVT ppx: SCD Code Status: DNR/DNI Attestations Medical Necessity Statement*: Patient requires ongoing hospitalized care for IV antibiotics, serial exams, serial labs, and supportive care. Coding Level of Care Code Acute Code for [facility] Diagnoses Respiratory distress R06.03 Bleeding R58 COPD exacerbation J44.1 Coronary artery disease I25.10 Congestive heart failure I50.9 Hypertension I10 Abdominal aortic aneurysm I71.40 DNI (do not intubate) Z78.9 DNR (do not resuscitate) Z66
[2023-02-01] MEDS: desvenlafaxine 50 mg Tablet PO (20:22)
[2023-02-01] MEDS: cetylpyridinium Lozenge 1 EACH MUCOUS MEM (21:56)
[2023-02-02] VITALS (185 sets, daily range): BP systolic 145–171; BP diastolic 77–92; PULSE 68–104; RESP 9–28; TEMP 36.6–36.7; O2SAT 78–100
[2023-02-02] MEDS: ipratropium-albuterol 3 mL Neb INHALATION ×4 (00:02→12:18)
[2023-02-02] MEDS: morphine 4 mg/mL SDV 1 mL IVP (02:57)
[2023-02-02 03:47] LABS: Basophils % 0.1 %; Hematocrit 28.7 % (37.0-47.0); Hemoglobin 8.5 g/dL (11.5-15.3); Lymphocytes # 0.4 10^3/uL (0.8-4.8); Lymphocytes % 4.8 %; Mean Corpuscular HGB Conc 29.6 g/dL (30.0-36.0); Mean Corpuscular Hemoglobin 25.7 pg (28.0-34.0); Mean Corpuscular Volume 86.7 fl (81-99); Mean Platelet Volume 10.5 fL (7.4-10.4); Monocytes # 0.2 10^3/uL (0.2-0.9); Monocytes % 1.8 %; Neutrophils # 8.27 10^3/uL (1.8-7.7); Neutrophils % 92.5 %; Nucleated Red Blood Cells % 0 %; Platelet Count 188 10^3/cmm (130-400); Red Blood Count 3.31 10^6/uL (4.1-5.3); White Blood Count 8.9 10^3/uL (4.0-10.0)
[2023-02-02 04:08] LABS: Albumin Level 3.3 g/dL (3.5-5.2); Anion Gap 15.3 (5-19); Blood Urea Nitrogen 60 mg/dL (8-23); Calcium 9.2 mg/dL (8.5-10.5); Carbon Dioxide 23 mmol/L (22-29); Chloride 100 mmol/L (98-107); Glucose 117 mg/dL (65-115); Magnesium 2.1 mg/dL (1.7-2.3); Phosphorus 4.1 mg/dL (2.5-4.5); Potassium 5.3 mmol/L (3.5-5.1); Sodium 133 mmol/L (136-145)
[2023-02-02] MEDS: water for injection-sterile 10 ML (05:13)
[2023-02-02] MEDS: budesonide 0.5 mg/2 mL Neb INHALATION (08:00)
[2023-02-02] MEDS: clopidogrel 75 mg Tablet PO (09:23)
[2023-02-02] MEDS: aspirin 81 mg EC Tablet PO (09:23)
[2023-02-02] MEDS: metoprolol succinate ER (24 HR) 25 mg Tablet PO (09:23)
[2023-02-02] MEDS: gabapentin 300 mg Capsule 600 MG PO ×2 (09:23→15:38)
--- NOTE | 2023-02-02 11:42 | P.DS_ITS ---
Discharge Providers Date of Admission: 01/31/23 20:47 Date of Discharge: February 02, 2023 Attending Provider at Admission: Maude Reed MD Attending Provider at Discharge: Jaclyn Garcia MD Primary Care Provider: Bhupinder Logan MD Diagnoses at Discharge Discharge Diagnosis (1) Respiratory distress: Status: Acute (2) Bleeding: Status: Acute (3) COPD exacerbation: Status: Acute (4) Coronary artery disease: Status: Acute (5) Congestive heart failure: Status: Acute (6) Hypertension: Status: Acute (7) Abdominal aortic aneurysm: Status: Acute (8) DNI (do not intubate): Status: Acute (9) DNR (do not resuscitate): Status: Acute Reason for Visit Reason for Visit: RESP DISTRESS Hospital Course Hospital Course 73-year-old female who was recently discharged from the hospital after stent to proximal RCA when she presented with chest pain and COPD exacerbation, patient was discharged over the weekend however she came back same day for worsening of shortness of breath she was intubated on her request by the EMS, during intubation she suffered from palate injury and a lot of bleeding was noted there was concern for aspiration of blood however she remained afebrile, patient was extubated in the ER because she was DNR/DNI, she does have persistent wheezing, she has a bronchial stent for she is seeing a campaign advisor in [place] on February 19 for the removal of the stent, Since extubation patient has been doing well on 3 L nasal cannula, she is not short of breath at rest, she is tolerating her diet, appropriate mood and affect with good spirits Hemoglobin stable 8.5 Patient has chronic kidney disease, creatinine seems around baseline, no signs of contrast-induced nephropathy after coronary angiogram. Cultures negative, white count 8.9 Change in medications Discontinue irbesartan and metoprolol because of her persistent wheeze and chronic kidney disease, I will add Cardizem and increase hydralazine dose to 25 mg 3 times daily I will give her Medrol pack along Augmentin however she has remained afebrile Physical Exam Narrative: Patient on 3 L Mild wheeze present Abdomen soft GCS 15 Abdomen soft S1, S2 Appropriate mood and Discharge Data Studies Completed and Pending Completed Studies During Hospitalization Category Date Time Status XR chest 1V portable [id number] Stat Exams 01/31/23 18:57 Completed Radiology Impressions Chest X-Ray 01/31/23 18:57 IMPRESSION: There is an ET tube with tip below the clavicular heads and 4.5 cm above the shakira. Laboratory Results WBC 8.9 10^3/uL (4.0-10.0) 02/02/23 03:19 RBC 3.31 10^6/uL (4.1-5.3) L 02/02/23 03:19 Hgb 8.5 g/dL (11.5-15.3) L 02/02/23 03:19 Hct 28.7 % (37.0-47.0) L 02/02/23 03:19 MCV 86.7 fl (81-99) 02/02/23 03:19 MCH 25.7 pg (28.0-34.0) L 02/02/23 03:19 MCHC 29.6 g/dL (30.0-36.0) L 02/02/23 03:19 RDW 19.0 % (12.1-15.1) H 02/02/23 03:19 Plt Count 188 10^3/cmm (130-400) 02/02/23 03:19 MPV 10.5 fL (7.4-10.4) H 02/02/23 03:19 Neut % (Auto) 92.5 % 02/02/23 03:19 Lymph % (Auto) 4.8 % 02/02/23 03:19 [place] % (Auto) 1.8 % 02/02/23 03:19 Eos % (Auto) 0.0 % 02/02/23 03:19 Baso % (Auto) 0.1 % 02/02/23 03:19 Neut # (Auto) 8.27 10^3/uL (1.8-7.7) H 02/02/23 03:19 Lymph # (Auto) 0.4 10^3/uL (0.8-4.8) L 02/02/23 03:19 [place] # (Auto) 0.2 10^3/uL (0.2-0.9) 02/02/23 03:19 Eos # (Auto) 0.0 10^3/uL (0.0-0.8) 02/02/23 03:19 Baso # (Auto) 0.0 10^3/uL (0.0-0.1) 02/02/23 03:19 Nucleated RBC % (auto) 0 % 02/02/23 03:19 Nucleated RBCs # 0.0 /100WBC 02/02/23 03:19 Specimen Type Arterial 01/31/23 18:48 Sample Site Radial, right 01/31/23 18:48 ABG pH 7.34 (7.35-7.45) L 01/31/23 18:48 ABG pCO2 47.1 mmHg (35-45) H 01/31/23 18:48 ABG pO2 457.0 mmHg (80.0-100.0) H 01/31/23 18:48 ABG HCO3 25.1 mmol/L (22-26) 01/31/23 18:48 ABG O2 Saturation > 100.0 01/31/23 18:48 ABG Base Excess -0.9 mmol/L (-2.0-2.0) 01/31/23 18:48 Don Test Pos 01/31/23 18:48 A-a O2 Gradient 24.7 mmHg (5-10) H 01/31/23 18:48 Hematocrit 32.3 % (37-47) L 01/31/23 18:48 Hgb O2 Saturation 97.5 % (95-100) 01/31/23 18:48 Carboxyhemoglobin 2.4 %THgb (0.4-20.1) 01/31/23 18:48 Methemoglobin 0.9 % (0.4-1.5) 01/31/23 18:48 Total Hemoglobin 10.6 g/dL (12-16) L 01/31/23 18:48 Sodium 139.0 mmol/L (131-143) 01/31/23 18:48 Potassium 4.7 mmol/L (3.5-5.0) 01/31/23 18:48 Glucose 179.0 mg/dL (70-115) H 01/31/23 18:48 Ionized Calcium 1.2 mmol/L (1.1-1.4) 01/31/23 18:48 O2 Delivery Device Vent 01/31/23 18:48 FiO2 100.0 % 01/31/23 18:48 Tidal Volume 0.40 01/31/23 18:48 PEEP 8.0 cmH20 01/31/23 18:48 Call Out Clerk ID [email or web address] 01/31/23 18:48 Sodium 133 mmol/L (136-145) L 02/02/23 03:19 Potassium 5.3 mmol/L (3.5-5.1) H 02/02/23 03:19 Chloride 100 mmol/L (98-107) 02/02/23 03:19 Carbon Dioxide 23 mmol/L (22-29) 02/02/23 03:19 Anion Gap 15.3 (5-19) 02/02/23 03:19 BUN 60 mg/dL (8-23) H 02/02/23 03:19 Creatinine 1.7 mg/dL (0.5-0.9) H 02/02/23 03:19 GFR Calculation Not Reportable 02/02/23 03:19 Glucose 117 mg/dL (65-115) H 02/02/23 03:19 Calculated Osmolality 297 mOsm/kg (285-295) H 01/31/23 18:30 Calcium 9.2 mg/dL (8.5-10.5) 02/02/23 03:19 Phosphorus 4.1 mg/dL (2.5-4.5) 02/02/23 03:19 Magnesium 2.1 mg/dL (1.7-2.3) 02/02/23 03:19 Total Bilirubin 0.2 mg/dL (0.15-1.2) 01/31/23 18:30 AST 13 U/L (0-32) 01/31/23 18:30 ALT 19 U/L (0-33) 01/31/23 18:30 Alkaline Phosphatase 257 U/L (35-105) H 01/31/23 18:30 Troponin T Baseline 39 ng/L (0-10) H 01/31/23 18:30 Total Protein 7.4 g/dL (6.6-8.7) 01/31/23 18:30 Albumin 3.3 g/dL (3.5-5.2) L 02/02/23 03:19 Globulin 3.6 g/dL (1.3-4.6) 01/31/23 18:30 Procalcitonin 0.20 ng/mL (0-0.5) 02/02/23 03:19 Vitals Last Vital Signs Temp 98.0 F 02/02/23 08:00 Pulse 78 02/02/23 08:00 Resp 15 05/29/23 08:00 BP 159/90 02/02/23 08:00 Pulse Ox 95 02/02/23 08:00 O2 Del Method Nasal Cannula 02/02/23 08:00 O2 Flow Rate 3 02/02/23 08:00 FiO2 100 01/31/23 18:54 Discharge Plan Discharge Patient Disposition: Home Condition: Stable Prescriptions: New diltiazem HCl [Cardizem LA] 120 mg tablet extended release 24 hr 120 mg PO DAILY Qty: 60 3RF methylprednisolone [Medrol (Saulo)] 4 mg tablets,dose pack See Rx Instructions .ROUTE .COMPLEX Qty: 21 0RF Rx Instructions: orally per package directions amoxicillin-pot clavulanate 875-125 mg tablet 1 tab PO BID Qty: 10 0RF Continued (DME) nebulizers Mis See Rx Instructions .Route Qty: 1 0RF Rx Instructions: 1 nebulizer and all required supplies As directed (DME) oxygen-air delivery systems Device See Rx Instructions .ROUTE Rx Instructions: As directed ipratropium-albuterol 0.5 mg-3 mg(2.5 mg base)/3 mL solution for nebulization 3 ml inhalation Q4H PRN (Reason: wheezing) Qty: 90 0RF gabapentin 600 mg tablet 600 mg PO TID albuterol sulfate [Ventolin HFA] 90 mcg/actuation HFA aerosol inhaler 1 - 2 inh INHALATION Q4H PRN (Reason: Shortness Of Breath) desvenlafaxine succinate 50 mg Tablet Extended Release 24 Hr 50 mg PO BEDTIME Belsomra 20 mg Tablet 20 mg PO BEDTIME PRN (Reason: Insomnia) ondansetron 4 mg tablet,disintegrating 4 mg PO Q6H PRN (Reason: nausea and vomiting) Qty: 14 0RF ferrous gluconate 324 mg (37.5 mg iron) Tablet 324 mg PO DAILY prednisolone acetate 1 % drops,suspension 1 drp ophthalmic (eye) BID Rx Instructions: both eyes ergocalciferol (vitamin D2) 1,250 mcg (50,000 unit) Capsule 1,250 mcg PO Q7D Rx Instructions: aspirin [Enteric Coated Aspirin] 81 mg tablet,delayed release (DR/EC) 81 mg PO DAILY 90 Days Qty: 90 3RF prednisone 20 mg Tablet 40 mg PO DAILY 5 Days Qty: 10 0RF Trelegy Ellipta 200-62.5-25 mcg blister with device 1 inh inhalation DAILY 30 Days Qty: 60 3RF clopidogrel [Plavix] 75 mg Tablet 75 mg PO DAILY Qty: 90 3RF Changed hydralazine 10 mg Tablet 25 mg PO TID 30 Days Qty: 120 3RF Discontinued irbesartan 300 mg tablet 300 mg PO DAILY@1800 metoprolol succinate 25 mg Tablet Extended Release 24 Hr 25 mg PO DAILY 30 Days Qty: 30 0RF Discharge Orders: Discharge Order (Routine); Ordered 02/02/23 Ordered By: Jaclyn Garcia Referrals: Bhupinder Logan MD [Primary Care Provider] - Discharge Diet: Cardiac Discharge Activity: Increase activity as tolerated Patient Instructions: Opioid Safety Discharge Attestations Time Spent in Discharge Care*: greater than 30 min Quality Metrics Clinical Quality Measures [ No reported AMI, CVA or VTE this stay] Coding Level of Care Code Acute Code for [facility] Diagnoses Respiratory distress R06.03 Bleeding R58 COPD exacerbation J44.1 Coronary artery disease I25.10 Congestive heart failure I50.9 Hypertension I10 Abdominal aortic aneurysm I71.40 DNI (do not intubate) Z78.9 DNR (do not resuscitate) Z66
[2023-02-02] MEDS: acetaminophen 500 mg Tablet 1000 MG PO (15:38)
--- NOTE | 2023-02-02 17:26 | PC.NURSE ---
Patient was discharged at 1653 with daughter via wheelchair to main entrance. Patient was educated on medications to be started and which ones needed to be stopped. [facility]
== END 2023-02-02 16:53 | disposition home or self-care (01) | DRG 208 ==
LOC: ER 20:47 → CSU 20:57
PROVIDERS: Internal Medicine; Admitting Provider Internal Medicine; Emergency Provider Family Medicine; PCP Family Medicine; Visit Provider Internal Medicine
DX: J44.1 Chronic obstructive pulmonary disease with (acute) exacerbation (principal); J96.21 Acute and chronic respiratory failure with hypoxia; L76.12 Accidental puncture and laceration of skin and subcutaneous tissue during other procedure; I13.0 Hypertensive heart and chronic kidney disease with heart failure and stage 1 through stage 4 chronic kidney disease, or unspecified chronic kidney disease; D68.9 Coagulation defect, unspecified; I25.10 Atherosclerotic heart disease of native coronary artery without angina pectoris; Z95.5 Presence of coronary angioplasty implant and graft; Z66 Do not resuscitate; Z79.51 Long term (current) use of inhaled steroids; Z79.82 Long term (current) use of aspirin; Z79.52 Long term (current) use of systemic steroids; Z79.02 Long term (current) use of antithrombotics/antiplatelets; Y65.8 Other specified misadventures during surgical and medical care; Y82.9 Unspecified medical devices associated with adverse incidents; N18.9 Chronic kidney disease, unspecified; I50.9 Heart failure, unspecified; F17.210 Nicotine dependence, cigarettes, uncomplicated; D63.1 Anemia in chronic kidney disease; I71.40 Abdominal aortic aneurysm, without rupture, unspecified; Z86.73 Personal history of transient ischemic attack (TIA), and cerebral infarction without residual deficits; J98.09 Other diseases of bronchus, not elsewhere classified
CPT/HCPCS: 36415; 36600; 71045; 80051; 80053; 80069; 82330; 82805; 83735; 84145; 84484; 85025; 93005; 94640; 94799; 96365; 96375; 96376; 99291; 99292; J2060; J2270; J2919; J2920; J7626

== ENCOUNTER 2023-02-14 19:26 | Inpatient (IN) | payer MEDICARE, MEDICAID, SELFPAY ==
[2023-02-14] VITALS (7 sets, daily range): BP systolic 111–160; BP diastolic 63–108; PULSE 87–138; RESP 16–24; TEMP 36.4–39.3; O2SAT 93–100
--- NOTE | 2023-02-14 19:39 | XRR_ITS ---
PROCEDURE INFORMATION: Exam: XR Chest Exam date and time: 02/14/2023 7:44 PM Age: 73 years old Clinical indication: Dyspnea and fever; Additional info: Dyspnea fever TECHNIQUE: Imaging protocol: Radiologic exam of the chest. Views: 1 view. COMPARISON: CR XR chest 2V* [id number] 02/12/2023 2:08 PM FINDINGS: Lungs: Right hilar to lower lobe atelectasis versus minimal infiltrate. Pleural spaces: Unremarkable. No pleural effusion. No pneumothorax. Heart/Mediastinum: Cardiomegaly. Vasculature: Thoracic aortic stent graft. Bones/joints: Unremarkable. XR/XR chest 1V portable [id number] IMPRESSION: 1. Right hilar to lower lobe atelectasis versus minimal infiltrate. 2. Cardiomegaly. 3. Thoracic aortic stent graft.
--- NOTE | 2023-02-14 19:42 | ECG_ITS ---
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 Measurements Intervals [place] Rate: 127 P: 64 [place]: 139 QRS: 265 QRSD: 82 T: 59 QT: 279 QTc: 406 Interpretive Statements SINUS TACHYCARDIA RIGHT AXIS DEVIATION [QRS AXIS > 100] Compared to ECG 01/31/2023 19:08:39 Right-axis deviation now present Electronically Signed On 02-15-2023 5:34:13 CDT by Theresa Dexter M.D. [id number]
--- NOTE | 2023-02-14 19:43 | ECG_ITS ---
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 Measurements Intervals [place] Rate: 125 P: 68 [place]: 150 QRS: -84 QRSD: 81 T: 52 QT: 280 QTc: 404 Interpretive Statements SINUS TACHYCARDIA LEFT AXIS DEVIATION [QRS AXIS < -30] Compared to ECG 02/14/2023 19:42:47 Left-axis deviation now present Right-axis deviation no longer present Electronically Signed On 02-15-2023 5:43:18 CDT by Theresa Dexter M.D. [id number]
[2023-02-14] MEDS: sodium chloride 0.9% 1,000 ML 999 ML IV (19:58)
[2023-02-14] MEDS: acetaminophen 1,000 MG/100 ML PIGGYBACK 400 MG IV (20:00)
--- NOTE | 2023-02-14 20:02 | W.ED.SOB ---
HPI - SOB/Dyspnea General: Chief Complaint: Shortness of Breath/Dyspnea Stated Complaint: SOB Time Seen by Provider: 02/14/23 19:38 History of Present Illness: HPI Narrative: Patient presents to the ER stating that she cannot breathe. Patient is normally on 2 L of oxygen at home when she wears it. Patient has had frequent episodes of shortness of breath. Patient's had some intermittent pain in her left chest. Patient took 1 breathing treatment at home before she came patient also been stating she has been having diarrhea. Patient does have a fever upon arrival and is tachycardic. MD elicited complaint: shortness of breath, cough and chest pain Pertinent past history: COPD Onset (ago): day(s) (Started today) Timing: constant Severity: moderate Exacerbating factors: exertion Relieving factors: oxygen and bronchodilators Known history of: COPD Associated symptoms: Reports fever(s) Treatment prior to arrival: oxygen and bronchodilator Review of Systems General: Reports: 10 or more systems reviewed and unremarkable except in HPI and below Const: Reports: fever(s) PFSH ED PFSH: Medical History Abdominal aortic aneurysm Abnormal nuclear cardiac imaging test Acute cystitis Acute cystitis Acute hypoxemic respiratory failure Acute kidney injury superimposed on chronic kidney disease Bleeding Blurred vision Bronchus, stenosis Patient is scheduled for stent removal in February in [place] She had atelectasis that is why she received a pulmonary stent Coagulopathy Congestive heart failure COPD (chronic obstructive pulmonary disease) COPD exacerbation Coronary artery disease DNI (do not intubate) DNR (do not resuscitate) Epistaxis Hypertension Left-sided cerebrovascular accident (CVA) Microcytic anemia Respiratory distress Respiratory failure with hypoxia Unstable angina Weakness Surgical History H/O esophagogastroduodenoscopy AVM body of stomach H/O thoracic aortic aneurysm repair History of back surgery x3 History of breast surgery inverted nipple (x3) History of dental surgery History of hysterectomy 1993 History of laparoscopic cholecystectomy 1994 Status post colonoscopy (02/19/21) Diverticulosis, internal hemorrhoids Family History Other Hypertension Social History Smoking and tobacco status: current every day smoker cigarettes Years cigarettes smoked: 64 [ Other cigarette details: started age 13; 1 pack /3 days currently ] Alcohol intake: never Substance/Drug Use: never Lives independently: Yes Physical Exam Const: COMMON NORMALS: no acute distress, average body habitus, patient oriented x3, no limitations, healthy appearing, alert and well nourished HENMT: COMMON NORMALS: normocephalic, atraumatic, hearing grossly normal bilaterally, external ears normal, Normal external nose present and moist oral mucous membranes HEAD & SCALP: normocephalic and atraumatic NOSE: Normal external nose present EXTERNAL EAR: Yes external ears normal Eye: COMMON NORMALS: Equal, round and reactive pupils present, EOMs intact bilaterally, conjunctivae normal and no scleral icterus CONJUNCTIVA: Yes conjunctivae normal PUPIL: Yes Equal, round and reactive pupils present Neck/C-Spine: COMMON NORMALS: full ROM, no lymphadenopathy, supple, no meningeal signs, no JVD and Thyroid normal THYROID: Thyroid normal Lymph: LYMPHATIC: no lymphadenopathy noted Chest: COMMONS NORMALS: normal inspection of the chest and normal palpation of entire chest wall Resp: EFFORT & INSPECTION: Yes able to speak in complete sentences and Yes symmetric chest movement AUSCULTATION: rhonchi and wheezes Cardio: COMMON NORMALS: no JVD, S1 normal heart sound present and S2 normal heart sound present RATE: tachycardic HEART SOUNDS: S1 normal heart sound present and S2 normal heart sound present GI: COMMON NORMALS: Normal to inspection, nondistended, normoactive bowel sounds present, Soft to palpation, non-tender, No hepatosplenomegaly present and no masses PALPATION: Yes Soft to palpation and Yes No hepatosplenomegaly present Neuro: COMMON NORMALS: patient oriented x3 SENSORIUM/ORIENTATION: Yes alert MENINGEAL SIGNS: Yes no meningeal signs Course Vital Signs: Vital signs: Vital Signs Temperature 102.8 F H 02/14/23 19:33 Pulse Rate 109 H 02/14/23 20:37 Respiratory Rate 20 H 02/14/23 20:34 Blood Pressure 160/108 02/14/23 19:47 Pulse Oximetry 99 02/14/23 20:34 Oxygen Delivery Me thod Nasal Cannula 02/14/23 20:34 Oxygen Flow Rate 3 02/14/23 20:34 MDM - SOB/Dyspnea Medical Decision Making Patient presents to the ER with complaints of shortness of breath. Patient was tachycardic at 138 bpm tachypneic respiratory rate 24 breaths/min with a temperature of 102.8 Fahrenheit orally. She was on on room air satting 93% she was placed on 3 L and her O2 sat bumped up to 99%. Lab work and x-ray was obtained x-ray showed right hilar to lower lobe atelectasis versus minimal infiltrate. Lab work showed white count of 6.8 hemoglobin 8.7 hematocrit 29.4 with platelets of 120, metabolic panel showed BUN/creatinine slightly elevated at 42 and 2.0 lactic acid procalcitonin was negative. Patient was given 1 DuoNeb, 1 L normal saline and 3.375 g of Rocephin in ER. Dr. Reed was consulted who remembered her from previous day and agreed to accept her for observation. Differential Diagnosis Likely acute exacerbation of chronic obstructive airways disease and community acquired pneumonia; Unlikely congestive heart failure, asthma with exacerbation or pulmonary embolism Medical Records I reviewed the patient's medical records. Lab Data I reviewed the patient's lab results. 02/14/23 19:41 02/14/23 19:41 Labs/Radiology: Radiology Impressions Chest X-Ray 02/14/23 19:39 IMPRESSION: 1. Right hilar to lower lobe atelectasis versus minimal infiltrate. 2. Cardiomegaly. 3. Thoracic aortic stent graft. Laboratory Results WBC 6.8 10^3/uL (4.0-10.0) 02/14/23 19:41 RBC 3.37 10^6/uL (4.1-5.3) L 02/14/23 19:41 Hgb 8.7 g/dL (11.5-15.3) L 02/14/23 19:41 Hct 29.4 % (37.0-47.0) L 02/14/23 19:41 MCV 87.2 fl (81-99) 02/14/23 19:41 MCH 25.8 pg (28.0-34.0) L 02/14/23 19:41 MCHC 29.6 g/dL (30.0-36.0) L 02/14/23 19:41 RDW 20.6 % (12.1-15.1) H 02/14/23 19:41 Plt Count 120 10^3/cmm (130-400) L 02/14/23 19:41 MPV 11.3 fL (7.4-10.4) H 02/14/23 19:41 Lymph % (Auto) Not Reportable 02/14/23 19:41 [place] % (Auto) Not Reportable 02/14/23 19:41 Lymph # (Auto) Not Reportable 02/14/23 19:41 [place] # (Auto) Not Reportable 02/14/23 19:41 Sodium 131 mmol/L (136-145) L 02/14/23 19:41 Potassium 5.0 mmol/L (3.5-5.1) 02/14/23 19:41 Chloride 101 mmol/L (98-107) 02/14/23 19:41 Carbon Dioxide 17 mmol/L (22-29) L 02/14/23 19:41 Anion Gap 18.0 (5-19) 02/14/23 19:41 BUN 42 mg/dL (8-23) H 02/14/23 19:41 Creatinine 2.0 mg/dL (0.5-0.9) H 02/14/23 19:41 GFR Calculation Not Reportable 02/14/23 19:41 Glucose 94 mg/dL (65-115) 02/14/23 19:41 Calculated Osmolality 282 mOsm/kg (285-295) L 02/14/23 19:41 Lactic Acid 0.9 mmol/L (0.5-2.2) 02/14/23 20:04 Calcium 8.4 mg/dL (8.5-10.5) L 02/14/23 19:41 Magnesium 2.0 mg/dL (1.7-2.3) 02/14/23 19:41 Total Bilirubin 0.3 mg/dL (0.15-1.2) 02/14/23 19:41 AST 20 U/L (0-32) 02/14/23 19:41 ALT 37 U/L (0-33) H 02/14/23 19:41 Alkaline Phosphatase 296 U/L (35-105) H 02/14/23 19:41 Troponin T Baseline 39 ng/L (0-10) H 02/14/23 19:41 NT-Pro-B Natriuret Pep 7124 pg/mL (0-125) H 02/14/23 19:41 Total Protein 6.8 g/dL (6.6-8.7) 02/14/23 19:41 Albumin 3.5 g/dL (3.5-5.2) 02/14/23 19:41 Globulin 3.3 g/dL (1.3-4.6) 02/14/23 19:41 Procalcitonin 0.17 ng/mL (0-0.5) 02/14/23 19:41 Influenza Type A Ag negative (Negative) 02/14/23 19:50 Influenza Type B Ag negative (Negative) 02/14/23 19:50 SARS-CoV-2 Ag (Rapid) negative (Negative) 02/14/23 19:50 EKG Data EKG 1: I personally reviewed and interpreted this EKG as follows: EKG Interpretation Date: 02/14/23 EKG interpretation time: 19:43 Prior EKG tracings: not available for review Interpretation: EKG showed sinus tachycardia with a rate of 125 bpm, left axis deviation, IA interval 150, QRS duration 81, QTc of 354, no ST-T wave changes Discharge Plan Discharge Patient Disposition: Admitted As Inpatient Clinical Impression: HABP (hospital-acquired bacterial pneumonia), Tachycardia Fever Qualifiers: Fever type: unspecified Qualified Code(s): R50.9 - Fever, unspecified Condition: Stable Coding Level of Care Code ED Screening Unit Registered Nurse for Lian Nichols
[2023-02-14 20:17] LABS: Hematocrit 29.4 % (37.0-47.0); Hemoglobin 8.7 g/dL (11.5-15.3); Mean Corpuscular HGB Conc 29.6 g/dL (30.0-36.0); Mean Corpuscular Hemoglobin 25.8 pg (28.0-34.0); Mean Corpuscular Volume 87.2 fl (81-99); Mean Platelet Volume 11.3 fL (7.4-10.4); Platelet Count 120 10^3/cmm (130-400); Red Blood Count 3.37 10^6/uL (4.1-5.3); Red Cell Distribution Width 20.6 % (12.1-15.1); White Blood Count 6.8 10^3/uL (4.0-10.0)
[2023-02-14 20:20] LABS: SARS Covid-2 Antigen negative (Negative)
[2023-02-14 20:27] LABS: Troponin(5th) Baseline 39 ng/L (0-10)
[2023-02-14] MEDS: ipratropium-albuterol 3 mL Neb INHALATION (20:31)
[2023-02-14 20:34] LABS: NT Pro B Type Natriuretic Pept 7124 pg/mL (0-125); Procalcitonin 0.17 ng/mL (0-0.5); Slide Review Slide Review Perform
[2023-02-14 20:36] LABS: Lactic Sepsis W/Reflex 0.9 mmol/L (0.5-2.2)
[2023-02-14 20:45] LABS: Influenza A by IFA negative (Negative); Influenza B by IFA negative (Negative)
[2023-02-14 20:45] LABS: Alanine Aminotransferase 37 U/L (0-33); Albumin Level 3.5 g/dL (3.5-5.2); Alkaline Phosphatase 296 U/L (35-105); Blood Urea Nitrogen 42 mg/dL (8-23); Calcium 8.4 mg/dL (8.5-10.5); Carbon Dioxide 17 mmol/L (22-29); Chloride 101 mmol/L (98-107); Globulin 3.3 g/dL (1.3-4.6); Glucose 94 mg/dL (65-115); Osmolality Calculated 282 mOsm/kg (285-295); Sodium 131 mmol/L (136-145); Total Bilirubin 0.3 mg/dL (0.15-1.2); Total Protein 6.8 g/dL (6.6-8.7)
[2023-02-14 20:56] LABS: Aspartate Amino Transferase 20 U/L (0-32)
--- NOTE | 2023-02-14 21:24 | PM.HP ---
Providers/Chief Complaint Primary Care Provider: Bhupinder Logan MD Chief Complaint: SOB History of Present Illness Eli Kimball is a 73 year old female With past medical history of COPD, atelectasis status post bronchial stent which is to be removed in February 2023 in [place], [place]IYAH, CKD, CHF, hypertension who presented to the hospital today with complaint of shortness of breath. She states that she had a previous hospital admission on January 2023 and since she has been discharged home she has been having fevers shortness of breath cough, ken-green phlegm production. She also feels generally weak. Denies any diarrhea, nausea, vomiting, abdominal pain. Patient also recently had a cardiac stent placed at previous hospital admission as well. On arrival to ER she was febrile 102.3. BP 160/108, saturating 99% on 3 L nasal cannula which is her baseline, tachycardic 109, respiratory 20. Initially on arrival heart rate was 138. She was given 1 L normal saline bolus with some improvement of heart rate. Chest x-ray done showed right hilar to lower lobe atelectasis versus minimal infiltrate. White count 6.8, hemoglobin 8.7, platelets 120. Lactic acid negative, procalcitonin negative. Patient also got ceftriaxone 1 g IV x1, DuoNeb x1. Creatinine 2.0 today. Influenza, COVID is negative. EKG did not show any acute ischemic changes. It showed sinus tachycardia. UA positive for 10-15 WBCs, 40-55 squamous cells. 2+ bacteria. She says she just wants to get better. She will be going on February 19 to [place] to get her bronchial stent removed. She does not have any dysuria, pelvic pain at this time. She does have some back pain which she says is chronic for her. She also states that she is strictly a DNR/DNI. She is alert oriented x3. Medications/Allergies Home Medications Medication Instructions Recorded Confirmed Last Taken Type albuterol sulfate 90 mcg/actuation 1 - 2 inh inhalation Q4H PRN 01/03/21 02/14/23 02/13/23 History aerosol inhaler (Ventolin HFA) Shortness Of Breath gabapentin 600 mg tablet 600 mg PO TID 01/03/21 02/14/23 02/14/23 08:00 History desvenlafaxine succinate 50 mg 50 mg PO BEDTIME 08/12/2702/14/23 02/13/23 20:30 History tablet,extended release 24 hr suvorexant 20 mg tablet (Belsomra) 20 mg PO BEDTIME PRN Insomnia 04/10/22 02/14/23 02/13/23 20:30 History nebulizers #1 ea 06/06/22 02/01/23 Unknown Rx ondansetron 4 mg disintegrating 4 mg PO Q6H PRN nausea and 11/04/22 02/14/23 Unknown Rx tablet vomiting #14 tabs ipratropium 0.5 mg-albuterol 3 mg 3 ml inhalation Q4H PRN wheezing 11/06/22 02/14/23 02/13/23 Rx (2.5 mg base)/3 mL nebulization #90 mL soln oxygen-air delivery systems 11/13/22 02/01/23 Unknown History ergocalciferol (vitamin D2) 1,250 1,250 mcg PO Q7D 01/26/23 02/14/23 02/12/23 08:00 History mcg (50,000 unit) capsule ferrous gluconate 324 mg (37.5 mg 324 mg PO DAILY 01/26/23 02/14/23 02/13/23 08:00 History iron) tablet aspirin 81 mg tablet,delayed 81 mg PO DAILY 3 months #90 tabs 01/31/23 02/14/23 02/14/23 08:00 Rx release (Enteric Coated Aspirin) diltiazem HCl 120 mg 120 mg PO DAILY #60 tabs 02/02/23 02/14/23 02/12/23 Rx tablet,extended release 24 hr 0800 (Cardizem LA) fluticasone fur. 200 mcg-umeclid 1 inh inhalation DAILY 30 days #60 02/02/23 02/14/23 02/14/23 08:00 Rx 62.5 mcg-vilant 25 mcg ea inhalat.powder (Trelegy Ellipta) hydralazine 10 mg tablet 25 mg PO TID 30 days #120 tabs 02/02/23 02/14/23 02/13/23 12:00 Rx methylprednisolone 4 mg tablets in See Rx Instructions PO .COMPLEX 02/02/23 02/14/23 Unknown Rx a dose pack (Medrol (Saulo)) #21 ea Allergies Allergy/AdvReac Type Severity Reaction Status Date / Time No Known Drug Allergies Allergy ADR-Irritab Verified 02/13/23 08:04 le PFSH Acute PFSH: Medical History Abdominal aortic aneurysm Abnormal nuclear cardiac imaging test Acute cystitis Acute cystitis Acute hypoxemic respiratory failure Acute kidney injury superimposed on chronic kidney disease Bleeding Blurred vision Bronchus, stenosis Patient is scheduled for stent removal in February in [place] She had atelectasis that is why she received a pulmonary stent Coagulopathy Congestive heart failure COPD (chronic obstructive pulmonary disease) COPD exacerbation Coronary artery disease DNI (do not intubate) DNR (do not resuscitate) Epistaxis Hypertension Left-sided cerebrovascular accident (CVA) Microcytic anemia Respiratory distress Respiratory failure with hypoxia Unstable angina Weakness Surgical History H/O esophagogastroduodenoscopy AVM body of stomach H/O thoracic aortic aneurysm repair History of back surgery x3 History of breast surgery inverted nipple (x3) History of dental surgery History of hysterectomy 1993 History of laparoscopic cholecystectomy 1993 Status post colonoscopy (02/19/21) Diverticulosis, internal hemorrhoids Family History Other Hypertension Social History Smoking and tobacco status: current every day smoker cigarettes Years cigarettes smoked: 64 [ Other cigarette details: started age 13; 1 pack /3 days currently ] Alcohol intake: never Substance/Drug Use: never Lives independently: Yes Vitals/I&O/Wt Last Vital Signs Temp 102.8 F H 02/14/23 19:33 Pulse 109 H 02/14/23 20:37 Resp 20 H 02/14/23 20:34 BP 160/108 02/14/23 19:47 Pulse Ox 99 02/14/23 20:34 O2 Del Method Nasal Cannula 02/14/23 20:34 O2 Flow Rate 3 02/14/23 20:34 Weight last 48 hrs Weight 53.07 kg Physical Exam Narrative: General: Alert oriented x3, patient seen sitting up in bed appearing comfortable at this time. HEENT: Normocephalic, atraumatic, EOMI, Cardio: Regular rate rhythm, normal S1-S2 Respiratory: Inspiratory expiratory wheezing present, rhonchi present on right side greater than left. GI: Abdomen soft, nontender, nondistended, bowel sounds + Extremities: No edema Data 02/15/23 02:14 02/15/23 02:14 Micro: Microbiology 02/14/23 20:09 Blood Culture - Preliminary Blood SPECIMEN COLLECTED 02/14/23 20:04 Blood Culture - Preliminary Blood SPECIMEN COLLECTED A&P Assessment and plan (1) HABP (hospital-acquired bacterial pneumonia): (2) Tachycardia: (3) Fever: Qualifiers: Fever type: unspecified Qualified Code(s): R50.9 - Fever, unspecified (4) Anemia of chronic disease: (5) Anemia: (6) At risk for aspiration pneumonia: (7) Smoker: (8) Iron deficiency anemia: (9) COPD (chronic obstructive pulmonary disease): Plan #Hospital-acquired pneumonia #Rule out UTI #Anemia #COPD #Shortness of breath secondary to above #CKD, creatinine is at baseline #Chronic congestive heart failure #CAD status post stent recently #Bronchial stent in place, removal February 19, 2023 #Hypertension ? Check bacterial antigen Legionella, Streptococcus, procalcitonin, blood culture, sputum culture Gram stain ? Patient did have a recent admission where she was intubated for protection of airway due to oral bleed but was extubated right after getting to the ER since she was DNR/DNI. Patient states she strictly DNR/DNI at this point. ? She has been febrile and ever since she went home has been having shortness of breath, cough, sputum production. X-ray does show evidence of atelectasis versus infiltrate. ? UA not a clean-catch. Has 40-55 squamous cells. I will repeat at this time. Patient does not have any symptoms of UTI at this time. ? Chronically anemic. Hemoglobin 8.7 today. RDW 20.6. Most likely due to iron deficiency anemia. Platelets 120. We will hold off on pharmacological DVT prophylaxis at this time. ?Delta troponin negative, BNP 7100. Patient appears to be euvolemic if anything slightly dehydrated. She is currently compensated from heart failure perspective. ? Check MRSA nares. -Check blood cultures. ? Due to patient's bronchial stent recent hospital stay, intubation, s/p extubation I would probably do broad-spectrum antibiotics at this time with Vanco and Zosyn. De-escalate as clinical improvement ? She is high risk patient DNR/DNI SCDs will suffice for DVT prophylaxis. Attestations Medical Necessity Statement*: Greater than 2 midnight stay for management of pneumonia Coding Level of Care Code G0426 (50 min) TH Encounter Time (min): 50 Patient seen via Telehealth in the acute care setting (hospital or ED location) by agreement and consent of patient or patient accounts receivable representative. Telehealth technology used during the visit includes video and audio. This patient encounter is appropriate and reasonable under the circumstances given the patient?s particular presentation at this time. The patient has been advised of the potential risks and limitations of this mode of treatment (including but not limited to the absence of in-person examination at this time) and has agreed to be treated by an off-site physician for this visit. If deemed clinically necessary from this telehealth visit, or if condition or consent for telehealth visit changes, an in-person visit will be arranged. For this encounter, total time for the origination of telehealth care on this date is as shown. Diagnoses HABP (hospital-acquired bacterial pneumonia) J15.9 Tachycardia R00.0 Fever R50.9 Fever type: unspecified Anemia of chronic disease D63.8 Anemia D64.9 At risk for aspiration pneumonia Z91.89 Smoker F17.200 Iron deficiency anemia D50.9 COPD (chronic obstructive pulmonary disease) J44.9
[2023-02-14] MEDS: piperacillin-tazobactam 3.375 GM in sodium chloride 0.9% (plus) 50 ML IV (21:53)
[2023-02-14 21:59] LABS: Troponin 5 2HR 37.22 ng/L (0-10)
[2023-02-14 22:05] LABS: Add Urine Microscopic? YES; Bilirubin Urine Neg (Negative); Blood Urine 2+ (Negative); Glucose Urine UA Norm (Normal); Ketones Urine Negative (Negative); Nitrate Urine Negative (Negative); Protein Urine 2+ (Negative); Specific Gravity, Urine 1.015 (1.005-1.030); Urine Appearance Cloudy (CLEAR); Urine Color Yellow (Yellow); Urobilinogen Urine Norm (Negative); pH Urine 5 (5-7)
[2023-02-14 22:07] LABS: Leukocyte Esterase Urine Trace (Negative)
[2023-02-14 22:08] LABS: Bacteria Urine 2+ /hpf; Squamous Epithelial Cell Urine 40-55 /hpf (0-5)
[2023-02-14 22:12] LABS: Troponin 5 2HR Delta -1.78 ABS# (0-10)
[2023-02-14 22:39] LABS: Lactic Sepsis W/Reflex 0.6 mmol/L (0.5-2.2)
[2023-02-14 22:50] LABS: Procalcitonin 0.16 ng/mL (0-0.5)
[2023-02-14] MEDS: vancomycin 1,000 MG in sodium chloride 0.9% 250 ML 250 MG IV (22:54)
[2023-02-14] MEDS: heparin 5,000 unit/mL INJ 1 mL 5000 UNIT SUBCUT (22:55)
[2023-02-14] MEDS: sodium chloride 0.9% 1,000 ML 75 ML IV (22:56)
[2023-02-15] VITALS (41 sets, daily range): BP systolic 109–176; BP diastolic 60–119; PULSE 66–100; RESP 11–24; TEMP 36.5–37.1; O2SAT 91–100
[2023-02-15 02:20] LABS: Basophils % 0.3 %; Eosinophils % 0.8 %; Hematocrit 23.8 % (37.0-47.0); Lymphocytes # 0.6 10^3/uL (0.8-4.8); Lymphocytes % 15.5 %; Mean Corpuscular HGB Conc 29.4 g/dL (30.0-36.0); Mean Corpuscular Volume 88.5 fl (81-99); Mean Platelet Volume 9.8 fL (7.4-10.4); Monocytes # 0.2 10^3/uL (0.2-0.9); Monocytes % 5.6 %; Neutrophils % 77.3 %; Nucleated Red Blood Cells % 0 %; Platelet Count 91 10^3/cmm (130-400); Red Blood Count 2.69 10^6/uL (4.1-5.3); Red Cell Distribution Width 20.6 % (12.1-15.1); White Blood Count 3.8 10^3/uL (4.0-10.0)
[2023-02-15 02:38] LABS: Troponin 5 6HR 34.05 ng/L (0-10)
[2023-02-15 02:39] LABS: Anion Gap 13.9 (5-19); Blood Urea Nitrogen 39 mg/dL (8-23); Calcium 7.9 mg/dL (8.5-10.5); Carbon Dioxide 18 mmol/L (22-29); Chloride 109 mmol/L (98-107); Glucose 87 mg/dL (65-115); Magnesium 1.9 mg/dL (1.7-2.3); Osmolality Calculated 291 mOsm/kg (285-295); Potassium 4.9 mmol/L (3.5-5.1); Sodium 136 mmol/L (136-145)
[2023-02-15 02:53] LABS: Troponin 5 6HR Delta -4.95 ng/L (0-12)
[2023-02-15] MEDS: piperacillin-tazobactam 3.375 GM in sodium chloride 0.9% (plus) 50 ML IV (04:24)
--- NOTE | 2023-02-15 05:05 | CTR_ITS ---
PROCEDURE INFORMATION: Exam: CT Abdomen Without Contrast Exam date and time: 02/15/2023 6:10 AM Age: 73 years old Clinical indication: Abdominal pain; Prior surgery; Surgery date: 6+ months; Surgery type: Hysto TECHNIQUE: Imaging protocol: Computed tomography of the abdomen without contrast. Radiation optimization: All CT scans at this facility use at least one of these dose optimization techniques: automated exposure control; mA and/or kV adjustment per patient size (includes targeted exams where dose is matched to clinical indication); or iterative reconstruction. REPORTING DATA: Count of CT and Cardiac NM exams in prior 12 months: This patient has received 8 known CTs and 0 known cardiac nuclear medicine studies in the 12 months prior to the current study. COMPARISON: CT ang ches abdpel [id number] 01/25/2023 10:06 PM RADIATION DOSE METRICS: Total DLP (mGy-cm): 339.28 FINDINGS: Lungs: Fibrotic appearing changes in the right lower lobe with volume loss. Liver: Normal. No mass. Gallbladder and bile ducts: Cholecystectomy. Very mildly prominent common bile duct is stable prior. Pancreas: Normal. No ductal dilation. Spleen: Cystic appearing circumscribed lesion in the inferior spleen is redemonstrated measuring 2 cm in greatest diameter which is stable prior. Adrenal glands: Normal. No mass. Kidneys and ureters: Multiple simple bilateral renal cortical cysts are redemonstrated. Several additional small subcentimeter hyperdense cortically based bilateral renal lesions are noted; favor benign proteinaceous cyst. Negative hydronephrosis. Negative for renal stones. Stomach and bowel: Diverticulosis coli. Negative for bowel obstruction or perforation. Moderate colonic fecal volume. Intraperitoneal space: Unremarkable. No free air. No significant fluid collection. Vasculature: Partially included large aneurysm of the descending thoracic aorta treated with stent incompletely assessed. Fusiform abdominal aortic aneurysm is redemonstrated which measures 4.1 cm in greatest diameter. Adjacent fat stranding changes centered around the mid abdominal aorta segment new from comparison. Lymph nodes: Unremarkable. No enlarged lymph nodes. Reproductive: Hysterectomy. Bones/joints: Prior L1 compression fracture treated with vertebral augmentation. No change in height loss. Posterior fusion L3 through S1 is redemonstrated without change in appearance. Soft tissues: Unremarkable. CT/CT abdomen wo con [id number] IMPRESSION: New stranding changes in periaortic fat surrounding the abdominal aortic aneurysm suspicious for aortic leak/impending rupture. Contrast-enhanced CTA evaluation recommended and vascular surgical consultation. COMMENTS: Consistent with the [employer] [employer]'s Incidental Findings Committee white paper (J Am Kuldeep Radiol 2018): Any incidental renal lesion less than 1 cm or classified as too small to characterize, or any incidental cystic renal lesion characterized as simple-appearing, is likely benign. No follow-up imaging is recommended for these lesions per consensus recommendations based on imaging criteria.
[2023-02-15] MEDS: ondansetron 2 mg/ML SDV 2 mL 4 MG IVP ×2 (06:42→17:20)
[2023-02-15 07:00] LABS: Basophils % 0.4 %; Eosinophils % 0.6 %; Hematocrit 26.8 % (37.0-47.0); Hemoglobin 7.7 g/dL (11.5-15.3); Lymphocytes # 0.5 10^3/uL (0.8-4.8); Lymphocytes % 10.1 %; Mean Corpuscular HGB Conc 28.7 g/dL (30.0-36.0); Mean Corpuscular Hemoglobin 25.8 pg (28.0-34.0); Mean Corpuscular Volume 89.6 fl (81-99); Mean Platelet Volume 10.6 fL (7.4-10.4); Monocytes # 0.3 10^3/uL (0.2-0.9); Monocytes % 5.4 %; Neutrophils # 4.31 10^3/uL (1.8-7.7); Neutrophils % 83.3 %; Nucleated Red Blood Cells % 0 %; Platelet Count 92 10^3/cmm (130-400); Red Blood Count 2.99 10^6/uL (4.1-5.3); Red Cell Distribution Width 20.7 % (12.1-15.1); White Blood Count 5.2 10^3/uL (4.0-10.0)
--- NOTE | 2023-02-15 07:05 | PM.PN ---
Subjective Subjective: Seen this AM at bedside. pt is alert and oriented x 3. pt has capacity. Discussed at length the critical nature of the CT findings with her and her daughter over the phone. Patient is aware and accepts risks of CT abd/pelvis with contrast and runoff in regards to renal function with YRIS. Pt showed understanding of risk factors and desires to go ahead with CT scan to determine whether there is an active leak or impending rupture. I discussed with the patient and daughter (pharmacist hospital) that if there was a leak/rupture we do not have vascular surgery at this hospital today and i would have to consult [place]/CLAY/JUAN. Considering she recently had a coronary MARCO placement of proximal RCA on 01/30/23, and is currently taking ASA 81mg and Plavix (questionable as list confirms this but pt states she has not taken for months), had received heparin on admission patient is potentially in a critical situation where we would not be able to stop the bleeding if she ruptured. pt is currently DNR/DNI but states she can always rescind this. I notifed patient that once we find out CT with runoff results i will contact vascular surgery to determine if there is anything that can be done and if so, will transfer her out. Pt seen laying in bed complaining of central abdominal pain vertically, SOB. Denies CP. Blood pressure has been elevated this AM, will give her IV hydralazine to bring BP down in order to decrease pressure in the aorta. Pt recieving empriric Abx with fluids thus will potentially help with contrast induced nephropathy but worsen BP. pt is stable but very guarded. Vitals/I&O/Wt Last Vital Signs Temp 97.8 F 02/15/23 04:00 Pulse 90 02/15/23 04:00 Resp 16 02/15/23 04:00 BP 160/80 02/15/23 04:00 Pulse Ox 98 02/15/23 04:00 O2 Del Method Nasal Cannula 02/15/23 04:00 O2 Flow Rate 3 02/15/23 04:00 02/14/23 02/15/23 02/15/23 22:59 06:59 14:59 Intake Total 100 / 100 1300 / 1400 Balance 100 / 100 1300 / 1400 Weight last 48 hrs Weight 117 lb Physical Exam Narrative: General: AOx3, mild abd pain, well developed, well nourished, appears stated age psych: appropriate mood and affect. good judgment and insight. full capacity Head: atraumatic, normocephalic, no mass/lesions Ears: clear external auditory canals, Hearing intact Eyes: conjunctiva clear w/o exudate or hemorrhage. non-icteric, EOM intact, PERRLA. no signs of nystagmus Nose: nasal mucosa pink, septum midline Oropharynx: good dentition Neck: FROM, no lymphadenopathy, no tracheal deviation, non tender, thyroid gland normal w/o mass. supple Chest: atraumatic, symmetrical CVD: RRR, normal S1 and S2, no S3 or S4. no M/R/G. 2+ pulse x 4 extremities, no JVD, no carotid bruit. Lungs: bilateral inspiratory wheezing, rhonchi. no crackles. Abdomen: ttp central abdomen from epigastric to suprapubic region. 4cm abd aorta palbable just superior to umbilicus. non distended, soft, NABS. : not done on todays examination Rectal: not done on todays examination Extremities: FROM and 5/5 strength in BUE and BLE. no visible joint abnormalities on active and passive ROM. Neuro: CNII-XII grossly intact, no sensory abnormalities. Skin:? no rash, vesicles, lesions. Data 02/15/23 06:50 02/15/23 02:14 Micro: Microbiology 02/14/23 21:35 Legionella Urinary Antigen - Final Urine,Voided 02/14/23 20:09 Blood Culture - Preliminary Blood SPECIMEN COLLECTED 02/14/23 20:04 Blood Culture - Preliminary Blood SPECIMEN COLLECTED A&P Assessment and plan (1) HABP (hospital-acquired bacterial pneumonia): (2) Tachycardia: (3) Fever: Qualifiers: Fever type: unspecified Qualified Code(s): R50.9 - Fever, unspecified (4) Anemia of chronic disease: (5) Anemia: (6) At risk for aspiration pneumonia: (7) Smoker: (8) Iron deficiency anemia: (9) COPD (chronic obstructive pulmonary disease): (10) Aortic aneurysm: (11) Thrombocytopenia: (12) Acute kidney injury superimposed on chronic kidney disease: Plan #abdominal aortic aneurys with possible leak vs impending rupture #Hospital-acquired pneumonia #Rule out UTI #Anemia #COPD #Shortness of breath secondary to above #CKD, creatinine is at baseline #Chronic congestive heart failure #CAD status post stent recently #Bronchial stent in place, removal February 19, 2023 #Hypertension Aortic rupture vs impending -STAT CT abd/pelvis with IV contrast with runoff 1. ? Thoracic aortic aneurysm status post stent graft, stable [place] aneurysmal lumen size as visualized. 2. ? Suprarenal, renal level and infrarenal abdominal aortic aneurysm, slight interval increase in maximal caliber as described. 3. ? Severe bilateral renal artery origin stenoses, stable. 4. ? Moderate proximal left common iliac artery stenosis, relatively stable. 5. ? Prior hysterectomy., prior choli, diverticulosis, splenic benigh cyst (stable), bilateral renal cysts (stable) 6. Right lower lobe PNA with parital atelectasis (stable) -consider vascular surgery consult in future if pt decompensates. no emergent need at this time as no rupture or interval worsening. -pt had heparin last evening, on ASA, possibly plavix for stent. -hx of 10cm Ascending aortic aneurysim in 09/[address] [facility]. flown to [place]. Stent was placed at that time. 1 week later had clot by stent and flown back to [place]. -hx of MARCO at RCA on 01/30/23 Anemia and thrombocytopenia -repeat h/h showed decrease from hgb of 8.7 to 7.7. -will give 1u pRBC, 1 on standby -after pt returned from CT with IV contrast daughter stated she had some dark stools over the past couple days. no oral contrast given due to time-sensitive aortic findings. risk for further Contrast induced nephropathy if given more contrast and 3rd CT of day. -will consider surgical consult for EGD -chronic findings but acute changes in hospital. possibly due to fluid administration. -hx of transfusions on past hospitalizations PNA -concern for HABP. -started on vanc and zosyn -stopped zosy 2/2 nephrotoxic potentiatin with vanc. replaced with Cefepime -pending cultures Complensated HF -BNP 7100 -euvolemic Plan -Transfer to ICU for closer monitoring until plan determined. pt requires more care than Med surg capabilities -CT does not show active or impending bleed/rupture. shows signicicant -pending cultures -SCD's for now, protonix -on ASA and plavix for MARCO -DNR/DNI questionable by patient. daughter will complete POA today. -high risk -poor prognosis. poor candidate for surgery given ASA/plavix, vasculopath. Attestations Medical Necessity Statement*: will require 2 overnight stays Coding Level of Care Code 63455 Diagnoses HABP (hospital-acquired bacterial pneumonia) J15.9 Tachycardia R00.0 Fever R50.9 Fever type: unspecified Anemia of chronic disease D63.8 Anemia D64.9 At risk for aspiration pneumonia Z91.89 Smoker F17.200 Iron deficiency anemia D50.9 COPD (chronic obstructive pulmonary disease) J44.9 Aortic aneurysm I71.9 Thrombocytopenia D69.6 Acute kidney injury superimposed on chronic kidney disease N17.9; N18.9
--- NOTE | 2023-02-15 07:24 | CTR_ITS ---
PROCEDURE INFORMATION: Exam: CT Abdomen And Pelvis With Contrast Exam date and time: 02/15/2023 7:54 AM Age: 73 years old Clinical indication: Other: Possible rupturing aneurysm; Prior surgery; Surgery date: 6+ months; Surgery type: Hysto, aorta graft TECHNIQUE: Imaging protocol: Computed tomography of the abdomen and pelvis with contrast. Radiation optimization: All CT scans at this facility use at least one of these dose optimization techniques: automated exposure control; mA and/or kV adjustment per patient size (includes targeted exams where dose is matched to clinical indication); or iterative reconstruction. Contrast material: OMNI 350; Contrast volume: 100 ml; Contrast route: INTRAVENOUS (IV); REPORTING DATA: Count of CT and Cardiac NM exams in prior 12 months: This patient has received 8 known CTs and 0 known cardiac nuclear medicine studies in the 12 months prior to the current study. COMPARISON: 1. CT abdomen wo con [id number] 02/15/2023 6:[address] ang ches abdpel [id number] 01/25/2023 10:06 PM RADIATION DOSE METRICS: Total DLP (mGy-cm): 363.86 FINDINGS: Lungs: Right lower lobe pulmonary partial atelectasis. Bilateral pulmonary subsegmental atelectasis. Heart: Small pericardial effusion. Liver: Normal. No mass. Gallbladder and bile ducts: The gallbladder is surgically absent, with metallic clips in the gallbladder fossa. No extrahepatic biliary ductal dilatation or calculus. Pancreas: Normal. No ductal dilation. Spleen: Splenic benign cyst, measuring 2.2 cm, stable. Adrenal glands: Normal. No mass. Kidneys and ureters: Bilateral renal benign cysts, largest on the right measuring 2.3 cm. Stomach and bowel: Sigmoid colonic diverticula are present without evidence of diverticulitis. Appendix: No evidence of appendicitis. Intraperitoneal space: No free air. No significant fluid collection. Vasculature: Severe bilateral renal artery origin stenoses, stable. Partially imaged descending thoracic aortic stent and aneurysm, quechan lumen 6.7 cm, stable as visualized. Thoracic aortic stent continuing into the abdomen. [place] aortic lumen 5.0 cm at the diaphragmatic hiatus, stable. Abdominal aortic aneurysm, measuring 4.6 cm AP dimension at the suprarenal level (quechan lumen, previously 4.9 cm). 0.1 cm at the level of the right renal artery origin, previously 3.9 cm. Infrarenal abdominal aortic caliber 3.8 cm, previously 3.7 cm. There is moderate mural thrombus without luminal stenosis. Moderate right iliac artery calcified atherosclerotic plaque, mild fusiform ectasia measuring 15.6 mm similar to prior study. Moderate left iliac atherosclerotic plaque, no aneurysm. Moderate proximal left common iliac artery stenosis, relatively stable. Calcified phleboliths are present in the lower pelvis bilaterally. Lymph nodes: No enlarged lymph nodes. Urinary bladder: Unremarkable as visualized. Reproductive: The uterus is status post hysterectomy. The ovaries are not identified. Bones/joints: Bilateral L3, L4, and S1 pedicle screw and chris systems with L3-4 and L5-S1 intervertebral disc space prostheses, with stable posterior protrusion into the spinal canal (series 7, image 32). Stable chronic L1 vertebral body compression deformity status post vertebroplasty. Soft tissues: Unremarkable. CT/CT abdomen pelvis w con* [id number] IMPRESSION: 1. Thoracic aortic aneurysm status post stent graft, stable [place]chan aneurysmal lumen size as visualized. 2. Suprarenal, renal level and infrarenal abdominal aortic aneurysm, slight interval increase in maximal caliber as described. 3. Severe bilateral renal artery origin stenoses, stable. 4. Prior cholecystectomy. 5. Moderate proximal left common iliac artery stenosis, relatively stable. 6. Prior hysterectomy. 7. Diverticulosis. 8. Splenic benign cyst, stable. 9. Bilateral renal benign cysts. No follow-up imaging is recommended. 10. Small pericardial effusion, mildly increased. 11. Right lower lobe pulmonary partial atelectasis, stable. COMMENTS: Consistent with the [employer]'s Incidental Findings Committee white paper (J Am Kuldeep Radiol 2018): Any incidental renal lesion less than 1 cm or classified as too small to characterize, or any incidental cystic renal lesion characterized as simple-appearing, is likely benign. No follow-up imaging is recommended for these lesions per consensus recommendations based on imaging criteria.
[2023-02-15] MEDS: hyDRALAzine 10 mg Tablet 25 MG PO ×3 (07:31→21:21)
[2023-02-15] MEDS: ketorolac 30 mg/mL INJ IVP (07:41)
[2023-02-15] MEDS: iohexol 350 mg/mL 500 mL Btl (per mL) IV (08:03)
[2023-02-15] MEDS: ipratropium-albuterol 3 mL Neb INHALATION ×3 (08:56→16:06)
[2023-02-15] MEDS: budesonide 0.5 mg/2 mL Neb INHALATION (08:57)
--- NOTE | 2023-02-15 09:12 | PC.PHAR ---
pt states she takes care of her own medications-pt states she is still on her titrating dose of prednisone 10mg filled 02/12/23 8d/s-pts daughter states the pt finished the medrol dose eldon filled 02/03/23 6d/s-ext med history also shows prednisone 20mg take 40mg daily for 5 days filled 02/03/23-pt states she dced her crestor 20mg hs states she hasnt taken for a while ext med history shows last filled 01/16/23 30d/s-
[2023-02-15] MEDS: cefepime 1,000 MG in sodium chloride 0.9% (plus) 50 ML 100 MG IV (10:23)
[2023-02-15] MEDS: aspirin 81 mg EC Tablet PO (10:23)
[2023-02-15] MEDS: dilTIAZem ER (24HR) 120 mg Capsule PO (10:24)
[2023-02-15] MEDS: clopidogrel 75 mg Tablet PO (10:24)
[2023-02-15] MEDS: ferrous gluconate 324 mg Tablet PO (10:24)
[2023-02-15] MEDS: pantoprazole DR 40 mg Tablet PO ×2 (10:24→17:13)
--- NOTE | 2023-02-15 11:37 | PC.NURSE ---
Report given to LAURA Smith. Transferred via bed to ICU room 12.
--- NOTE | 2023-02-15 12:05 | PC.NURSE ---
Arrived from [facility]. C/O of severed abd pain, Dr. Garcia to come to bedside
[2023-02-15] MEDS: morphine 4 mg/mL SDV 1 mL IVP (12:59)
[2023-02-15] MEDS: HYDROcodone-acetaminophen 5-325 mg Tablet 1 TAB PO (13:52)
--- NOTE | 2023-02-15 14:04 | ECG_ITS ---
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 Measurements Intervals [place] Rate: 83 P: 65 MI: 173 QRS: -81 QRSD: 73 T: 31 QT: 378 QTc: 447 Interpretive Statements SINUS RHYTHM POSSIBLE LEFT ATRIAL ENLARGEMENT [-0.1mV P-WAVE IN V1/V2] LOW QRS VOLTAGE IN EXTREMITY LEADS [QRS DEFLECTION < 0.5 mV IN LIMB LEADS] INFERIOR MYOCARDIAL INFARCTION , OF INDETERMINATE AGE [40+ ms Q WAVE AND/OR ST/T ABNORMALITY IN II/aVF] ANTEROSEPTAL MYOCARDIAL INFARCTION , PROBABLY OLD [40+ ms Q WAVE IN V1-V4] Compared to ECG 02/14/2023 19:43:52 Low QRS voltage now present Myocardial infarct finding now present Sinus tachycardia no longer present Left-axis deviation no longer present Electronically Signed On 02-16-2023 11:11:12 CDT by Theresa Dexter M.D. [id number]
[2023-02-15] MEDS: alum-mag-hydroxide-sime 30 mL UDC PO ×2 (14:25→21:22)
[2023-02-15] MEDS: acetaminophen 325 mg Tablet 650 MG PO (17:07)
[2023-02-15] MEDS: docusate sodium 100 mg Capsule PO (17:13)
[2023-02-15] MEDS: ALPRAZolam 0.5 mg Tablet PO (18:10)
[2023-02-15 20:08] LABS: Hematocrit 25.3 % (37.0-47.0); Hemoglobin 7.5 g/dL (11.5-15.3)
[2023-02-15] MEDS: desvenlafaxine 50 mg Tablet PO (21:21)
[2023-02-15 21:54] LABS: Basophils % 0.3 %; Eosinophils # 0.1 10^3/uL (0.0-0.8); Eosinophils % 1.7 %; Hematocrit 23.8 % (37.0-47.0); Hemoglobin 7.1 g/dL (11.5-15.3); Lymphocytes # 0.4 10^3/uL (0.8-4.8); Lymphocytes % 12.4 %; Mean Corpuscular HGB Conc 29.8 g/dL (30.0-36.0); Mean Corpuscular Hemoglobin 26.4 pg (28.0-34.0); Mean Corpuscular Volume 88.5 fl (81-99); Mean Platelet Volume 11.8 fL (7.4-10.4); Monocytes # 0.2 10^3/uL (0.2-0.9); Monocytes % 5.1 %; Neutrophils # 2.84 10^3/uL (1.8-7.7); Neutrophils % 80.2 %; Nucleated Red Blood Cells % 0 %; Platelet Count 89 10^3/cmm (130-400); Red Blood Count 2.69 10^6/uL (4.1-5.3); Red Cell Distribution Width 19.6 % (12.1-15.1); White Blood Count 3.5 10^3/uL (4.0-10.0)
[2023-02-16] VITALS (57 sets, daily range): BP systolic 138–194; BP diastolic 61–104; PULSE 70–98; RESP 12–27; TEMP 36.6; O2SAT 90–100
[2023-02-16] MEDS: ondansetron 2 mg/ML SDV 2 mL 4 MG IVP ×2 (01:50→14:18)
[2023-02-16] MEDS: morphine 4 mg/mL SDV 1 mL IVP ×2 (04:28→14:05)
[2023-02-16] MEDS: dexamethasone 4 mg/mL INJ IVP (04:51)
[2023-02-16 05:54] LABS: Basophils % 0.2 %; Eosinophils # 0.1 10^3/uL (0.0-0.8); Eosinophils % 1.4 %; Hematocrit 30.4 % (37.0-47.0); Hemoglobin 9.4 g/dL (11.5-15.3); Lymphocytes # 0.3 10^3/uL (0.8-4.8); Lymphocytes % 5.6 %; Mean Corpuscular HGB Conc 30.9 g/dL (30.0-36.0); Mean Corpuscular Hemoglobin 26.7 pg (28.0-34.0); Mean Corpuscular Volume 86.4 fl (81-99); Mean Platelet Volume 10.9 fL (7.4-10.4); Monocytes # 0.2 10^3/uL (0.2-0.9); Monocytes % 2.9 %; Neutrophils # 4.95 10^3/uL (1.8-7.7); Neutrophils % 89.5 %; Nucleated Red Blood Cells % 0 %; Platelet Count 98 10^3/cmm (130-400); Red Blood Count 3.52 10^6/uL (4.1-5.3); Red Cell Distribution Width 18.5 % (12.1-15.1); White Blood Count 5.5 10^3/uL (4.0-10.0)
[2023-02-16 06:12] LABS: Alanine Aminotransferase 36 U/L (0-33); Albumin Level 3.1 g/dL (3.5-5.2); Alkaline Phosphatase 514 U/L (35-105); Anion Gap 16.3 (5-19); Aspartate Amino Transferase 39 U/L (0-32); Blood Urea Nitrogen 37 mg/dL (8-23); Calcium 8.1 mg/dL (8.5-10.5); Carbon Dioxide 17 mmol/L (22-29); Chloride 106 mmol/L (98-107); Globulin 2.8 g/dL (1.3-4.6); Glucose 85 mg/dL (65-115); Osmolality Calculated 286 mOsm/kg (285-295); Potassium 5.3 mmol/L (3.5-5.1); Sodium 134 mmol/L (136-145); Total Bilirubin 1.6 mg/dL (0.15-1.2); Total Protein 5.9 g/dL (6.6-8.7)
[2023-02-16 07:10] LABS: Glucose Point of Care 109 mg/dL (70-110)
[2023-02-16] MEDS: ipratropium-albuterol 3 mL Neb INHALATION ×3 (07:43→15:06)
[2023-02-16] MEDS: budesonide 0.5 mg/2 mL Neb INHALATION (07:43)
[2023-02-16] MEDS: docusate sodium 100 mg Capsule PO (08:05)
[2023-02-16] MEDS: hyDRALAzine 10 mg Tablet 25 MG PO ×3 (08:06→20:08)
[2023-02-16] MEDS: dilTIAZem ER (24HR) 120 mg Capsule PO (08:06)
[2023-02-16] MEDS: ferrous gluconate 324 mg Tablet PO (08:07)
[2023-02-16] MEDS: cefepime 1,000 MG in sodium chloride 0.9% (plus) 50 ML 100 MG IV (08:07)
[2023-02-16] MEDS: aspirin 81 mg EC Tablet PO (08:07)
[2023-02-16] MEDS: pantoprazole DR 40 mg Tablet PO (08:07)
[2023-02-16] MEDS: clopidogrel 75 mg Tablet PO (08:07)
[2023-02-16] MEDS: FUROsemide 10 mg/mL SDV 2mL 20 MG IVP ×2 (09:17→20:07)
--- NOTE | 2023-02-16 09:44 | PM.PN ---
Subjective Subjective: Status post 2 units of packed red blood cell transfusion to yesterday evening and overnight. Hemoglobin this morning at 9.4. Denies any new complaints, however noted to be significantly wheezy. Hypertensive with blood pressure ranging 1 60-1 72 systolics. CTA ruled out any aneurysmal bleeding. Has not had a bowel movement yet. Typically states she has a bowel movement once every 2 weeks. Medications: Reviewed: Yes Vitals/I&O/Wt Last Vital Signs Temp 97.8 F 02/16/23 02:15 Pulse 85 02/16/23 08:30 Resp 17 02/16/23 08:30 BP 172/86 02/16/23 08:30 Pulse Ox 97 02/16/23 08:30 O2 Del Method Nasal Cannula 02/16/23 07:40 O2 Flow Rate 3 02/16/23 07:40 02/15/23 02/16/23 02/16/23 22:59 06:59 14:59 Intake Total 250 / 350 350 / 700 Output Total 1000 / 1000 250 / 1250 Balance -750 / -650 100 / -550 Weight last 48 hrs Weight 53.297 kg Weight 53.07 kg Physical Exam Narrative: General: No acute distress, AO x3 HEENT: PERRLA, pupils bilaterally equal and reactive, pallors not present Chest: Normal vesicular breath sounds, no added sounds, equal good air entry bilaterally CVS: S1-S2 regular, no murmurs, no tachycardia, no gallops, no rubs Abdomen: Soft, nontender, no organomegaly, bowel sounds present Neuro: No focal deficits, no facial deformity, AO x3, power 5/5 in all limbs Extremities: No edema clubbing or cyanosis Urinary Catheter Management: Felix: Cath Placed During This Visit: yes Reason for Continuing Indwelling Catheter: Accurate Measurement of Urinary Output in Critically Ill Patients Urinary Catheter Date of Insertion: 02/15/23 Urinary Catheter Time of Insertion: 11:35 Data 02/16/23 05:45 02/16/23 05:45 Micro: Microbiology 02/14/23 20:09 Blood Culture - Preliminary Blood NEGATIVE TO DATE 02/14/23 20:04 Blood Culture - Preliminary Blood NEGATIVE TO DATE 02/15/23 09:10 Gram Stain - Final Sputum - Expectorated Sputum 02/14/23 23:19 MRSA Culture - Final Nose 02/14/23 21:35 Legionella Urinary Antigen - Final Urine,Voided Bacterial Antigens - Final A&P Assessment and plan (1) HABP (hospital-acquired bacterial pneumonia): (2) Anemia of chronic disease: (3) Anemia: (4) GI bleed: Plan Eli Kimball is a 72 year old female with a past medical history significant for descending thoracic aortic aneurysm s/p TEVAR in September 2022, COPD, currently continues to actively heavily smoke.,? CKD, chronic anemia, status post recent drug-eluting stent to RCA in January 2023 currently admitted to the hospital since February 14, 2023 after presenting with fever and dyspnea. Currently active issues include: #Right lower lobe pneumonia, possibly healthcare associated. Chest x-ray with possible right-sided infiltrate. She has been on treatment with cefepime and vancomycin Sputum culture shows some GPC's in pairs. MRSA PCR negative. Urine Legionella and bacterial antigens negative. Discontinue vancomycin Continue cefepime which is renally dosed currently at 1 g IV every 24 hours for creatinine clearance of 25. She is currently afebrile for the last 24 hours. No leukocytosis negative influenza and Covid Ag Noted elevated ALP on liver panel, however Ct abdomen without any IHBD. S/p cholecystectomy. No abdominal complaints. No other sourec of abdominal infection. Ua not a clean catch with 40-55 epithelial cells, repeat ordered blood cx negative from 02/14 # recently underwent cardiac cath with PCI with MARCO to RCA in january 2023 for unstable angina and abnormal stress test. Currently on DAPT with ASA/ Plavix She has acute on chronic anemia for which she has been receiving multiple PRBC transfusions recently. Due toconcern for anuerysmal bleed on DAPT, underwent CTA abd/pelvis yesterday whoch showed stable post op status of multiple aneurysms without any overt bleeding. Source of bleeding may be GI, per history appears to have been having melanotic stools at home. 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 She also had a few small AVMs in the posterior orpharynx at that time for which she was evaluated by ENT- examination revealed normal variations of tissues especially under her tongue with venous lakes and dilated vasculature.? Same can be seen posteriorly.? These were normal variations only.? No pathology was identified per ENT notes review. colonoscopy was normal in 2020. Suspect that these AVMs may be a source of slow chronic GI bleed with resulting anemia. Since she is likely to be on DAPT at least for the next several months, she may benefit from treatment for AVMs to minimize risk of bleeding. Will consult gen/surg to assess for EGD. # Acute on chronic anemia s/p PRBC transfusion as above suspect slow GI bleed as source w/up as above recheck h and h at 5 pm # Transaminitis, elevated ALP Ct abdomen without IHBD, s/p colecystectomy , no biliary obstruction identified Patient denies abdominal pain check hepatitis panel # COPD Noted wheezing right > left lung on exam with B/l LL rales continue scheduled duonebs and budesondie with additional prn albuterol nebs today # CHF, acute on chronic , diatsolic echo from 01/2023 with gr1 diastolic dysfunction likely precipiated by IVF and transfusions Lasix 20 mg iv now further doses dependent on urine output and renal function careful diuresis to minimize risk of ALIYAH , patient has recently also received contrast Dose meds for GFR 25 Code status: DNR/ DNI DVT ppx: SCDs only as suspect GI bleed, on DAPT Attestations Medical Necessity Statement*: continued admission for EGD, evalute for source of bleeding, check H&H closely, iv diuresis today, iv abx Coding Level of Care Code Critical Care >/= 30 minutes Diagnoses HABP (hospital-acquired bacterial pneumonia) J15.9 Anemia of chronic disease D63.8 Anemia D64.9 GI bleed K92.2
[2023-02-16] MEDS: diphenhydrAMINE 50 mg/mL SDV 1mL IVP (14:05)
--- NOTE | 2023-02-16 15:24 | ECG_ITS ---
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 Measurements Intervals [place] Rate: 80 P: 46 MS: 163 QRS: -74 QRSD: 80 T: 30 QT: 398 QTc: 462 Interpretive Statements SINUS RHYTHM LOW QRS VOLTAGE IN EXTREMITY LEADS [QRS DEFLECTION < 0.5 mV IN LIMB LEADS] PATTERN CONSISTENT WITH PULMONARY DISEASE INFERIOR MYOCARDIAL INFARCTION , PROBABLY OLD [40+ ms Q WAVE AND/OR ST/T ABNORMALITY IN II/aVF] Compared to ECG 02/15/2023 14:04:41 No significant changes Electronically Signed On 02-16-2023 16:53:03 CDT by Theresa Dexter M.D. [id number]
[2023-02-16 17:15] LABS: Hematocrit 30.8 % (37.0-47.0); Hemoglobin 9.6 g/dL (11.5-15.3)
[2023-02-16] MEDS: desvenlafaxine 50 mg Tablet PO (20:07)
[2023-02-17] VITALS (47 sets, daily range): BP systolic 136–182; BP diastolic 73–101; PULSE 10–124; RESP 13–27; TEMP 36.1–36.7; O2SAT 83–100
[2023-02-17 04:10] LABS: Hematocrit 30.3 % (37.0-47.0); Hemoglobin 9.6 g/dL (11.5-15.3); Lymphocytes # 0.2 10^3/uL (0.8-4.8); Lymphocytes % 9.3 %; Mean Corpuscular HGB Conc 31.7 g/dL (30.0-36.0); Mean Corpuscular Hemoglobin 26.6 pg (28.0-34.0); Mean Corpuscular Volume 83.9 fl (81-99); Monocytes # 0.1 10^3/uL (0.2-0.9); Monocytes % 5.3 %; Neutrophils # 2.09 10^3/uL (1.8-7.7); Nucleated Red Blood Cells % 0 %; Platelet Count 96 10^3/cmm (130-400); Red Blood Count 3.61 10^6/uL (4.1-5.3); Red Cell Distribution Width 18.6 % (12.1-15.1); White Blood Count 2.5 10^3/uL (4.0-10.0)
[2023-02-17 04:38] LABS: Alanine Aminotransferase 31 U/L (0-33); Albumin Level 3.2 g/dL (3.5-5.2); Alkaline Phosphatase 564 U/L (35-105); Anion Gap 15.9 (5-19); Aspartate Amino Transferase 25 U/L (0-32); Blood Urea Nitrogen 38 mg/dL (8-23); Calcium 8.3 mg/dL (8.5-10.5); Carbon Dioxide 18 mmol/L (22-29); Chloride 105 mmol/L (98-107); Glucose 109 mg/dL (65-115); NT Pro B Type Natriuretic Pept 13117 pg/mL (0-125); Osmolality Calculated 288 mOsm/kg (285-295); Potassium 4.9 mmol/L (3.5-5.1); Sodium 134 mmol/L (136-145); Total Bilirubin 0.4 mg/dL (0.15-1.2); Total Protein 6.2 g/dL (6.6-8.7)
[2023-02-17 04:43] LABS: Hepatitis A Antibody IgM Non-Reactive (Nonreactive); Hepatitis B Core AB, Total Non-Reactive (Nonreactive); Hepatitis B Surface AB 3.5 (11.5-1000); Hepatitis B Surface Antigen Non-Reactive (Nonreactive); Hepatitis C Virus Antibody Reactive (Nonreactive)
[2023-02-17] MEDS: hyDRALAzine 10 mg Tablet 25 MG PO (08:56)
[2023-02-17] MEDS: pantoprazole DR 40 mg Tablet PO (08:57)
[2023-02-17] MEDS: ferrous gluconate 324 mg Tablet PO (08:57)
[2023-02-17] MEDS: docusate sodium 100 mg Capsule PO ×2 (08:57→17:19)
[2023-02-17] MEDS: FUROsemide 10 mg/mL SDV 2mL 20 MG IVP (08:58)
[2023-02-17] MEDS: dilTIAZem ER (24HR) 120 mg Capsule PO (08:58)
[2023-02-17] MEDS: cefepime 1,000 MG in sodium chloride 0.9% (plus) 50 ML 837 MG IV (09:01)
[2023-02-17] MEDS: clopidogrel 75 mg Tablet PO (09:36)
[2023-02-17] MEDS: aspirin 81 mg EC Tablet PO (09:36)
--- NOTE | 2023-02-17 10:03 | P.CONIM_ITS ---
Providers/Reason For Consult Consulting Physician/Specialty*: Dr. Mayo Patel, DO/General surgery Reason for Consult*: Anemia, suspected GI bleed Attending Physician: Tracy Wilson MD Primary Care Provider: Bhupinder Logan MD History of Present Illness History of Present Illness Eli Kimball is a 73 year old female who presented to the hospital with melena. She had a drug-eluting stent placed last month and aneurysm repair in September of this year. She is on Plavix. She was found to have acute on chronic anemia and was transfused. General surgery was consulted for EGD Review of Systems General: Reports: 10 or more systems reviewed and unremarkable except in HPI and below Medications/Allergies Home Medications Medication Instructions Recorded Confirmed Last Taken Type albuterol sulfate 90 mcg/actuation 1 - 2 inh inhalation Q4H PRN 01/03/21 02/15/23 12/09/21 History aerosol inhaler (Ventolin HFA) Shortness Of Breath gabapentin 600 mg tablet 600 mg PO TID 01/03/21 02/15/23 04/09/22 History suvorexant 20 mg tablet (Belsomra) 20 mg PO BEDTIME 04/10/22 02/15/23 04/09/22 History nebulizers #1 ea 06/06/22 02/15/23 Unknown Rx ondansetron 4 mg disintegrating 4 mg PO Q6H PRN nausea and 11/04/22 02/15/23 Unknown Rx tablet vomiting #14 tabs ipratropium 0.5 mg-albuterol 3 mg 3 ml inhalation Q4H PRN wheezing 11/06/22 02/15/23 Unknown Rx (2.5 mg base)/3 mL nebulization #90 mL soln oxygen-air delivery systems 11/13/22 02/15/23 Unknown History ergocalciferol (vitamin D2) 1,250 1,250 mcg PO Q7D 01/26/23 02/15/23 Unknown History mcg (50,000 unit) capsule ferrous gluconate 324 mg (37.5 mg 324 mg PO QAM 01/26/23 02/15/23 Unknown History iron) tablet diltiazem HCl 120 mg 120 mg PO DAILY #60 tabs 02/02/23 02/15/23 Unknown Rx tablet,extended release 24 hr (Cardizem LA) fluticasone fur. 200 mcg-umeclid 1 inh inhalation DAILY 30 days #60 02/02/23 02/15/23 Unknown Rx 62.5 mcg-vilant 25 mcg ea inhalat.powder (Trelegy Ellipta) hydralazine 10 mg tablet 25 mg PO TID 30 days #120 tabs 02/02/23 02/15/23 Unknown Rx aspirin 81 mg tablet,delayed 81 mg PO QAM 02/15/23 02/15/23 Unknown History release clopidogrel 75 mg tablet 75 mg PO QAM 02/15/23 02/15/23 Unknown History diphenhydramine HCl 25 mg capsule 75 - 100 mg PO BEDTIME PRN Sleep 02/15/23 02/15/23 Unknown History (Benadryl) prednisolone acetate 1 % eye 1 drp ophthalmic (eye) BID 02/15/23 02/15/23 2 Weeks Ago History drops,suspension ~02/01/23 pt dced 2 weeks ago prednisone 10 mg tablet See Rx Instructions .Route .COMPLEX 02/15/23 02/15/23 Unknown History Allergies Allergy/AdvReac Type Severity Reaction Status Date / Time No Known Drug Allergies Allergy ADR-Irritab Verified 02/15/23 09:11 le Current Medications Generic Name Dose Route Start Last Admin Trade Name Freq PRN Reason Stop Dose Admin Acetaminophen 650 mg 02/14/23 21:50 02/15/23 17:07 Acetaminophen 325 Mg Tablet PO 650 mg Q6H PRN Administration Mild/Mod Pain Or Temp >/= 101 Hydrocodone Bitart/Acetaminophen 1 tab 02/15/23 12:15 02/15/23 13:52 Hydrocodone-Acetaminophen 5-325 Mg Tablet PO 1 tab Q4H PRN Administration MODERATE PAIN Al Hydrox/Mg Hydrox/Simethicone 30 ml 02/15/23 14:19 02/15/23 21:22 Htoi-Hqv-Wtfkvvnvu-Arnav 30 Ml Udc PO 30 ml Q4H PRN Administration INDIGESTION Albuterol/Ipratropium 3 ml 02/15/23 08:00 02/17/23 07:37 Ipratropium-Albuterol 3 Ml Neb INHALATION Not Given QID.RESPIRATORY ZULEMA Alprazolam 0.5 mg 02/15/23 18:07 02/15/23 18:10 Alprazolam 0.5 Mg Tablet PO 0.5 mg BID PRN Administration ANXIETY Aspirin 81 mg 02/15/23 09:00 02/16/23 08:07 Aspirin 81 Mg Ec Tablet PO 81 mg DAILY ZULEMA Administration Budesonide 0.5 mg 02/15/23 08:00 02/17/23 07:37 Budesonide 0.5 Mg/2 Ml Neb INHALATION Not Given BID.RESPIRATORY ZULEMA Clopidogrel Bisulfate 75 mg 02/15/23 09:00 02/16/23 08:07 Clopidogrel 75 Mg Tablet PO 75 mg DAILY ZULEMA Administration Desvenlafaxine 50 mg 02/15/23 21:00 02/16/23 20:07 Desvenlafaxine 50 Mg Tablet PO 50 mg BEDTIME ZULEMA Administration Diltiazem HCl 120 mg 02/15/23 09:00 02/17/23 08:58 Diltiazem Er (24hr) 120 Mg Capsule PO 120 mg DAILY ZULEMA Administration Docusate Sodium 100 mg 02/15/23 18:00 02/17/23 08:57 Docusate Sodium 100 Mg Capsule PO 100 mg BID ZULEMA Administration Ferrous Gluconate 324 mg 02/15/23 09:00 02/17/23 08:57 Ferrous Gluconate 324 Mg Tablet PO 324 mg DAILY ZULEMA Administration Cefepime HCl 1,000 mg/ Sodium 50 mls @ 100 mls/hr 02/15/23 08:30 02/17/23 09:01 Chloride IV 837 mls/hr Q24H ZULEMA Administration Protocol Ondansetron HCl 4 mg 02/14/23 21:50 02/16/23 14:18 Ondansetron 2 Mg/Ml Sdv 2 Ml IVP 4 mg Q8H PRN Administration vomiting, or N/V if npo PFSH Acute PFSH: Medical History Abdominal aortic aneurysm Abnormal nuclear cardiac imaging test Acute cystitis Acute cystitis Acute hypoxemic respiratory failure Acute kidney injury superimposed on chronic kidney disease Bleeding Blurred vision Bronchus, stenosis Patient is scheduled for stent removal in February in [place] She had atelectasis that is why she received a pulmonary stent Coagulopathy Congestive heart failure COPD (chronic obstructive pulmonary disease) COPD exacerbation Coronary artery disease DNI (do not intubate) DNR (do not resuscitate) Epistaxis Hypertension Left-sided cerebrovascular accident (CVA) Microcytic anemia Respiratory distress Respiratory failure with hypoxia Unstable angina Weakness Surgical History H/O esophagogastroduodenoscopy AVM body of stomach H/O thoracic aortic aneurysm repair History of back surgery x3 History of breast surgery inverted nipple (x3) History of dental surgery History of hysterectomy 1993 History of laparoscopic cholecystectomy 1993 Status post colonoscopy (02/19/21) Diverticulosis, internal hemorrhoids Family History Other Hypertension Social History Smoking and tobacco status: current every day smoker cigarettes Years cigarettes smoked: 64 [ Other cigarette details: started age 13; 1 pack /3 days currently ] Alcohol intake: never Substance/Drug Use: never Lives independently: Yes Vitals/I&O/Wt Last Vital Signs Temp 97.8 F 02/16/23 02:15 Pulse 76 02/17/23 07:36 Resp 18 02/17/23 07:36 BP 165/86 02/17/23 06:00 Pulse Ox 96 02/17/23 07:36 O2 Del Method Nasal Cannula 02/17/23 07:36 O2 Flow Rate 2 02/17/23 07:36 02/16/23 02/17/23 02/17/23 22:59 06:59 14:59 Intake Total 50 / 50 Output Total 600 / 600 500 / 1100 Balance -550 / -550 -500 / -1050 Weight last 48 hrs Weight 117 lb Weight 117 lb 8 oz Physical Exam Narrative: General : Patient is well developed , no acute distress, oriented x3 Head : Normal cephalic, a-traumatic. Ears : Pinnae and external canal are normal. Hearing is normal. Eyes : PERRLA, Sclera and injection are normal. No conjunctival discharge. Nose : Mucous membranes are without erythema. Throat : buccal mucosa is normal, gums are without significant recession or hypertrophy. Lungs : Equal chest rise bilaterally, no use of accessory muscles, trachea is midline. Cor : Rate and rhythm are normal. Abdomen : Soft, ND, NT, no g/r/m Extremities : No edema, no cyanosis or clubbing, dorsalis pedis pulses are present bilaterally, non-tender to palpation of calves. Upper extremities are normal bilaterally. Back : non-tender to palpation, no CVA tenderness. Neuro : CN II - XII intact, Upper and lower extremities have equal and full strength Urinary Catheter Management: Felix: Cath Placed During This Visit: yes Reason for Continuing Indwelling Catheter: Accurate Measurement of Urinary Output in Critically Ill Patients Urinary Catheter Date of Insertion: 02/15/23 Urinary Catheter Time of Insertion: 11:35 Data 02/17/23 02:50 02/17/23 02:50 Micro: Microbiology 02/15/23 09:10 Gram Stain - Final Sputum - Expectorated Sputum Sputum Culture - Final A&P Assessment and plan (1) GI bleed: (2) Anemia: Plan EGD The risks and benefits of the procedure, including bleeding, infection, intestinal perforation requiring surgery, missed lesion were explained to the patient. The patient is understanding of the risks and wishes to proceed. Coding Level of Care Code 88800 Diagnoses GI bleed K92.2 Anemia D64.9
[2023-02-17] MEDS: sodium chloride 0.9% 1,000 ML 30 ML IV (10:09)
[2023-02-17 10:29] LABS: Lactate Dehydrogenase 203 U/L (135-214)
--- NOTE | 2023-02-17 10:38 | PC.SOCIAL ---
Imm update Imm updated with patient at bedside. Copy of page 2 provided. Patient verbalized understanding. Copy in chart initialed, dated and timed.
[2023-02-17] MEDS: hyDRALAzine 20 mg/mL INJ 1 mL 5 MG IVP (11:18)
[2023-02-17] MEDS: ipratropium-albuterol 3 mL Neb INHALATION ×3 (11:28→19:30)
[2023-02-17] MEDS: acetaminophen 325 mg Tablet 650 MG PO (11:37)
[2023-02-17] MEDS: hyDRALAzine 50 mg Tablet PO ×2 (14:24→20:44)
--- NOTE | 2023-02-17 15:14 | P.PN_ITS ---
Subjective Subjective: Patient underwent EGD today. Evidence of mild gastritis, no bleeding was encountered. Hemoglobin is stable today at 9. Blood pressure continues to be ranging between 1 60-1 70 systolic. Creatinine worsened slightly at 2.1. Urine output over the last 24 hours has been over 2.4 L. Breathing is improved today. Additionally noted to be developing some leukopenia. Thrombocytopenia currently stable. Medications: Reviewed: Yes Vitals/I&O/Wt Last Vital Signs Temp 97.9 F 02/17/23 14:00 Pulse 80 02/17/23 14:00 Resp 25 H 02/17/23 14:00 BP 168/87 02/17/23 14:00 Pulse Ox 100 02/17/23 14:00 O2 Del Method Nasal Cannula 02/17/23 14:00 O2 Flow Rate 2 02/17/23 14:00 02/17/23 02/17/23 02/17/23 06:59 14:59 22:59 Intake Total 50 / 50 Output Total 500 / 1100 750 / 750 Balance -500 / -1050 -700 / -700 Weight last 48 hrs Weight 53.07 kg Weight 53.297 kg Physical Exam Narrative: General: No acute distress, AO x3 HEENT: PERRLA, pupils bilaterally equal and reactive, pallors not present Chest: Normal vesicular breath sounds, no added sounds, equal good air entry bilaterally CVS: S1-S2 regular, no murmurs, no tachycardia, no gallops, no rubs Abdomen: Soft, nontender, no organomegaly, bowel sounds present Neuro: No focal deficits, no facial deformity, AO x3, power 5/5 in all limbs Urinary Catheter Management: Felix: Cath Placed During This Visit: yes Reason for Continuing Indwelling Catheter: Accurate Measurement of Urinary Output in Critically Ill Patients Urinary Catheter Date of Insertion: 02/15/23 Urinary Catheter Time of Insertion: 11:35 Data 02/17/23 02:50 02/17/23 02:50 Micro: Microbiology 02/15/23 09:10 Gram Stain - Final Sputum - Expectorated Sputum Sputum Culture - Final A&P Assessment and plan (1) HABP (hospital-acquired bacterial pneumonia): (2) Anemia of chronic disease: (3) Anemia: (4) GI bleed: Plan Eli Kimball is a 72 year old female with a past medical history significant for descending thoracic aortic aneurysm s/p TEVAR in September 2022, COPD, cu rrently continues to actively heavily smoke.,? CKD, chronic anemia, status post recent drug-eluting stent to RCA in January 2023 currently admitted to the hospital since February 14, 2023 after presenting with fever and dyspnea. Currently active issues include: #Right lower lobe pneumonia, possibly healthcare associated. Chest x-ray with possible right-sided infiltrate. She has been on treatment with cefepime and vancomycin---> narrowed to cefepime on 02/16. Sputum culture shows some GPC's in pairs. Identified now as normal luis a. MRSA PCR negative. Urine Legionella and bacterial antigens negative. Plan to d/c cefepime after day 5 tomorrow. She is currently afebrile since 02/15 No leukocytosis negative influenza and Covid Ag Noted elevated ALP on liver panel, however Ct abdomen without any IHBD. S/p cholecystectomy. No abdominal complaints. No other sourec of abdominal infection. Ua not a clean catch with 40-55 epithelial cells, repeat ordered blood cx negative from 02/14 check tick panel given pancytopenia and deranged LFTs # recently underwent cardiac cath with PCI with MARCO to RCA in january 2023 for unstable angina and abnormal stress test. Currently on DAPT with ASA/ Plavix She has acute on chronic anemia for which she has been receiving multiple PRBC transfusions recently. Due to concern for anuerysmal bleed on DAPT, underwent CTA abd/pelvis on 02/15 which showed stable post op status of multiple aneurysms without any overt bleeding. Has a past h/o gastric AVMs. Underwent EGD today to evaluate for any active GI bleed as a cause for anemia. EGD shows evidence of gastritis. no gross bleeding encountered. Referral to heme/onc at discharge Iron supplementation to continue # Gastritis: protonix 40 mg BID # Acute on chronic anemia s/p PRBC transfusion as above EGD rules out active bleeding Colonoscopy 2020- WNL # Transaminitis, elevated ALP Ct abdomen without IHBD, s/p colecystectomy , no biliary obstruction identified Patient denies abdominal pain check hepatitis panel - hep C screen +, pending PCR check tick panel # COPD continue scheduled duonebs and budesondie breathing better today # CHF, acute on chronic , diatsolic echo from 01/2023 with gr1 diastolic dysfunction likely precipiated by IVF and transfusions Lasix 20 mg iv q12h on 02/16 ---> diuresed 2.4 L hold off further lasix for now given cr bump to 2.1 today # ALIYAH: suspect YRIS from recent contrast for CTA avoid nephrotoxic meds , hold lasix today # pancytopenia check RVP, tick panel which could tie in fever and pancytopenia unlikley b lactam related as present on admit check haptoglobin and LDH levels for hemolysis Code status: DNR/ DNI DVT ppx: SCDs only gievn anemia and already on DAPT Attestations Medical Necessity Statement*: transfer out of ICU, check renal function in am, check Hb in am, if Hba nd cr stable, anticiptae discharge over next 24 hrs Coding Level of Care Code Acute Code for Chg Fwd High MDM includes number and complexity of problems actively addressed during encounter, amount and/or complexity of data reviewed/ordered and described risk of complication, morbidity or mortality of management as documented Diagnoses HABP (hospital-acquired bacterial pneumonia) J15.9 Anemia of chronic disease D63.8 Anemia D64.9 GI bleed K92.2
--- NOTE | 2023-02-17 17:33 | ANES.PREANE2 ---
Pre-Anesthetic Assessment Height/Weight: Height 1.65 m Weight 53.07 kg Temp Pulse Resp BP Pulse Ox O2 Del Method O2 Flow Rate 97.9 F 78 22 H 168/87 97 Nasal Cannula 2.5 02/17/23 14:00 02/17/23 15:21 02/17/23 15:21 02/17/23 14:00 02/17/23 15:21 02/17/23 15:21 02/17/23 15:21 Operation Date: 02/17/23 10:00 Proposed Procedures p EGD(Not Applicable) - Mayo Patel DO Familial anesthetic complications: none Was Beta Kristel taken within 24 hours: N/A Was Clonidine taken within 24 hours: N/A Last intake: Intake Last Liquid Date 02/17/23 Last Liquid Time 08:00 Last Solid Date 02/16/23 Last Solid Time 17:00 Social Tobacco and No alcohol Exam alert and oriented x 3 Airway Submandibular: within normal limits Cervical ROM: within normal limits Mallampati: Class II Pulmonary Chronic Obstructive Pulmonary Disease CV/HEM Anemia, Coronary Artery Disease, Hypertension, Myocardial Infarction and Peripheral Vascular Disease AAA Chronic Renal Insufficiency Anesthetic Plan ASA status: 4 Anesthesia: MAC Medications/Allergies Home Medications Medication Instructions Recorded Confirmed Last Taken Type albuterol sulfate 90 mcg/actuation 1 - 2 inh inhalation Q4H PRN 01/03/21 02/15/23 12/09/21 History aerosol inhaler (Ventolin HFA) Shortness Of Breath gabapentin 600 mg tablet 600 mg PO TID 01/03/21 02/15/23 04/09/22 History suvorexant 20 mg tablet (Belsomra) 20 mg PO BEDTIME 04/10/22 02/15/23 04/09/22 History nebulizers #1 ea 06/06/22 02/15/23 Unknown Rx ondansetron 4 mg disintegrating 4 mg PO Q6H PRN nausea and 11/04/22 02/15/23 Unknown Rx tablet vomiting #14 tabs ipratropium 0.5 mg-albuterol 3 mg 3 ml inhalation Q4H PRN wheezing 11/06/22 02/15/23 Unknown Rx (2.5 mg base)/3 mL nebulization #90 mL soln oxygen-air delivery systems 11/13/22 02/15/23 Unknown History ergocalciferol (vitamin D2) 1,250 1,250 mcg PO Q7D 01/26/23 02/15/23 Unknown History mcg (50,000 unit) capsule ferrous gluconate 324 mg (37.5 mg 324 mg PO QAM 01/26/23 02/15/23 Unknown History iron) tablet diltiazem HCl 120 mg 120 mg PO DAILY #60 tabs 02/02/23 02/15/23 Unknown Rx tablet,extended release 24 hr (Cardizem LA) fluticasone fur. 200 mcg-umeclid 1 inh inhalation DAILY 30 days #60 02/02/23 02/15/23 Unknown Rx 62.5 mcg-vilant 25 mcg ea inhalat.powder (Trelegy Ellipta) hydralazine 10 mg tablet 25 mg PO TID 30 days #120 tabs 02/02/23 02/15/23 Unknown Rx aspirin 81 mg tablet,delayed 81 mg PO QAM 02/15/23 02/15/23 Unknown History release clopidogrel 75 mg tablet 75 mg PO QAM 02/15/23 02/15/23 Unknown History diphenhydramine HCl 25 mg capsule 75 - 100 mg PO BEDTIME PRN Sleep 02/15/23 02/15/23 Unknown History (Benadryl) prednisolone acetate 1 % eye 1 drp ophthalmic (eye) BID 02/15/23 02/15/23 2 Weeks Ago History drops,suspension ~02/01/23 pt dced 2 weeks ago prednisone 10 mg tablet See Rx Instructions .Route .COMPLEX 02/15/23 02/15/23 Unknown History Allergies Allergy/AdvReac Type Severity Reaction Status Date / Time No Known Drug Allergies Allergy ADR-Irritab Verified 02/15/23 09:11 le Current Medications Generic Name Dose Route Start Last Admin Trade Name Freq PRN Reason Stop Dose Admin Acetaminophen 650 mg 02/14/23 21:50 02/17/23 11:37 Acetaminophen 325 Mg Tablet PO 650 mg Q6H PRN Administration Mild/Mod Pain Or Temp >/= 101 Hydrocodone Bitart/Acetaminophen 1 tab 02/15/23 12:15 02/15/23 13:52 Hydrocodone-Acetaminophen 5-325 Mg Tablet PO 1 tab Q4H PRN Administration MODERATE PAIN Al Hydrox/Mg Hydrox/Simethicone 30 ml 02/15/23 14:19 02/15/23 21:22 Uffk-Okv-Mjzgfbiia-Arnav 30 Ml Udc PO 30 ml Q4H PRN Administration INDIGESTION Albuterol/Ipratropium 3 ml 02/15/23 08:00 02/17/23 15:21 Ipratropium-Albuterol 3 Ml Neb INHALATION 3 ml QID.RESPIRATORY ZULEMA Administration Alprazolam 0.5 mg 02/15/23 18:07 02/15/23 18:10 Alprazolam 0.5 Mg Tablet PO 0.5 mg BID PRN Administration ANXIETY Aspirin 81 mg 02/15/23 09:00 02/17/23 09:36 Aspirin 81 Mg Ec Tablet PO 81 mg DAILY ZULEMA Administration Budesonide 0.5 mg 02/15/23 08:00 02/17/23 07:37 Budesonide 0.5 Mg/2 Ml Neb INHALATION Not Given BID.RESPIRATORY ZULEMA Clopidogrel Bisulfate 75 mg 02/15/23 09:00 02/17/23 09:36 Clopidogrel 75 Mg Tablet PO 75 mg DAILY ZULEMA Administration Desvenlafaxine 50 mg 02/15/23 21:00 02/16/23 20:07 Desvenlafaxine 50 Mg Tablet PO 50 mg BEDTIME ZULEMA Administration Diltiazem HCl 120 mg 02/15/23 09:00 02/17/23 08:58 Diltiazem Er (24hr) 120 Mg Capsule PO 120 mg DAILY ZULEMA Administration Docusate Sodium 100 mg 02/15/23 18:00 02/17/23 17:19 Docusate Sodium 100 Mg Capsule PO 100 mg BID ZULEMA Administration Ferrous Gluconate 324 mg 02/15/23 09:00 02/17/23 08:57 Ferrous Gluconate 324 Mg Tablet PO 324 mg DAILY ZULEMA Administration Hydralazine HCl 50 mg 02/17/23 15:00 02/17/23 14:24 Hydralazine 50 Mg Tablet PO 50 mg TID ZULEMA Administration Cefepime HCl 1,000 mg/ Sodium 50 mls @ 100 mls/hr 02/15/23 08:30 02/17/23 17:20 Chloride IV Infused Q24H ZULEMA Infusion Protocol Sodium Chloride 1,000 mls @ 30 mls/hr 02/17/23 10:15 02/17/23 10:27 Sodium Chloride 0.9% IV Infused .Q24H ZULEMA Infusion Ondansetron HCl 4 mg 02/14/23 21:50 02/16/23 14:18 Ondansetron 2 Mg/Ml Sdv 2 Ml IVP 4 mg Q8H PRN Administration vomiting, or N/V if npo PFSH Anesthesia Medical History Abdominal aortic aneurysm Abnormal nuclear cardiac imaging test Acute cystitis Acute cystitis Acute hypoxemic respiratory failure Acute kidney injury superimposed on chronic kidney disease Bleeding Blurred vision Bronchus, stenosis Patient is scheduled for stent removal in February in [place] She had atelectasis that is why she received a pulmonary stent Coagulopathy Congestive heart failure COPD (chronic obstructive pulmonary disease) COPD exacerbation Coronary artery disease DNI (do not intubate) DNR (do not resuscitate) Epistaxis Hypertension Left-sided cerebrovascular accident (CVA) Microcytic anemia Respiratory distress Respiratory failure with hypoxia Unstable angina Weakness Surgical History H/O esophagogastroduodenoscopy AVM body of stomach H/O thoracic aortic aneurysm repair History of back surgery x3 History of breast surgery inverted nipple (x3) History of dental surgery History of hysterectomy 1993 History of laparoscopic cholecystectomy 1993 Status post colonoscopy (02/19/21) Diverticulosis, internal hemorrhoids Family History Other Hypertension Social History Smoking and tobacco status: current every day smoker cigarettes Years cigarettes smoked: 64 [ Other cigarette details: started age 13; 1 pack /3 days currently ] Alcohol intake: never Substance/Drug Use: never Lives independently: Yes Data Anesthesia 02/17/23 02:50 02/17/23 02:50 Short CBC 02/15/23 02/15/23 02/16/23 Range/Units 19:58 21:30 05:45 WBC 3.5 L 5.5 (4.0-10.0) 10^3/uL Hgb 7.5 L 7.1 L 9.4 L D (11.5-15.3) g/dL Hct 25.3 L 23.8 L 30.4 L (37.0-47.0) % MCV 88.5 86.4 (81-99) fl Plt Count 89 L 98 L (130-400) 10^3/cmm Neut % (Auto) 80.2 89.5 % Neut # (Auto) 2.84 4.95 (1.8-7.7) 10^3/uL 02/16/23 02/17/23 Range/Units 17:06 02:50 WBC 2.5 L (4.0-10.0) 10^3/uL Hgb 9.6 L 9.6 L (11.5-15.3) g/dL Hct 30.8 L 30.3 L (37.0-47.0) % MCV 83.9 (81-99) fl Plt Count 96 L (130-400) 10^3/cmm Neut % (Auto) 85.0 % Neut # (Auto) 2.09 (1.8-7.7) 10^3/uL BMP 02/16/23 02/17/23 05:45 02:50 Sodium 134 L 134 L Potassium 5.3 H 4.9 Chloride 106 105 Carbon Dioxide 17 L 18 L BUN 37 H 38 H Creatinine 1.6 H 2.1 H Glucose 85 109 Calcium 8.1 L 8.3 L Cardiac Enzymes 02/17/23 Range/Units 02:50 NT-Pro-B Natriuret Pep 82830 H (0-125) pg/mL Liver Function 02/16/23 02/17/23 Range/Units 05:45 02:50 Total Bilirubin 1.6 H 0.4 (0.15-1.2) mg/dL AST 39 H 25 (0-32) U/L ALT 36 H 31 (0-33) U/L Alkaline Phosphatase 514 H 564 H (35-105) U/L Albumin 3.1 L 3.2 L (3.5-5.2) g/dL Blood Bank 02/15/23 07:33 Blood Type A Positive Rho(D) Type Positive Antibody Screen Negative Microbiology 02/15/23 09:10 Gram Stain - Final Sputum - Expectorated Sputum Sputum Culture - Final Cardiac Studies: Echocardiogram 01/27/23 Echocardiogram Ultrasound 01/04/21 Sestamibi Stress Test (Cardiology) 01/27/23
--- NOTE | 2023-02-17 17:35 | ANE.PACU2 ---
Inpatient post-anesthesia follow up: Airway intact: Yes Vital signs: Temperature 97.9 F Pulse Rate 78 Respiratory Rate 22 Blood Pressure 168/87 Pulse Oximetry 97 Oxygen Delivery Me thod Nasal Cannula Oxygen Flow Rate 2.5 Fraction of Inspir ed Oxygen Hydration adequate: Yes Nausea and vomiting: No Pain level: 2 Mental status: Baseline
--- NOTE | 2023-02-17 19:14 | PC.NURSE ---
SHift Summary: Uneventful shift. Patient has rested in bed throughout the day. refused up to chair. Went for EGD which showed gastritis, no bleeding. 750mL of urine output.
[2023-02-17] MEDS: budesonide 0.5 mg/2 mL Neb INHALATION (19:30)
[2023-02-17 19:45] LABS: Adenovirus Not Detected (NOT DETECT); Chlamydia Pneumoniae Not Detected (NOT DETECT); Coronavirus 229E,HKU1,NL63,OC4 Not Detected (NOT DETECT); Human Metapneumovirus Not Detected (NOT DETECT); Human Rhinovirus/Enterovirus Not Detected (NOT DETECT); Influenza A Not Detected (NOT DETECT); Influenza A H1 Not Detected (NOT DETECT); Influenza A H1-2009 Not Detected (NOT DETECT); Influenza A H3 Not Detected (NOT DETECT); Influenza B Not Detected (NOT DETECT); Mycoplasma Pneumoniae Not Detected (NOT DETECT); Parainfluenza Virus Type 1 Not Detected (NOT DETECT); Parainfluenza Virus Type 2 Not Detected (NOT DETECT); Parainfluenza Virus Type 3 Not Detected (NOT DETECT); Parainfluenza Virus Type 4 Not Detected (NOT DETECT); Respiratory Syncytial Virus A Not Detected (NOT DETECT); Respiratory Syncytial Virus B Not Detected (NOT DETECT)
[2023-02-17 19:57] LABS: SARS-COV-2 Detected (NOT DETECT)
--- NOTE | 2023-02-17 20:07 | PC.NURSE ---
-Transfer Report called to stick welder. Pt transferred via wheelchair with belongings to room 276-1
[2023-02-17] MEDS: pantoprazole 40 mg SDV IVP (20:44)
[2023-02-17] MEDS: desvenlafaxine 50 mg Tablet PO (20:44)
[2023-02-18] VITALS (11 sets, daily range): BP systolic 126–184; BP diastolic 85–102; PULSE 99–123; RESP 16–21; TEMP 36.8–36.9; O2SAT 94–97
[2023-02-18 04:56] LABS: Basophils % 0.2 %; Eosinophils % 0.2 %; Hematocrit 34.3 % (37.0-47.0); Hemoglobin 10.6 g/dL (11.5-15.3); Lymphocytes # 0.4 10^3/uL (0.8-4.8); Lymphocytes % 8.4 %; Mean Corpuscular HGB Conc 30.9 g/dL (30.0-36.0); Mean Corpuscular Volume 87.3 fl (81-99); Mean Platelet Volume 10.7 fL (7.4-10.4); Monocytes # 0.2 10^3/uL (0.2-0.9); Monocytes % 5.3 %; Neutrophils # 3.88 10^3/uL (1.8-7.7); Neutrophils % 85.5 %; Nucleated Red Blood Cells % 0 %; Platelet Count 109 10^3/cmm (130-400); Red Blood Count 3.93 10^6/uL (4.1-5.3); Red Cell Distribution Width 18.7 % (12.1-15.1); White Blood Count 4.5 10^3/uL (4.0-10.0)
[2023-02-18 05:20] LABS: Alanine Aminotransferase 23 U/L (0-33); Albumin Level 3.1 g/dL (3.5-5.2); Alkaline Phosphatase 501 U/L (35-105); Aspartate Amino Transferase 14 U/L (0-32); Blood Urea Nitrogen 40 mg/dL (8-23); Carbon Dioxide 16 mmol/L (22-29); Chloride 104 mmol/L (98-107); Globulin 3.3 g/dL (1.3-4.6); Glucose 82 mg/dL (65-115); Osmolality Calculated 287 mOsm/kg (285-295); Sodium 134 mmol/L (136-145); Total Bilirubin 0.4 mg/dL (0.15-1.2); Total Protein 6.4 g/dL (6.6-8.7)
[2023-02-18] MEDS: budesonide 0.5 mg/2 mL Neb INHALATION ×2 (08:06→20:48)
[2023-02-18] MEDS: ipratropium-albuterol 3 mL Neb INHALATION ×3 (08:06→20:48)
[2023-02-18] MEDS: ondansetron 2 mg/ML SDV 2 mL 4 MG IVP ×2 (08:51→16:38)
[2023-02-18] MEDS: cefepime 1,000 MG in sodium chloride 0.9% (plus) 50 ML 100 MG IV (08:52)
[2023-02-18] MEDS: clopidogrel 75 mg Tablet PO (08:52)
[2023-02-18] MEDS: docusate sodium 100 mg Capsule PO ×2 (08:52→16:38)
[2023-02-18] MEDS: dilTIAZem ER (24HR) 120 mg Capsule PO (08:52)
[2023-02-18] MEDS: aspirin 81 mg EC Tablet PO (08:52)
[2023-02-18] MEDS: pantoprazole 40 mg SDV IVP ×2 (08:52→20:18)
[2023-02-18] MEDS: ferrous gluconate 324 mg Tablet PO (08:52)
[2023-02-18] MEDS: hyDRALAzine 50 mg Tablet PO ×3 (08:52→20:18)
[2023-02-18] MEDS: sodium chloride 0.9% 1,000 ML 30 ML IV (10:46)
[2023-02-18] MEDS: scopolamine 1.5 Patch 1 PATCH TRANSDERMA (11:59)
[2023-02-18] MEDS: remdesivir 200 MG in sodium chloride 0.9% (100 ml) 60 ML 100 MG IV (12:15)
--- NOTE | 2023-02-18 16:16 | PM.PN ---
Subjective Subjective: Hemoglobin is stable at 10.6 today. Pancytopenia is improving. Patient is no longer febrile. She still has significant nausea and vomiting. EGD yesterday noted retention of pills leading to suspect that patient may have gastroparesis, Reglan was added presumptively. In the interim patient has tested positive for COVID on PCR testing. Isolation precautions have been initiated. Medications: Reviewed: Yes Vitals/I&O/Wt Last Vital Signs Temp 98.2 F 02/18/23 15:30 Pulse 123 H 02/18/23 15:30 Resp 20 H 02/18/23 15:30 BP 176/96 02/18/23 15:30 Pulse Ox 96 02/18/23 15:30 O2 Del Method Nasal Cannula 02/18/23 15:30 O2 Flow Rate 3 02/18/23 15:09 02/18/23 02/18/23 02/18/23 06:59 14:59 22:59 Intake Total 290 / 290 100 / 390 Output Total 425 / 1325 700 / 700 Balance -425 / -1025 290 / 290 -600 / -310 Weight last 48 hrs Weight 53.07 kg Physical Exam Narrative: General: No acute distress, AO x3, vomiting HEENT: PERRLA, pupils bilaterally equal and reactive, pallors not present Chest: Normal vesicular breath sounds, no added sounds, equal good air entry bilaterally CVS: S1-S2 regular, no murmurs, no tachycardia, no gallops, no rubs Abdomen: Soft, nontender, no organomegaly, bowel sounds present Neuro: No focal deficits, no facial deformity, AO x3, power 5/5 in all limbs Urinary Catheter Management: Felix: Cath Placed During This Visit: yes Reason for Continuing Indwelling Catheter: Acute Urinary Retention or Obstruction Urinary Catheter Date of Insertion: 02/15/23 Urinary Catheter Time of Insertion: 11:35 Data 02/18/23 04:42 02/18/23 04:42 A&P Assessment and plan (1) HABP (hospital-acquired bacterial pneumonia): (2) Anemia of chronic disease: (3) Anemia: (4) GI bleed: Plan Eli Kimball is a 72 year old female with a past medical history significant for descending thoracic aortic aneurysm s/p TEVAR in September 2022, COPD, currently continues to actively heavily smoke.,? CKD, chronic anemia, status post recent drug-eluting stent to RCA in January 2023 currently admitted to the hospital since February 14, 2023 after presenting with fever and dyspnea. Currently active issues include: #Right lower lobe pneumonia, possibly healthcare associated. Chest x-ray with possible right-sided infiltrate. She has been on treatment with cefepime and vancomycin---> narrowed to cefepime on 02/16. Sputum culture shows some GPC's in pairs. Identified now as normal luis a. MRSA PCR negative. Urine Legionella and bacterial antigens negative. d/c cefepime as completed 5 days . In the interim patient has also tested positive for COVID, which would explain her pancytopenia, mildly deranged LFTs and the pneumonia. Start remdesivir 200 mg IV x1 followed by 100 mg daily. Hold off on steroids as patient is currently saturating well on her regular 3 L/min supplemental O2. Wheezing and Rales are much improved compared to prior exam. # recently underwent cardiac cath with PCI with MARCO to RCA in january 2023 for unstable angina and abnormal stress test. Currently on DAPT with ASA/ Plavix She has acute on chronic anemia for which she has been receiving multiple PRBC transfusions recently. Due to concern for anuerysmal bleed on DAPT, underwent CTA abd/pelvis on 02/15 which showed stable post op status of multiple aneurysms without any overt bleeding. Has a past h/o gastric AVMs. Underwent EGD which showed evidence of gastritis. no gross bleeding encountered. Referral to heme/onc at discharge if compatible with overall goals of care Iron supplementation to continue # Gastritis: protonix 40 mg BID # Acute on chronic anemia s/p PRBC transfusion as above EGD rules out active bleeding Colonoscopy 2020- WNL # Transaminitis, elevated ALP Ct abdomen without IHBD, s/p colecystectomy , no biliary obstruction identified Patient denies abdominal pain check hepatitis panel - hep C screen +, pending PCR, outpatient follow-up if patient desires. check tick panel # COPD continue scheduled duonebs and budesondie breathing better today # CHF, acute on chronic , diatsolic echo from 01/2023 with gr1 diastolic dysfunction likely precipiated by IVF and transfusions Now euvolemic. # ALIYAH: suspect YRIS from recent contrast for CTA avoid nephrotoxic meds , Creatinine now improving # pancytopenia Likely related to COVID Code status: DNR/ DNI DVT ppx: SCDs only gievn anemia and already on DAPT Patient and family have expressed a desire to transition to hospice care as patient does not wish to pursue further diagnostics. She has had recurrent hospital admissions recently for CHF, pneumonia, NSTEMI, recurrent transfusions for anemia. She has longstanding COPD for which she is currently on supplemental oxygen continues to smoke. Her goals of care at this point are to remain in her home as much as possible and have symptomatic management only from here on. Hospice referral has been generated. Attestations Medical Necessity Statement*: remdisivir today, [facility] discussion, hospice referral Coding Level of Care Code Acute Code for Chg Fwd Moderate MDM includes number and complexity of problems actively addressed during encounter, amount and/or complexity of data reviewed/ordered and described risk of complication, morbidity or mortality of management as documented Diagnoses HABP (hospital-acquired bacterial pneumonia) J15.9 Anemia of chronic disease D63.8 Anemia D64.9 GI bleed K92.2
[2023-02-18] MEDS: metoclopramide 5 mg/mL SDV 2 mL IVP (19:52)
[2023-02-18] MEDS: ALPRAZolam 0.5 mg Tablet PO (20:18)
[2023-02-18] MEDS: desvenlafaxine 50 mg Tablet PO (20:19)
[2023-02-19] VITALS (7 sets, daily range): BP systolic 127–156; BP diastolic 73–98; PULSE 104–115; RESP 16–20; TEMP 36.4–36.8; O2SAT 92–98
[2023-02-19] MEDS: HYDROcodone-acetaminophen 5-325 mg Tablet 1 TAB PO (01:58)
[2023-02-19] MEDS: HYDROmorphone 1 mg/mL INJ 1 mL 0.5 MG IVP (03:08)
[2023-02-19] MEDS: metoclopramide 5 mg/mL SDV 2 mL IVP (03:09)
[2023-02-19] MEDS: ipratropium-albuterol 3 mL Neb INHALATION ×2 (08:50→11:28)
[2023-02-19] MEDS: budesonide 0.5 mg/2 mL Neb INHALATION (08:50)
[2023-02-19] MEDS: docusate sodium 100 mg Capsule PO (09:28)
[2023-02-19] MEDS: clopidogrel 75 mg Tablet PO (09:28)
[2023-02-19] MEDS: hyDRALAzine 50 mg Tablet PO (09:28)
[2023-02-19] MEDS: pantoprazole 40 mg SDV IVP (09:28)
[2023-02-19] MEDS: ferrous gluconate 324 mg Tablet PO (09:28)
[2023-02-19] MEDS: aspirin 81 mg EC Tablet PO (09:28)
[2023-02-19] MEDS: dilTIAZem ER (24HR) 120 mg Capsule PO (09:28)
[2023-02-19 12:44] LABS: HEP C RNA Viral Load Quant <1.18 NOT DETECTED Log IU/mL (NOT DETECTED); HEP C RNA Viral Load Quant <15 NOT DETECTED IU/mL (NOT DETECTED)
--- NOTE | 2023-02-19 13:47 | P.DS_ITS ---
Discharge Providers Date of Admission: 02/14/23 21:43 Date of Discharge: February 19, 2023 Attending Provider at Admission: Maude Reed MD Attending Provider at Discharge: Tracy Wilson MD Primary Care Provider: Bhupinder Logan MD Diagnoses at Discharge Discharge Diagnosis (1) HABP (hospital-acquired bacterial pneumonia): Status: Acute (2) Anemia of chronic disease: Status: Acute (3) Anemia: Status: Acute (4) GI bleed: Status: Acute Reason for Visit Reason for Visit: SOB Hospital Course Hospital Course Eli Kimball is a 72 year old female with a past medical history significant for descending thoracic aortic aneurysm s/p TEVAR in September 2022,? COPD, currently continues to actively heavily smoke.,? CKD, chronic anemia, status post recent drug-eluting stent to RCA in January 2023 currently admitted to the hospital since February 14, 2023 after presenting with fever and dyspnea.? She has had recurrent recent admissions to [facility]. Currently active issues include: #Right lower lobe pneumonia, possibly healthcare associated. Chest x-ray with possible right-sided infiltrate. She has been on treatment with cefepime and vancomycin---> narrowed to cefepime on 02/16 and completed total 5 days of treatment Sputum culture shows some GPC's in pairs. Identified now as normal luis a. ? MRSA PCR negative.? Urine Legionella and bacterial antigens negative. In the interim patient has also tested positive for COVID on 02/17, which would explain her pancytopenia, mildly deranged LFTs and the pneumonia.?Received remdesivir 200 mg IV x1 followed by 100 mg daily for total 2 days. Paxlovid not prescribed at discharge due to interactions with Plavix, clinical stability of respiratory status and overall GOC. Held off on steroids as patient is currently saturating well on her regular 3 L/min supplemental O2.? # recently underwent cardiac cath with PCI with MARCO to RCA in january 2023 for unstable angina and abnormal stress test. Currently on DAPT with ASA/ Plavix She has acute on chronic anemia for which she has been receiving multiple PRBC transfusions recently. Due to concern for anuerysmal bleed on DAPT, underwent CTA abd/pelvis? on 02/15 which showed stable post op status of multiple aneurysms without any overt bleeding. Has a past h/o gastric AVMs. Underwent EGD on 02/17 which showed evidence of gastritis. no gross bleeding encountered. Referral to heme/onc deferred as patient transitioned to hospice care. Iron supplementation to continue # Gastritis: protonix 40 mg BID # Acute on chronic anemia s/p PRBC transfusion as above EGD rules out active bleeding Colonoscopy 2020- WNL # Transaminitis, elevated ALP Ct abdomen without IHBD, s/p colecystectomy , no biliary obstruction identified Patient denies abdominal pain check hepatitis panel - hep C screen +,? pending PCR, outpatient follow-up if patient desires. # COPD received scheduled duonebs and budesondie # CHF, acute on chronic , diatsolic echo from 01/2023 with gr1 diastolic dysfunction likely precipiated by IVF and transfusions Now euvolemic. # ALIYAH: suspect YRIS from recent contrast for CTA Creatinine now improving, at recent baseline # pancytopenia Likely related to COVID, resolving Patient and family expressed a desire to transition to hospice care as patient does not wish to pursue further diagnostics.? She has had recurrent hospital admissions recently for CHF, pneumonia, NSTEMI, recurrent transfusions for anemia.? She has longstanding COPD for which she is currently on supplemental oxygen continues to smoke.? Her goals of care at this point are to remain in her home as much as possible and have symptomatic management only from here on.? Patient transitioned to home hospice in accordance with these wishes. Physical Exam Narrative: General: No acute distress, AO x3 HEENT: PERRLA, pupils bilaterally equal and reactive, pallors not present Chest: Normal vesicular breath sounds, no added sounds, equal good air entry bilaterally CVS: S1-S2 regular, no murmurs, no tachycardia, no gallops, no rubs Abdomen: Soft, nontender, no organomegaly, bowel sounds present Neuro: No focal deficits, no facial deformity, AO x3, power 5/5 in all limbs . Urinary Catheter Management: Felix: Cath Placed During This Visit: yes Reason for Continuing Indwelling Catheter: Other Urinary Catheter Date of Insertion: 02/15/23 Urinary Catheter Time of Insertion: 11:35 Discharge Data Studies Completed and Pending Completed Studies During Hospitalization Category Date Time Status CT abdomen pelvis w con* [id number] Stat Cat Scan 02/15/23 07:[address] abdomen wo con [id number] Stat Cat Scan 02/15/23 05:05 Completed XR chest 1V portable [id number] Stat Exams 02/14/23 19:39 Completed Pending at discharge Category Date Time Status Blood Culture Stat Lab 02/14/23 20:09 Results Irradiated Red Blood Cells Stat Lab 02/15/23 07:33 Results Leukocyte Reduced RBC Stat Lab 02/15/23 07:33 Results Occult Blood Stool [Immunochemical Fecal OCB] Routine Lab 02/15/23 09:33 Uncollected Tick Panel Routine Lab 02/17/23 09:43 Received Type and Screen Stat Lab 02/15/23 07:33 Results Urinalysis Routine Lab 02/16/23 09:51 Uncollected Radiology Impressions Chest X-Ray 02/14/23 19:39 IMPRESSION: 1. Right hilar to lower lobe atelectasis versus minimal infiltrate. 2. Cardiomegaly. 3. Thoracic aortic stent graft. Abdomen CT 02/15/23 05:05 IMPRESSION: New stranding changes in periaortic fat surrounding the abdominal aortic aneurysm suspicious for aortic leak/impending rupture. Contrast-enhanced CTA evaluation recommended and vascular surgical consultation. COMMENTS: Consistent with the [employer]'s Incidental Findings Committee white paper (J Am Kuldeep Radiol 2018): Any incidental renal lesion less than 1 cm or classified as too small to characterize, or any incidental cystic renal lesion characterized as simple-appearing, is likely benign. No follow-up imaging is recommended for these lesions per consensus recommendations based on imaging criteria. ADDENDUM: 02/15/23 0642 THIS REPORT CONTAINS FINDINGS THAT MAY BE CRITICAL TO PATIENT CARE. The findings were verbally communicated via telephone conference with Maude Reed at 6:41 AM CDT on 02/15/2023. The findings were acknowledged and understood. Abdomen/Pelvis CT 02/15/23 07:24 IMPRESSION: 1. Thoracic aortic aneurysm status post stent graft, stable yocha dehe aneurysmal lumen size as visualized. 2. Suprarenal, renal level and infrarenal abdominal aortic aneurysm, slight interval increase in maximal caliber as described. 3. Severe bilateral renal artery origin stenoses, stable. 4. Prior cholecystectomy. 5. Moderate proximal left common iliac artery stenosis, relatively stable. 6. Prior hysterectomy. 7. Diverticulosis. 8. Splenic benign cyst, stable. 9. Bilateral renal benign cysts. No follow-up imaging is recommended. 10. Small pericardial effusion, mildly increased. 11. Right lower lobe pulmonary partial atelectasis, stable. COMMENTS: Consistent with the [employer]'s Incidental Findings Committee white paper (J Am Kuldeep Radiol 2018): Any incidental renal lesion less than 1 cm or classified as too small to characterize, or any incidental cystic renal lesion characterized as simple-appearing, is likely benign. No follow-up imaging is recommended for these lesions per consensus recommendations based on imaging criteria. Laboratory Results WBC 4.5 10^3/uL (4.0-10.0) 02/18/23 04:42 RBC 3.93 10^6/uL (4.1-5.3) L 02/18/23 04:42 Hgb 10.6 g/dL (11.5-15.3) L 02/18/23 04:42 Hct 34.3 % (37.0-47.0) L 02/18/23 04:42 MCV 87.3 fl (81-99) 02/18/23 04:42 MCH 27.0 pg (28.0-34.0) L 02/18/23 04:42 MCHC 30.9 g/dL (30.0-36.0) 02/18/23 04:42 RDW 18.7 % (12.1-15.1) H 02/18/23 04:42 Plt Count 109 10^3/cmm (130-400) L 02/18/23 04:42 MPV 10.7 fL (7.4-10.4) H 02/18/23 04:42 Neut % (Auto) 85.5 % 02/18/23 04:42 Lymph % (Auto) 8.4 % 02/18/23 04:42 [place] % (Auto) 5.3 % 02/18/23 04:42 Eos % (Auto) 0.2 % 02/18/23 04:42 Baso % (Auto) 0.2 % 02/18/23 04:42 Neut # (Auto) 3.88 10^3/uL (1.8-7.7) 02/18/23 04:42 Lymph # (Auto) 0.4 10^3/uL (0.8-4.8) L 02/18/23 04:42 [place] # (Auto) 0.2 10^3/uL (0.2-0.9) 02/18/23 04:42 Eos # (Auto) 0.0 10^3/uL (0.0-0.8) 02/18/23 04:42 Baso # (Auto) 0.0 10^3/uL (0.0-0.1) 02/18/23 04:42 Nucleated RBC % (auto) 0 % 02/18/23 04:42 Nucleated RBCs # 0.0 /100WBC 02/18/23 04:42 Haptoglobin 310.0 mg/L (30-200) H 02/17/23 02:50 Sodium 134 mmol/L (136-145) L 02/18/23 04:42 Potassium 4.0 mmol/L (3.5-5.1) 02/18/23 04:42 Chloride 104 mmol/L (98-107) 02/18/23 04:42 Carbon Dioxide 16 mmol/L (22-29) L 02/18/23 04:42 Anion Gap 18.0 (5-19) 02/18/23 04:42 BUN 40 mg/dL (8-23) H 02/18/23 04:42 Creatinine 1.8 mg/dL (0.5-0.9) H 02/18/23 04:42 GFR Calculation Not Reportable 02/18/23 04:42 Glucose 82 mg/dL (65-115) 02/18/23 04:42 POC Glucose 109 mg/dL (70-110) 02/16/23 07:06 Calculated Osmolality 287 mOsm/kg (285-295) 02/18/23 04:42 Lactic Acid 0.6 mmol/L (0.5-2.2) 02/14/23 22:15 Calcium 9.0 mg/dL (8.5-10.5) 02/18/23 04:42 Magnesium 1.9 mg/dL (1.7-2.3) 02/15/23 02:14 Total Bilirubin 0.4 mg/dL (0.15-1.2) 02/18/23 04:42 AST 14 U/L (0-32) 02/18/23 04:42 ALT 23 U/L (0-33) 02/18/23 04:42 Alkaline Phosphatase 501 U/L (35-105) H 02/18/23 04:42 Lactate Dehydrogenase 203 U/L (135-214) 02/17/23 02:50 Troponin T Baseline 39 ng/L (0-10) H 02/14/23 19:41 Troponin T 120 Minute 37.22 ng/L (0-10) H 02/14/23 21:36 Delta Troponin T -1.78 ABS# (0-10) L 02/14/23 21:36 Troponin T Hi Sens 6Hr 34.05 ng/L (0-10) H 02/15/23 02:14 Troponin T Hi Sens 6Hr Delta -4.95 ng/L (0-12) L 02/15/23 02:14 NT-Pro-B Natriuret Pep 99978 pg/mL (0-125) H 02/17/23 02:50 Total Protein 6.4 g/dL (6.6-8.7) L 02/18/23 04:42 Albumin 3.1 g/dL (3.5-5.2) L 02/18/23 04:42 Globulin 3.3 g/dL (1.3-4.6) 02/18/23 04:42 Procalcitonin 0.16 ng/mL (0-0.5) 02/14/23 22:15 Urine Color Yellow (Yellow) 02/14/23 21:35 Urine Appearance Cloudy (CLEAR) A 02/14/23 21:35 Urine pH 5 (5-7) 02/14/23 21:35 Ur Specific [place] 1.015 (1.005-1.030) 02/14/23 21:35 Urine Protein 2+ (Negative) H 02/14/23 21:35 Urine Glucose (UA) Norm (Normal) 02/14/23 21:35 Urine Ketones Negative (Negative) 02/14/23 21:35 Urine Blood 2+ (Negative) H 02/14/23 21:35 Urine Nitrate Negative (Negative) 02/14/23 21:35 Urine Bilirubin Neg (Negative) 02/14/23 21:35 Urine Urobilinogen Norm mg/dL (Negative) 02/14/23 21:35 Ur Leukocyte Esterase Trace (Negative) H 02/14/23 21:35 Urine RBC 10-15 /hpf (0-2) H 02/14/23 21:35 Urine WBC 10-15 /hpf (0-5) H 02/14/23 21:35 Ur Squamous Epith Cells 40-55 /hpf (0-5) H 02/14/23 21:35 Amorphous Sediment Not Reportable 02/14/23 21:35 Urine Bacteria 2+ /hpf (NONE) H 02/14/23 21:35 Nasal Influ A H1 2009 PCR Not detected (NOT DETECT) 02/17/23 17:45 Adenovirus (PCR) Not detected (NOT DETECT) 02/17/23 17:45 C. pneumoniae DNA (PCR) Not detected (NOT DETECT) 02/17/23 17:45 Coronavirus 229E (PCR) Not detected (NOT DETECT) 02/17/23 17:45 Hepatitis A IgM Ab Non-reactive (Nonreactive) 02/17/23 02:50 Hep Bs Antigen Non-reactive (Nonreactive) 02/17/23 02:50 Hep Bs Antibody 3.5 (11.5-1000) L 02/17/23 02:50 Hep B Core Total Ab Non-reactive (Nonreactive) 02/17/23 02:50 Hepatitis C Antibody Reactive (Nonreactive) H 02/17/23 02:50 HCV RNA (PCR) IUs/ml <1.18 not detected Log IU/mL (NOT DETECTED) 02/17/23 05:09 HCV RNA (PCR) IU log10 <15 not detected IU/mL (NOT DETECTED) 02/17/23 05:09 Human Metapneumovir PCR Not detected (NOT DETECT) 02/17/23 17:45 Influenza A (H1) PCR Not detected (NOT DETECT) 02/17/23 17:45 Influenza A (H3) PCR Not detected (NOT DETECT) 02/17/23 17:45 Influenza Type A Ag negative (Negative) 02/14/23 19:50 Influenza Type A (PCR) Not detected (NOT DETECT) 02/17/23 17:45 Influenza Type B Ag negative (Negative) 02/14/23 19:50 Influenza Type B (PCR) Not detected (NOT DETECT) 02/17/23 17:45 M. pneumoniae (PCR) Not detected (NOT DETECT) 02/17/23 17:45 Parainfluenza 1 (PCR) Not detected (NOT DETECT) 02/17/23 17:45 Parainfluenza 2 (PCR) Not detected (NOT DETECT) 02/17/23 17:45 Parainfluenza 3 (PCR) Not detected (NOT DETECT) 02/17/23 17:45 Parainfluenza 4 (PCR) Not detected (NOT DETECT) 02/17/23 17:45 RSV Type A (PCR) Not detected (NOT DETECT) 02/17/23 17:45 RSV Type B (PCR) Not detected (NOT DETECT) 02/17/23 17:45 Entero/Rhino (PCR) Not detected (NOT DETECT) 02/17/23 17:45 SARS-CoV-2 (PCR) Detected (NOT DETECT) A 02/17/23 17:45 SARS-CoV-2 Ag (Rapid) negative (Negative) 02/14/23 19:50 Blood Type A Positive 02/15/23 07:33 Rho(D) Type Positive 02/15/23 07:33 Antibody Screen Negative 02/15/23 07:33 Crossmatch See Detail 02/15/23 07:33 Vitals Last Vital Signs Temp 98.3 F 02/19/23 12:00 Pulse 115 H 02/19/23 12:00 Resp 16 02/19/23 12:00 BP 127/73 02/19/23 12:00 Pulse Ox 95 02/19/23 12:00 O2 Del Method Nasal Cannula 02/19/23 12:00 O2 Flow Rate 3.5 02/19/23 11:29 Discharge Plan Discharge Patient Disposition: Hospice - Home Condition: Stable Prescriptions: New metoclopramide HCl [Reglan] 5 mg tablet 5 mg PO BID 15 Days Qty: 30 0RF ondansetron HCl 4 mg tablet 4 mg PO TID PRN (Reason: nausea and vomiting) 7 Days Qty: 21 0RF scopolamine base [Transderm-Scop] 1 mg over 3 days Patch 3 Day 1 patch transdermal Q3D 15 Days Qty: 5 0RF Continued (DME) [place] [facility] [place] Instructions .Route Qty: 1 0RF Rx Instructions: 1 nebulizer and all required supplies As directed (DME) oxygen-air delivery systems Device See Rx Instructions .ROUTE Rx Instructions: As directed ipratropium-albuterol 0.5 mg-3 mg(2.5 mg base)/3 mL solution for nebulization 3 ml inhalation Q4H PRN (Reason: wheezing) Qty: 90 0RF morphine concentrate 100 mg/5 mL (20 mg/mL) solution 20 mg sublingual DIRECTED PRN (Reason: Pain/SOB) 14 Days Qty: 30 0RF Rx Instructions: 0.25ml-1ml q1H PRN may increase to 0.5ml-1ml Q1H PRN bisacodyl 10 mg suppository 10 mg AR DAILY PRN (Reason: constipation) Qty: 5 0RF Rx Instructions: 1 suppository per rectum every day PRN for constipation. atropine 1 % drops 4 drp sublingual Q4H PRN (Reason: secretions) Qty: 5 0RF Rx Instructions: 4 drops SL q 4 hours PRN for terminal congestion/excessive secretions. ondansetron 4 mg tablet,disintegrating 4 mg translingual Q4H PRN (Reason: nausea) Qty: 5 0RF Rx Instructions: Dissolve 1 tablet under tongue every 4 hours PRN for nausea lorazepam 2 mg/mL concentrate 2 mg sublingual Q4H PRN (Reason: Anxiety/Seizure) Qty: 30 0RF Rx Instructions: 0.25ml-1ml q4H PRN Anxiety/Seizure Start 0.25ml may increase to 0.5ml-1ml q4H gabapentin 600 mg tablet 600 mg PO TID albuterol sulfate [Ventolin HFA] 90 mcg/actuation HFA aerosol inhaler 1 - 2 inh INHALATION Q4H PRN (Reason: Shortness Of Breath) Belsomra 20 mg Tablet 20 mg PO BEDTIME ondansetron 4 mg tablet,disintegrating 4 mg PO Q6H PRN (Reason: nausea and vomiting) Qty: 14 0RF ferrous gluconate 324 mg (37.5 mg iron) Tablet 324 mg PO QAM ergocalciferol (vitamin D2) 1,250 mcg (50,000 unit) Capsule 1,250 mcg PO Q7D diltiazem HCl [Cardizem LA] 120 mg tablet extended release 24 hr 120 mg PO DAILY Qty: 60 3RF hydralazine 10 mg Tablet 25 mg PO TID 30 Days Qty: 120 3RF Trelegy Ellipta 200-62.5-25 mcg blister with device 1 inh inhalation DAILY 30 Days Qty: 60 3RF prednisone 10 mg tablet See Rx Instructions .ROUTE .COMPLEX Rx Instructions: TAKE THREE TABLETS BY MOUTH DAILY FOR 2 DAYS, 2 tablets DAILY FOR 3 DAYS, THEN 1 daily FOR 3 DAYS THEN STOP clopidogrel 75 mg tablet 75 mg PO QAM Aspir-81 81 mg Tablet,Delayed Release (Dr/Ec) 81 mg PO QAM prednisolone acetate 1 % drops,suspension 1 drp ophthalmic (eye) BID Benadryl 25 mg Capsule 75 - 100 mg PO BEDTIME PRN (Reason: Sleep) Discharge Orders: Discharge Order (Routine); Ordered 02/19/23 Ordered By: Tracy Wilson Referrals: Bhupinder Logan MD [Primary Care Provider] - Discharge Diet: Usual diet Discharge Activity: Resume usual activity Patient Instructions: GI Discharge Instructions, Opioid Safety Discharge Attestations Time Spent in Discharge Care*: greater than 30 min Quality Metrics Clinical Quality Measures [ No reported AMI, CVA or VTE this stay] Coding Level of Care Code Acute Code for Chg Fwd Diagnoses HABP (hospital-acquired bacterial pneumonia) J15.9 Anemia of chronic disease D63.8 Anemia D64.9 GI bleed K92.2
[2023-02-20 15:48] LABS: Lyme AB Screen <0.90 index
[2023-02-24 17:10] LABS: E. Chaffeensis AB IGG <1:64; E. Chaffeensis AB IGM <1:20
[2023-02-26 17:34] LABS: RMSF IGG NOT DETECTED; RMSF IGM NOT DETECTED
== END 2023-02-19 18:22 | disposition hospice, home (50) | DRG 193 ==
LOC: ER 21:26 → MEDSURG 21:43 → ICU 02-15 11:45 → MEDSURG 02-17 19:49
PROVIDERS: Family Medicine; Surgery; Admitting Provider Internal Medicine; Emergency Provider Emergency Medicine; PCP Family Medicine; Visit Provider Student in an Organized Health Care Education/Training Program
PROC: 0DJ08ZZ Inspection of Upper Intestinal Tract, Via Natural or Artificial Opening Endoscopic (ICD-10-PCS; CPT 43235; principal; 2023-02-17 10:00)
DX: J15.9 Unspecified bacterial pneumonia (principal); I50.33 Acute on chronic diastolic (congestive) heart failure; U07.1 COVID-19; I13.0 Hypertensive heart and chronic kidney disease with heart failure and stage 1 through stage 4 chronic kidney disease, or unspecified chronic kidney disease; D61.818 Other pancytopenia; N17.9 Acute kidney failure, unspecified; K92.2 Gastrointestinal hemorrhage, unspecified; J44.0 Chronic obstructive pulmonary disease with (acute) lower respiratory infection; F17.210 Nicotine dependence, cigarettes, uncomplicated; Z99.81 Dependence on supplemental oxygen; Y95 Nosocomial condition; Z66 Do not resuscitate; I25.10 Atherosclerotic heart disease of native coronary artery without angina pectoris; Z95.5 Presence of coronary angioplasty implant and graft; N18.9 Chronic kidney disease, unspecified; I25.2 Old myocardial infarction; Z79.02 Long term (current) use of antithrombotics/antiplatelets; Z79.82 Long term (current) use of aspirin; R74.01 Elevation of levels of liver transaminase levels; R00.0 Tachycardia, unspecified; D63.8 Anemia in other chronic diseases classified elsewhere; D50.9 Iron deficiency anemia, unspecified; I71.40 Abdominal aortic aneurysm, without rupture, unspecified; D69.6 Thrombocytopenia, unspecified; K29.00 Acute gastritis without bleeding
CPT/HCPCS: 36415; 36416; 36430; 51702; 71045; 74150; 74177; 80048; 80053; 81001; 82962; 83010; 83605; 83615; 83735; 83880; 84145; 84484; 85014; 85018; 85025; 86403; 86618; 86666; 86705; 86706; 86709; 86757; 86803; 86850; 86900; 86920; 87040; 87070; 87205; 87340; 87426; 87449; 87486; 87522; 87581; 87633; 87641; 87804; 92523; 92526; 92610; 93005; 94640; 96365; 96367; 96372; 96376; 99291; C9113; J0131; J0248; J0360; J0692; J1100; J1170; J1200; J1644; J1885; J1940; J2270; J2405; J2543; J2704; J2765; J3370; J7030; J7050; J7626; P9016; P9040; Q9967